=== PATIENT | male | born 1930 | race Caucasian/White ===

== ENCOUNTER 2016-09-03 23:34 | Emergency (ER) | payer OTHER ==
[~2016-09-03] VITALS: Ht 167.6 cm; Wt 107.0 kg
[~2016-09-03 23:34] MED LIST: ALL100 PO; ASPEC81 PO; CALC0.2510 PO; CEPH500C2 PO; CMD4 PO; FLM4 PO; FRS/40 PO; FURO-85 PO; LEVAAER2; LISI-729 PO; POTA-327 PO; SIMV40TA2 PO
[2016-09-03 23:40] VITALS: TEMP 36.6; Ht 167.6 cm; Wt 107.0 kg
--- NOTE | 2016-09-03 23:58 | EMERGENCY ROOM VISIT NOTE ---
History Report prepared by Noemi: Aman Pantoja Under the Supervision of: Dr. Kaylene Parr M.D. First contact with patient: 23:45 Chief Complaint: HEMATURIA Stated Complaint: Hematuria Nursing Triage Summary: Pt presents als for evaluation of hematuria x 1 day. C/o pain with urination. Hx of afib on coumadin. History of Present Illness The patient is an 86 year old male who presents to the Emergency Room with complaints of persistent hematuria since yesterday. The patient has been urinating bright-red blood. The patient also complains of pain with urination. He has experienced hematuria in the past but never to this degree. He has followed up with Urology before. He is on Coumadin for a history of atrial fibrillation. Source of History: patient Onset: yesterday Position: other (urinary system) Quality: other (hematuria) Timing: other (persistent) Associated Symptoms: + urinary symptoms (Dysuria) Review of Systems See HPI for pertinent positives & negatives. A total of 10 systems reviewed and were otherwise negative. Past Medical & Surgical Medical Problems: (1) Arthritis of ankle, right (2) Atrial fibrillation Family History Noncontributory due to advanced age Social History Smoking Status: Never Smoker Alcohol Use: none Marital Status: Housing Status: lives with significant other Occupation Status: retired Current/Historical Medications Scheduled Allopurinol (Zyloprim *), 100 MG PO DAILY Aspirin Enteric Coated (Ecotrin Or Generic *), 81 MG PO DAILY Calcitriol (Rocaltrol Cap), 0.25 MCG PO DAILY Cephalexin Monohydrate (Keflex), 500 MG PO QID Cephalexin Monohydrate (Keflex), 500 MG PO QID Furosemide (Lasix), 80 MG PO DAILY Furosemide (Lasix), 20 MG PO Q2D Latanoprost (Xalatan 0.005% Oph [place]), 1 DROP OPL DAILY Levalbuterol (Xopenex Hfa), 1 PUFF Q4 Lisinopril (Prinivil), 5 MG PO DAILY Potassium Ext Rel (Klor-Con), 10 MEQ PO DAILY Simvastatin (Zocor), 40 MG PO QPM Tamsulosin Hcl (Flomax *), 0.4 MG PO QAM Warfarin Sod (Coumadin *), 4 MG PO DAILY Allergies Coded Allergies: No Known Allergies (Verified , 12/27/11) Physical Exam Vital Signs Date Time Temp Pulse Resp B/P Pulse Ox O2 Delivery O2 Flow Rate FiO2 09/03/16 23:40 36.6 80 18 183/100 99 Room Air Physical Exam CONSTITUTIONAL: No distress. HEENT: No icterus, moist mucous membranes NECK: No meningismus, trachea is midline. CARDIOVASCULAR: Regular rate, normal perfusion RESPIRATORY: Unlabored breathing. Clear to auscultation. GASTROINTESTINAL: Non-tender GENITOURINARY: No flank tenderness. No suprapubic tenderness. Gross hematuria. MUSCULOSKELETAL: Full range of motion NEUROLOGIC: No acute gross focal deficits. PSYCHIATRIC: Normal affect SKIN: Normal for ethnicity. Medical Decision & Procedures Laboratory Results 09/03/16 23:17 Red Blood Count 4.01, Mean Corpuscular Volume 93.3, Mean Corpuscular Hemoglobin 32.2, Mean Corpuscular Hemoglobin Concent 34.5, Mean Platelet Volume 10.7, Neutrophils (%) (Auto) 52.1, Lymphocytes (%) (Auto) 32.1, Monocytes (%) (Auto) 12.8, Eosinophils (%) (Auto) 2.5, Basophils (%) (Auto) 0.2, Neutrophils # (Auto ) 5.41, Lymphocytes # (Auto) 3.33, Monocytes # (Auto) 1.33, Eosinophils # (Auto ) 0.26, Basophils # (Auto) 0.02 09/03/16 23:17 Test 09/03/16 23:17 09/03/16 23:58 09/04/16 00:05 White Blood Count 10.38 K/uL (4.8-10.8) Red Blood Count 4.01 M/uL (4.7-6.1) Hemoglobin 12.9 g/dL (14.0-18.0) Hematocrit 37.4 % (42-52) Mean Corpuscular Volume 93.3 fL (80-100) Mean Corpuscular Hemoglobin 32.2 pg (25-34) Mean Corpuscular Hemoglobin Concent 34.5 g/dl (32-36) Platelet Count 283 K/uL (130-400) Mean Platelet Volume 10.7 fL (7.4-10.4) Neutrophils (%) (Auto) 52.1 % Lymphocytes (%) (Auto) 32.1 % Monocytes (%) (Auto) 12.8 % Eosinophils (%) (Auto) 2.5 % Basophils (%) (Auto) 0.2 % Neutrophils # (Auto) 5.41 K/uL (1.4-6.5) Lymphocytes # (Auto) 3.33 K/uL (1.2-3.4) Monocytes # (Auto) 1.33 K/uL (0.11-0.59) Eosinophils # (Auto) 0.26 K/uL (0-0.5) Basophils # (Auto) 0.02 K/uL (0-0.2) RDW Standard Deviation 51.1 fL (36.4-46.3) RDW Coefficient of Variation 15.2 % (11.5-14.5) Immature Granulocyte % (Auto) 0.3 % Immature Granulocyte # (Auto) 0.03 K/uL (0.00-0.02) Anion Gap 10.0 mmol/L (3-11) Est Creatinine Clear Calc Drug Dose 34.4 ml/min Estimated GFR () 38.9 Estimated GFR (Non- 33.6 BUN/Creatinine Ratio 22.0 (10-20) Calcium Level 8.5 mg/dl (8.5-10.1) Bedside Prothrombin Time INR 2.5 (0.9-1.1) Labs reviewed by ED physician. ED Course 2350: Past medical records reviewed. The patient was evaluated in room B9. A complete history and physical examination was performed. 0000: Keflex 500 mg PO home pack. 0025: Reevaluated the patient. Explained everything to him. He verbalized understanding of the treatment plan. The patient is ready for discharge. Medical Decision Differential diagnosis: UTI, kidney stone, bladder tumor. 86-year-old history of hematuria on Coumadin presents to the emergency room with family for evaluation of gross hematuria tonight with running flank pain nor abdominal pain. Full he was placed by RN without complication and irrigation was performed. Patient started on Keflex and family at bedside confirms they consist with follow-up with urology. INR 2.5 platelets normal. Impression Primary Impression: Hematuria Scribe Attestation The scribe's documentation has been prepared under my direction and personally reviewed by me in its entirety. I confirm that the note above accurately reflects all work, treatment, procedures, and medical decision making performed by me. Departure Information Dispostion Home / Self-Care Prescriptions Cephalexin Monohydrate (Keflex) 500 Mg Cap 500 MG PO QID, #20 CAP Prov: Kaylene Parr MD 09/04/16 Referrals Carlin Dempsey D.O. Pulmonary (PCP) Forms HOME CARE DOCUMENTATION FORM, IMPORTANT VISIT INFORMATION, WORK / SCHOOL INSTRUCTIONS Patient Instructions A Signature Page, ED Hematuria, My [facility]
[2016-09-04] MEDS ORDERED: CEPHALEXIN 500MG HOME PACK 1 EA BTL PO ONE
[2016-09-04 00:04] LABS: BASO % 0.2 %; BASO ABS # 0.02 K/uL (0-0.2); COMPLETE YES; EOS % 2.5 %; HEMATOCRIT 37.4 % (42-52); IG% 0.3 %; LYMPH % 32.1 %; LYMPH ABS # 3.33 K/uL (1.2-3.4); MEAN CELL VOLUME 93.3 fL (80-100); MEAN CORPUSCULAR HEMOGLOBIN 32.2 pg (25-34); MEAN CORPUSCULAR HGB CONC 34.5 g/dl (32-36); MEAN PLATELET VOLUME 10.7 fL (7.4-10.4); MONO % 12.8 %; NEUT % 52.1 %; PLATELET COUNT 283 K/uL (130-400); RED BLOOD COUNT 4.01 M/uL (4.7-6.1); WHITE BLOOD COUNT 10.38 K/uL (4.8-10.8)
[2016-09-04] MEDS ORDERED: CEPH500C PO (00:24)
[2016-09-04 00:27] LABS: BLOOD UREA NITROGEN 40 mg/dl (7-18); CALCIUM 8.5 mg/dl (8.5-10.1); CARBON DIOXIDE 26 mmol/L (21-32); CHLORIDE 109 mmol/L (98-107); GLUCOSE 111 mg/dl (70-99); SODIUM 145 mmol/L (136-145)
[2016-09-04 00:29] LABS: MANUAL MICROSCOPIC REQUIRED? YES; URINE APPEARANCE CLOUDY (CLEAR); URINE BILIRUBIN NEG (NEG); URINE COLOR RED; URINE NITRITE NEG (NEG); UROBILINOGEN NEG (NEG)
[2016-09-04 00:31] LABS: REVIEW REQ? NO
[2016-09-04 00:36] LABS: URINE RBC >30 /hpf (0-4)
[2016-09-04 00:39] LABS: URINE BACTERIA NEG (NEG)
[2016-09-04 00:41] LABS: ZZUR CULT IF INDIC CLEAN CATCH NO
[2016-09-04 01:53] VITALS: BP 156/87; PULSE 71; O2SAT 98
[2016-09-04] MEDS ORDERED: LATA0.009 OPL (11:44)
[2016-09-04] MEDS ORDERED: LSN5 PO (16:53)
[2016-09-04] MEDS ORDERED: POTA10TA30 PO (16:53)
[2016-09-04] MEDS ORDERED: ALL100 PO (16:53)
[2016-09-04] MEDS ORDERED: CMD/3 PO (16:53)
[2016-09-04] MEDS ORDERED: VTMD PO (16:53)
[2016-09-04] MEDS ORDERED: ZCR40 PO (16:53)
[2016-09-04] MEDS ORDERED: FLM4 PO (16:53)
[2016-09-04] MEDS ORDERED: ASPI81TA28 PO (16:53)
[2016-09-04] MEDS ORDERED: LSX80 PO (16:53)
[2016-09-20] MEDS ORDERED: DXM4 PO (16:48)
== END 2016-09-04 01:54 | disposition home or self-care (01) ==
LOC: EDBD 23:34 → C.EDB 23:37
DX: R31.9 Hematuria, unspecified (principal); I48.91 Unspecified atrial fibrillation; Z79.01 Long term (current) use of anticoagulants; Z79.82 Long term (current) use of aspirin; Z79.899 Other long term (current) drug therapy

== ENCOUNTER 2016-09-04 14:11 | Emergency (ER) | payer OTHER ==
[~2016-09-04] VITALS: Ht 167.6 cm; Wt 105.0 kg
[~2016-09-04 14:11] MED LIST changes: +CEPH500C PO; +LATA0.009 OPL
[2016-09-04 14:13] VITALS: TEMP 37; Ht 167.6 cm; Wt 105.0 kg
--- NOTE | 2016-09-04 16:25 | EMERGENCY ROOM VISIT NOTE ---
History Report prepared by Noemi: Keily Castaneda Under the Supervision of: Dr. Ankita Reyes M.D. First contact with patient: 16:08 Chief Complaint: URINARY SYMPTOMS Stated Complaint: BLOOD IN URINE Nursing Triage Summary: pt c/o blood in urine started last night was seen here and discharged blood coming out around catheter History of Present Illness The patient is a 86 year old male who presents to the Emergency Room with complaints of constant urinary symptoms beginning last night. The patient states that he was seen here in the ED last night for blood in urine. He notes that he was put on Keflex and had a catheter placed. Today he reports that he is feeling pressure. The patient notes associated blood coming out around the catheter and blood clots coming out. Source of History: patient Onset: last night Position: other (urinary) Quality: pressure Timing: constant Note: The patient notes associated blood coming out around the catheter and blood clots coming out. Review of Systems See HPI for pertinent positives & negatives. A total of 10 systems reviewed and were otherwise negative. Past Medical & Surgical Medical Problems: (1) Arthritis of ankle, right (2) Atrial fibrillation Family History Noncontributory due to advanced age Social History Smoking Status: Never Smoker Alcohol Use: none Marital Status: Housing Status: lives with significant other Occupation Status: retired Current/Historical Medications Scheduled Allopurinol (Allopurinol), 100 MG PO DAILY Aspirin (Aspirin Ec), 81 MG PO DAILY Ergocalciferol (Vitamin D), 1 PO MONTHLY Furosemide (Furosemide), 80 MG PO DAILY Latanoprost (Xalatan 0.005% Oph [place]), 1 DROP OPL DAILY Lisinopril (Lisinopril), 5 MG PO DAILY Potassium Chloride (Potassium Chloride Cr), 10 MEQ PO DAILY Simvastatin (Simvastatin), 40 MG PO QPM Tamsulosin HCl (Tamsulosin HCl), 0.4 MG PO DAILY Warfarin Sod (Warfarin Sodium), 3 MG PO UD Allergies Coded Allergies: No Known Allergies (Verified , 12/27/11) Physical Exam Vital Signs Date Time Temp Pulse Resp B/P Pulse Ox O2 Delivery O2 Flow Rate FiO2 09/04/16 19:15 84 18 139/74 96 Room Air 09/04/16 18:32 69 09/04/16 16:49 78 18 149/75 98 Room Air 09/04/16 14:13 37.0 91 18 120/74 96 Room Air Physical Exam Vital signs reviewed. General: Well-appearing elderly male, in no significant distress. HEENT: No scleral icterus, PERRLA, neck supple. Atraumatic. Cardiovascular: Regular rate and rhythm, no extra sounds. Pulmonary: Clear to auscultation bilaterally, normal work of breathing. Abdomen: Obese, soft, nondistended, positive bowel sounds, some discomfort with palpation suprapubic. Musculoskeletal: Atraumatic, no peripheral edema. Neurologic: Patient awake alert and oriented x 3 Skin: Warm, dry, no rash : Circumcised, male genitals with catheter in place, small amount of grossly bloody urine with small clots in the bag, not actively draining. Medical Decision & Procedures ER Provider Diagnostic Interpretation: US results as stated below per my review and radiologist interpretation: RENAL ULTRASOUND FINDINGS: Right kidney: Maximum dimension 9.7 cm. No evidence for hydronephrosis Normal corticomedullary differentiation and cortical thickness. Left kidney: Maximum dimension 10.7 cm. No evidence for hydronephrosis. Small lower pole cyst Normal corticomedullary differentiation and cortical thickness. Bladder: No bladder wall thickening. The bilateral ureteral jets were identified. IMPRESSION: Small lower pole left renal cyst. Otherwise negative study. No evidence for hydronephrosis. Electronically signed by: Vinay Hung M.D. 09/04/2016 5:53 PM Laboratory Results 09/04/16 16:44 Red Blood Count 3.94, Mean Corpuscular Volume 91.9, Mean Corpuscular Hemoglobin 31.7, Mean Corpuscular Hemoglobin Concent 34.5, Mean Platelet Volume 10.4, Neutrophils (%) (Auto) 66.3, Lymphocytes (%) (Auto) 23.1, Monocytes (%) (Auto) 9.0, Eosinophils (%) (Auto) 1.1, Basophils (%) (Auto) 0.1, Neutrophils # (Auto) 8.03, Lymphocytes # (Auto) 2.80, Monocytes # (Auto) 1.09, Eosinophils # (Auto) 0.13, Basophils # (Auto) 0.01 09/04/16 16:44 Test 09/04/16 16:44 09/04/16 18:08 White Blood Count 12.11 K/uL (4.8-10.8) Red Blood Count 3.94 M/uL (4.7-6.1) Hemoglobin 12.5 g/dL (14.0-18.0) Hematocrit 36.2 % (42-52) Mean Corpuscular Volume 91.9 fL (80-100) Mean Corpuscular Hemoglobin 31.7 pg (25-34) Mean Corpuscular Hemoglobin Concent 34.5 g/dl (32-36) Platelet Count 278 K/uL (130-400) Mean Platelet Volume 10.4 fL (7.4-10.4) Neutrophils (%) (Auto) 66.3 % Lymphocytes (%) (Auto) 23.1 % Monocytes (%) (Auto) 9.0 % Eosinophils (%) (Auto) 1.1 % Basophils (%) (Auto) 0.1 % Neutrophils # (Auto) 8.03 K/uL (1.4-6.5) Lymphocytes # (Auto) 2.80 K/uL (1.2-3.4) Monocytes # (Auto) 1.09 K/uL (0.11-0.59) Eosinophils # (Auto) 0.13 K/uL (0-0.5) Basophils # (Auto) 0.01 K/uL (0-0.2) RDW Standard Deviation 51.4 fL (36.4-46.3) RDW Coefficient of Variation 15.2 % (11.5-14.5) Immature Granulocyte % (Auto) 0.4 % Immature Granulocyte # (Auto) 0.05 K/uL (0.00-0.02) Anion Gap 10.0 mmol/L (3-11) Est Creatinine Clear Calc Drug Dose 38.3 ml/min Estimated GFR () 44.9 Estimated GFR (Non- 38.7 BUN/Creatinine Ratio 21.9 (10-20) Calcium Level 8.9 mg/dl (8.5-10.1) Total Bilirubin 0.5 mg/dl (0.2-1) Direct Bilirubin mg/dl (0-0.2) Aspartate Amino Transf (AST/SGOT) 18 U/L (15-37) Alanine Aminotransferase (ALT/SGPT) 17 U/L (12-78) Alkaline Phosphatase 77 U/L (45-117) Total Protein 7.2 gm/dl (6.4-8.2) Albumin 3.4 gm/dl (3.4-5.0) Chemistry Specimen Hemolysis Prothrombin Time 21.5 SECONDS (9.0-12.0) Prothromb Time International Ratio 2.0 (0.9-1.1) Activated Partial Thromboplast Time 39.7 SECONDS (21.0-31.0) Partial Thromboplastin Ratio 1.5 Laboratory results per my review. ED Course 1608: Past medical records reviewed. The patient was evaluated in room A11A. A complete history and physical examination was performed. 183: I reevaluated the patient. 1903: Upon reevaluation, the patient appeared to have improvement of his symptoms. I discussed findings with the patient. He verbalized agreement of the treatment plan. The patient was discharged home. Medical Decision Differential diagnoses include bladder mass, supratherapeutic INR, UTI, prostate hemorrhage, kidney mass, kidney stone. This patient was evaluated and appeared to be in no significant distress. His examination is consistent with a catheter with minimal grossly bloody drainage. Patient has suprapubic fullness with exam. The catheter was irrigated to clear without difficulty. Ultrasound was performed and is read as above. Patient was asked to stop his Coumadin for the next several days, he is taking this medication for atrial fibrillation. He is advised to follow-up with urology this week which will be arranged through case management. He will continue his Keflex as prescribed yesterday. He will return to the ER for worsening of symptoms or any medical concerns. Impression Primary Impression: Hematuria Additional Impression: Complication of Thibodeaux catheter Scribe Attestation The scribe's documentation has been prepared under my direction and personally reviewed by me in its entirety. I confirm that the note above accurately reflects all work, treatment, procedures, and medical decision making performed by me. Departure Information Dispostion Home / Self-Care Referrals Carlin Dempsey D.O. Pulmonary (PCP) Forms HOME CARE DOCUMENTATION FORM, IMPORTANT VISIT INFORMATION Patient Instructions A Signature Page, My [facility] [place] [employer] Additional Instructions Diagnosis: Hematuria, Thibodeaux catheter complication Drink plenty of clear fluids. Case management will contact you tomorrow regarding an appointment with urology this week. Continue Keflex as prescribed. Discontinue your Coumadin for the next several days until you're seen by urology. Follow-up with your primary care physician this week. Return to the emergency department for worsening of symptoms or any medical concerns.
[2016-09-04] MEDS ORDERED: VTMD PO (16:53)
[2016-09-04] MEDS ORDERED: LSX80 PO (16:53)
[2016-09-04] MEDS ORDERED: ZCR40 PO (16:53)
[2016-09-04] MEDS ORDERED: POTA10TA30 PO (16:53)
[2016-09-04] MEDS ORDERED: FLM4 PO (16:53)
[2016-09-04] MEDS ORDERED: ALL100 PO (16:53)
[2016-09-04] MEDS ORDERED: LSN5 PO (16:53)
[2016-09-04] MEDS ORDERED: CMD/3 PO (16:53)
[2016-09-04] MEDS ORDERED: ASPI81TA28 PO (16:53)
[2016-09-04 16:58] LABS: BASO % 0.1 %; BASO ABS # 0.01 K/uL (0-0.2); COMPLETE YES; EOS % 1.1 %; HEMATOCRIT 36.2 % (42-52); IG% 0.4 %; LYMPH % 23.1 %; MEAN CELL VOLUME 91.9 fL (80-100); MEAN CORPUSCULAR HEMOGLOBIN 31.7 pg (25-34); MEAN CORPUSCULAR HGB CONC 34.5 g/dl (32-36); MEAN PLATELET VOLUME 10.4 fL (7.4-10.4); NEUT % 66.3 %; PLATELET COUNT 278 K/uL (130-400); RED BLOOD COUNT 3.94 M/uL (4.7-6.1); WHITE BLOOD COUNT 12.11 K/uL (4.8-10.8)
[2016-09-04 17:22] LABS: ALKALINE PHOSPHATASE 77 U/L (45-117); ALT/SGPT 17 U/L (12-78); AST/SGOT 18 U/L (15-37); BLOOD UREA NITROGEN 35 mg/dl (7-18); BUN/CREATININE RATIO 21.9 (10-20); CALCIUM 8.9 mg/dl (8.5-10.1); CARBON DIOXIDE 25 mmol/L (21-32); CHLORIDE 108 mmol/L (98-107); GLUCOSE 94 mg/dl (70-99); POTASSIUM 4.1 mmol/L (3.5-5.1); SODIUM 143 mmol/L (136-145)
--- NOTE | 2016-09-04 17:55 | DIAGNOSTIC IMAGING REPORT ---
RENAL ULTRASOUND HISTORY: Hematuria hematuria COMPARISON: None. FINDINGS: Right kidney: Maximum dimension 9.7 cm. No evidence for hydronephrosis Normal corticomedullary differentiation and cortical thickness. Left kidney: Maximum dimension 10.7 cm. No evidence for hydronephrosis. Small lower pole cyst Normal corticomedullary differentiation and cortical thickness. Bladder: No bladder wall thickening. The bilateral ureteral jets were identified. IMPRESSION: Small lower pole left renal cyst. Otherwise negative study. No evidence for hydronephrosis. Electronically signed by: Vinay Hung M.D. 09/04/2016 5:53 PM
[2016-09-04 18:25] LABS: PARTIAL THROMBOPLASTIN RATIO 1.5; PROTHROMBIN TIME (PATIENT) 21.5 SECONDS (9.0-12.0)
[2016-09-04 19:15] VITALS: BP 139/74; PULSE 84; O2SAT 96
[2016-09-20] MEDS ORDERED: DXM4 PO (16:48)
== END 2016-09-04 19:39 | disposition home or self-care (01) ==
LOC: C.EDB 14:12 → C.EDA 19:39
DX: T83.83XA Hemorrhage due to genitourinary prosthetic devices, implants and grafts, initial encounter (principal); R31.9 Hematuria, unspecified; I48.91 Unspecified atrial fibrillation; Z79.01 Long term (current) use of anticoagulants; Z79.82 Long term (current) use of aspirin; Z79.899 Other long term (current) drug therapy; Y83.1 Surgical operation with implant of artificial internal device as the cause of abnormal reaction of the patient, or of later complication, without mention of misadventure at the time of the procedure

== ENCOUNTER → 2016-09-06 | Outpatient (CLI) | payer OTHER ==
[~2016-09-06] MED LIST changes: -ASPEC81 PO; +ASPI81TA28 PO; -CALC0.2510 PO; -CEPH500C PO; -CEPH500C2 PO; +CMD/3 PO; -CMD4 PO; +CYAN10005 PO; +DXM4 PO; -FRS/40 PO; -FURO-85 PO; +KFL/250 PO; +LATA0.5S OPL; -LEVAAER2; -LISI-729 PO; +LSN5 PO; +LSX80 PO; -POTA-327 PO; +POTA10TA30 PO; +PRS5 PO; -SIMV40TA2 PO; +VTMD PO; +WARF2TAB PO; +ZCR40 PO
== END | disposition home or self-care (01) ==
LOC: C.LABSPEC 17:04 → C.PATHSPEC 17:15
PROVIDERS: ATTEND Nurse Practitioner Adult Health
DX: R31.0 Gross hematuria (principal)

== ENCOUNTER 2016-09-11 11:18 | Inpatient (IN) | payer OTHER ==
[~2016-09-11] VITALS: Ht 167.6 cm; Wt 105.9 kg
[~2016-09-11 11:18] MED LIST changes: -CYAN10005 PO; -DXM4 PO; -KFL/250 PO; -LATA0.5S OPL; -PRS5 PO; -WARF2TAB PO
--- NOTE | 2016-09-11 11:31 | EMERGENCY ROOM VISIT NOTE ---
History Report prepared by Noemi: Adwoa Joseph Under the Supervision of: Dr. Pipe Saunders M.D. First contact with patient: 11:20 Chief Complaint: WEAKNESS Stated Complaint: WEAKNESS/ UNABLE TO AMBULATE History of Present Illness The patient is an 86 year old male who presents to the Emergency Room with complaints of persistent generalized weakness that began prior to arrival. The patient states that he was recently in the emergency department for hematuria. He states that he was able to go home. The patient states that he lives at home. He states that today he experienced generalized weakness, noting difficulty ambulating. The patient denies any shortness of breath. He states that he was supposed to have a CT scan today. The patient states that he was previously on blood thinners, but states that he was taken off when he presented with hematuria. He states that he recently has been developing a cold , noting a cough and runny nose. Source of History: patient Onset: prior to arrival Position: other (global) Quality: other (generalized weakness) Timing: other (persistent) Associated Symptoms: + cough, + urinary symptoms (hematuria) Note: Associated Symptoms: difficulty ambulating, runny nose Review of Systems See HPI for pertinent positives & negatives. A total of 10 systems reviewed and were otherwise negative. Past Medical & Surgical Medical Problems: (1) Arthritis of ankle, right (2) Atrial fibrillation Family History Noncontributory due to advanced age Social History Smoking Status: Never Smoker Alcohol Use: none Marital Status: Housing Status: lives with significant other Occupation Status: retired Current/Historical Medications Scheduled Allopurinol (Allopurinol), 100 MG PO DAILY Ergocalciferol (Vitamin D), 1 PO MONTHLY Furosemide (Furosemide), 80 MG PO DAILY Latanoprost (Xalatan 0.005% Oph Katy), 1 DROP OPL DAILY Lisinopril (Lisinopril), 5 MG PO DAILY Potassium Chloride (Potassium Chloride Cr), 10 MEQ PO DAILY Simvastatin (Simvastatin), 40 MG PO QPM Tamsulosin HCl (Tamsulosin HCl), 0.4 MG PO DAILY Allergies Coded Allergies: No Known Allergies (Verified , 09/11/16) Physical Exam Vital Signs Date Time Temp Pulse Resp B/P Pulse Ox O2 Delivery O2 Flow Rate FiO2 09/11/16 14:22 78 18 129/63 97 Room Air 09/11/16 13:00 72 121/71 68 131/70 09/11/16 12:27 72 09/11/16 11:44 95 Room Air 09/11/16 11:44 95 Room Air 09/11/16 11:25 88 09/11/16 11:23 85 20 147/83 95 Room Air Physical Exam GENERAL: Patient is a healthy-appearing well-nourished HEAD: Normocephalic atraumatic EYES: Ocular movements intact pupils equal and react to light OROPHARYNX mucous membranes are moist no exudates present no erythema or edema present NECK: Supple no nuchal rigidity CHEST: Good equal expansion LUNGS: Clear and equal to auscultation CARDIAC: Normal S1 and S2 ABDOMEN: Soft nontender no guarding BACK: No CVA tenderness EXTREMITIES: No pain upon palpation normal muscle strength in all groups no clubbing cyanosis or edema NEURO: Patient is following commands is answering questions appropriately. Alert and oriented x3 Cranial Nerves 2-12 grossly intact Medical Decision & Procedures ER Provider Diagnostic Interpretation: X-ray results as stated below per my interpretation and radiologist interpretation. Other radiology results as stated below per my review and radiologist interpretation: CT OF THE HEAD WITHOUT CONTRAST CLINICAL HISTORY: Altered mental status. COMPARISON STUDY: Head CT May 10, 2012. CT DOSE: 614.27 mGy.cm TECHNIQUE: Helical axial images of the head were obtained without IV contrast. Automated exposure control was utilized for the study. FINDINGS: No acute intracranial hemorrhage, midline shift or mass effect is present. Ventricular system is stable. The basilar cisterns are patent. There are no extra-axial collections. White matter hypodensity suggests small vessel disease. There are no findings to suggest acute dural sinus thrombosis or acute territorial infarct. Postsurgical findings within the left mastoid air cells are noted. No suspicious calvarial lesions are identified. The left mastoid air cells are partially opacified. This is similar to prior exam. There is no calvarial fracture. IMPRESSION: No acute intracranial findings. Electronically signed by: Adrian Cruz M.D. 09/11/2016 12:24 PM Dictated Date/Time: 09/11/2016 12:13 PM CHEST ONE VIEW PORTABLE CLINICAL HISTORY: Weakness. COMPARISON STUDY: Chest radiograph April 09, 2015. FINDINGS: There are median sternotomy wires and clips from bypass grafting. No pneumothorax is present. No pleural effusion is identified. Interstitial thickening and bilateral perihilar opacities are present. Left hemithorax volume loss with post surgical findings within the left lung are again noted. Obscuration of left heart border is unchanged. IMPRESSION: 1. Interstitial thickening with perihilar opacities. The findings could reflect pulmonary edema or an infectious process although are exaggerated on this hypoventilatory study. Radiographic follow up is recommended. 2. Postsurgical findings with the left hemithorax, as described above. Electronically signed by: Adrian Cruz M.D. 09/11/2016 11:49 AM Dictated Date/Time: 09/11/2016 11:[address] ABD/PELVIS IV CONTRAST ONLY CLINICAL HISTORY: Hematuria COMPARISON STUDY: 08/14/2011 TECHNIQUE: Following the IV administration of 119 mL of Optiray-320, CT scan of the abdomen and pelvis was performed from the lung bases to the proximal femurs. Images are reviewed in the axial, sagittal, and coronal planes. IV contrast was administered without complication. CT DOSE: 1533.74 mGy.cm FINDINGS: Lower chest: The heart is enlarged. There are coronary artery calcifications present. Liver: The contrast-enhanced liver is normal in size, contour, and attenuation. There is no intrahepatic biliary ductal dilatation. The hepatic veins and portal veins are patent. Gallbladder: The gallbladder is mildly distended. There are dependent soft tissue opacities likely representing noncalcified gallstones. Spleen: Normal in size and attenuation. Pancreas: Unremarkable. Adrenal glands: Unremarkable. Kidneys: There is a 14 mm left renal cyst. There is an 8 mm lower pole left renal cyst. There is no hydronephrosis. Bowel: There are no transition zones indicate bowel obstruction. By history the appendix is absent. There is no acute diverticulitis. Peritoneum: There is no free air. There is no ascites. There is a tiny fat-containing umbilical hernia. There are bilateral fat-containing inguinal hernias versus lipomatous inguinal canals Vasculature: The abdominal aorta is normal in course and caliber. Adenopathy: None. Pelvic viscera: There is an indwelling Thibodeaux catheter. The prostate is enlarged measuring 6.5 cm transversely. Skeletal structures: No destructive osseous lesions are seen. IMPRESSION: 1. Cholelithiasis and mild gallbladder distention 2. Left renal cysts. No solid renal masses identified 3. Prostatic enlargement Electronically signed by: Siddharth Pabon M.D. 09/11/2016 12:18 PM Dictated Date/Time: 09/11/2016 12:13 PM Laboratory Results 09/11/16 11:40 Red Blood Count 3.69, Mean Corpuscular Volume 93.8, Mean Corpuscular Hemoglobin 32.0, Mean Corpuscular Hemoglobin Concent 34.1, Mean Platelet Volume 10.5, Neutrophils (%) (Auto) 73.6, Lymphocytes (%) (Auto) 10.5, Monocytes (%) (Auto) 15.2, Eosinophils (%) (Auto) 0.2, Basophils (%) (Auto) 0.1, Neutrophils # (Auto ) 10.06, Lymphocytes # (Auto) 1.43, Monocytes # (Auto) 2.08, Eosinophils # (Auto ) 0.03, Basophils # (Auto) 0.02 09/11/16 11:40 Test 09/11/16 11:40 09/11/16 11:42 09/11/16 11:50 09/11/16 11:53 White Blood Count 13.68 K/uL (4.8-10.8) Red Blood Count 3.69 M/uL (4.7-6.1) Hemoglobin 11.8 g/dL (14.0-18.0) Hematocrit 34.6 % (42-52) Mean Corpuscular Volume 93.8 fL (80-100) Mean Corpuscular Hemoglobin 32.0 pg (25-34) Mean Corpuscular Hemoglobin Concent 34.1 g/dl (32-36) Platelet Count 295 K/uL (130-400) Mean Platelet Volume 10.5 fL (7.4-10.4) Neutrophils (%) (Auto) 73.6 % Lymphocytes (%) (Auto) 10.5 % Monocytes (%) (Auto) 15.2 % Eosinophils (%) (Auto) 0.2 % Basophils (%) (Auto) 0.1 % Neutrophils # (Auto) 10.06 K/uL (1.4-6.5) Lymphocytes # (Auto) 1.43 K/uL (1.2-3.4) Monocytes # (Auto) 2.08 K/uL (0.11-0.59) Eosinophils # (Auto) 0.03 K/uL (0-0.5) Basophils # (Auto) 0.02 K/uL (0-0.2) RDW Standard Deviation 51.8 fL (36.4-46.3) RDW Coefficient of Variation 15.3 % (11.5-14.5) Immature Granulocyte % (Auto) 0.4 % Immature Granulocyte # (Auto) 0.06 K/uL (0.00-0.02) Est Creatinine Clear Calc Drug Dose 1.4 ml/min Estimated GFR () 38.9 Estimated GFR (Non- 33.6 BUN/Creatinine Ratio 20.7 (10-20) Calcium Level 9.0 mg/dl (8.5-10.1) Total Bilirubin 0.8 mg/dl (0.2-1) Direct Bilirubin 0.2 mg/dl (0-0.2) Aspartate Amino Transf (AST/SGOT) 14 U/L (15-37) Alanine Aminotransferase (ALT/SGPT) 16 U/L (12-78) Alkaline Phosphatase 68 U/L (45-117) Total Creatine Kinase 27 U/L (39-308) Creatine Kinase MB < 0.5 ng/ml (0.5-3.6) Creatine Kinase MB Ratio (0-3.0) Troponin I < 0.015 ng/ml (0-0.045) Pro-B-Type Natriuretic Peptide 2706 pg/ml (0-1800) Total Protein 7.2 gm/dl (6.4-8.2) Albumin 3.2 gm/dl (3.4-5.0) Thyroid Stimulating Hormone (TSH) 1.510 uIu/ml (0.300-4.500) Bedside Hemoglobin 12.2 g/dl (14.0-18.0) Bedside Hematocrit 36 % (42-52) Bedside Sodium 143 mEq/L (135-144) Bedside Potassium 3.7 mEq/L (3.3-5.0) Bedside Chloride 100 mEq/L (101-112) Bedside Total CO2 23 mEq/l (24-31) Anion Gap 24.0 mmol/L (16-25) Bedside Blood Urea Nitrogen 35 mg/dl (7-18) Bedside Creatinine 1.6 mg/dl (0.6-1.3) Bedside Glucose (other) 144 mg/dl (70-99) Bedside Ionized Calcium (Kalani) 1.17 mmol/l (1.12-1.32) Bedside Glucose 148 mg/dl (70-99) Test 09/11/16 12:29 Urine Color YELLOW Urine Appearance CLEAR (CLEAR) Urine pH 5.5 (4.5-7.5) Urine Specific Jackson 1.013 (1.000-1.030) Urine Protein NEG (NEG) Urine Glucose (UA) NEG (NEG) Urine Ketones NEG (NEG) Urine Occult Blood 1+ (NEG) Urine Nitrite NEG (NEG) Urine Bilirubin NEG (NEG) Urine Urobilinogen NEG (NEG) Urine Leukocyte Esterase NEG (NEG) Urine WBC (Auto) 0 /hpf (0-5) Urine RBC (Auto) 0-4 /hpf (0-4) Urine Hyaline Casts (Auto) 0 /lpf (0-5) Urine Epithelial Cells (Auto) 0-5 /lpf (0-5) Urine Bacteria (Auto) NEG (NEG) Labs reviewed by ED physician. Medications Administered Medications (Trade) Dose Ordered Sig/Aaron Route Start Time Stop Time Status Last Admin Dose Admin Piperacillin Sod/ Tazobactam Sod 4.5 gm 4.5 gm NOW STAT IV 09/11/16 12:32 09/11/16 12:35 DC 09/11/16 14:20 4.5 GM Sodium Chloride (Nss 500ml) 500 ml @ 999 mls/hr Q31M STAT IV 09/11/16 12:32 09/11/16 13:02 DC 09/11/16 14:20 999 MLS/HR ECG Indication: weakness Rate (beats per minute): 68 Rhythm: atrial fibrillation Findings: no acute ischemic change, other (old possible inferior and anterior infarcts.) ED Course 1121: Past medical records reviewed. The patient was evaluated in room C9. A complete history and physical examination was performed. 1232: Ordered Sodium Chloride 500 ml @ 999 mls/hr IV, Vancomycin HCl 1 gm IV, Zosyn IV 4.5 gm IV. 1245: Ordered Levofloxacin 500 mg IV. 1247: I discussed the patients case with Dr. Monique [facility] [place]. He is going to evaluate the patient for further treatment. 1250: I reevaluated the patient and he is resting comfortably. I discussed the exam findings with him and I discussed the treatment plan. He verbalized complete understanding and agreement. He is going to be evaluated for further treatment. Medical Decision Differential diagnosis: Etiologies such as metabolic, infection, hypo/hyperglycemia, electrolyte abnormalities, cardiac sources, intracerebral event, toxicologic, neurologic, as well as others were entertained. This is an 86-year-old male who presents emergency department complaining of generalized weakness. The patient has been having respiratory issues for the past several days. He does appear to have pneumonia on his chest x-ray does have an elevation in his white blood count. I believe based on these findings at the patient can be admitted. I did discuss the case with the hospitalist service who agreed to admit the patient. Patient was in agreement with the treatment plan. Consults Time Called: 1242 Consulting Physician: HÉCTOR Meyers Returned Call: [phone] I discussed the patients case with HÉCTOR Meyers. He is going to evaluate the patient for further treatment. Impression Primary Impression: Weakness Additional Impression: Pneumonia Scribe Attestation The scribe's documentation has been prepared under my direction and personally reviewed by me in its entirety. I confirm that the note above accurately reflects all work, treatment, procedures, and medical decision making performed by me. Departure Information Dispostion Being Evaluated By Hospitalist Referrals Carlin Dempsey D.O. Pulmonary (PCP)
[2016-09-11] MEDS ORDERED: OPTIRAY 320 IV PRN (11:45)
--- NOTE | 2016-09-11 11:51 | DIAGNOSTIC IMAGING REPORT ---
CHEST ONE VIEW PORTABLE CLINICAL HISTORY: Weakness. COMPARISON STUDY: Chest radiograph April 09, 2015. FINDINGS: There are median sternotomy wires and clips from bypass grafting. No pneumothorax is present. No pleural effusion is identified. Interstitial thickening and bilateral perihilar opacities are present. Left hemithorax volume loss with post surgical findings within the left lung are again noted. Obscuration of left heart border is unchanged. IMPRESSION: 1. Interstitial thickening with perihilar opacities. The findings could reflect pulmonary edema or an infectious process although are exaggerated on this hypoventilatory study. Radiographic follow up is recommended. 2. Postsurgical findings with the left hemithorax, as described above. Electronically signed by: Adrian Cruz M.D. 09/11/2016 11:49 AM Dictated Date/Time: 09/11/2016 11:47 AM
[2016-09-11 11:54] LABS: ISTAT CREATININE 1.6 mg/dl (0.6-1.3); ISTAT HEMOGLOBIN 12.2 g/dl (14.0-18.0); ISTAT IONIZED CALCIUM 1.17 mmol/l (1.12-1.32)
[2016-09-11 12:08] LABS: BASO % 0.1 %; BASO ABS # 0.02 K/uL (0-0.2); COMPLETE YES; EOS % 0.2 %; HEMATOCRIT 34.6 % (42-52); IG% 0.4 %; LYMPH % 10.5 %; LYMPH ABS # 1.43 K/uL (1.2-3.4); MEAN CELL VOLUME 93.8 fL (80-100); MEAN CORPUSCULAR HGB CONC 34.1 g/dl (32-36); MEAN PLATELET VOLUME 10.5 fL (7.4-10.4); MONO % 15.2 %; NEUT % 73.6 %; PLATELET COUNT 295 K/uL (130-400); RED BLOOD COUNT 3.69 M/uL (4.7-6.1); WHITE BLOOD COUNT 13.68 K/uL (4.8-10.8)
--- NOTE | 2016-09-11 12:21 | DIAGNOSTIC IMAGING REPORT ---
CT ABD/PELVIS IV CONTRAST ONLY CLINICAL HISTORY: Hematuria COMPARISON STUDY: 08/14/2011 TECHNIQUE: Following the IV administration of 119 mL of Optiray-320, CT scan of the abdomen and pelvis was performed from the lung bases to the proximal femurs. Images are reviewed in the axial, sagittal, and coronal planes. IV contrast was administered without complication. CT DOSE: 1533.74 mGy.cm FINDINGS: Lower chest: The heart is enlarged. There are coronary artery calcifications present. Liver: The contrast-enhanced liver is normal in size, contour, and attenuation. There is no intrahepatic biliary ductal dilatation. The hepatic veins and portal veins are patent. Gallbladder: The gallbladder is mildly distended. There are dependent soft tissue opacities likely representing noncalcified gallstones. Spleen: Normal in size and attenuation. Pancreas: Unremarkable. Adrenal glands: Unremarkable. Kidneys: There is a 14 mm left renal cyst. There is an 8 mm lower pole left renal cyst. There is no hydronephrosis. Bowel: There are no transition zones indicate bowel obstruction. By history the appendix is absent. There is no acute diverticulitis. Peritoneum: There is no free air. There is no ascites. There is a tiny fat-containing umbilical hernia. There are bilateral fat-containing inguinal hernias versus lipomatous inguinal canals Vasculature: The abdominal aorta is normal in course and caliber. Adenopathy: None. Pelvic viscera: There is an indwelling Thibodeaux catheter. The prostate is enlarged measuring 6.5 cm transversely. Skeletal structures: No destructive osseous lesions are seen. IMPRESSION: 1. Cholelithiasis and mild gallbladder distention 2. Left renal cysts. No solid renal masses identified 3. Prostatic enlargement Electronically signed by: Siddharth Pabon M.D. 09/11/2016 12:18 PM Dictated Date/Time: 09/11/2016 12:13 PM
--- NOTE | 2016-09-11 12:26 | DIAGNOSTIC IMAGING REPORT ---
CT OF THE HEAD WITHOUT CONTRAST CLINICAL HISTORY: Altered mental status. COMPARISON STUDY: Head CT May 10, 2012. CT DOSE: 614.27 mGy.cm TECHNIQUE: Helical axial images of the head were obtained without IV contrast. Automated exposure control was utilized for the study. FINDINGS: No acute intracranial hemorrhage, midline shift or mass effect is present. Ventricular system is stable. The basilar cisterns are patent. There are no extra-axial collections. White matter hypodensity suggests small vessel disease. There are no findings to suggest acute dural sinus thrombosis or acute territorial infarct. Postsurgical findings within the left mastoid air cells are noted. No suspicious calvarial lesions are identified. The left mastoid air cells are partially opacified. This is similar to prior exam. There is no calvarial fracture. IMPRESSION: No acute intracranial findings. Electronically signed by: Adrian Cruz M.D. 09/11/2016 12:24 PM Dictated Date/Time: 09/11/2016 12:13 PM
[2016-09-11 12:28] LABS: ALT/SGPT 16 U/L (12-78); BLOOD UREA NITROGEN 37 mg/dl (7-18); BUN/CREATININE RATIO 20.7 (10-20); CARBON DIOXIDE 26 mmol/L (21-32); CHLORIDE 105 mmol/L (98-107); GLUCOSE 136 mg/dl (70-99); POTASSIUM 3.7 mmol/L (3.5-5.1); SODIUM 142 mmol/L (136-145)
[2016-09-11] MEDS ORDERED: VANCOMYCIN 1GM/270ML NSS IV STA (12:32)
[2016-09-11] MEDS ORDERED: SODIUM CHLORIDE 0.9% 500ML 500 ML IV STA (12:32)
[2016-09-11] MEDS ORDERED: PIPERACILLIN/TAZOBACTAM 4.5 GM/100ML D5W IV STA (12:32)
[2016-09-11 12:38] LABS: ALKALINE PHOSPHATASE 68 U/L (45-117); AST/SGOT 14 U/L (15-37)
[2016-09-11] MEDS ORDERED: LEVAQUIN 500MG / 100ML D5W IV ONE (12:45)
[2016-09-11 13:23] LABS: URINE APPEARANCE CLEAR (CLEAR); URINE BILIRUBIN NEG (NEG); URINE COLOR YELLOW; URINE EPITHELIAL CELL AUTO 0-5 /lpf (0-5); URINE NITRITE NEG (NEG); URINE PH 5.5 (4.5-7.5); URINE SPECIFIC GRAVITY 1.013 (1.000-1.030); UROBILINOGEN NEG (NEG)
[2016-09-11 13:27] LABS: MANUAL MICROSCOPIC REQUIRED? NO; REVIEW REQ? NO
[2016-09-11] MEDS ORDERED: LEVOFLOXACIN / D5W 750 MG in PREMIXED IN D5W 150 ML IV STA (14:21)
[2016-09-11] MEDS ORDERED: SODIUM CHLORIDE 0.9% 1000ML 1,000 ML IV SCH (14:30)
[2016-09-11] MEDS ORDERED: MAGNESIUM HYDROXIDE SUSP 30 ML UDC PO PRN (14:30)
[2016-09-11] MEDS ORDERED: LEVOFLOXACIN / D5W 750 MG in PREMIXED IN D5W 150 ML IV SCH (14:30)
[2016-09-11] MEDS ORDERED: ONDANSETRON INJ 2 MG/ML 2 ML VIAL IV PRN (14:30)
[2016-09-11] MEDS ORDERED: ALUMINUM/MAGNESIUM/SIMETH (MAALOX MAX) 30 ML UDC PO PRN (14:30)
[2016-09-11] MEDS ORDERED: POLYETHYLENE (MIRALAX) 17 GM PACK PO PRN (14:30)
[2016-09-11] MEDS ORDERED: HydrALAZINE HCL 20 MG/ML VIAL IV. PRN (14:45)
[2016-09-11 14:47] LABS: INFLUENZA A PCR Neg for Influ A (NEG); INFLUENZA B PCR Neg for Influ B (NEG)
[2016-09-11] MEDS ORDERED: LEVOFLOXACIN CONSULT ACTIVE PRN (15:00)
[2016-09-11] MEDS ORDERED: ALBUT/IPRATROP 3MG/0.5MG NEB 3 ML VIAL INH PRN (15:15)
--- NOTE | 2016-09-11 15:16 | History and Physical ---
History & Physical Date & Time of Service: Sep 11, 2016 at 14:35 Chief Complaint: Weakness/ Unable To Ambulate Primary Care Physician: Carlin Dempsey D.O. Pulmonary History of Present Illness Source: patient, clinic records, hospital records Mr. Bennett is an 86 y/o male with PMHx of Persistent A Fib, CAD S/P CABG x 3, Diastolic CHF, LLL Pneumonectomy 2/2 Lung CA, HTN, and CKD Stage III who presents to the ED for weakness and inability to ambulate starting last night 09/10/16. States that the weakness is limited to his lower extremities bilaterally. He reports that last night he noticed some bilateral hip pain that caused shooting pain that travels down the leg into the toes. He is unable to confirm the direction of travel of this pain. He does state that this is a chronic occurrence but has not been associated with difficulty ambulating, loss bowel/ bladder, or saddle paresthesias. He does report chronic numbness/tingling/ burning of lower extremities that has not worsened. Last night he was ambulatory and went to bed. He took one Tylenol last night that help with the back and leg discomfort and went to sleep. He then woke up due to sweating and took one more Tylenol. He was able to get up this morning to use the restroom without noted difficulty but then went back to bed and was unable to get up this morning. He states that he had not energy to move. Family was unable to assist him and an ambulance was called. He also complains of a cough and nasal congestion that he reports has been improving. He denies CP, SOB, abdominal pain , N/V, constipation/diarrhea. Of note, patient was seen in ED on 09/04/16 for hematuria. He was had intermittent hematuria in the past without significant findings. Is currently followed outpatient by urology and was scheduled for CT today. He feels that the hematuria is improving but has had a Thibodeaux catheter placed since 09/04/16 that has been flushed. Hematuria has been painless. He was recently stopped on his Coumadin and ASA due to bleeding. In the ED, Head CT negative for acute intracranial process. CXR with perihilar opacity and evidence of LLL surgical changes. BNP 2706. WBC of 13.69 and H&H 11.8/34.6. EKG with A Fib. He will be admitted to Med/Surg for further evaluation and care. Past Medical/Surgical History Medical Problems: (1) Arthritis of ankle, right Status: Chronic (2) Atrial fibrillation Status: Chronic Family History Noncontributory due to advanced age Social History Smoking Status: Never Smoker Smokeless Tobacco Use: No Alcohol Use: none Drug Use: none Marital Status: Housing status: lives with family Occupational Status: retired Immunizations History of Influenza Vaccine: Yes Influenza Vaccine Date: Feb 18, 2010 History of Tetanus Vaccine?: Unknown History of Pneumococcal: Yes Pneumococcal Date: Feb 18, 2010 History of Hepatitis B Vaccine: Unknown Multi-Drug Resistant Organisms History of MDRO: No Allergies Coded Allergies: No Known Allergies (Verified , 09/11/16) Home Medications Scheduled Allopurinol (Allopurinol), 100 MG PO DAILY Ergocalciferol (Vitamin D), 1 PO MONTHLY Furosemide (Furosemide), 80 MG PO DAILY Latanoprost (Xalatan 0.005% Oph [place]), 1 DROP OPL DAILY Lisinopril (Lisinopril), 5 MG PO DAILY Potassium Chloride (Potassium Chloride Cr), 10 MEQ PO DAILY Simvastatin (Simvastatin), 40 MG PO QPM Tamsulosin HCl (Tamsulosin HCl), 0.4 MG PO DAILY Review of Systems Constitutional: + chills, + fever Eyes: No worsening of vision ENT: + nasal symptoms, No sore throat Respiratory: + cough, No dyspnea at rest, No shortness of breath Cardiovascular: No chest pain Abdomen: No constipation, No diarrhea, No nausea, No pain, No vomiting Musculoskeletal: + swelling (bilateral lower extremities ) Genitourinary - Male: + hematuria, No dysuria Neurologic: + numbness/tingling, + weakness (bilateral lower extremities) Endocrine: No fatigue Integumentary: No rash Physical Exam Vital Signs Date Time Temp Pulse Resp B/P Pulse Ox O2 Delivery O2 Flow Rate FiO2 09/11/16 14:22 78 18 129/63 97 Room Air 09/11/16 13:00 72 121/71 68 131/70 09/11/16 12:27 72 09/11/16 11:44 95 Room Air 09/11/16 11:44 95 Room Air 09/11/16 11:25 88 09/11/16 11:23 85 20 147/83 95 Room Air General Appearance: WD/WN, no apparent distress Head: normocephalic, atraumatic Eyes: PERRL, EOMI, sclerae normal ENT: hearing grossly normal Neck: supple, no JVD, trachea midline Respiratory/Chest: no respiratory distress, no accessory muscle use, + decreased breath sounds (L base > R base), + pertinent finding (unable to appreciate adventitious breath sounds) Cardiovascular: no gallop, no murmur, + irregularly irregular Abdomen/GI: normal bowel sounds, non tender, soft Back: normal inspection, no CVA tenderness Extremities/Musculoskelatal: no calf tenderness, + pedal edema (bilat), + pertinent finding (pedal pulses 2+ bilat; lower extremities warm with immediate cap refill) Neurologic/Psych: alert, oriented x 3 Skin: normal color, warm/dry Diagnostics Laboratory Results Results Past 24 Hours Test 09/11/16 11:40 09/11/16 11:42 09/11/16 11:50 09/11/16 11:53 Range/Units White Blood Count 13.68 4.8-10.8 K/uL Red Blood Count 3.69 4.7-6.1 M/uL Hemoglobin 11.8 14.0-18.0 g/dL Hematocrit 34.6 42-52 % Mean Corpuscular Volume 93.8 80-100 fL Mean Corpuscular Hemoglobin 32.0 25-34 pg Mean Corpuscular Hemoglobin Concent 34.1 32-36 g/dl Platelet Count 295 130-400 K/uL Mean Platelet Volume 10.5 7.4-10.4 fL Neutrophils (%) (Auto) 73.6 % Lymphocytes (%) (Auto) 10.5 % Monocytes (%) (Auto) 15.2 % Eosinophils (%) (Auto) 0.2 % Basophils (%) (Auto) 0.1 % Neutrophils # (Auto) 10.06 1.4-6.5 K/uL Lymphocytes # (Auto) 1.43 1.2-3.4 K/uL Monocytes # (Auto) 2.08 0.11-0.59 K/uL Eosinophils # (Auto) 0.03 0-0.5 K/uL Basophils # (Auto) 0.02 0-0.2 K/uL RDW Standard Deviation 51.8 36.4-46.3 fL RDW Coefficient of Variation 15.3 11.5-14.5 % Immature Granulocyte % (Auto) 0.4 % Immature Granulocyte # (Auto) 0.06 0.00-0.02 K/uL Sodium Level 142 136-145 mmol/L Potassium Level 3.7 3.5-5.1 mmol/L Chloride Level 105 98-107 mmol/L Carbon Dioxide Level 26 21-32 mmol/L Anion Gap 11.0 24.0 16-25 mmol/L Blood Urea Nitrogen 37 7-18 mg/dl Creatinine 1.80 0.60-1.40 mg/dl Est Creatinine Clear Calc Drug Dose 1.4 ml/min Estimated GFR () 38.9 Estimated GFR (Non- 33.6 BUN/Creatinine Ratio 20.7 10-20 Random Glucose 136 70-99 mg/dl Calcium Level 9.0 8.5-10.1 mg/dl Total Bilirubin 0.8 0.2-1 mg/dl Direct Bilirubin 0.2 0-0.2 mg/dl Aspartate Amino Transf (AST/SGOT) 14 15-37 U/L Alanine Aminotransferase (ALT/SGPT) 16 12-78 U/L Alkaline Phosphatase 68 45-117 U/L Total Creatine Kinase 27 39-308 U/L Creatine Kinase MB < 0.5 0.5-3.6 ng/ml Creatine Kinase MB Ratio 0-3.0 Troponin I < 0.015 0-0.045 ng/ml Pro-B-Type Natriuretic Peptide 2706 0-1800 pg/ml Total Protein 7.2 6.4-8.2 gm/dl Albumin 3.2 3.4-5.0 gm/dl Thyroid Stimulating Hormone (TSH) 1.510 0.300-4.500 uIu/ml Bedside Hemoglobin 12.2 14.0-18.0 g/dl Bedside Hematocrit 36 42-52 % Bedside Sodium 143 135-144 mEq/L Bedside Potassium 3.7 3.3-5.0 mEq/L Bedside Chloride 100 101-112 mEq/L Bedside Total CO2 23 24-31 mEq/l Bedside Blood Urea Nitrogen 35 7-18 mg/dl Bedside Creatinine 1.6 0.6-1.3 mg/dl Bedside Glucose (other) 144 70-99 mg/dl Bedside Ionized Calcium (Kalani) 1.17 1.12-1.32 mmol/l Bedside Glucose 148 70-99 mg/dl Test 09/11/16 12:29 Range/Units Urine Color YELLOW Urine Appearance CLEAR CLEAR Urine pH 5.5 4.5-7.5 Urine Specific [place] 1.013 1.000-1.030 Urine Protein NEG NEG Urine Glucose (UA) NEG NEG Urine Ketones NEG NEG Urine Occult Blood 1+ NEG Urine Nitrite NEG NEG Urine Bilirubin NEG NEG Urine Urobilinogen NEG NEG Urine Leukocyte Esterase NEG NEG Urine WBC (Auto) 0 0-5 /hpf Urine RBC (Auto) 0-4 0-4 /hpf Urine Hyaline Casts (Auto) 0 0-5 /lpf Urine Epithelial Cells (Auto) 0-5 0-5 /lpf Urine Bacteria (Auto) NEG NEG Diagnostic Radiology CHEST ONE VIEW PORTABLE CLINICAL HISTORY: Weakness. COMPARISON STUDY: Chest radiograph April 09, 2015. FINDINGS: There are median sternotomy wires and clips from bypass grafting. No pneumothorax is present. No pleural effusion is identified. Interstitial thickening and bilateral perihilar opacities are present. Left hemithorax volume loss with post surgical findings within the left lung are again noted. Obscuration of left heart border is unchanged. IMPRESSION: 1. Interstitial thickening with perihilar opacities. The findings could reflect pulmonary edema or an infectious process although are exaggerated on this hypoventilatory study. Radiographic follow up is recommended. 2. Postsurgical findings with the left hemithorax, as described above. EKG Atrial fibrillation Possible Inferior infarct , age undetermined Possible Anterior infarct , age undetermined Abnormal ECG When compared with ECG of 22-JUN-2010 06:37, Atrial fibrillation has replaced Sinus rhythm Impression Assessment and Plan Mr. Bennett is an 86 y/o male with PMHx of Persistent A Fib, CAD S/P CABG x 3, Diastolic CHF, LLL Pneumonectomy 2/2 Lung CA, HTN, and CKD Stage III who presents to the ED for weakness and inability to ambulate starting last night 09/10/16. In the ED, Head CT negative for acute intracranial process. CXR with perihilar opacity and evidence of LLL surgical changes. BNP 2706. WBC of 13.69 and H&H 11.8/34.6. EKG with A Fib. He will be admitted to Med/Surg for further evaluation and care. Community Acquired Pneumonia: - Imaging and Studies -- CXR - image and report reviewed - perihilar opacities; pulmonary edema vs infectious - CT Chest without contrast for further analysis - Levaquin 750 mg IV with renal dosing per pharmacy - Duonebs PRN Generalized Weakness: Infectious vs Musculoskeletal - Assessment - will observe for improvement with Abx therapy - consideration for spinal imaging if no improvement noted - Lyme titer - PT/OT Diastolic CHF: - Per [employer] - Echo (Sep 2015) - EF 60% without mention of diastolic dysfunction - Obtain Echo HTN: - Held Lisinopril in setting of Cr 1.8 will monitor Cr in AM before reinstitution - Hydralazine 10 mg PRN Chronic Kidney Disease Stage III: - Cr 1.8 and appears largely at baseline Persistent A Fib with CAD S/P CABG x 3: - Coumadin D/C'd in setting of hematuria DVT Prophylaxis: - LESLY/SCDs Code Status: - FULL RESUSCITATION PA Physician Supervision Note: I interviewed and examined the patient. Discussed with Lola Barker PAC and agree with findings and plan as documented in the note. Any exceptions or clarifications are listed here: None Pt is with productive cough, cXR changes but history of lung cancer and left partial pneumonectomy, did have gross hematuria and urinary retention and recently has an indwelling urinary cath. Presents with profound le weakness that is likely from infection of lung or urine or both vitals noted car is regular right lung base rhonchi will treat with levaquin to cover both sources, culture and CT chest to further eval for recurrent malignancy Documented By: Kayden Smith Level of Care Med/Surg Resuscitation Status FULL RESUSCITATION VTE Prophylaxis VTE Risk Assessment Done? Y/N: Yes Risk Level: Moderate Given or contraindicated: T.E.D. Stockings, SCD's
[2016-09-11 16:00] LABS: LYME DISEASE AB IGG NEG (NEG); LYME DISEASE AB IGM NEG (NEG)
[2016-09-11 18:12] VITALS: BP 157/71; PULSE 83; TEMP 37; Ht 167.6 cm; Wt 105.9 kg
[2016-09-11 18:22] VITALS: O2SAT 97
[2016-09-11] MEDS: ACETAMINOPHEN 325 MG TAB PO PRN (19:05)
--- NOTE | 2016-09-11 19:58 | DIAGNOSTIC IMAGING REPORT ---
CHEST CT WITHOUT CONTRAST CT DOSE: 433.91 mGy.cm HISTORY: Lung cancer. Pneumonia. Weakness. TECHNIQUE: Multiaxial CT images of the chest were performed without contrast. COMPARISON: Chest CT 06/22/2014. Abdomen and pelvis CT 09/11/2016. FINDINGS: There are poststernotomy changes. Left posterior rib deformities are again noted are consistent with prior thoracotomy. No suspicious lytic or blastic osseous lesions. No pneumothorax. No pleural effusions. The central airways are patent. Prior left upper lobectomy is again noted. Small linear scarlike density at the left lung base remains unchanged. Mild respiratory motion artifact. No new focal lung consolidations to suggest pneumonia. Stable small focal density within the medial aspect of the right middle lobe. This also likely represents scarring. Calcified right hilar lymph nodes. No mediastinal or hilar lymphadenopathy. The heart remains mildly enlarged. Normal caliber thoracic aorta. Cholelithiasis. Calcified granulomas within the spleen. No hepatic masses. IMPRESSION: 1. No significant change compared to prior study. No evidence for recurrent or metastatic disease. 2. Prior left upper lobectomy. 3. Evidence for prior granulomatous disease. 4. Cholelithiasis. 5. Mild cardiomegaly. Electronically signed by: Bk Crowe M.D. 09/11/2016 7:56 PM Dictated Date/Time: 09/11/2016 7:49 PM
[2016-09-11] MEDS: SIMVASTATIN 40 MG TAB PO SCH (20:36)
[2016-09-11] MEDS: POTASSIUM CHLORIDE 10 MEQ TABCR PO SCH (20:37)
[2016-09-11 23:04] VITALS: BP 120/69; PULSE 75; TEMP 37.3; O2SAT 97
[2016-09-12] MEDS: ACETAMINOPHEN 325 MG TAB PO PRN ×2 (01:24→15:49)
[2016-09-12 06:45] LABS: BASO % 0.1 %; BASO ABS # 0.01 K/uL (0-0.2); COMPLETE YES; EOS % 0.3 %; HEMATOCRIT 32.5 % (42-52); IG% 0.4 %; LYMPH % 11.4 %; LYMPH ABS # 1.62 K/uL (1.2-3.4); MEAN CELL VOLUME 93.9 fL (80-100); MEAN CORPUSCULAR HEMOGLOBIN 31.8 pg (25-34); MEAN CORPUSCULAR HGB CONC 33.8 g/dl (32-36); MEAN PLATELET VOLUME 10.1 fL (7.4-10.4); MONO % 18.8 %; PLATELET COUNT 256 K/uL (130-400); RED BLOOD COUNT 3.46 M/uL (4.7-6.1); WHITE BLOOD COUNT 14.21 K/uL (4.8-10.8)
[2016-09-12 07:08] LABS: BUN/CREATININE RATIO 17.4 (10-20); CALCIUM 8.9 mg/dl (8.5-10.1); MAGNESIUM 2.2 mg/dl (1.8-2.4); POTASSIUM 3.8 mmol/L (3.5-5.1)
[2016-09-12 07:28] VITALS: BP 128/75; PULSE 52; TEMP 37.2; O2SAT 96
[2016-09-12] MEDS: LATANOPROST 0.005% OP SOLN 2.5 ML BTL OPL SCH (08:47)
[2016-09-12] MEDS: ALLOPURINOL 100 MG TAB PO SCH (08:48)
[2016-09-12] MEDS: TAMSULOSIN HCL 0.4 MG CAP PO SCH (08:48)
[2016-09-12] MEDS: POTASSIUM CHLORIDE 10 MEQ TABCR PO SCH ×2 (08:48→20:43)
[2016-09-12] MEDS ORDERED: LISINOPRIL 5 MG TAB PO SCH (09:00)
[2016-09-12] MEDS ORDERED: FUROSEMIDE 80 MG TAB PO SCH (09:00)
[2016-09-12] MEDS ORDERED: LEVOFLOXACIN 250MG / D5W IV SCH (11:00)
--- NOTE | 2016-09-12 11:35 | Progress Note ---
Subjective Date of Service: Sep 12, 2016. (Sheri Barker PA-C) Subjective Pt evaluation today including: conversation w/ patient, conversation w/ family (Daughter Leticia on phone), physical exam, chart review, lab review, review of studies, review of inpatient medication list Patient seen and evaluated. Patient able to ambulate when transferred to floor yesterday. Notes bilateral hip pain last night that was relieved by Tylenol however states he awoke around 0300 and was diaphoretic. Reports similar occurrence prior to admission. States that he has had other episodes similar to this. Reports possible weight loss of 15 lbs in approx 1-2 weeks in setting of hematuria Voices no other complaints at this time but reports feeling slightly improved. (Sheri Barker PA-C) Problem List Medical Problems: (1) Pneumonia Status: Acute (2) Weakness Status: Acute (Sheri Barker PA-C) Review of Systems Constitutional: + sweats, No chills, No fever ENT: No nasal symptoms, No sore throat Respiratory: + cough, No dyspnea at rest, No shortness of breath, No wheezing Cardiac: No chest pain Abdomen: No constipation, No diarrhea, No nausea, No pain, No vomiting Musculoskeletal: + swelling (bilateral lower extremity edema) Male : + hematuria (improving) Neurologic: + numbness/tingling (chronic), + weakness Endo: No fatigue Skin: No rash (Sheri Barker PA-C) Medications Current Inpatient Medications Medications (Trade) Dose Ordered Sig/Aaron Route Start Time Stop Time Status Last Admin Dose Admin Ioversol (Optiray 320) 125 ml UD PRN IV 09/11/16 11:45 09/15/16 11:44 Acetaminophen (Tylenol Tab) 650 mg Q4H PRN PO 09/11/16 14:30 10/11/16 14:29 09/12/16 01:24 650 MG Al Hydrox/Mg Hydrox/Simethicone (Maalox Max Susp) 15 ml Q4H PRN PO 09/11/16 14:30 10/11/16 14:29 Magnesium Hydroxide (Milk Of Magnesia Susp) 30 ml Q6H PRN PO 09/11/16 14:30 10/11/16 14:29 Polyethylene (Miralax Powder Packet) 17 gm DAILY PRN PO 09/11/16 14:30 10/11/16 14:29 Ondansetron HCl (Zofran Inj) 4 mg Q6H PRN IV 09/11/16 14:30 10/11/16 14:29 Allopurinol (Zyloprim Tab) 100 mg DAILY PO 09/12/16 09:00 10/12/16 08:59 09/12/16 08:48 100 MG Latanoprost (Xalatan Oph Soln) 1 drops DAILY OPL 09/12/16 09:00 10/12/16 08:59 09/12/16 08:47 1 DROPS Simvastatin (Zocor Tab) 40 mg QPM PO 09/11/16 21:00 10/11/16 20:59 09/11/16 20:36 40 MG Tamsulosin HCl (Flomax Cap) 0.4 mg DAILY PO 09/12/16 09:00 10/12/16 08:59 09/12/16 08:48 0.4 MG Potassium Chloride (Klor-Con M10) 10 meq BID PO 09/11/16 21:00 10/11/16 20:59 09/12/16 08:48 10 MEQ Hydralazine HCl (HydrALAZINE INJ) 10 mg Q6 PRN IV. 09/11/16 14:45 10/11/16 14:44 Furosemide (Lasix tab) 80 mg DAILY PO 09/12/16 09:00 10/12/16 08:59 09/12/16 08:48 80 MG Levofloxacin (Consult) 1 ea UD PRN N/A 09/11/16 15:00 10/11/16 14:59 Albuterol/ Ipratropium 3 ml 3 ml Q2H PRN INH 09/11/16 15:15 10/11/16 15:14 Levofloxacin/Prmx (Levaquin / D5W/ Premixed D5W) 50 ml @ 50 mls/hr DAILY@1100 IV 09/12/16 11:00 09/19/16 10:59 (Sheri Barker, RUKHSANA) Objective Vital Signs Date Time Temp Pulse Resp B/P Pulse Ox O2 Delivery O2 Flow Rate FiO2 09/12/16 00:00 Room Air 09/11/16 23:04 37.3 75 18 120/69 97 Room Air 09/11/16 18:22 97 Room Air 09/11/16 18:12 37.0 83 20 157/71 09/11/16 16:40 62 18 121/68 97 Room Air 09/11/16 14:22 78 18 129/63 97 Room Air 09/11/16 13:00 72 121/71 68 131/70 09/11/16 12:27 72 09/11/16 11:44 95 Room Air 09/11/16 11:44 95 Room Air 09/11/16 11:25 88 09/11/16 11:23 36.7 85 20 147/83 95 Room Air (Sheri Barker, PA-C) Physical Exam General Appearance: WD/WN, no apparent distress, + obese Eyes: sclerae normal ENT: hearing grossly normal Neck: supple, no adenopathy, no JVD, trachea midline Respiratory/Chest: lungs clear, no respiratory distress, no accessory muscle use, + decreased breath sounds Cardiovascular: no edema, no murmur, + irregularly irregular Abdomen: normal bowel sounds, non tender, soft Extremities: + pedal edema, + swelling (bilateral lower extremity edema trace to 1+ pitting edema) Neurologic/Psychiatric: alert, oriented x 3 Skin: normal color, warm/dry (Sheri Barker, PA-C) Laboratory Results Last 24 Hours Test 09/11/16 11:40 09/11/16 11:42 09/11/16 11:50 09/11/16 11:53 White Blood Count 13.68 K/uL Red Blood Count 3.69 M/uL Hemoglobin 11.8 g/dL Hematocrit 34.6 % Mean Corpuscular Volume 93.8 fL Mean Corpuscular Hemoglobin 32.0 pg Mean Corpuscular Hemoglobin Concent 34.1 g/dl Platelet Count 295 K/uL Mean Platelet Volume 10.5 fL Neutrophils (%) (Auto) 73.6 % Lymphocytes (%) (Auto) 10.5 % Monocytes (%) (Auto) 15.2 % Eosinophils (%) (Auto) 0.2 % Basophils (%) (Auto) 0.1 % Neutrophils # (Auto) 10.06 K/uL Lymphocytes # (Auto) 1.43 K/uL Monocytes # (Auto) 2.08 K/uL Eosinophils # (Auto) 0.03 K/uL Basophils # (Auto) 0.02 K/uL RDW Standard Deviation 51.8 fL RDW Coefficient of Variation 15.3 % Immature Granulocyte % (Auto) 0.4 % Immature Granulocyte # (Auto) 0.06 K/uL Sodium Level 142 mmol/L Potassium Level 3.7 mmol/L Chloride Level 105 mmol/L Carbon Dioxide Level 26 mmol/L Anion Gap 11.0 mmol/L 24.0 mmol/L Blood Urea Nitrogen 37 mg/dl Creatinine 1.80 mg/dl Est Creatinine Clear Calc Drug Dose 1.4 ml/min Estimated GFR () 38.9 Estimated GFR (Non- 33.6 BUN/Creatinine Ratio 20.7 Random Glucose 136 mg/dl Calcium Level 9.0 mg/dl Total Bilirubin 0.8 mg/dl Direct Bilirubin 0.2 mg/dl Aspartate Amino Transf (AST/SGOT) 14 U/L Alanine Aminotransferase (ALT/SGPT) 16 U/L Alkaline Phosphatase 68 U/L Total Creatine Kinase 27 U/L Creatine Kinase MB < 0.5 ng/ml Creatine Kinase MB Ratio Troponin I < 0.015 ng/ml Pro-B-Type Natriuretic Peptide 2706 pg/ml Total Protein 7.2 gm/dl Albumin 3.2 gm/dl Thyroid Stimulating Hormone (TSH) 1.510 uIu/ml Bedside Hemoglobin 12.2 g/dl Bedside Hematocrit 36 % Bedside Sodium 143 mEq/L Bedside Potassium 3.7 mEq/L Bedside Chloride 100 mEq/L Bedside Total CO2 23 mEq/l Bedside Blood Urea Nitrogen 35 mg/dl Bedside Creatinine 1.6 mg/dl Bedside Glucose (other) 144 mg/dl Bedside Ionized Calcium (Kalani) 1.17 mmol/l Influenza Type A (RT-PCR) Neg for Influ A Influenza Type B (RT-PCR) Neg for Influ B Bedside Glucose 148 mg/dl Test 09/11/16 12:29 09/11/16 14:45 09/12/16 06:31 Urine Color YELLOW Urine Appearance CLEAR Urine pH 5.5 Urine Specific [place] 1.013 Urine Protein NEG Urine Glucose (UA) NEG Urine Ketones NEG Urine Occult Blood 1+ Urine Nitrite NEG Urine Bilirubin NEG Urine Urobilinogen NEG Urine Leukocyte Esterase NEG Urine WBC (Auto) 0 /hpf Urine RBC (Auto) 0-4 /hpf Urine Hyaline Casts (Auto) 0 /lpf Urine Epithelial Cells (Auto) 0-5 /lpf Urine Bacteria (Auto) NEG Lyme Disease IgG Antibody NEG Lyme Disease IgM Antibody NEG White Blood Count 14.21 K/uL Red Blood Count 3.46 M/uL Hemoglobin 11.0 g/dL Hematocrit 32.5 % Mean Corpuscular Volume 93.9 fL Mean Corpuscular Hemoglobin 31.8 pg Mean Corpuscular Hemoglobin Concent 33.8 g/dl Platelet Count 256 K/uL Mean Platelet Volume 10.1 fL Neutrophils (%) (Auto) 69.0 % Lymphocytes (%) (Auto) 11.4 % Monocytes (%) (Auto) 18.8 % Eosinophils (%) (Auto) 0.3 % Basophils (%) (Auto) 0.1 % Neutrophils # (Auto) 9.82 K/uL Lymphocytes # (Auto) 1.62 K/uL Monocytes # (Auto) 2.67 K/uL Eosinophils # (Auto) 0.04 K/uL Basophils # (Auto) 0.01 K/uL RDW Standard Deviation 52.5 fL RDW Coefficient of Variation 15.5 % Immature Granulocyte % (Auto) 0.4 % Immature Granulocyte # (Auto) 0.05 K/uL Sodium Level 141 mmol/L Potassium Level 3.8 mmol/L Chloride Level 105 mmol/L Carbon Dioxide Level 25 mmol/L Anion Gap 11.0 mmol/L Blood Urea Nitrogen 35 mg/dl Creatinine 2.00 mg/dl Est Creatinine Clear Calc Drug Dose 30.8 ml/min Estimated GFR () 34.3 Estimated GFR (Non- 29.6 BUN/Creatinine Ratio 17.4 Random Glucose 108 mg/dl Calcium Level 8.9 mg/dl Magnesium Level 2.2 mg/dl (Sheri Barker, PA-C) Assessment and Plan Mr. Bennett is an 86 y/o male with PMHx of Persistent A Fib, CAD S/P CABG x 3, Diastolic CHF, LLL Pneumonectomy 2/2 Lung CA, HTN, and CKD Stage III who presents to the ED for weakness and inability to ambulate starting last night 09/10/16. In the ED, Head CT negative for acute intracranial process. CXR with perihilar opacity and evidence of LLL surgical changes. BNP 2706. WBC of 13.69 and H&H 11.8/34.6. EKG with A Fib. He will be admitted to Med/Surg for further evaluation and care. Community Acquired Pneumonia vs Urinary Tract Infection?: - Assessment - patient seen on 09/03/16 for hematuria and started on Keflex and has had Thibodeaux placed at that time; mild increase in leukocytosis; afebrile -- Will await UA Cx - consideration for other source of infection - Imaging and Studies -- CXR - perihilar opacities; pulmonary edema vs infectious -- Chest CT - image and report reviewed - no suspicious lesions or pleural effusions; no focal lung consolidations; calcified R hilar lymph nodes -- Abd/Pelvis CT - image and report reviewed - no hydronephrosis; no renal calculi; enlarged prostate - Urine Cx - pending - Levaquin 250 mg IV daily with renal dosing per pharmacy - Duonebs PRN Generalized Weakness: Infectious vs Musculoskeletal - Assessment - will observe for improvement with Abx therapy - consideration for spinal imaging if no improvement noted - Lyme titer - negative - PT/OT Diastolic CHF: - Per [employer] - Echo (Sep 2015) - EF 60% without mention of diastolic dysfunction - Obtain Echo HTN: - Held Lisinopril in setting of Cr 1.8 with Cr increasing to 2.00 will monitor Cr - Hydralazine 10 mg PRN Chronic Kidney Disease Stage III: - Cr 1.8 and appears largely at baseline - increased to 2.00 Persistent A Fib with CAD S/P CABG x 3: - Coumadin D/C'd in setting of hematuria DVT Prophylaxis: - LESLY/SCDs Code Status: - FULL RESUSCITATION (Sheri Barker, PAAllyssaC) PA Physician Supervision Note: I interviewed and examined the patient. Discussed with Sheri Barker PAC and agree with findings and plan as documented in the note. Any exceptions or clarifications are listed here: None pt feels better, unfortunately urine culture is negative, ct chest did not show pneumonia, will check GB as has some stones, hida is pending vitals stable, wbc still elevated car is regular lungs decreased at bases abdomen is not with focal ruq pain asses, still considering metabolic encephalopathy poa, will rule out occult cholecystitis, if this is negative will consider spine as possibility with presenting symptoms of lower leg weakness but did not have focal spinal pain Documented By: Kayden Smith (Kayden Smith M.D.)
[2016-09-12] MEDS ORDERED: PERFLUTREN LIPID MICROSPHERE (DEFINITY) IV ONE (11:50)
--- NOTE | 2016-09-12 12:44 | ECHOCARDIOGRAM REPORT ---
*NOTICE TO RECEIVING [employer] This information is strictly Confidential and protected under [place] law. [place] law prohibits you from making any further disclosure of this information unless further disclosure is expressly permitted by the written consent of the person to whom it pertains or is authorized by law. A general authorization for the release of medical or other information is not sufficient for this purpose. Hospital accepts no responsibility if the information is made available to any other person, INCLUDING THE PATIENT. Interpretation Summary * Name: DAPHNIE LOYOLA Study Date: 09/12/2016 12:03 PM BP: 128/75 mmHg * Patient Location: .MS2W\S\W253\S\2 HR: 52 * : 1930 (M/d/yyyy) Gender: Male * Age: 86 yrs Ethnicity: CA Weight: 233 lb * Ordering Physician: Sheri Barker * Referring Physician: Self, Referred * Performed By: Adwoa Chase RDCS * * Reason For Study: CHF * History: CHF * -- Conclusions -- * The left ventricle is hyperdynamic. * No regional wall motion abnormalities noted. * Ejection Fraction = >70 %. * There is mild concentric left ventricular hypertrophy. * There is mild tricuspid regurgitation. Procedure Details * A contrast injection of Definity was performed to improve assessment of LV function. * Contrast was injected into an intravenous site in the right arm. * One vial of Definity ultrasound contrast was diluted in normal saline to a total volume of 10 ml. A total of '1' ml of solution was administered during imaging. * Lot # [id number] of Definity utilized for procedure. * Expiration date FEB 17. * The attending nurse who injected the contrast agent was DR ADWOA BERGERON, MARCOS. Left Ventricle * The left ventricle is normal in size. * There is mild concentric left ventricular hypertrophy. * Ejection Fraction = >70 %. * The left ventricle is hyperdynamic. * No regional wall motion abnormalities noted. Right Ventricle * The right ventricle is not well visualized. Atria * The left atrium is moderately dilated. * Right atrium not well visualized. * No ASD detected; PFO is not assessed. Mitral Valve * Mitral leaflet sclerosis without significant stenosis. * Significant mitral regurgitation is absent. Tricuspid Valve * The tricuspid valve is not well visualized. * There is mild tricuspid regurgitation. Aortic Valve * The aortic valve is not well visualized. * Aortic valve sclerosis bordering on mild stenosis. * There is no significant aortic regurgitation. Pulmonic Valve * The pulmonic valve is not well visualized. Great Vessels * The aortic root is normal size. * The pulmonary is not well visualized. Pericardium/Pleural * There is no pericardial effusion. Great Vessels * Normal inferior vena cava size and collapsability with sniff indicates a normal right atrial pressure of 3 mmHg MMode 2D Measurements and Calculations IVSd 1.2 cm IVSs 1.5 cm LVIDd 4.7 cm LVIDs 2.9 cm LVPWd 1.1 cm LVPWs 1.6 cm IVS/LVPW 1.1 FS 38.9 % EDV(Teich) 101.8 ml ESV(Teich) 31.3 ml EF(Teich) 69.2 % EDV(cubed) 103.1 ml ESV(cubed) 23.6 ml EF(cubed) 77.2 % % IVS thick 22.2 % % LVPW thick 46.6 % LV mass(C)d 207.8 grams LV mass(C)s 164.3 grams SV(Teich) 70.5 ml SV(cubed) 79.6 ml Ao root diam 3.4 cm Ao root area 9.1 cm\S\2 Doppler Measurements and Calculations MV E max isac 126.5 cm/sec MV dec time 0.25 sec Ao V2 max 169.6 cm/sec Ao max PG 11.5 mmHg Ao max PG (full) 3.5 mmHg LV V1 max PG 8.0 mmHg LV V1 max 141.7 cm/sec TR max isac 275.3 cm/sec
[2016-09-12] MEDS ORDERED: PIPERACILL/TAZOBAC CONSULT ACTIVE PRN (14:15)
[2016-09-12] MEDS ORDERED: PIPERACILL/TAZOBAC IV 3.375 GM in DEXTROSE 5% 100ML 100 ML IV ONE (14:45)
[2016-09-12 15:34] VITALS: BP 124/75; PULSE 99; TEMP 37.7; O2SAT 97
[2016-09-12 15:45] VITALS: O2SAT 97
[2016-09-12] MEDS: PIPERACILL/TAZOBAC IV 3.375 GM in DEXTROSE 5% 100ML 100 ML IV SCH (20:42)
[2016-09-12] MEDS: SIMVASTATIN 40 MG TAB PO SCH (20:43)
[2016-09-12 22:56] VITALS: BP 131/71; PULSE 70; TEMP 36.7; O2SAT 97
[2016-09-13] MEDS: PIPERACILL/TAZOBAC IV 3.375 GM in DEXTROSE 5% 100ML 100 ML IV SCH ×3 (04:08→23:31)
[2016-09-13 05:48] LABS: BASO % 0.1 %; BASO ABS # 0.01 K/uL (0-0.2); COMPLETE YES; EOS % 0.9 %; HEMATOCRIT 29.6 % (42-52); IG% 0.4 %; LYMPH % 12.8 %; LYMPH ABS # 1.79 K/uL (1.2-3.4); MEAN CELL VOLUME 92.8 fL (80-100); MEAN CORPUSCULAR HEMOGLOBIN 32.3 pg (25-34); MEAN CORPUSCULAR HGB CONC 34.8 g/dl (32-36); MEAN PLATELET VOLUME 10.2 fL (7.4-10.4); MONO % 16.3 %; NEUT % 69.5 %; PLATELET COUNT 238 K/uL (130-400); RED BLOOD COUNT 3.19 M/uL (4.7-6.1); WHITE BLOOD COUNT 13.95 K/uL (4.8-10.8)
[2016-09-13 06:11] LABS: BUN/CREATININE RATIO 15.6 (10-20); CALCIUM 8.5 mg/dl (8.5-10.1); CREATININE 2.9 mg/dl (0.60-1.40); MAGNESIUM 2.2 mg/dl (1.8-2.4)
[2016-09-13 06:57] VITALS: BP 113/69; PULSE 67; TEMP 37; O2SAT 97
[2016-09-13] MEDS: TAMSULOSIN HCL 0.4 MG CAP PO SCH (07:16)
[2016-09-13] MEDS: POTASSIUM CHLORIDE 10 MEQ TABCR PO SCH ×2 (07:16→20:41)
[2016-09-13] MEDS: ALLOPURINOL 100 MG TAB PO SCH (07:17)
[2016-09-13] MEDS ORDERED: FUROSEMIDE 80 MG TAB PO SCH (09:00)
[2016-09-13] MEDS: LATANOPROST 0.005% OP SOLN 2.5 ML BTL OPL SCH (09:00)
[2016-09-13] MEDS: ACETAMINOPHEN 325 MG TAB PO PRN ×3 (13:36→23:33)
--- NOTE | 2016-09-13 13:42 | DIAGNOSTIC IMAGING REPORT ---
NUCLEAR HEPATOBILIARY SCAN CLINICAL HISTORY: Gallbladder distention. COMPARISON STUDY: Abdominal CT dated 09/11/2016. TECHNIQUE: Dynamic images of the liver and anterior abdomen were obtained every 5 minutes for a total of 30 minutes following the IV administration of 5.7mCi of technetium 99m Choletec. FINDINGS: The hepatobiliary scan shows prompt and homogeneous hepatic uptake. There is visualized activity within the intra and extrahepatic biliary tree at 5 minutes, and within the gallbladder at 15 minutes. There is normal biliary to bowel transit, with small bowel visualized by 10 minutes. IMPRESSION: Unremarkable nuclear hepatobiliary scan. There is no scintigraphic evidence of cholecystitis. Electronically signed by: Didier Henderson M.D. 09/13/2016 1:41 PM Dictated Date/Time: 09/13/2016 1:39 PM
--- NOTE | 2016-09-13 14:40 | Progress Note ---
Subjective Date of Service: Sep 13, 2016. (Sheri Barker PA-C) Subjective Pt evaluation today including: conversation w/ patient, physical exam, chart review, lab review, review of studies, review of inpatient medication list Voiding: salinas catheter in place Patient seen and evaluated. Continued to report R hip pain with radiation down leg. Pain normally resolves with Tylenol. PNA and Urine ruled out as source of infection. CT reveals mild GB distention. HIDA scan for today. States he does get burning sensation in the abdominal occasionally with excessive gas with eating. (Sheri Barker PA-C) Problem List Medical Problems: (1) Pneumonia Status: Acute (2) Weakness Status: Acute (Sheri Barker PA-C) Review of Systems Respiratory: + cough, No shortness of breath Cardiac: No chest pain Abdomen: No nausea, No pain, No vomiting Musculoskeletal: + joint pain (R hip) Male : + hematuria Neurologic: + weakness (bilat lower legs) Skin: No rash (Sheri Barker PA-C) Medications Current Inpatient Medications Medications (Trade) Dose Ordered Sig/Aaron Route Start Time Stop Time Status Last Admin Dose Admin Ioversol (Optiray 320) 125 ml UD PRN IV 09/11/16 11:45 09/15/16 11:44 Acetaminophen (Tylenol Tab) 650 mg Q4H PRN PO 09/11/16 14:30 10/11/16 14:29 09/13/16 13:36 650 MG Al Hydrox/Mg Hydrox/Simethicone (Maalox Max Susp) 15 ml Q4H PRN PO 09/11/16 14:30 10/11/16 14:29 09/12/16 15:49 15 ML Magnesium Hydroxide (Milk Of Magnesia Susp) 30 ml Q6H PRN PO 09/11/16 14:30 10/11/16 14:29 Polyethylene (Miralax Powder Packet) 17 gm DAILY PRN PO 09/11/16 14:30 10/11/16 14:29 Ondansetron HCl (Zofran Inj) 4 mg Q6H PRN IV 09/11/16 14:30 10/11/16 14:29 Allopurinol (Zyloprim Tab) 100 mg DAILY PO 09/12/16 09:00 10/12/16 08:59 09/13/16 07:17 100 MG Latanoprost (Xalatan Oph Soln) 1 drops DAILY OPL 09/12/16 09:00 10/12/16 08:59 09/13/16 09:00 1 DROPS Simvastatin (Zocor Tab) 40 mg QPM PO 09/11/16 21:00 10/11/16 20:59 09/12/16 20:43 40 MG Tamsulosin HCl (Flomax Cap) 0.4 mg DAILY PO 09/12/16 09:00 10/12/16 08:59 09/13/16 07:16 0.4 MG Potassium Chloride (Klor-Con M10) 10 meq BID PO 09/11/16 21:00 10/11/16 20:59 09/13/16 07:16 10 MEQ Hydralazine HCl (HydrALAZINE INJ) 10 mg Q6 PRN IV. 09/11/16 14:45 10/11/16 14:44 Albuterol/ Ipratropium (Duoneb) 3 ml Q2H PRN INH 09/11/16 15:15 10/11/16 15:14 Piperacillin Sod/ Tazobactam Sod (Consult) 1 ea UD PRN N/A 09/12/16 14:15 10/12/16 14:14 Furosemide 40 mg 40 mg DAILY PO 09/13/16 09:00 10/13/16 08:59 09/13/16 07:17 40 MG Piperacillin Sod/ Tazobactam Sod/ Dextrose (Zosyn Iv/D5 100ml) 115 ml @ 28.75 mls/ hr Q12H IV 09/14/16 00:00 09/20/16 23:59 (Sheri Barker, KATEC) Objective Vital Signs Date Time Temp Pulse Resp B/P Pulse Ox O2 Delivery O2 Flow Rate FiO2 09/13/16 06:57 37.0 67 18 113/69 97 Room Air 09/13/16 00:00 Room Air 09/12/16 22:56 36.7 70 18 131/71 97 Room Air 09/12/16 15:45 97 Room Air 09/12/16 15:34 37.7 99 16 124/75 97 Room Air (Sheri Barker PA-C) Physical Exam General Appearance: WD/WN, no apparent distress Eyes: sclerae normal ENT: hearing grossly normal Neck: supple, no JVD, trachea midline Respiratory/Chest: no respiratory distress, no accessory muscle use, + decreased breath sounds Cardiovascular: no gallop, no murmur, + irregularly irregular Abdomen: normal bowel sounds, non tender, soft Extremities: + pedal edema, + swelling Neurologic/Psychiatric: alert, oriented x 3 Skin: normal color, warm/dry (Sheri Barker PA-C) Laboratory Results Last 24 Hours Test 09/13/16 05:15 White Blood Count 13.95 K/uL Red Blood Count 3.19 M/uL Hemoglobin 10.3 g/dL Hematocrit 29.6 % Mean Corpuscular Volume 92.8 fL Mean Corpuscular Hemoglobin 32.3 pg Mean Corpuscular Hemoglobin Concent 34.8 g/dl Platelet Count 238 K/uL Mean Platelet Volume 10.2 fL Neutrophils (%) (Auto) 69.5 % Lymphocytes (%) (Auto) 12.8 % Monocytes (%) (Auto) 16.3 % Eosinophils (%) (Auto) 0.9 % Basophils (%) (Auto) 0.1 % Neutrophils # (Auto) 9.69 K/uL Lymphocytes # (Auto) 1.79 K/uL Monocytes # (Auto) 2.28 K/uL Eosinophils # (Auto) 0.12 K/uL Basophils # (Auto) 0.01 K/uL RDW Standard Deviation 52.1 fL RDW Coefficient of Variation 15.5 % Immature Granulocyte % (Auto) 0.4 % Immature Granulocyte # (Auto) 0.06 K/uL Sodium Level 138 mmol/L Potassium Level 4.0 mmol/L Chloride Level 101 mmol/L Carbon Dioxide Level 27 mmol/L Anion Gap 10.0 mmol/L Blood Urea Nitrogen 45 mg/dl Creatinine 2.90 mg/dl Est Creatinine Clear Calc Drug Dose 21.2 ml/min Estimated GFR () 21.9 Estimated GFR (Non- 18.9 BUN/Creatinine Ratio 15.6 Random Glucose 143 mg/dl Calcium Level 8.5 mg/dl Magnesium Level 2.2 mg/dl (Sheri Barker PA-C) Assessment and Plan Mr. Bennett is an 86 y/o male with PMHx of Persistent A Fib, CAD S/P CABG x 3, Diastolic CHF, LLL Pneumonectomy 2/2 Lung CA, HTN, and CKD Stage III who presents to the ED for weakness and inability to ambulate starting last night 09/10/16. In the ED, Head CT negative for acute intracranial process. CXR with perihilar opacity and evidence of LLL surgical changes. BNP 2706. WBC of 13.69 and H&H 11.8/34.6. EKG with A Fib. He will be admitted to Med/Surg for further evaluation and care. Community Acquired Pneumonia vs Urinary Tract Infection vs Other Source?: - Assessment - patient seen on 09/03/16 for hematuria and started on Keflex and has had Salinas placed at that time -- Will await UA Cx - without growth - Imaging and Studies -- CXR - perihilar opacities; pulmonary edema vs infectious -- Chest CT - no suspicious lesions or pleural effusions; no focal lung consolidations; calcified R hilar lymph nodes -- Abd/Pelvis CT - image and report reviewed - no hydronephrosis; no renal calculi; enlarged prostate - D/C'd Levaquin 250 mg IV daily - Zosyn 3.375 mg Q8H for GI coverage - HIDA Scan - unremarkable Generalized Weakness: Infectious vs Musculoskeletal - Assessment - will observe for improvement with Abx therapy - consideration for spinal imaging if no improvement noted - Lyme titer - negative - PT/OT Hematuria: - Small amounts of blood appears present in Salinas bag this AM - will continue to monitor Diastolic CHF: - Echo - EF > 70% HTN: - Held Lisinopril - BP is adequate - Hydralazine 10 mg PRN Chronic Kidney Disease Stage III: - Cr continues to climb Persistent A Fib with CAD S/P CABG x 3: - Coumadin D/C'd in setting of hematuria DVT Prophylaxis: - LESLY/SCDs Code Status: - FULL RESUSCITATION (Sheri Barker, PAAllyssaC) PA Physician Supervision Note: I interviewed and examined the patient. Discussed with Sheri Barker PAC and agree with findings and plan as documented in the note. Any exceptions or clarifications are listed here: None Pt continues with profound weakness, continues to have no clinical or objective source of infection for encephalopathy. Since he has originally complained of back pain and leg weakness( although not examined as reproducible back pain) will explore LS spine CT. If this and ESR are not suggesting of infection will stop antibiotics. If fever will have ID consult. No fever since 09/12/16 exam remains non focal, slight abdominal discomfort in B/L upper quadrants, but negative HIDA As above eval for spinal process to cause fever and leg weakness, avoid contrast with acute renal failure, will hydrate overnight and stop lasix. IF no defined source will stop antibiotics, continue PT/OT Documented By: Kyaden Smith (Kayden Smith M.D.)
[2016-09-13] MEDS ORDERED: NURSING VERBAL MED ORDER ONE (15:00)
[2016-09-13] MEDS ORDERED: DEXAMETHASONE CONC SOLN 3.75 MG, NYSTATIN SUSP 30 ML, DiphenhydrAMINE HCL SYRUP 300 MG,... PO PRN ×5 (15:00)
[2016-09-13 16:00] VITALS: O2SAT 94
[2016-09-13] MEDS: SODIUM CHLORIDE 0.9% 1000ML 1,000 ML IV SCH (16:01)
[2016-09-13 16:13] VITALS: BP 125/67; PULSE 92; TEMP 37.7; O2SAT 94
--- NOTE | 2016-09-13 17:03 | DIAGNOSTIC IMAGING REPORT ---
CT OF THE LUMBAR SPINE WITHOUT CONTRAST CT DOSE: 1467.50 mGy.cm CLINICAL HISTORY: Pneumonia. Evaluate for infectious process. TECHNIQUE: Axial images of lumbar spine were obtained without IV contrast. Sagittal and coronal reconstructions were viewed. COMPARISON STUDY: Lumbar spine MRI October 19, 2006 and lumbar spine radiographs January 21, 2016. FINDINGS: There is straightening of the normal lumbar lordosis. No acute fracture or suspicious lesion is identified by CT. The paravertebral soft tissues are unremarkable. The central canal and neural foramen are suboptimally assessed by CT. There is moderate to severe multilevel degenerative disc disease and facet arthrosis. The sensitivity for detection of epidural processes is diminished but no epidural fluid collection is identified by CT. IMPRESSION: 1. No acute lumbar spine fracture or subluxation. 2. 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 Suboptimal evaluation of the central canal and neural foramen due to CT technique. 3. No CT evidence for an infectious process within the lumbar spine although the sensitivity for detection of epidural processes is diminished utilizing this technique. Electronically signed by: Adrian Cruz M.D. 09/13/2016 5:01 PM Dictated Date/Time: 09/13/2016 4:53 PM
[2016-09-14] VITALS: BP 119/67; PULSE 79; TEMP 37.5; O2SAT 95
[2016-09-14 07:48] VITALS: BP 123/71; PULSE 74; TEMP 36.9; O2SAT 96
[2016-09-14 07:54] LABS: BASO % 0.1 %; BASO ABS # 0.02 K/uL (0-0.2); COMPLETE YES; EOS % 1.3 %; IG% 0.4 %; LYMPH % 11.6 %; LYMPH ABS # 1.59 K/uL (1.2-3.4); MEAN CELL VOLUME 92.9 fL (80-100); MEAN CORPUSCULAR HEMOGLOBIN 32.4 pg (25-34); MEAN CORPUSCULAR HGB CONC 34.8 g/dl (32-36); MEAN PLATELET VOLUME 10.7 fL (7.4-10.4); MONO % 12.3 %; NEUT % 74.3 %; PLATELET COUNT 271 K/uL (130-400); RED BLOOD COUNT 3.12 M/uL (4.7-6.1); WHITE BLOOD COUNT 13.75 K/uL (4.8-10.8)
[2016-09-14] MEDS: ALLOPURINOL 100 MG TAB PO SCH (07:58)
[2016-09-14] MEDS: LATANOPROST 0.005% OP SOLN 2.5 ML BTL OPL SCH (07:58)
[2016-09-14] MEDS: POTASSIUM CHLORIDE 10 MEQ TABCR PO SCH ×2 (07:58→21:08)
[2016-09-14] MEDS: TAMSULOSIN HCL 0.4 MG CAP PO SCH (07:58)
[2016-09-14] MEDS: SODIUM CHLORIDE 0.9% 1000ML 1,000 ML IV SCH ×3 (07:59→21:09)
[2016-09-14] MEDS: ACETAMINOPHEN 325 MG TAB PO PRN ×2 (07:59→16:47)
[2016-09-14 08:00] LABS: CALCIUM 8.8 mg/dl (8.5-10.1); CREATININE 2.8 mg/dl (0.60-1.40); POTASSIUM 3.8 mmol/L (3.5-5.1); URIC ACID 6.2 mg/dl (2.6-7.2)
--- NOTE | 2016-09-14 09:43 | Medical Consult ---
Consultation Date of Consultation: Sep 14, 2016. Attending Physician: Kayden Smith M.D. Reason for Consultation: Fever, leukocytosis, source unknown History of Present Illness 86-year-old male with history of lung cancer status post lobectomy, coronary artery disease status post CABG, chronic kidney disease, chronic heart failure, who was admitted to the hospital with 1 day history of progressively worsening hip and leg pain associated with weakness, low-grade fever and chills, mild cough and congestion, with some numbness and tingling of his feet. He had been seen in the emergency department approximately 1 week ago for hematuria, with Thibodeaux catheter being placed, and with plans for outpatient CT and follow up with Urology. Thus far, workup has been unrevealing with negative CT scans the lumbar spine abdomen, negative cultures, mild leukocytosis, and sed rate greater than 90. denies any other localizing signs or symptoms. No significant travel or exposure history Past Medical/Surgical History Medical Problems: (1) Pneumonia Status: Acute (2) Weakness Status: Acute Medical Problems: (1) Arthritis of ankle, right (2) Atrial fibrillation (3) CAD (4) CKD (5) lung cancer (6) s/p lobectomy (7) s/p CABG Family History Noncontributory due to advanced age Noncontributory Social History Smoking Status: Unknown if Ever Smoked Smokeless Tobacco Use: No Alcohol Use: none Drug Use: none Marital Status: Housing Status: lives with significant other Occupation Status: retired Allergies Coded Allergies: No Known Allergies (Verified , 09/11/16) Current Inpatient Medications Current Inpatient Medications Medications (Trade) Dose Ordered Sig/Aaron Route Start Time Stop Time Status Last Admin Dose Admin Ioversol (Optiray 320) 125 ml UD PRN IV 09/11/16 11:45 09/15/16 11:44 Acetaminophen (Tylenol Tab) 650 mg Q4H PRN PO 09/11/16 14:30 10/11/16 14:29 09/14/16 07:59 650 MG Al Hydrox/Mg Hydrox/Simethicone (Maalox Max Susp) 15 ml Q4H PRN PO 09/11/16 14:30 10/11/16 14:29 09/12/16 15:49 15 ML Magnesium Hydroxide (Milk Of Magnesia Susp) 30 ml Q6H PRN PO 09/11/16 14:30 10/11/16 14:29 Polyethylene (Miralax Powder Packet) 17 gm DAILY PRN PO 09/11/16 14:30 10/11/16 14:29 Ondansetron HCl (Zofran Inj) 4 mg Q6H PRN IV 09/11/16 14:30 10/11/16 14:29 Allopurinol (Zyloprim Tab) 100 mg DAILY PO 09/12/16 09:00 10/12/16 08:59 09/14/16 07:58 100 MG Latanoprost (Xalatan Oph Soln) 1 drops DAILY OPL 09/12/16 09:00 10/12/16 08:59 09/14/16 07:58 1 DROPS Simvastatin (Zocor Tab) 40 mg QPM PO 09/11/16 21:00 10/11/16 20:59 Future Hold 09/12/16 20:43 40 MG Tamsulosin HCl (Flomax Cap) 0.4 mg DAILY PO 09/12/16 09:00 10/12/16 08:59 09/14/16 07:58 0.4 MG Potassium Chloride (Klor-Con M10) 10 meq BID PO 09/11/16 21:00 10/11/16 20:59 09/14/16 07:58 10 MEQ Hydralazine HCl (HydrALAZINE INJ) 10 mg Q6 PRN IV. 09/11/16 14:45 10/11/16 14:44 Albuterol/ Ipratropium (Duoneb) 3 ml Q2H PRN INH 09/11/16 15:15 10/11/16 15:14 Piperacillin Sod/ Tazobactam Sod 1 ea 1 ea UD PRN N/A 09/12/16 14:15 10/12/16 14:14 Piperacillin Sod/ Tazobactam Sod 3.375 gm/Dextrose 115 ml @ 28.75 mls/ hr Q12H IV 09/14/16 00:00 09/20/16 23:59 09/13/16 23:31 28.75 MLS/HR Sodium Chloride (Nss 1000ml) 1,000 ml @ 100 mls/hr Q10H IV 09/13/16 15:15 10/13/16 15:14 09/14/16 07:59 100 MLS/HR Review of Systems Constitutional: + chills, + fatigue, + fever, + weakness Eyes: No problem reported ENT: + nasal symptoms Respiratory: + cough Cardiovascular: No problem reported Abdomen: No problem reported Musculoskeletal: + joint pain, + muscle pain, + swelling Genitourinary - Male: + hematuria Neurologic: + numbness/tingling Psychiatric: No problem reported Endocrine: + fatigue Hematologic / Lymphatic: No problem reported Integumentary: No problem reported Allergic / Immunologic: No problem reported Physical Exam Date Time Temp Pulse Resp B/P Pulse Ox O2 Delivery O2 Flow Rate FiO2 09/14/16 07:48 36.9 74 18 123/71 96 Room Air 09/14/16 00:00 37.5 79 16 119/67 95 Room Air 09/14/16 00:00 Room Air 09/13/16 16:13 37.7 92 18 125/67 94 Room Air 09/13/16 16:00 94 Room Air General Appearance: WD/WN, no apparent distress Head: normocephalic, atraumatic Eyes: normal inspection, EOMI, sclerae normal ENT: normal ENT inspection, pharynx normal Neck: supple, no adenopathy, thyroid normal, trachea midline Respiratory/Chest: chest non-tender, lungs clear, normal breath sounds, no respiratory distress Cardiovascular: no gallop, no murmur, + irregularly irregular Abdomen/GI: normal bowel sounds, non tender, soft, no organomegaly Back: normal inspection, no CVA tenderness Extremities/Musculoskelatal: no calf tenderness, + pedal edema, + swelling Neurologic/Psych: alert, oriented x 3 Skin: normal color, warm/dry, no rash Lymphatic: no adenopathy Laboratory Results Date/Time Source Procedure Growth Status 09/14/16 09:24 Blood Blood Culture Pending Marnie Batch 09/14/16 09:24 Blood Blood Culture Pending Marnie Batch Last 24 Hours Test 09/14/16 06:51 09/14/16 09:06 09/14/16 09:26 White Blood Count 13.75 K/uL Red Blood Count 3.12 M/uL Hemoglobin 10.1 g/dL Hematocrit 29.0 % Mean Corpuscular Volume 92.9 fL Mean Corpuscular Hemoglobin 32.4 pg Mean Corpuscular Hemoglobin Concent 34.8 g/dl Platelet Count 271 K/uL Mean Platelet Volume 10.7 fL Neutrophils (%) (Auto) 74.3 % Lymphocytes (%) (Auto) 11.6 % Monocytes (%) (Auto) 12.3 % Eosinophils (%) (Auto) 1.3 % Basophils (%) (Auto) 0.1 % Neutrophils # (Auto) 10.21 K/uL Lymphocytes # (Auto) 1.59 K/uL Monocytes # (Auto) 1.69 K/uL Eosinophils # (Auto) 0.18 K/uL Basophils # (Auto) 0.02 K/uL RDW Standard Deviation 52.6 fL RDW Coefficient of Variation 15.6 % Immature Granulocyte % (Auto) 0.4 % Immature Granulocyte # (Auto) 0.06 K/uL Erythrocyte Sedimentation Rate > 90 mm/hr Sodium Level 140 mmol/L Potassium Level 3.8 mmol/L Chloride Level 104 mmol/L Carbon Dioxide Level 24 mmol/L Anion Gap 12.0 mmol/L Blood Urea Nitrogen 48 mg/dl Creatinine 2.80 mg/dl Est Creatinine Clear Calc Drug Dose 22.0 ml/min Estimated GFR () 22.8 Estimated GFR (Non- 19.7 BUN/Creatinine Ratio 17.0 Random Glucose 120 mg/dl Uric Acid 6.2 mg/dl Calcium Level 8.8 mg/dl Patient Name: DAPHNIE LOYOLA Unit Number: [id number] Dictated: 09/13/161652 Transcribed: 09/13/161652 Printed Date/Time: [~ rep prt dt]/[~ rep prt tm] [~ rep ct labl] - [~ rep ct ivnm] [facility] Radiology Department [place], [place] [id number] Dictated: 09/13/161652 Transcribed: 09/13/161652 Printed Date/Time: [~ rep prt dt]/[~ rep prt tm] [~ rep ct labl] - [~ rep ct ivnm] CT OF THE LUMBAR SPINE WITHOUT CONTRAST CT DOSE: 1467.50 mGy.cm CLINICAL HISTORY: Pneumonia. Evaluate for infectious process. TECHNIQUE: Axial images of lumbar spine were obtained without IV contrast. Sagittal and coronal reconstructions were viewed. COMPARISON STUDY: Lumbar spine MRI October 19, 2006 and lumbar spine radiographs January 21, 2016. FINDINGS: There is straightening of the normal lumbar lordosis. No acute fracture or suspicious lesion is identified by CT. The paravertebral soft tissues are unremarkable. The central canal and neural foramen are suboptimally assessed by CT. There is moderate to severe multilevel degenerative disc disease and facet arthrosis. The sensitivity for detection of epidural processes is diminished but no epidural fluid collection is identified by CT. IMPRESSION: 1. No acute lumbar spine fracture or subluxation. 2. 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 Suboptimal evaluation of the central canal and neural foramen due to CT technique. 3. No CT evidence for an infectious process within the lumbar spine although the sensitivity for detection of epidural processes is diminished utilizing this technique. Electronically signed by: Adrian Cruz M.D. 09/13/2016 5:01 PM Dictated Date/Time: 09/13/2016 4:53 PM The status of this report is Signed. Draft = Not yet reviewed or approved by Radiologist. Signed = Reviewed and approved by Radiologist. <AttendingPhy>Kayden Smith M.D.</AttendingPhy> <FamilyPhy>Carlin Dempsey D.O. Pulmonary</FamilyPhy> <PrimaryPhy>Carlin Dempsey D.O. Pulmonary</ PrimaryPhy> <UnitNumber>[id number]</UnitNumber> <VisitNumber>[id number]</ VisitNumber> <PatientName>DAPHNIE LOYOLA</PatientName> <DateOfBirth>1930</ DateOfBirth> <Location>[facility]</Location> <ServiceDate>09/11/16</ServiceDate> < MNE>ESINDI</MNE> <OrderingPhy>Kayden Smith M.D.</OrderingPhy> < OrderingPhyMNE>f rep ord dr pope</OrderingPhyMNE> <DictatingPhyMNE>f rep dict dr pope</DictatingPhyMNE> <CCListMNE>f rep ct toshia</CCListMNE> <AdmittingPhyMNE>f pt admit dr pope</AdmittingPhyMNE> <AttendingPhyMNE>f pt attend dr pope</ AttendingPhyMNE> <ConsultingPhyMNE>f pt consult dr pope</ConsultingPhyMNE> <FamilyPhyMNE>f pt fam dr pope</FamilyPhyMNE> <OtherPhyMNE>f pt other dr pope</OtherPhyMNE> < PrimaryPhyMNE>f pt prim care dr pope</PrimaryPhyMNE> <ReferringPhyMNE>f pt referring dr pope</ReferringPhyMNE> Assessment & Plan 86 yo male with low grade fever, LE weakness with numbness, right hip pain with mild anemia, leukocytosis, and markedly elevated ESR. No obvious infectious process evident thus far on exam or other studies. Have ordered blood cultures and procalcitonin to further investigate possible bacterial process. However, am also very concerned about non-infectious inflammatory disorder such as giant cell arteritis. Have orsered further markers, and would consider rheumatology consult. Will continue Abx for now pending above W/U. Will follow.
--- NOTE | 2016-09-14 11:48 | Progress Note ---
Subjective Date of Service: Sep 14, 2016. (Sheri Barker, KATEC) Subjective Pt evaluation today including: conversation w/ patient, conversation w/ family (Leticia on phone), physical exam, chart review, lab review, review of studies, review of inpatient medication list Patient seen and evaluated. Noted mild fever overnight. Reports R hip has markedly improved in ability to move and pain is lessened. L hip pain more noticeable today with limited movement. Leukocytosis slowly improving. ESR markedly elevated at >90. Reports looser stools but without abdominal pain but noted increased gas. Extensive review of outpatient records shows chronic complaints of bilateral leg pain with extensive studies that are largely unremarkable. 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 Numerous rheumatological testing completed that negative. Has had numerous elevated ESR testing showing 83 ( December 2014), 73 (July 2015), and 35 (January 2016). Has followed with Neurology Dr. Romero for this neuropathy. Did leave a message with Dr. Yates for any further recommendations from a possible inflammatory/rheumatological standpoint. (Sheri Barker, RUDY-C) Problem List Medical Problems: (1) Pneumonia Status: Acute (2) Weakness Status: Acute (Sheri Barker, KATEC) Review of Systems Constitutional: + fever (intermittent), No chills Eyes: No diplopia, No eye pain, No worsening of vision ENT: No nasal symptoms, No unusual epistaxis Respiratory: No cough, No shortness of breath Cardiac: No chest pain Abdomen: + diarrhea, No constipation, No nausea, No pain, No vomiting Musculoskeletal: + joint pain (L > R Hip pain), + swelling, No calf pain Neurologic: + numbness/tingling (chronic - lower extremities bilat), + weakness (generalized; L > R but previous exams R < L) Endo: No fatigue Skin: No rash (Sheri Barker, KATEC) Medications Current Inpatient Medications Medications (Trade) Dose Ordered Sig/Aaron Route Start Time Stop Time Status Last Admin Dose Admin Ioversol (Optiray 320) 125 ml UD PRN IV 09/11/16 11:45 09/15/16 11:44 Acetaminophen (Tylenol Tab) 650 mg Q4H PRN PO 09/11/16 14:30 10/11/16 14:29 09/14/16 07:59 650 MG Al Hydrox/Mg Hydrox/Simethicone (Maalox Max Susp) 15 ml Q4H PRN PO 09/11/16 14:30 10/11/16 14:29 09/12/16 15:49 15 ML Magnesium Hydroxide (Milk Of Magnesia Susp) 30 ml Q6H PRN PO 09/11/16 14:30 10/11/16 14:29 Polyethylene (Miralax Powder Packet) 17 gm DAILY PRN PO 09/11/16 14:30 10/11/16 14:29 Ondansetron HCl (Zofran Inj) 4 mg Q6H PRN IV 09/11/16 14:30 10/11/16 14:29 Allopurinol (Zyloprim Tab) 100 mg DAILY PO 09/12/16 09:00 10/12/16 08:59 09/14/16 07:58 100 MG Latanoprost (Xalatan Oph Soln) 1 drops DAILY OPL 09/12/16 09:00 10/12/16 08:59 09/14/16 07:58 1 DROPS Simvastatin (Zocor Tab) 40 mg QPM PO 09/11/16 21:00 10/11/16 20:59 Future Hold 09/12/16 20:43 40 MG Tamsulosin HCl (Flomax Cap) 0.4 mg DAILY PO 09/12/16 09:00 10/12/16 08:59 09/14/16 07:58 0.4 MG Potassium Chloride (Klor-Con M10) 10 meq BID PO 09/11/16 21:00 10/11/16 20:59 09/14/16 07:58 10 MEQ Hydralazine HCl (HydrALAZINE INJ) 10 mg Q6 PRN IV. 09/11/16 14:45 10/11/16 14:44 Albuterol/ Ipratropium (Duoneb) 3 ml Q2H PRN INH 09/11/16 15:15 10/11/16 15:14 Piperacillin Sod/ Tazobactam Sod 1 ea 1 ea UD PRN N/A 09/12/16 14:15 10/12/16 14:14 Piperacillin Sod/ Tazobactam Sod 3.375 gm/Dextrose 115 ml @ 28.75 mls/ hr Q12H IV 09/14/16 00:00 09/20/16 23:59 09/14/16 12:16 28.75 MLS/HR Sodium Chloride (Nss 1000ml) 1,000 ml @ 100 mls/hr Q10H IV 09/13/16 15:15 10/13/16 15:14 09/14/16 07:59 100 MLS/HR (Sheri Barker PA-C) Objective Vital Signs Date Time Temp Pulse Resp B/P Pulse Ox O2 Delivery O2 Flow Rate FiO2 09/14/16 00:00 37.5 79 16 119/67 95 Room Air 09/14/16 00:00 Room Air 09/13/16 16:13 37.7 92 18 125/67 94 Room Air 09/13/16 16:00 94 Room Air 09/13/16 08:00 Room Air (Sheri Barekr PA-C) Physical Exam General Appearance: WD/WN, no apparent distress Eyes: sclerae normal ENT: hearing grossly normal Neck: supple, no JVD, trachea midline Respiratory/Chest: no respiratory distress, no accessory muscle use, + decreased breath sounds Cardiovascular: no gallop, no murmur, + irregularly irregular Abdomen: normal bowel sounds, non tender, soft Extremities: + pedal edema, + swelling Neurologic/Psychiatric: alert, oriented x 3, + motor weakness (L > R to leg lift, plantar flexion, and dorsiflexion), + pertinent finding (Achilles reflex tested but without response bilat) Skin: normal color, warm/dry (Sheri Barker, KATEC) Laboratory Results Last 24 Hours Test 09/14/16 04:44 09/14/16 07:05 (Sheri Barker PA-C) Assessment and Plan Mr. Bennett is an 86 y/o male with PMHx of Persistent A Fib, CAD S/P CABG x 3, Diastolic CHF, LLL Pneumonectomy 2/2 Lung CA, HTN, and CKD Stage III who presents to the ED for weakness and inability to ambulate starting last night 09/10/16. In the ED, Head CT negative for acute intracranial process. CXR with perihilar opacity and evidence of LLL surgical changes. BNP 2706. WBC of 13.69 and H&H 11.8/34.6. EKG with A Fib. He will be admitted to Med/Surg for further evaluation and care. Low-Grade Fever - Community Acquired Pneumonia vs Urinary Tract Infection vs Other Source?: Source unknown - Assessment - patient seen on 09/03/16 for hematuria and started on Keflex and has had Thibodeaux placed at that time -- Continues to have intermittent low grade fevers; lower extremity weakness mildly improving - Imaging and Studies -- CXR - perihilar opacities; pulmonary edema vs infectious -- Chest CT - no suspicious lesions or pleural effusions; no focal lung consolidations; calcified R hilar lymph nodes -- Abd/Pelvis CT - no hydronephrosis; no renal calculi; enlarged prostate -- UA and Cx - without growth -- Lyme - negative -- HIDA Scan - unremarkable -- Lumbar CT (09/13) - image and report reviewed - moderate to severe multilevel disc disease and facet arthrosis; no infectious findings (limited) -- ESR > 90 - Zosyn 3.375 mg Q8H - Consult Infectious Disease - appreciate recommendations -- Procalcitonin - 0.54 -- Immunology screening -- Rheumatology consult Generalized Weakness: Infectious vs Musculoskeletal - Inflammatory - Assessment - Patient reporting improvement in RLE movement and is not bothersome today; LLE with more pain and weakness -- Able to lift RLE off bed but minimal lifting of LLE; LLE with decreased strength to dorsiflexion and plantarflexion compared to right -- Attempted Achilles reflex which was absent but difficult to conduct -- Pain remains adequately controlled with Tylenol per patient - PT/OT Hematuria: - Assessment - largely seem improved will monitor - Will repeat U/A to observe for occult blood and casts Diastolic CHF: - Echo - EF > 70% HTN: - Held Lisinopril - BP is adequate - Hydralazine 10 mg PRN Chronic Kidney Disease Stage III: - Cr improving - continue to monitor Persistent A Fib with CAD S/P CABG x 3: - Coumadin D/C'd in setting of hematuria DVT Prophylaxis: - LESLY/SCDs Code Status: - FULL RESUSCITATION Disposition: - D/C uncertain at this time - Will need PT/OT evaluation when patient more tolerable to therapy - Updated daughter Leticia by phone (Sheri Barker, KATEC) PA Physician Supervision Note: I interviewed and examined the patient. Discussed with Sheri Barker PAC and agree with findings and plan as documented in the note. Any exceptions or clarifications are listed here: None Pt with persistent weakness requiring 2 person assist to transfer, has ESR markedly elevated, did involve ID and will discuss with rheum vitals show low grade temp PE no inflamed joints or muscle on exam, to religious tenderness car is regular lungs are clear given ESR will follow lead for ID, did have TTE and neg for veg, negative chest CT, HIDA, urine culture, and spine ct image, blood cultures drawn continue PT OT, consider emperic steroids, did see neurology as outpt Documented By: Kayden Smith (Kayden Smith M.D.)
[2016-09-14] MEDS: PIPERACILL/TAZOBAC IV 3.375 GM in DEXTROSE 5% 100ML 100 ML IV SCH ×2 (12:16→23:54)
[2016-09-14 14:10] LABS: URINE APPEARANCE CLOUDY (CLEAR); URINE BILIRUBIN NEG (NEG); URINE COLOR YELLOW; URINE EPITHELIAL CELL AUTO 20-30 /lpf (0-5); URINE NITRITE NEG (NEG); URINE SPECIFIC GRAVITY 1.014 (1.000-1.030); UROBILINOGEN NEG (NEG); ZZURINE CULT IF INDIC CATH YES
[2016-09-14 14:28] LABS: MANUAL MICROSCOPIC REQUIRED? NO; REVIEW REQ? YES
[2016-09-14 14:56] LABS: URINE MUCUS PRESENT (NONE PRSENT)
[2016-09-14 15:00] VITALS: BP 126/72; PULSE 75; TEMP 37.3; O2SAT 97
[2016-09-14] MEDS: OXYCODONE HCL IR 5 MG TAB (IMMEDIATE RELEASE) PO PRN (15:58)
[2016-09-14 16:10] LABS: INR 1.1 (0.9-1.1); PARTIAL THROMBOPLASTIN RATIO 1.4; PROTHROMBIN TIME (PATIENT) 11.4 SECONDS (9.0-12.0)
--- NOTE | 2016-09-14 19:38 | DIAGNOSTIC IMAGING REPORT ---
AP PELVIS AND BILATERAL HIPS 5 VIEWS CLINICAL HISTORY: Severe neck pain. Inability to stand. COMPARISON STUDY: No previous studies for comparison. FINDINGS: There are mild osteoarthritic changes present within each hip. No acute fractures are visualized. No destructive lesions are evident. There are degenerative changes present within the lumbar spine. IMPRESSION: Mild osteoarthritic changes. No acute fractures or dislocations identified Electronically signed by: Siddharth Pabon M.D. 09/14/2016 7:36 PM Dictated Date/Time: 09/14/2016 7:34 PM
[2016-09-14] MEDS: HEPARIN SOD 5000 UNIT/0.5 ML CARP SQ SCH (21:08)
--- NOTE | 2016-09-14 21:11 | DIAGNOSTIC IMAGING REPORT ---
MRI LUMBAR SPINE W/O CONTRAST CLINICAL HISTORY: Severe pain and inability to stand. TECHNIQUE: Sagittal and axial T1, T2 and STIR images were obtained. COMPARISON STUDY: CT scan dated 09/13/2016 OBSERVATIONS: The vertebral bodies and posterior elements appear intact. There is no abnormal bony signal present to suggest a marrow replacement process. L1-2: There is a mild circumferential disc bulge. There is minimal spinal canal narrowing. There is no significant foraminal stenosis L2-3: There is a mild circumferential disc bulge. There is no significant spinal or foraminal stenosis L3-4: There is a circumferential disc bulge present. There is mild facet joint hypertrophy. There is mild spinal stenosis. There is minor right-sided foraminal narrowing. L4-5: There is a circumferential disc bulge. There is facet joint arthropathy. There is moderate spinal stenosis. There is severe left-sided foraminal narrowing and mild right-sided foraminal narrowing L5-S1: No disc protrusions or extrusions. No evidence of spinal canal or neural foraminal compromise. The conus medullaris and cauda equina appear normal. IMPRESSION: Multilevel spondylitic changes. The study is most significant for moderate spinal stenosis at the L4-5 level with severe left-sided foraminal narrowing and mild right-sided foraminal narrowing at the L4-5 level. There is also mild spinal stenosis at the L3-4 and L1-2 levels. There is minor right-sided foraminal narrowing at the L3-4 level. Electronically signed by: Siddharth Pabon M.D. 09/14/2016 9:09 PM Dictated Date/Time: 09/14/2016 9:04 PM
[2016-09-14 22:56] VITALS: BP 128/79; PULSE 67; TEMP 37; O2SAT 97
[2016-09-15 05:51] LABS: BASO % 0.2 %; BASO ABS # 0.02 K/uL (0-0.2); COMPLETE YES; EOS % 2.8 %; HEMATOCRIT 27.3 % (42-52); IG% 0.6 %; LYMPH % 14.8 %; LYMPH ABS # 1.49 K/uL (1.2-3.4); MEAN CELL VOLUME 93.2 fL (80-100); MEAN CORPUSCULAR HEMOGLOBIN 32.1 pg (25-34); MEAN CORPUSCULAR HGB CONC 34.4 g/dl (32-36); MEAN PLATELET VOLUME 10.3 fL (7.4-10.4); MONO % 13.5 %; NEUT % 68.1 %; PLATELET COUNT 257 K/uL (130-400); RED BLOOD COUNT 2.93 M/uL (4.7-6.1); WHITE BLOOD COUNT 10.04 K/uL (4.8-10.8)
[2016-09-15 06:15] LABS: BUN/CREATININE RATIO 19.8 (10-20); CALCIUM 8.3 mg/dl (8.5-10.1); CREATININE 2.1 mg/dl (0.60-1.40); POTASSIUM 3.7 mmol/L (3.5-5.1)
[2016-09-15] MEDS: SODIUM CHLORIDE 0.9% 1000ML 1,000 ML IV SCH ×2 (06:45→16:53)
[2016-09-15 07:56] VITALS: BP_SYST 126; BP_SYST 134; BP_SYST 148; BP_DIAS 67; BP_DIAS 69; BP_DIAS 76; PULSE 73; PULSE 85; TEMP 37; O2SAT 96
[2016-09-15] MEDS: OXYCODONE HCL IR 5 MG TAB (IMMEDIATE RELEASE) PO PRN (09:07)
[2016-09-15] MEDS: LATANOPROST 0.005% OP SOLN 2.5 ML BTL OPL SCH (09:07)
[2016-09-15] MEDS: TAMSULOSIN HCL 0.4 MG CAP PO SCH (09:08)
[2016-09-15] MEDS: POTASSIUM CHLORIDE 10 MEQ TABCR PO SCH ×2 (09:08→21:30)
[2016-09-15] MEDS: ALLOPURINOL 100 MG TAB PO SCH (09:08)
[2016-09-15] MEDS: HEPARIN SOD 5000 UNIT/0.5 ML CARP SQ SCH ×2 (09:11→21:31)
--- NOTE | 2016-09-15 10:12 | Neurology Consultation ---
Neurology Consultation Date of Consultation: Sep 15, 2016. Attending Physician: Kayden Smith M.D. Primary Care Physician: Carlin Dempsey D.O. Pulmonary Reason for Consultation: Leg weakness History of Present Illness Source: patient Mr Bennett is an 86 year old male with history of idiopathic peripheral neuropathy , atrial fibrillation (previously on coumadin, stopped due to hematuria), coronary artery disease s/p CABG, and diastolic CHF who initially presented to the ED about a week ago with hematuria. He reports he was sent home, came back, and then was transferred to [facility] for evaluation but was also discharged from there. He reports at all events his hematuria was managed by "pumping" (?flushing) a urinary catheter. He reports the leg weakness has been a long standing issue, mainly since last year, but since Sunday night when watching the [email or web address] game he felt his legs get cold, and put a blanket on them , then realized they felt weak and numb. The family members he live with encouraged him to come to the ED. He was admitted on 09/11/16, and since then has had an extensive workup for infection of uncertain etiology (current differential community acquired pneumonia vs UTI vs alternative dx). He was also found to have an ESR of 90 and imaging revealed spinal stenosis. He reports otherwise he feels well, and denies any symptoms in his upper limbs. He reports the swelling of his legs is also a long standing issue. Past Medical/Surgical History Medical Problems: (1) Pneumonia Status: Acute (2) Weakness Status: Acute Family History No significant family hx Social History Smoking Status: Never smoker Smokeless Tobacco Use: No Alcohol Use: none Drug Use: none Marital Status: Housing Status: lives with significant other Occupation Status: retired Allergies Coded Allergies: No Known Allergies (Verified , 09/11/16) Current Inpatient Medications Current Inpatient Medications Medications (Trade) Dose Ordered Sig/Aaron Route Start Time Stop Time Status Last Admin Dose Admin Ioversol (Optiray 320) 125 ml UD PRN IV 09/11/16 11:45 09/15/16 11:44 Acetaminophen (Tylenol Tab) 650 mg Q4H PRN PO 09/11/16 14:30 10/11/16 14:29 09/14/16 16:47 650 MG Al Hydrox/Mg Hydrox/Simethicone (Maalox Max Susp) 15 ml Q4H PRN PO 09/11/16 14:30 10/11/16 14:29 09/12/16 15:49 15 ML Magnesium Hydroxide (Milk Of Magnesia Susp) 30 ml Q6H PRN PO 09/11/16 14:30 10/11/16 14:29 Polyethylene (Miralax Powder Packet) 17 gm DAILY PRN PO 09/11/16 14:30 10/11/16 14:29 Ondansetron HCl (Zofran Inj) 4 mg Q6H PRN IV 09/11/16 14:30 10/11/16 14:29 Allopurinol (Zyloprim Tab) 100 mg DAILY PO 09/12/16 09:00 10/12/16 08:59 09/15/16 09:08 100 MG Latanoprost (Xalatan Oph Soln) 1 drops DAILY OPL 09/12/16 09:00 10/12/16 08:59 09/15/16 09:07 1 DROPS Simvastatin (Zocor Tab) 40 mg QPM PO 09/11/16 21:00 10/11/16 20:59 Future Hold 09/12/16 20:43 40 MG Tamsulosin HCl (Flomax Cap) 0.4 mg DAILY PO 09/12/16 09:00 10/12/16 08:59 09/15/16 09:08 0.4 MG Potassium Chloride (Klor-Con M10) 10 meq BID PO 09/11/16 21:00 10/11/16 20:59 09/15/16 09:08 10 MEQ Hydralazine HCl (HydrALAZINE INJ) 10 mg Q6 PRN IV. 09/11/16 14:45 10/11/16 14:44 Albuterol/ Ipratropium (Duoneb) 3 ml Q2H PRN INH 09/11/16 15:15 10/11/16 15:14 Piperacillin Sod/ Tazobactam Sod 1 ea 1 ea UD PRN N/A 09/12/16 14:15 10/12/16 14:14 Piperacillin Sod/ Tazobactam Sod 3.375 gm/Dextrose 115 ml @ 28.75 mls/ hr Q12H IV 09/14/16 00:00 09/20/16 23:59 09/14/16 23:54 28.75 MLS/HR Sodium Chloride (Nss 1000ml) 1,000 ml @ 100 mls/hr Q10H IV 09/13/16 15:15 10/13/16 15:14 09/15/16 06:45 100 MLS/HR Oxycodone HCl (Roxicodone Immediate Rel Tab) 5 mg Q6H PRN PO 09/14/16 15:00 09/28/16 14:59 09/15/16 09:07 5 MG Heparin Sodium (Porcine) (Heparin Sq 5000 Unit/0.5ml) 5,000 unit Q12 SQ 09/14/16 21:00 10/14/16 20:59 09/15/16 09:11 5,000 UNIT Pantoprazole Sodium (Protonix Tab) 40 mg QAM PO 09/15/16 09:00 10/15/16 08:59 Review of Systems Constitutional: + fatigue, + fever (Low grade fever ), + weakness, No chills, No weight loss ENT: + hearing loss Respiratory: + dyspnea on exertion, No cough, No dyspnea at rest, No shortness of breath, No sputum, No wheezing Cardiovascular: No chest pain, No orthopnea Abdomen: No constipation, No diarrhea, No nausea, No pain, No vomiting Musculoskeletal: + swelling, No calf pain, No muscle pain Genitourinary - Male: + hematuria, + penile discharge, + urinary urgency, No dysuria, No urinary frequency, No urinary hesitancy Neurologic: + balance problems, + numbness/tingling, + weakness, No memory loss , No paralysis, No vertigo Psychiatric: No anhedonism, No anxiety, No depression symptoms, No insomnia Endocrine: No fatigue Integumentary: No itch, No rash Physical Exam Vital Signs (Past 24 Hrs): Date Time Temp Pulse Resp B/P Pulse Ox O2 Delivery O2 Flow Rate FiO2 09/15/16 07:56 37.0 73 18 148/76 96 Room Air 85 134/69 85 126/67 09/15/16 00:00 Room Air 09/14/16 22:56 37.0 67 18 128/79 97 Room Air 09/14/16 20:00 Room Air 09/14/16 15:50 Room Air 09/14/16 15:00 37.3 75 18 126/72 97 Room Air General: Awake, alert, obese male. HEENT: Pupils equal and reactive to light. Midrange in size. CVS: Irregularly irregular. No murmurs, rubs, gallops Chest: CTA bilaterally Abd: Distended, soft. Neuro: Upper extremities: Tone, power, coordination, reflexes all intact and normal. Lower extremities: Muscle strength 4+/5 in all modalities, harder to initiate movement on left side. Intact reflexes. Tone normal. Would not comply with coordination exam. Ext: Bilateral peripheral edema. Nontender. Laboratory Results Past 24 Hours: 09/15/16 05:11 Red Blood Count 2.93, Mean Corpuscular Volume 93.2, Mean Corpuscular Hemoglobin 32.1, Mean Corpuscular Hemoglobin Concent 34.4, Mean Platelet Volume 10.3, Neutrophils (%) (Auto) 68.1, Lymphocytes (%) (Auto) 14.8, Monocytes (%) (Auto) 13.5, Eosinophils (%) (Auto) 2.8, Basophils (%) (Auto) 0.2, Neutrophils # (Auto ) 6.83, Lymphocytes # (Auto) 1.49, Monocytes # (Auto) 1.36, Eosinophils # (Auto ) 0.28, Basophils # (Auto) 0.02 09/15/16 05:11 Test 09/14/16 13:15 09/14/16 15:25 09/14/16 16:45 09/15/16 05:11 Urine Color YELLOW Urine Appearance CLOUDY (CLEAR) Urine pH 5.0 (4.5-7.5) Urine Specific [place] 1.014 (1.000-1.030) Urine Protein 1+ (NEG) Urine Glucose (UA) NEG (NEG) Urine Ketones NEG (NEG) Urine Occult Blood 3+ (NEG) Urine Nitrite NEG (NEG) Urine Bilirubin NEG (NEG) Urine Urobilinogen NEG (NEG) Urine Leukocyte Esterase SMALL (NEG) Urine WBC (Auto) 5-10 /hpf (0-5) Urine RBC (Auto) >30 /hpf (0-4) Urine Hyaline Casts (Auto) 1-5 /lpf (0-5) Urine Epithelial Cells (Auto) 20-30 /lpf (0-5) Urine Bacteria (Auto) 1+ (NEG) Urine Pathogenic Casts /lpf (0) Urine Mucus PRESENT (NONE PRSENT) Urine Yeast (Auto) (NONE PRSENT) Prothrombin Time 11.4 SECONDS (9.0-12.0) Prothromb Time International Ratio 1.1 (0.9-1.1) Activated Partial Thromboplast Time 35.8 SECONDS (21.0-31.0) Partial Thromboplastin Ratio 1.4 Hepatitis B Surface Antigen NEG (NEG) Hepatitis C Antibody NEG (NEG) White Blood Count 10.04 K/uL (4.8-10.8) Red Blood Count 2.93 M/uL (4.7-6.1) Hemoglobin 9.4 g/dL (14.0-18.0) Hematocrit 27.3 % (42-52) Mean Corpuscular Volume 93.2 fL (80-100) Mean Corpuscular Hemoglobin 32.1 pg (25-34) Mean Corpuscular Hemoglobin Concent 34.4 g/dl (32-36) Platelet Count 257 K/uL (130-400) Mean Platelet Volume 10.3 fL (7.4-10.4) Neutrophils (%) (Auto) 68.1 % Lymphocytes (%) (Auto) 14.8 % Monocytes (%) (Auto) 13.5 % Eosinophils (%) (Auto) 2.8 % Basophils (%) (Auto) 0.2 % Neutrophils # (Auto) 6.83 K/uL (1.4-6.5) Lymphocytes # (Auto) 1.49 K/uL (1.2-3.4) Monocytes # (Auto) 1.36 K/uL (0.11-0.59) Eosinophils # (Auto) 0.28 K/uL (0-0.5) Basophils # (Auto) 0.02 K/uL (0-0.2) RDW Standard Deviation 52.6 fL (36.4-46.3) RDW Coefficient of Variation 15.4 % (11.5-14.5) Immature Granulocyte % (Auto) 0.6 % Immature Granulocyte # (Auto) 0.06 K/uL (0.00-0.02) Absolute Reticulocyte Count 0.03 10^6/uL (0.02-0.10) Percent Reticulocyte Count 1.1 % (0.5-2.0) Anion Gap 11.0 mmol/L (3-11) Est Creatinine Clear Calc Drug Dose 29.3 ml/min Estimated GFR () 32.3 Estimated GFR (Non- 27.9 BUN/Creatinine Ratio 19.8 (10-20) Calcium Level 8.3 mg/dl (8.5-10.1) Imaging MRI LUMBAR SPINE: IMPRESSION: Multilevel spondylitic changes. The study is most significant for moderate spinal stenosis at the L4-5 level with severe left-sided foraminal narrowing and mild right-sided foraminal narrowing at the L4-5 level. There is also mild spinal stenosis at the L3-4 and L1-2 levels. There is minor right-sided foraminal narrowing at the L3-4 level. LUMBAR XRAY: IMPRESSION: Mild osteoarthritic changes. No acute fractures or dislocations identified LUMBAR CT: IMPRESSION: 1. No acute lumbar spine fracture or subluxation. 2. 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 Suboptimal evaluation of the central canal and neural foramen due to CT technique. 3. No CT evidence for an infectious process within the lumbar spine although the sensitivity for detection of epidural processes is diminished utilizing this technique. Impression 86 yo M with chronic peripheral neuropathy, though has intact muscle strength, contributing to weakness as well as other factors such as spinal stenosis, obesity, etc. 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 Plan - Fever evaluation per primary team - HbA1c, strict glucose control, as elevated glucose could contribute - Agree with MENDEZ and immunological workup, though this was negative as an outpatient last year - Will check for Vitamin B12, B6, E deficiencies with tomorrow's labs. - PT/OT Neurology attending addendum: Patient was seen and evaluated with resident. Pertinent aspects of history and physical were reviewed and verified. Assessment and plan was discussed with the resident and I agree. 86-year-old male with significant history of A. fib currently off Coumadin due to hematuria, CAD status post CABG, diastolic CHF, lung cancer status post pneumonectomy, hypertension, and chronic kidney disease. No significant tobacco or alcohol use. Per the patient's he's had slowly progressive weakness and ambulatory dysfunction over the last year. He does report significant joint pain including his hips, shoulders, knee, and back that tends to be worse with standing but does limit his ambulatory function. He reports numbness in bilateral legs. He reports that he has been using a cane since last summer. He denies any trouble with swallowing. Denies any specific muscle pain. Occasional orthostatic dizziness. No sudden strokelike symptoms. The patient has been having fevers at home at night for several nights. No reports of sometimes he' ll wake up drenched. He has been seen by Dr. Romero in neurology clinic in November and April. 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 Workup for secondary causes of peripheral neuropathy to was unrevealing. Patient was also evaluated by Dr. Romero for neck pain and bilateral upper extremity paresthesias again with the only diagnosis being peripheral neuropathy. He was recommended physical therapy at the time. Lab workup from 2016 was reviewed. UPEP with near fixation was unremarkable. B12 level was 554. Thiamine, RPR, Lyme, MENDEZ panel, vitamin D, TSH were all unremarkable. Creatinine noted to be between 1.9 and 2. More recently his labs during this admission have shown WBC elevation at 13-14, ESR above 90 (has had mild to moderate elevation of ESR is in the past), TSH was unremarkable, Lyme was negative. MENDEZ, ANCA, B12, and anticardiolipin antibodies are pending. CK was unremarkable. CT of the L-spine showed moderate to severe degenerative disc and degenerative joint disease MRI of L-spine report and images reviewed by myself. The patient has multilevel degenerative disease. There is moderate to severe stenosis at certain levels with left foraminal narrowing. Exam Gen.: Patient is alert and oriented in no acute distress. Sitting in chair. Heart: Regular rate and rhythm Extremities: No gross deformities or rashes noted Neurological examination: Mental status: Patient is alert and oriented to person and place. Attention and concentration normal for the situation. Speech is fluent with no aphasia or dysarthria noted. Cranial nerves: Funduscopic examination was difficult to visualize. Pupils equally round and reactive to light. Extraocular muscles intact without nystagmus. No facial asymmetry noted. Facial sensation intact. Tongue midline. Good palatal elevation. Good shoulder shrug bilaterally. Hearing grossly intact voice. Strength: 5/5 both proximal and distal bilateral upper extremities. Strength was 4+/5-5/5 approximately distally in bilateral lower extremities. Patient did have significant edema in his bilateral lower extremities. Sensation: Decreased sensation to light touch in bilateral lower extremities to the level above the knees. Deep tendon reflexes: Trace reflexes in bilateral biceps and patellar. Coordination: Patient has good finger to nose without dysmetria. Patient does have a mild to moderate action tremor. Station within the chair was normal. Patient needed a 2 assist plus a walker to transfer to the chair from the bed. Assessment and plan: This is a 86-year-old male with slowly progressive ambulatory dysfunction that is likely multifactorial including severe peripheral neuropathy, spinal stenosis, and likely deconditioning. It's unclear to me the etiology of his recent fevers and how this could be contributing to his overall decline. While an inflammatory myositis could be considered in the differential, my suspicion for this is low. In addition I see no evidence of GBS or Guillain-Willis syndrome causing weakness. Agree with checking hemoglobin A1c, vitamin E, B12, B1, vitamin D, and vitamin B6 Recommend a PT/OT evaluation and treatment Follow-up ID and rheumatology evaluations In terms of his history of A. fib, would recommend resuming anticoagulation when medically able to do so (i.e. when there is no active bleeding). The patient is at high risk for stroke in the setting of A. fib off of anticoagulation. Patient can follow up as an outpatient with Dr. Romero in neurology clinic if needed. Thank you for allowing me to participate in this patient's care. If there is any questions or concerns, feel free to call/patient may Resident Tracking Resident Involvement: Resident Care Provided Care Provided: Adult Hospital Medicine (Neurology)
[2016-09-15 10:13] LABS: ESTIMATED AVERAGE GLUCOSE 117 mg/dl; HA1C FLAG Normal (Normal)
[2016-09-15] MEDS: PANTOprazole SOD 40 MG TAB PO SCH (10:21)
[2016-09-15] MEDS: PIPERACILL/TAZOBAC IV 3.375 GM in DEXTROSE 5% 100ML 100 ML IV SCH (12:21)
--- NOTE | 2016-09-15 13:50 | Progress Note ---
Subjective Date of Service: Sep 15, 2016. (Sheri Barker PA-C) Subjective Pt evaluation today including: conversation w/ patient, physical exam, chart review, lab review, review of studies, review of inpatient medication list Patient seen and evaluated. No acute events overnight. Reports hip discomfort improved but L still bothersome. Reviewed PT note that states patient had BM but patient unsure if he lost control vs urgency 2/2 increased gas. Discussed case with Dr. Yates who suggested further lab studies from a rheumatology stand point. Will consult responder rheumatology to see patient to see if there is any further interventions. Patient verbalizes no further complaints at this time. (Sheri Barker PA-C) Problem List Medical Problems: (1) Pneumonia Status: Acute (2) Weakness Status: Acute (Sheri Barker PA-C) Review of Systems Constitutional: No chills, No fever Respiratory: No cough, No shortness of breath Cardiac: No chest pain Abdomen: No constipation, No diarrhea, No nausea, No pain, No vomiting Musculoskeletal: + swelling (bilateral lower extremities) Neurologic: + balance problems, + numbness/tingling (chronic lower extremities) Skin: No rash (Sheri Barker PA-C) Medications Current Inpatient Medications Medications (Trade) Dose Ordered Sig/Aaron Route Start Time Stop Time Status Last Admin Dose Admin Acetaminophen (Tylenol Tab) 650 mg Q4H PRN PO 09/11/16 14:30 10/11/16 14:29 09/14/16 16:47 650 MG Al Hydrox/Mg Hydrox/Simethicone (Maalox Max Susp) 15 ml Q4H PRN PO 09/11/16 14:30 10/11/16 14:29 09/12/16 15:49 15 ML Magnesium Hydroxide (Milk Of Magnesia Susp) 30 ml Q6H PRN PO 09/11/16 14:30 10/11/16 14:29 Polyethylene (Miralax Powder Packet) 17 gm DAILY PRN PO 09/11/16 14:30 10/11/16 14:29 Ondansetron HCl (Zofran Inj) 4 mg Q6H PRN IV 09/11/16 14:30 10/11/16 14:29 Allopurinol (Zyloprim Tab) 100 mg DAILY PO 09/12/16 09:00 10/12/16 08:59 09/15/16 09:08 100 MG Latanoprost (Xalatan Oph Soln) 1 drops DAILY OPL 09/12/16 09:00 10/12/16 08:59 09/15/16 09:07 1 DROPS Simvastatin (Zocor Tab) 40 mg QPM PO 09/11/16 21:00 10/11/16 20:59 Future Hold 09/12/16 20:43 40 MG Tamsulosin HCl (Flomax Cap) 0.4 mg DAILY PO 09/12/16 09:00 10/12/16 08:59 09/15/16 09:08 0.4 MG Potassium Chloride (Klor-Con M10) 10 meq BID PO 09/11/16 21:00 10/11/16 20:59 09/15/16 09:08 10 MEQ Hydralazine HCl (HydrALAZINE INJ) 10 mg Q6 PRN IV. 09/11/16 14:45 10/11/16 14:44 Albuterol/ Ipratropium (Duoneb) 3 ml Q2H PRN INH 09/11/16 15:15 10/11/16 15:14 Piperacillin Sod/ Tazobactam Sod 1 ea 1 ea UD PRN N/A 09/12/16 14:15 10/12/16 14:14 Piperacillin Sod/ Tazobactam Sod 3.375 gm/Dextrose 115 ml @ 28.75 mls/ hr Q12H IV 09/14/16 00:00 09/20/16 23:59 09/15/16 12:21 28.75 MLS/HR Sodium Chloride (Nss 1000ml) 1,000 ml @ 100 mls/hr Q10H IV 09/13/16 15:15 10/13/16 15:14 09/15/16 06:45 100 MLS/HR Oxycodone HCl (Roxicodone Immediate Rel Tab) 5 mg Q6H PRN PO 09/14/16 15:00 09/28/16 14:59 09/15/16 09:07 5 MG Heparin Sodium (Porcine) (Heparin Sq 5000 Unit/0.5ml) 5,000 unit Q12 SQ 09/14/16 21:00 10/14/16 20:59 09/15/16 09:11 5,000 UNIT Pantoprazole Sodium 40 mg 40 mg QAM PO 09/15/16 09:00 10/15/16 08:59 09/15/16 10:21 40 MG Dexamethasone Sodium Phosphate/ Syringe (Decadron Inj/ Syringe) 1 ml @ 1 mls/min Q8 IV 09/15/16 14:00 10/15/16 13:59 UNV (Sheri Barker PA-C) Objective Vital Signs Date Time Temp Pulse Resp B/P Pulse Ox O2 Delivery O2 Flow Rate FiO2 09/15/16 07:56 37.0 73 18 148/76 96 Room Air 85 134/69 85 126/67 09/15/16 00:00 Room Air 09/14/16 22:56 37.0 67 18 128/79 97 Room Air 09/14/16 20:00 Room Air 09/14/16 15:50 Room Air 09/14/16 15:00 37.3 75 18 126/72 97 Room Air (Sheri Barker PA-C) Physical Exam General Appearance: WD/WN, no apparent distress Eyes: sclerae normal ENT: hearing grossly normal Neck: supple, no JVD, trachea midline Respiratory/Chest: normal breath sounds, no respiratory distress, no accessory muscle use, + decreased breath sounds Cardiovascular: no gallop, no murmur, + irregularly irregular Abdomen: normal bowel sounds, non tender, soft Extremities: + pedal edema, + swelling Neurologic/Psychiatric: alert, oriented x 3 Skin: normal color, warm/dry (Sheri Barker PA-C) Laboratory Results Last 24 Hours Test 09/14/16 15:25 09/14/16 16:45 09/15/16 05:11 Prothrombin Time 11.4 SECONDS Prothromb Time International Ratio 1.1 Activated Partial Thromboplast Time 35.8 SECONDS Partial Thromboplastin Ratio 1.4 Hepatitis B Surface Antigen NEG Hepatitis C Antibody NEG White Blood Count 10.04 K/uL Red Blood Count 2.93 M/uL Hemoglobin 9.4 g/dL Hematocrit 27.3 % Mean Corpuscular Volume 93.2 fL Mean Corpuscular Hemoglobin 32.1 pg Mean Corpuscular Hemoglobin Concent 34.4 g/dl Platelet Count 257 K/uL Mean Platelet Volume 10.3 fL Neutrophils (%) (Auto) 68.1 % Lymphocytes (%) (Auto) 14.8 % Monocytes (%) (Auto) 13.5 % Eosinophils (%) (Auto) 2.8 % Basophils (%) (Auto) 0.2 % Neutrophils # (Auto) 6.83 K/uL Lymphocytes # (Auto) 1.49 K/uL Monocytes # (Auto) 1.36 K/uL Eosinophils # (Auto) 0.28 K/uL Basophils # (Auto) 0.02 K/uL RDW Standard Deviation 52.6 fL RDW Coefficient of Variation 15.4 % Immature Granulocyte % (Auto) 0.6 % Immature Granulocyte # (Auto) 0.06 K/uL Absolute Reticulocyte Count 0.03 10^6/uL Percent Reticulocyte Count 1.1 % Sodium Level 141 mmol/L Potassium Level 3.7 mmol/L Chloride Level 107 mmol/L Carbon Dioxide Level 23 mmol/L Anion Gap 11.0 mmol/L Blood Urea Nitrogen 42 mg/dl Creatinine 2.10 mg/dl Est Creatinine Clear Calc Drug Dose 29.3 ml/min Estimated GFR () 32.3 Estimated GFR (Non- 27.9 BUN/Creatinine Ratio 19.8 Random Glucose 114 mg/dl Estimated Average Glucose 117 mg/dl Hemoglobin A1c 5.7 % Calcium Level 8.3 mg/dl (Sheri Barker, PAAllyssaC) Assessment and Plan Mr. Bennett is an 86 y/o male with PMHx of Persistent A Fib, CAD S/P CABG x 3, Diastolic CHF, LLL Pneumonectomy 2/2 Lung CA, HTN, and CKD Stage III who presents to the ED for weakness and inability to ambulate starting last night 09/10/16. In the ED, Head CT negative for acute intracranial process. CXR with perihilar opacity and evidence of LLL surgical changes. BNP 2706. WBC of 13.69 and H&H 11.8/34.6. EKG with A Fib. He will be admitted to Med/Surg for further evaluation and care. Low-Grade Fever - Community Acquired Pneumonia vs Urinary Tract Infection vs Other Source?: Source unknown - Assessment - has been afebrile almost 24 hours and leukocytosis resolved - Imaging and Studies -- CXR - perihilar opacities; pulmonary edema vs infectious -- Chest CT - no suspicious lesions or pleural effusions; no focal lung consolidations; calcified R hilar lymph nodes -- Abd/Pelvis CT - no hydronephrosis; no renal calculi; enlarged prostate -- UA and Cx - without growth -- Lyme - negative -- HIDA Scan - unremarkable -- Lumbar CT (09/13) - moderate to severe multilevel disc disease and facet arthrosis; no infectious findings (limited) -- MRI Lumbar (09/14) - image and report reviewed - moderate to severe stenosis at multiple levels with L findings more significant than R -- ESR > 90 - Zosyn 3.375 mg Q8H - will await repeat UA cx and will D/C abx at that time - Consult Infectious Disease - appreciate recommendations -- Procalcitonin - 0.54 -- Immunology screening -- Rheumatology consult Generalized Weakness: Infectious vs Musculoskeletal - Inflammatory - Assessment - pain better controlled but L with some pain - Tylenol and Oxycodone 5 mg PRN pain - Dexamethasone 4 mg Q8H - PT/OT Hematuria: - Assessment - largely seems improved will monitor - Repeat UA with 1+ bacteria and 3+ blood- cx pending Diastolic CHF: - Echo - EF > 70% HTN: - Held Lisinopril - BP is adequate - Hydralazine 10 mg PRN Chronic Kidney Disease Stage III: - Cr improving - continue to monitor Persistent A Fib with CAD S/P CABG x 3: - Coumadin D/C'd in setting of hematuria DVT Prophylaxis: - LESLY/SCDs - Heparin 5000 units SC Q12H Code Status: - FULL RESUSCITATION Disposition: - PT recommending acute rehab (Sheri Barker, PAAllyssaC) PA Physician Supervision Note: I interviewed and examined the patient. Discussed with Sheri Barker PAC and agree with findings and plan as documented in the note. Any exceptions or clarifications are listed here: None Pt still with now left leg weakness, MRI does suggest some mechanical spine disease, but still no explanation for elevated ESR VSS car is irregular lungs are clear legs with sensation intact, left leg 3/5 right 4/5, no hyperreflexia confusing case of now maybe mechanical back impingement, but possible inflammatory issue as fevers etc, Rheumatology eval, continue abtx, consider steroids to help with possible back spinal impingement, if not help will have surgical evaluation acute on chronic renal failure is improving gross hematuria resolved with stopping coumadin, now microscopic but has [place] cath, may consider removal will send urine pathology afib will hold coumadin rate control with atenolol Documented By: Kayden Smith (Kayden Smith M.D.)
[2016-09-15] MEDS ORDERED: DEXAMETHASONE INJ 4 MG in SYRINGE 0 ML IV SCH (14:00)
[2016-09-15 14:48] VITALS: BP 124/66; PULSE 83; TEMP 36.5; O2SAT 98
[2016-09-15 15:45] VITALS: O2SAT 98
--- NOTE | 2016-09-15 19:51 | Infectious Disease Progress Nt ---
Progress Note Date of Service Sep 15, 2016. Subjective Pt evaluation today including: conversation w/ patient, physical exam, chart review, lab review, review of studies, conversation w/ [employer] sales consultant, review of inpatient medication list The patient notes slightly better hip pain, still uncomfortable difficult to walk. Rheumatology workup in progress. Remains afebrile. All Other Systems: Reviewed and Negative Medications Current Inpatient Medications Medications (Trade) Dose Ordered Sig/Aaron Route Start Time Stop Time Status Last Admin Dose Admin Acetaminophen (Tylenol Tab) 650 mg Q4H PRN PO 09/11/16 14:30 10/11/16 14:29 09/14/16 16:47 650 MG Al Hydrox/Mg Hydrox/Simethicone (Maalox Max Susp) 15 ml Q4H PRN PO 09/11/16 14:30 10/11/16 14:29 09/12/16 15:49 15 ML Magnesium Hydroxide (Milk Of Magnesia Susp) 30 ml Q6H PRN PO 09/11/16 14:30 10/11/16 14:29 Polyethylene (Miralax Powder Packet) 17 gm DAILY PRN PO 09/11/16 14:30 10/11/16 14:29 Ondansetron HCl (Zofran Inj) 4 mg Q6H PRN IV 09/11/16 14:30 10/11/16 14:29 Allopurinol (Zyloprim Tab) 100 mg DAILY PO 09/12/16 09:00 10/12/16 08:59 09/15/16 09:08 100 MG Latanoprost (Xalatan Oph Soln) 1 drops DAILY OPL 09/12/16 09:00 10/12/16 08:59 09/15/16 09:07 1 DROPS Simvastatin (Zocor Tab) 40 mg QPM PO 09/11/16 21:00 10/11/16 20:59 Future Hold 09/12/16 20:43 40 MG Tamsulosin HCl (Flomax Cap) 0.4 mg DAILY PO 09/12/16 09:00 10/12/16 08:59 09/15/16 09:08 0.4 MG Potassium Chloride (Klor-Con M10) 10 meq BID PO 09/11/16 21:00 10/11/16 20:59 09/15/16 09:08 10 MEQ Hydralazine HCl (HydrALAZINE INJ) 10 mg Q6 PRN IV. 09/11/16 14:45 10/11/16 14:44 Albuterol/ Ipratropium 3 ml 3 ml Q2H PRN INH 09/11/16 15:15 10/11/16 15:14 Sodium Chloride (Nss 1000ml) 1,000 ml @ 100 mls/hr Q10H IV 09/13/16 15:15 10/13/16 15:14 09/15/16 16:53 100 MLS/HR Oxycodone HCl (Roxicodone Immediate Rel Tab) 5 mg Q6H PRN PO 09/14/16 15:00 09/28/16 14:59 09/15/16 09:07 5 MG Heparin Sodium (Porcine) (Heparin Sq 5000 Unit/0.5ml) 5,000 unit Q12 SQ 09/14/16 21:00 10/14/16 20:59 09/15/16 09:11 5,000 UNIT Pantoprazole Sodium (Protonix Tab) 40 mg QAM PO 09/15/16 09:00 10/15/16 08:59 09/15/16 10:21 40 MG Objective Vital Signs Date Time Temp Pulse Resp B/P Pulse Ox O2 Delivery O2 Flow Rate FiO2 09/15/16 15:45 98 Room Air 09/15/16 14:48 36.5 83 16 124/66 98 Room Air 09/15/16 08:00 Room Air 09/15/16 07:56 37.0 73 18 148/76 96 Room Air 85 134/69 85 126/67 09/15/16 00:00 Room Air 09/14/16 22:56 37.0 67 18 128/79 97 Room Air 09/14/16 20:00 Room Air Physical Exam General Appearance: WD/WN, no apparent distress Eyes: normal inspection, EOMI, sclerae normal ENT: normal ENT inspection, pharynx normal Neck: supple, no adenopathy, thyroid normal, trachea midline Respiratory/Chest: chest non-tender, lungs clear, normal breath sounds, no respiratory distress Cardiovascular: regular rate, rhythm, no gallop, no murmur Abdomen: normal bowel sounds, non tender, soft, no organomegaly Extremities: non-tender, no calf tenderness Neurologic/Psychiatric: alert, oriented x 3, + pertinent finding (Both legs weak) Skin: normal color, warm/dry, no rash Laboratory Results Last 24 Hours Test 09/15/16 05:11 White Blood Count 10.04 K/uL Red Blood Count 2.93 M/uL Hemoglobin 9.4 g/dL Hematocrit 27.3 % Mean Corpuscular Volume 93.2 fL Mean Corpuscular Hemoglobin 32.1 pg Mean Corpuscular Hemoglobin Concent 34.4 g/dl Platelet Count 257 K/uL Mean Platelet Volume 10.3 fL Neutrophils (%) (Auto) 68.1 % Lymphocytes (%) (Auto) 14.8 % Monocytes (%) (Auto) 13.5 % Eosinophils (%) (Auto) 2.8 % Basophils (%) (Auto) 0.2 % Neutrophils # (Auto) 6.83 K/uL Lymphocytes # (Auto) 1.49 K/uL Monocytes # (Auto) 1.36 K/uL Eosinophils # (Auto) 0.28 K/uL Basophils # (Auto) 0.02 K/uL RDW Standard Deviation 52.6 fL RDW Coefficient of Variation 15.4 % Immature Granulocyte % (Auto) 0.6 % Immature Granulocyte # (Auto) 0.06 K/uL Absolute Reticulocyte Count 0.03 10^6/uL Percent Reticulocyte Count 1.1 % Sodium Level 141 mmol/L Potassium Level 3.7 mmol/L Chloride Level 107 mmol/L Carbon Dioxide Level 23 mmol/L Anion Gap 11.0 mmol/L Blood Urea Nitrogen 42 mg/dl Creatinine 2.10 mg/dl Est Creatinine Clear Calc Drug Dose 29.3 ml/min Estimated GFR () 32.3 Estimated GFR (Non- 27.9 BUN/Creatinine Ratio 19.8 Random Glucose 114 mg/dl Estimated Average Glucose 117 mg/dl Hemoglobin A1c 5.7 % Calcium Level 8.3 mg/dl Assessment and Plan 86 yo male with low grade fever, LE weakness with numbness, right hip pain with mild anemia, leukocytosis, and markedly elevated ESR. No obvious infectious process evident thus far on exam or other studies. Have ordered blood cultures and procalcitonin to further investigate possible bacterial process. However, am also very concerned about non-infectious inflammatory disorder such as giant cell arteritis. Have ordered further markers, await rheumatology consult. Will continue Abx for now pending above W/U. Will follow.
[2016-09-15] MEDS ORDERED: PIPERACILL/TAZOBAC IV 3.375 GM in DEXTROSE 5% 100ML 100 ML IV SCH (20:00)
[2016-09-16] VITALS (7 sets, daily range): BP systolic 110–132; BP diastolic 64–90; PULSE 63–87; TEMP 36.2–36.7; O2SAT 97–100
[2016-09-16] MEDS: SODIUM CHLORIDE 0.9% 1000ML 1,000 ML IV SCH (03:23)
[2016-09-16] MEDS: POTASSIUM CHLORIDE 10 MEQ TABCR PO SCH ×2 (07:42→21:23)
[2016-09-16] MEDS: TAMSULOSIN HCL 0.4 MG CAP PO SCH (07:42)
[2016-09-16] MEDS: ALLOPURINOL 100 MG TAB PO SCH (07:42)
[2016-09-16] MEDS: LATANOPROST 0.005% OP SOLN 2.5 ML BTL OPL SCH (07:42)
[2016-09-16] MEDS: PANTOprazole SOD 40 MG TAB PO SCH (07:42)
[2016-09-16] MEDS: HEPARIN SOD 5000 UNIT/0.5 ML CARP SQ SCH ×2 (07:51→21:27)
[2016-09-16 08:13] LABS: CREATININE 1.8 mg/dl (0.60-1.40)
[2016-09-16] MEDS: DEXAMETHASONE 4 MG TAB PO SCH ×2 (10:21→21:23)
--- NOTE | 2016-09-16 12:21 | Progress Note ---
Subjective Date of Service: Sep 16, 2016. Subjective pt states he feels somewhat better, more leg strength. Problem List Medical Problems: (1) Pneumonia Status: Acute (2) Weakness Status: Acute Review of Systems Constitutional: No chills, No fever, No sweats Respiratory: No cough, No sputum, No wheezing Cardiac: No chest pain, No edema, No orthopnea Abdomen: No diarrhea, No nausea, No pain, No vomiting Neurologic: + balance problems, + memory loss, + vertigo, + weakness Psychiatric: No anhedonism, No depression symptoms Objective Vital Signs Date Time Temp Pulse Resp B/P Pulse Ox O2 Delivery O2 Flow Rate FiO2 09/16/16 08:00 98 Room Air 09/16/16 07:55 36.5 63 16 126/90 98 Room Air 09/16/16 01:00 Room Air 09/16/16 00:24 36.6 87 16 132/70 98 Room Air 09/15/16 15:45 98 Room Air 09/15/16 14:48 36.5 83 16 124/66 98 Room Air Physical Exam General Appearance: WD/WN, + mild distress Respiratory/Chest: chest non-tender, lungs clear, normal breath sounds Cardiovascular: regular rate, rhythm, + systolic murmur Abdomen: normal bowel sounds, non tender, soft Extremities: no pedal edema, no calf tenderness Neurologic/Psychiatric: alert, oriented x 3 Laboratory Results Last 24 Hours Test 09/16/16 07:15 Creatinine 1.80 mg/dl Est Creatinine Clear Calc Drug Dose 34.2 ml/min Estimated GFR () 38.9 Estimated GFR (Non- 33.6 Iron Level 36 mcg/dl Total Iron Binding Capacity 154 mcg/dl Ferritin 304.0 ng/ml Assessment and Plan Mr. Bennett is an 86 y/o male with PMHx of Persistent A Fib, CAD S/P CABG x 3, Diastolic CHF, LLL Pneumonectomy 2/2 Lung CA, HTN, and CKD Stage III who presents to the ED for weakness and inability to ambulate starting last night 09/10/16. In the ED, Head CT negative for acute intracranial process. CXR with perihilar opacity and evidence of LLL surgical changes. Initially extensive evaluation for metabolic encephalopathy from infectious source, -- Chest CT - no suspicious lesions or pleural effusions; no focal lung consolidations; calcified R hilar lymph nodes -- Abd/Pelvis CT - no hydronephrosis; no renal calculi; enlarged prostate -- UA and Cx - without growth -- Lyme - negative -- HIDA Scan - unremarkable -- Lumbar CT (09/13) - moderate to severe multilevel disc disease and facet arthrosis; no infectious findings (limited) -- MRI Lumbar (09/14) - image and report reviewed - moderate to severe stenosis at multiple levels with L findings more significant than R - Consult Infectious Disease - and no significant recommendations were had, temps are low grade and will stop antibiotics 09/16, cultures negative to date ESR > 90-- Rheumatology consult, did have extensive workup as out pt previously , no current concerns for clinical vasculitis Diastolic CHF: stable - Echo - EF > 70% Acute on Chronic Kidney Disease Stage III: improving did hold ksenia i - Cr improving - continue to monitor Persistent A Fib with CAD S/P CABG x 3: - Coumadin D/C'd in setting of hematuria DVT Prophylaxis: - LESLY/SCDs - Heparin 5000 units SC Q12H
[2016-09-16] MEDS: OXYCODONE HCL IR 5 MG TAB (IMMEDIATE RELEASE) PO PRN (12:37)
[2016-09-17 07:15] LABS: HEMATOCRIT 29.1 % (42-52); MEAN CORPUSCULAR HEMOGLOBIN 31.6 pg (25-34); MEAN PLATELET VOLUME 10.6 fL (7.4-10.4); PLATELET COUNT 323 K/uL (130-400); RED BLOOD COUNT 3.13 M/uL (4.7-6.1); WHITE BLOOD COUNT 10.64 K/uL (4.8-10.8)
[2016-09-17 07:48] LABS: CREATININE 1.5 mg/dl (0.60-1.40)
[2016-09-17] MEDS: DEXAMETHASONE 4 MG TAB PO SCH ×2 (07:49→20:36)
[2016-09-17] MEDS: LATANOPROST 0.005% OP SOLN 2.5 ML BTL OPL SCH (07:49)
[2016-09-17] MEDS: POTASSIUM CHLORIDE 10 MEQ TABCR PO SCH ×2 (07:49→20:37)
[2016-09-17] MEDS: TAMSULOSIN HCL 0.4 MG CAP PO SCH (07:49)
[2016-09-17] MEDS: PANTOprazole SOD 40 MG TAB PO SCH (07:50)
[2016-09-17] MEDS: ALLOPURINOL 100 MG TAB PO SCH (07:50)
[2016-09-17 07:58] VITALS: BP 167/85; PULSE 58; TEMP 36.9; O2SAT 98
[2016-09-17] MEDS ORDERED: SIMETHICONE 80 MG CHEW PO PRN (08:45)
[2016-09-17] MEDS: HEPARIN SOD 5000 UNIT/0.5 ML CARP SQ SCH ×2 (09:23→20:39)
--- NOTE | 2016-09-17 10:30 | Neurology Progress Notes ---
Neurology Progress Note Date of Service Sep 17, 2016. Subjective Patient reports that he feels stronger and more stable on his feet. Feels better with transferring and going to the bathroom. No other neurological symptoms. Still has more numbness in his left thigh compared to his right. Has decreased sensation in general in his bilateral lower extremities likely is secondary to severe neuropathy. Objective Date Time Temp Pulse Resp B/P Pulse Ox O2 Delivery O2 Flow Rate FiO2 09/17/16 07:58 36.9 58 18 167/85 98 Room Air 09/16/16 22:56 36.7 74 20 128/64 97 Room Air 09/16/16 19:35 Room Air 09/16/16 16:00 Room Air 09/16/16 15:29 36.5 66 15 110/70 98 Room Air 09/16/16 12:33 36.2 71 16 110/69 100 Room Air Last 24 Hours Test 09/17/16 06:28 White Blood Count 10.64 K/uL Red Blood Count 3.13 M/uL Hemoglobin 9.9 g/dL Hematocrit 29.1 % Mean Corpuscular Volume 93.0 fL Mean Corpuscular Hemoglobin 31.6 pg Mean Corpuscular Hemoglobin Concent 34.0 g/dl RDW Standard Deviation 51.5 fL RDW Coefficient of Variation 15.3 % Platelet Count 323 K/uL Mean Platelet Volume 10.6 fL Creatinine 1.50 mg/dl Est Creatinine Clear Calc Drug Dose 41.1 ml/min Estimated GFR () 48.5 Estimated GFR (Non- 41.9 Exam: Gen.: Patient is alert and oriented in no acute distress. Sitting in chair. Extremities: No gross deformities or rashes noted. Does have bilateral lower extremity edema Neurological examination: Mental status: Patient is alert and oriented to person and place. Attention and concentration normal for the situation. Speech is fluent with no aphasia or dysarthria noted. Cranial nerves: Extraocular muscles intact without nystagmus. No facial asymmetry noted. Facial sensation intact. Tongue midline. Good palatal elevation. Hearing grossly intact voice. Strength: 5/5 both proximal and distal bilateral upper extremities. Strength was 5/5 both proximally and distally in bilateral lower extremities. Mild to moderate asymmetric course action tremor right upper extremity greater than left. Sensation: Decreased sensation to light touch in bilateral lower extremities to the level above the knees. Station within the chair was normal. Current Inpatient Medications Medications (Trade) Dose Ordered Sig/Aaron Route Start Time Stop Time Status Last Admin Dose Admin Acetaminophen (Tylenol Tab) 650 mg Q4H PRN PO 09/11/16 14:30 10/11/16 14:29 09/14/16 16:47 650 MG Al Hydrox/Mg Hydrox/Simethicone (Maalox Max Susp) 15 ml Q4H PRN PO 09/11/16 14:30 10/11/16 14:29 09/12/16 15:49 15 ML Magnesium Hydroxide (Milk Of Magnesia Susp) 30 ml Q6H PRN PO 09/11/16 14:30 10/11/16 14:29 Polyethylene (Miralax Powder Packet) 17 gm DAILY PRN PO 09/11/16 14:30 10/11/16 14:29 Ondansetron HCl (Zofran Inj) 4 mg Q6H PRN IV 09/11/16 14:30 10/11/16 14:29 Allopurinol (Zyloprim Tab) 100 mg DAILY PO 09/12/16 09:00 10/12/16 08:59 09/17/16 07:50 100 MG Latanoprost (Xalatan Oph Soln) 1 drops DAILY OPL 09/12/16 09:00 10/12/16 08:59 09/17/16 07:49 1 DROPS Simvastatin (Zocor Tab) 40 mg QPM PO 09/11/16 21:00 10/11/16 20:59 Future Hold 09/12/16 20:43 40 MG Tamsulosin HCl (Flomax Cap) 0.4 mg DAILY PO 09/12/16 09:00 10/12/16 08:59 09/17/16 07:49 0.4 MG Potassium Chloride (Klor-Con M10) 10 meq BID PO 09/11/16 21:00 10/11/16 20:59 09/17/16 07:49 10 MEQ Hydralazine HCl (HydrALAZINE INJ) 10 mg Q6 PRN IV. 09/11/16 14:45 10/11/16 14:44 Albuterol/ Ipratropium (Duoneb) 3 ml Q2H PRN INH 09/11/16 15:15 10/11/16 15:14 Oxycodone HCl (Roxicodone Immediate Rel Tab) 5 mg Q6H PRN PO 09/14/16 15:00 09/28/16 14:59 09/16/16 12:37 5 MG Heparin Sodium (Porcine) (Heparin Sq 5000 Unit/0.5ml) 5,000 unit Q12 SQ 09/14/16 21:00 10/14/16 20:59 09/17/16 09:23 5,000 UNIT Pantoprazole Sodium (Protonix Tab) 40 mg QAM PO 09/15/16 09:00 10/15/16 08:59 09/17/16 07:50 40 MG Dexamethasone (Decadron Tab) 4 mg BID PO 09/16/16 09:00 10/16/16 08:59 09/17/16 07:49 4 MG Simethicone (Mylicon Chew Tab) 80 mg Q6H PRN PO 09/17/16 08:45 10/17/16 08:44 Impression This is a 86-year-old male with slowly progressive ambulatory dysfunction that is likely multifactorial including severe peripheral neuropathy, spinal stenosis , and likely deconditioning. Unclear etiology of his recent fevers and how this could be contributing to his overall decline. I do not think that he has a myositis, Guillain-Willis syndrome, or myasthenia gravis. Plan Fever evaluation per primary team B12 level is 366. Recommend oral B12 replacement of 1000mcg daily with a goal B12 level above 400 to ensure that there is no contributing factor to his neuropathy and gait dysfunction. MENDEZ, immunological workup, B6, vitamin E levels pending Follow-up PT/OT evaluation and treatment of her discharge planning In terms of his history of A. fib, would recommend resuming anticoagulation when medically able to do so (i.e. when there is no active bleeding). The patient is at high risk for stroke in the setting of A. fib off of anticoagulation. Patient can follow up as an outpatient with Dr. Romero in neurology clinic if needed. No additional neurological recommendations at this time. Thank you for allowing me to participate in this patient's care. If there is any questions or concerns , feel free to call/patient may
--- NOTE | 2016-09-17 10:47 | Progress Note ---
Subjective Date of Service: Sep 17, 2016. Subjective pt states his leg strength is improving and he was able to stand with assistance but pivot with walker Problem List Medical Problems: (1) Pneumonia Status: Acute (2) Weakness Status: Acute Review of Systems Constitutional: + fatigue, + weakness, No chills, No fever Respiratory: No cough, No shortness of breath Cardiac: No chest pain, No edema Abdomen: + problem reported (gas pain), No diarrhea, No nausea, No pain, No vomiting Male : No dysuria, No urinary frequency Objective Vital Signs Date Time Temp Pulse Resp B/P Pulse Ox O2 Delivery O2 Flow Rate FiO2 09/17/16 07:58 36.9 58 18 167/85 98 Room Air 09/16/16 22:56 36.7 74 20 128/64 97 Room Air 09/16/16 19:35 Room Air 09/16/16 16:00 Room Air 09/16/16 15:29 36.5 66 15 110/70 98 Room Air 09/16/16 12:33 36.2 71 16 110/69 100 Room Air Physical Exam General Appearance: WD/WN, + mild distress Neck: supple, no JVD Respiratory/Chest: chest non-tender, lungs clear, normal breath sounds Cardiovascular: regular rate, rhythm, + systolic murmur Abdomen: normal bowel sounds, non tender, soft Extremities: no pedal edema, no calf tenderness Neurologic/Psychiatric: alert, + motor weakness (4/5 = b/l lower extremities, no hyper acute reflexes le) Skin: normal color, warm/dry Laboratory Results Last 24 Hours Test 09/17/16 06:28 White Blood Count 10.64 K/uL Red Blood Count 3.13 M/uL Hemoglobin 9.9 g/dL Hematocrit 29.1 % Mean Corpuscular Volume 93.0 fL Mean Corpuscular Hemoglobin 31.6 pg Mean Corpuscular Hemoglobin Concent 34.0 g/dl RDW Standard Deviation 51.5 fL RDW Coefficient of Variation 15.3 % Platelet Count 323 K/uL Mean Platelet Volume 10.6 fL Creatinine 1.50 mg/dl Est Creatinine Clear Calc Drug Dose 41.1 ml/min Estimated GFR () 48.5 Estimated GFR (Non- 41.9 Assessment and Plan Mr. Bennett is an 86 y/o male with PMHx of Persistent A Fib, CAD S/P CABG x 3, Diastolic CHF, LLL Pneumonectomy 2/2 Lung CA, HTN, and CKD Stage III who presents to the ED for weakness and inability to ambulate starting last night 09/10/16. In the ED, Head CT negative for acute intracranial process. CXR with perihilar opacity and evidence of LLL surgical changes. Initially extensive evaluation for metabolic encephalopathy from infectious source, -- Chest CT - no suspicious lesions or pleural effusions; no focal lung consolidations; calcified R hilar lymph nodes -- Abd/Pelvis CT - no hydronephrosis; no renal calculi; enlarged prostate -- UA and Cx - without growth -- Lyme - negative -- HIDA Scan - unremarkable -- Lumbar CT (09/13) - moderate to severe multilevel disc disease and facet arthrosis; no infectious findings (limited) -- MRI Lumbar (09/14) - image and report reviewed - moderate to severe stenosis at multiple levels with L findings more significant than R, given his age and comorbidities, will pursue attempts of medical management of lumbar spine disease and has improved on decadron. Hopes to be if improves will taper off and use nsaids +/- pain management to control symptoms - Consult Infectious Disease - and no significant recommendations were had, temps are low grade and will stop antibiotics 09/16, cultures negative to date ESR > 90-- Rheumatology consult, did have extensive workup as out pt previously , no current concerns for clinical vasculitis Diastolic CHF: stable - Echo - EF > 70% Acute on Chronic Kidney Disease Stage III: improving did hold ksenia i - Cr improving - continue to monitor Persistent A Fib with CAD S/P CABG x 3: - Coumadin D/C'd in setting of hematuria DVT Prophylaxis: - LESLY/SCDs - Heparin 5000 units SC Q12H disposition to [facility] this week family updated by phone 09/16
[2016-09-17 15:30] VITALS: BP 155/81; PULSE 62; TEMP 36.3; O2SAT 97
[2016-09-17] MEDS: OXYCODONE HCL IR 5 MG TAB (IMMEDIATE RELEASE) PO PRN (20:43)
[2016-09-17 23:02] VITALS: BP 154/67; PULSE 73; TEMP 37; O2SAT 95
[2016-09-18 07:14] LABS: CREATININE 1.5 mg/dl (0.60-1.40)
[2016-09-18 07:45] VITALS: BP 161/78; PULSE 53; TEMP 36.5; O2SAT 97
[2016-09-18] MEDS: DEXAMETHASONE 4 MG TAB PO SCH ×2 (08:08→19:54)
[2016-09-18] MEDS: TAMSULOSIN HCL 0.4 MG CAP PO SCH (08:08)
[2016-09-18] MEDS: LATANOPROST 0.005% OP SOLN 2.5 ML BTL OPL SCH (08:08)
[2016-09-18] MEDS: PANTOprazole SOD 40 MG TAB PO SCH (08:09)
[2016-09-18] MEDS: ALLOPURINOL 100 MG TAB PO SCH (08:09)
[2016-09-18] MEDS: POTASSIUM CHLORIDE 10 MEQ TABCR PO SCH ×2 (08:09→19:53)
[2016-09-18] MEDS: OXYCODONE HCL IR 5 MG TAB (IMMEDIATE RELEASE) PO PRN (08:09)
[2016-09-18] MEDS: HEPARIN SOD 5000 UNIT/0.5 ML CARP SQ SCH ×2 (08:54→20:00)
[2016-09-18 10:32] VITALS: BP 179/79
[2016-09-18 11:18] VITALS: BP 140/73
[2016-09-18] MEDS ORDERED: FUROSEMIDE 80 MG TAB PO ONE (13:00)
--- NOTE | 2016-09-18 15:03 | DIAGNOSTIC IMAGING REPORT ---
BILATERAL LOWER EXTREMITY VENOUS DOPPLER CLINICAL HISTORY: Lower extremity edema. COMPARISON STUDY: Bilateral lower extremity venous Doppler June 16, 2010 and right lower extremity venous Doppler December 25 2014 TECHNIQUE: Sonography of the deep venous system of the bilateral lower extremities was performed. Compression and augmentation were evaluated. FINDINGS: This exam was compromised by suboptimal penetration. The bilateral common femoral, superficial femoral and popliteal veins were compressible. Augmentation was normal. Flow was shown within the deep calf vessels. There is a suspected small right popliteal cyst. IMPRESSION: No evidence of deep venous thrombus within the bilateral lower extremities. Electronically signed by: Adrian Cruz M.D. 09/18/2016 3:01 PM Dictated Date/Time: 09/18/2016 3:00 PM
[2016-09-18 15:38] VITALS: BP 137/69; PULSE 68; TEMP 36.7; O2SAT 98
[2016-09-18 16:20] VITALS: O2SAT 98
--- NOTE | 2016-09-18 16:47 | Progress Note ---
Subjective Date of Service: Sep 18, 2016. (Sheri Barker PA-C) Subjective Pt evaluation today including: conversation w/ patient, conversation w/ family (Leticia on phone), physical exam, chart review, lab review, review of inpatient medication list Patient seen and evaluated. No acute events overnight. Patient reporting improvement in L hip pain and increased ability to move lower extremities. PT note reviewed and patient was ambulating with assist x 1. Verbalizes no further complaints. (Sheri Barker PA-C) Problem List Medical Problems: (1) Pneumonia Status: Acute (2) Weakness Status: Acute (Sheri Barker PA-C) Review of Systems Constitutional: No chills, No fever Respiratory: No cough, No shortness of breath Cardiac: No chest pain Abdomen: No nausea, No pain, No vomiting Musculoskeletal: + joint pain (L hip), + swelling (bilateral lower extremity edema) Male : No dysuria Neurologic: + numbness/tingling (chronic of lower extremities bilat) Heme: No abnormal bleeding/bruising Skin: No rash (Sheri Barker PA-C) Medications Current Inpatient Medications Medications (Trade) Dose Ordered Sig/Aaron Route Start Time Stop Time Status Last Admin Dose Admin Acetaminophen (Tylenol Tab) 650 mg Q4H PRN PO 09/11/16 14:30 10/11/16 14:29 09/14/16 16:47 650 MG Al Hydrox/Mg Hydrox/Simethicone (Maalox Max Susp) 15 ml Q4H PRN PO 09/11/16 14:30 10/11/16 14:29 09/12/16 15:49 15 ML Magnesium Hydroxide (Milk Of Magnesia Susp) 30 ml Q6H PRN PO 09/11/16 14:30 10/11/16 14:29 Polyethylene (Miralax Powder Packet) 17 gm DAILY PRN PO 09/11/16 14:30 10/11/16 14:29 Ondansetron HCl (Zofran Inj) 4 mg Q6H PRN IV 09/11/16 14:30 10/11/16 14:29 Allopurinol (Zyloprim Tab) 100 mg DAILY PO 09/12/16 09:00 10/12/16 08:59 09/18/16 08:09 100 MG Latanoprost (Xalatan Oph Soln) 1 drops DAILY OPL 09/12/16 09:00 10/12/16 08:59 09/18/16 08:08 1 DROPS Simvastatin (Zocor Tab) 40 mg QPM PO 09/11/16 21:00 10/11/16 20:59 Future Hold 09/12/16 20:43 40 MG Tamsulosin HCl (Flomax Cap) 0.4 mg DAILY PO 09/12/16 09:00 10/12/16 08:59 09/18/16 08:08 0.4 MG Potassium Chloride (Klor-Con M10) 10 meq BID PO 09/11/16 21:00 10/11/16 20:59 09/18/16 08:09 10 MEQ Hydralazine HCl (HydrALAZINE INJ) 10 mg Q6 PRN IV. 09/11/16 14:45 10/11/16 14:44 09/18/16 10:40 10 MG Albuterol/ Ipratropium (Duoneb) 3 ml Q2H PRN INH 09/11/16 15:15 10/11/16 15:14 Oxycodone HCl (Roxicodone Immediate Rel Tab) 5 mg Q6H PRN PO 09/14/16 15:00 09/28/16 14:59 09/18/16 08:09 5 MG Heparin Sodium (Porcine) (Heparin Sq 5000 Unit/0.5ml) 5,000 unit Q12 SQ 09/14/16 21:00 10/14/16 20:59 09/18/16 08:54 5,000 UNIT Pantoprazole Sodium (Protonix Tab) 40 mg QAM PO 09/15/16 09:00 10/15/16 08:59 09/18/16 08:09 40 MG Dexamethasone (Decadron Tab) 4 mg BID PO 09/16/16 09:00 10/16/16 08:59 09/18/16 08:08 4 MG Simethicone (Mylicon Chew Tab) 80 mg Q6H PRN PO 09/17/16 08:45 10/17/16 08:44 Furosemide (Lasix tab) 80 mg QAM PO 09/19/16 09:00 10/19/16 08:59 (Sheri Barker PA-C) Objective Vital Signs Date Time Temp Pulse Resp B/P Pulse Ox O2 Delivery O2 Flow Rate FiO2 09/18/16 15:38 36.7 68 16 137/69 98 Room Air 09/18/16 11:18 140/73 09/18/16 10:32 179/79 09/18/16 08:00 Room Air 09/18/16 07:45 36.5 53 18 161/78 97 Room Air 09/18/16 00:10 Room Air 09/17/16 23:02 37.0 73 21 154/67 95 Room Air 09/17/16 21:00 Room Air (Sheri Barker, PA-C) Physical Exam General Appearance: WD/WN, no apparent distress Eyes: sclerae normal ENT: hearing grossly normal Neck: supple, no JVD, trachea midline Respiratory/Chest: no respiratory distress, no accessory muscle use, + decreased breath sounds Cardiovascular: no gallop, no murmur, + irregularly irregular Abdomen: normal bowel sounds, non tender, soft Extremities: + pedal edema, + swelling Neurologic/Psychiatric: alert, oriented x 3 Skin: normal color, warm/dry (Sheri Barker, RUDY-C) Laboratory Results Last 24 Hours Test 09/18/16 06:20 Erythrocyte Sedimentation Rate 72 mm/hr Creatinine 1.50 mg/dl Est Creatinine Clear Calc Drug Dose 41.1 ml/min Estimated GFR () 48.5 Estimated GFR (Non- 41.9 C-Reactive Protein 5.27 mg/dl (Sheri Barker, PA-C) Assessment and Plan Mr. Bennett is an 86 y/o male with PMHx of Persistent A Fib, CAD S/P CABG x 3, Diastolic CHF, LLL Pneumonectomy 2/2 Lung CA, HTN, and CKD Stage III who presents to the ED for weakness and inability to ambulate starting last night 09/10/16. In the ED, Head CT negative for acute intracranial process. CXR with perihilar opacity and evidence of LLL surgical changes. BNP 2706. WBC of 13.69 and H&H 11.8/34.6. EKG with A Fib. He will be admitted to Med/Surg for further evaluation and care. Initially extensive evaluation for metabolic encephalopathy from infectious source: Generalized Lower Extremity Weakness and Ambulation Dysfunction - Chest CT - no suspicious lesions or pleural effusions; no focal lung consolidations; calcified R hilar lymph nodes - Abd/Pelvis CT - no hydronephrosis; no renal calculi; enlarged prostate - UA and Cx - without growth - Lyme - negative - HIDA Scan - unremarkable - Lumbar CT (09/13) - moderate to severe multilevel disc disease and facet arthrosis; no infectious findings (limited) - MRI Lumbar (09/14) - image and report reviewed - moderate to severe stenosis at multiple levels with L findings more significant than R, given his age and comorbidities, -- Medical management with Decadron 4 mg po BID will plan on taper - Consult Infectious Disease - and no significant recommendations were had, temps are low grade and stopped antibiotics 09/16, cultures negative to date - ESR > 90-- Rheumatology consult, did have extensive workup as out pt previously, no current concerns for clinical vasculitis -- Repeat ESR at 72 with CRP elevated Diastolic CHF: stable - Echo - EF > 70% - Lasix 80 mg daily Acute on Chronic Kidney Disease Stage III: Will hold ACEI at this time - Cr improving and appears better than baseline- continue to monitor Persistent A Fib with CAD S/P CABG x 3: - Coumadin D/C'd in setting of hematuria DVT Prophylaxis: - LESLY/SCDs - Heparin 5000 units SC Q12H Disposition: - [facility] - will need precert (Sheri Barker, PAAllyssaC) Attending Attestation: Pt seen/examined, chart reviewed, and care plan d/w RUDY Barker. I agree with the velazquez components of her documentation. Pt overall "feels better" with less leg weakness. He reports his leg edema is "worse" than typical for him. He mainly wanted to talk about his gross hematuria he had had a few weeks prior. None since then. VSS, afebrile gen - NAD, sitting in chair mouth - MMM heart - irregular, s1, s2 lungs - CTA b/l abd - soft ext - lymphedema b/l extending from the feet all the way to the hips; pulses 2+ b/l; no synovitis of any joint of hands, wrists, etc neuro - hips with intact proximal muscle strength; shoulder girdle with intact proximal muscle strength; distal strength 5/5 (ankle dorsiflexion/plantarflexion ) skin - plantar aspect left foot with erythematous appearance, almost vasculitic in appearance, but cap refill is normal head - no tenderness over either temporal artery labs - 09/18/16 06:20 Test 09/18/16 06:20 Erythrocyte Sedimentation Rate 72 mm/hr (0-14) Est Creatinine Clear Calc Drug Dose 41.1 ml/min Estimated GFR () 48.5 Estimated GFR (Non- 41.9 C-Reactive Protein 5.27 mg/dl (0-0.29) a/p: 1. recent LE weakness with ambulatory dysfunction - both improved. exact etiology uncertain - largest abnormality found was that of spinal stenosis of L-spine. this should not, however, cause elevated inflammatory markers. 2. elevated sed rate - argues for inflammatory condition. ECHO w/o endocarditis. PMR is possible as he described proximal muscle weakness of the thighs early on in his hospital stay and he has responded to steroids. repeat sed rate & crp still quite high but former improved. no signs of temporal arteritis. MENDEZ is pending. I don't see inflammatory arthropathy on exam today. vitamin E level pending. neurology consult ideas/recs reviewed. rheum consult pending. 3. acute kidney injury - resolved; repeat BMP am 4. low-nl b12 level - supplement 5. severe edema/lymphedema - check dopplers, exclude DVT, since he has been off his coumadin for some time. resume lasix. 6. a. fib - rates acceptable. Regina WAGNER MD (Trev Wagner MD)
[2016-09-18 23:15] VITALS: BP 120/53; PULSE 71; TEMP 36.6; O2SAT 99
[2016-09-18 23:25] LABS: MYELOPEROXIDASE AB <1.0 AI (<1.0)
[2016-09-19 06:31] LABS: BUN/CREATININE RATIO 29.6 (10-20); CALCIUM 8.8 mg/dl (8.5-10.1); CREATININE 1.6 mg/dl (0.60-1.40); MAGNESIUM 2.2 mg/dl (1.8-2.4); POTASSIUM 4.7 mmol/L (3.5-5.1)
[2016-09-19 06:46] VITALS: BP 130/72; PULSE 42; TEMP 36.4; O2SAT 98
[2016-09-19 07:57] VITALS: PULSE 73
[2016-09-19] MEDS: DEXAMETHASONE 4 MG TAB PO SCH ×2 (08:00→20:21)
[2016-09-19] MEDS: ALLOPURINOL 100 MG TAB PO SCH (08:00)
[2016-09-19] MEDS: CYANOCOBALAMIN 500 MCG TAB (VIT B-12) PO SCH (08:00)
[2016-09-19] MEDS: PANTOprazole SOD 40 MG TAB PO SCH (08:01)
[2016-09-19] MEDS: TAMSULOSIN HCL 0.4 MG CAP PO SCH (08:01)
[2016-09-19] MEDS: FUROSEMIDE 80 MG TAB PO SCH (08:01)
[2016-09-19] MEDS: POTASSIUM CHLORIDE 10 MEQ TABCR PO SCH ×2 (08:02→20:22)
[2016-09-19] MEDS: LATANOPROST 0.005% OP SOLN 2.5 ML BTL OPL SCH (08:02)
[2016-09-19] MEDS: HEPARIN SOD 5000 UNIT/0.5 ML CARP SQ SCH ×2 (08:15→20:52)
[2016-09-19 15:56] VITALS: BP 137/74; PULSE 66; TEMP 36.6; O2SAT 98
--- NOTE | 2016-09-19 16:04 | Progress Note ---
Subjective Date of Service: Sep 19, 2016. (Sheri Barker PA-C) Subjective Pt evaluation today including: conversation w/ patient, physical exam, chart review, lab review, review of inpatient medication list Patient seen and evaluated. Has been improving with steroid administration. Participating in PT and has shown improvement in ambulation. Leg pain remains but improved and tolerable per patient. Instructed patient to have family members bring in stockings as legs with lymphedema. Explained to patient that this inflammation is causing the symptoms but we do not have a specific diagnosis. Appreciate rheumatology recommendations as to possible cause. Verbalizes no further complaints at this time. (Sheri Barker PA-C) Problem List Medical Problems: (1) Pneumonia Status: Acute (2) Weakness Status: Acute (Sheri Barker PA-C) Review of Systems Constitutional: No chills, No fever Respiratory: + cough, No shortness of breath Cardiac: No chest pain Abdomen: No constipation, No diarrhea, No nausea, No pain, No vomiting Musculoskeletal: + joint pain (L hip), + swelling (chronic) Male : No dysuria Skin: No rash (Sheri Barker PA-C) Medications Current Inpatient Medications Medications (Trade) Dose Ordered Sig/Aaron Route Start Time Stop Time Status Last Admin Dose Admin Acetaminophen (Tylenol Tab) 650 mg Q4H PRN PO 09/11/16 14:30 10/11/16 14:29 09/14/16 16:47 650 MG Al Hydrox/Mg Hydrox/Simethicone (Maalox Max Susp) 15 ml Q4H PRN PO 09/11/16 14:30 10/11/16 14:29 09/12/16 15:49 15 ML Magnesium Hydroxide (Milk Of Magnesia Susp) 30 ml Q6H PRN PO 09/11/16 14:30 10/11/16 14:29 Polyethylene (Miralax Powder Packet) 17 gm DAILY PRN PO 09/11/16 14:30 10/11/16 14:29 Ondansetron HCl (Zofran Inj) 4 mg Q6H PRN IV 09/11/16 14:30 10/11/16 14:29 Allopurinol (Zyloprim Tab) 100 mg DAILY PO 09/12/16 09:00 10/12/16 08:59 09/19/16 08:00 100 MG Latanoprost (Xalatan Oph Soln) 1 drops DAILY OPL 09/12/16 09:00 10/12/16 08:59 09/19/16 08:02 1 DROPS Simvastatin (Zocor Tab) 40 mg QPM PO 09/11/16 21:00 10/11/16 20:59 Future Hold 09/12/16 20:43 40 MG Tamsulosin HCl (Flomax Cap) 0.4 mg DAILY PO 09/12/16 09:00 10/12/16 08:59 09/19/16 08:01 0.4 MG Potassium Chloride (Klor-Con M10) 10 meq BID PO 09/11/16 21:00 10/11/16 20:59 09/19/16 08:02 10 MEQ Hydralazine HCl (HydrALAZINE INJ) 10 mg Q6 PRN IV. 09/11/16 14:45 10/11/16 14:44 09/18/16 10:40 10 MG Albuterol/ Ipratropium (Duoneb) 3 ml Q2H PRN INH 09/11/16 15:15 10/11/16 15:14 Oxycodone HCl (Roxicodone Immediate Rel Tab) 5 mg Q6H PRN PO 09/14/16 15:00 09/28/16 14:59 09/18/16 08:09 5 MG Heparin Sodium (Porcine) (Heparin Sq 5000 Unit/0.5ml) 5,000 unit Q12 SQ 09/14/16 21:00 10/14/16 20:59 09/19/16 08:15 5,000 UNIT Pantoprazole Sodium (Protonix Tab) 40 mg QAM PO 09/15/16 09:00 10/15/16 08:59 09/19/16 08:01 40 MG Dexamethasone (Decadron Tab) 4 mg BID PO 09/16/16 09:00 10/16/16 08:59 09/19/16 08:00 4 MG Simethicone (Mylicon Chew Tab) 80 mg Q6H PRN PO 09/17/16 08:45 10/17/16 08:44 Furosemide (Lasix tab) 80 mg QAM PO 09/19/16 09:00 10/19/16 08:59 09/19/16 08:01 80 MG Cyanocobalamin (Vitamin B-12 Tab) 1,000 mcg QAM PO 09/19/16 09:00 10/19/16 08:59 09/19/16 08:00 1,000 MCG (Sheri Barker PA-C) Objective Vital Signs Date Time Temp Pulse Resp B/P Pulse Ox O2 Delivery O2 Flow Rate FiO2 09/19/16 15:56 36.6 66 18 137/74 98 Room Air 09/19/16 07:57 73 09/19/16 07:50 Room Air 09/19/16 06:46 36.4 42 18 130/72 98 Room Air 09/19/16 00:27 Room Air 09/18/16 23:15 36.6 71 18 120/53 99 Room Air 09/18/16 16:20 98 Room Air (Sheri Barker PA-C) Physical Exam General Appearance: WD/WN, no apparent distress, + obese Eyes: sclerae normal ENT: hearing grossly normal Neck: supple, no JVD, trachea midline Respiratory/Chest: no respiratory distress, no accessory muscle use, + decreased breath sounds Cardiovascular: no gallop, no murmur, + irregularly irregular Abdomen: normal bowel sounds, non tender, soft Extremities: no calf tenderness, + pedal edema, + swelling (1+ pitting edema; lymphedema) Neurologic/Psychiatric: alert Skin: normal color, warm/dry (Sheri Barker PA-C) Laboratory Results Last 24 Hours Test 09/19/16 05:01 Sodium Level 141 mmol/L Potassium Level 4.7 mmol/L Chloride Level 107 mmol/L Carbon Dioxide Level 26 mmol/L Anion Gap 8.0 mmol/L Blood Urea Nitrogen 47 mg/dl Creatinine 1.60 mg/dl Est Creatinine Clear Calc Drug Dose 38.5 ml/min Estimated GFR () 44.9 Estimated GFR (Non- 38.7 BUN/Creatinine Ratio 29.6 Random Glucose 128 mg/dl Calcium Level 8.8 mg/dl Magnesium Level 2.2 mg/dl (Sheri Barker PA-C) Assessment and Plan Mr. Bennett is an 86 y/o male with PMHx of Persistent A Fib, CAD S/P CABG x 3, Diastolic CHF, LLL Pneumonectomy 2/2 Lung CA, HTN, and CKD Stage III who presents to the ED for weakness and inability to ambulate starting last night 09/10/16. In the ED, Head CT negative for acute intracranial process. CXR with perihilar opacity and evidence of LLL surgical changes. BNP 2706. WBC of 13.69 and H&H 11.8/34.6. EKG with A Fib. He will be admitted to Med/Surg for further evaluation and care. Initially extensive evaluation for metabolic encephalopathy from infectious source: Generalized Lower Extremity Weakness and Ambulation Dysfunction - Studies -- Chest CT - no suspicious lesions or pleural effusions; no focal lung consolidations; calcified R hilar lymph nodes -- Abd/Pelvis CT - no hydronephrosis; no renal calculi; enlarged prostate -- UA and Cx - without growth -- Lyme - negative -- HIDA Scan - unremarkable -- Lumbar CT (09/13) - moderate to severe multilevel disc disease and facet arthrosis; no infectious findings (limited) -- MRI Lumbar (09/14) - image and report reviewed - moderate to severe stenosis at multiple levels with L findings more significant than R, given his age and comorbidities, - Medical management with Decadron 4 mg po BID will plan on taper - would appreciate Rheum recommendations for ongoing therapy - Consult Infectious Disease - and no significant recommendations were had, temps are low grade and stopped antibiotics 09/16, cultures negative to date - Consult Neurology - considered recommendations - ESR > 90-- Rheumatology consult, did have extensive workup as out pt previously, no current concerns for clinical vasculitis -- Repeat ESR at 72 with CRP elevated -- Placed a new consult in for Rheumatology - will await any recommendations as patient with improvement of ambulation with steroid use however no direct explanation as imaging suggest spinal stenosis but inflammatory cause unknown -- Consideration for PMR as patient responded quickly with steroids and exam without evidence of finger deviations or PIP/DIP abnormalities -- Joints are not erythematous or edematous suggesting gout vs pseudogout Diastolic CHF: stable - Echo - EF > 70% - Lasix 80 mg daily Acute on Chronic Kidney Disease Stage III: Will hold ACEI at this time - Cr improving and appears better than baseline- continue to monitor Persistent A Fib with CAD S/P CABG x 3: - Coumadin D/C'd in setting of hematuria - may need instituted after cystoscopy by urology as outpatient - Urine pathology negative for malignant cells DVT Prophylaxis: - LESLY/SCDs - Heparin 5000 units SC Q12H Disposition: - [facility] - hopefully for D/C after final suggestions from Rheumatology (Sheri Barker, RUKHSANA) Attending Attestation: Pt seen/examined, chart reviewed, and care plan d/w RUDY Barker. I agree with the velazquez components of her documentation. Pt feels good today with good appetite, walking better, no pain in legs. Reports he uses compression stockings - prescription grade - for chronic LE edema. VSS, afebrile gen - NAD, sitting in chair mouth - MMM heart - irregular, s1, s2 lungs - CTA b/l abd - soft ext - lymphedema b/l extending from the feet all the way to the hips; pulses 2+ b/l; again no synovitis of any joint of hands, wrists, etc neuro - again no proximal muscle weakness of shoulder or hips A/P: 1. recent LE weakness with ambulatory dysfunction - both improved. exact etiology uncertain - largest imaging abnormality found was that of spinal stenosis of L-spine. this should not, however, cause elevated inflammatory markers. his ESR has come down with steroids. cont to taper steroids. await rheum consultation 2. elevated sed rate - argues for inflammatory condition. ECHO w/o endocarditis. PMR is possible as he described proximal muscle weakness of the thighs early on in his hospital stay and he has responded to steroids but he never had shoulder girdle symptoms. repeat sed rate & crp still quite high but former improved. no signs of temporal arteritis. MENDEZ is negative. vitamin E level pending. neurology consult ideas/recs reviewed. rheum consult pending. 3. acute kidney injury - resolved; repeat BMP today stable. 4. low-nl b12 level - supplement 5. severe edema/lymphedema - dopplers negative for DVT. resumed lasix. needs compression stockings. 6. a. fib - rates acceptable. hold coumadin due to intermittent hematuria. 7. hematuria - urine cytology 3 weeks ago and this admission negative. none the less needs cystoscopy. await rheum consult hopefully d/c tomorrow PT, ANTHONY WAGNER MD (Trev Wagner MD)
[2016-09-19 18:22] LABS: B2 GLYCOPROTEIN IGA <9 SAU (<=20); B2 GLYCOPROTEIN IGG <9 SGU (<=20); B2 GLYCOPROTEIN IGM <9 SMU (<=20); LUPUS ANTICOAGULANT** TC36573X Positive (Negative); MYELOPEROXIDASE AB <1.0 AI (<1.0)
[2016-09-20 00:08] VITALS: BP 132/62; PULSE 65; TEMP 36.9; O2SAT 97
[2016-09-20 07:36] LABS: HEMATOCRIT 31.3 % (42-52); MEAN CORPUSCULAR HEMOGLOBIN 31.4 pg (25-34); MEAN CORPUSCULAR HGB CONC 34.5 g/dl (32-36); MEAN PLATELET VOLUME 9.5 fL (7.4-10.4); PLATELET COUNT 409 K/uL (130-400); RED BLOOD COUNT 3.44 M/uL (4.7-6.1); WHITE BLOOD COUNT 16.54 K/uL (4.8-10.8)
[2016-09-20 08:03] VITALS: BP 128/74; PULSE 62; TEMP 36.5; O2SAT 96
[2016-09-20] MEDS: ALLOPURINOL 100 MG TAB PO SCH (08:46)
[2016-09-20] MEDS: LATANOPROST 0.005% OP SOLN 2.5 ML BTL OPL SCH (08:46)
[2016-09-20] MEDS: PANTOprazole SOD 40 MG TAB PO SCH (08:46)
[2016-09-20] MEDS: POTASSIUM CHLORIDE 10 MEQ TABCR PO SCH (08:46)
[2016-09-20] MEDS: FUROSEMIDE 80 MG TAB PO SCH (08:46)
[2016-09-20] MEDS: DEXAMETHASONE 4 MG TAB PO SCH (08:46)
[2016-09-20] MEDS: TAMSULOSIN HCL 0.4 MG CAP PO SCH (08:46)
[2016-09-20] MEDS: CYANOCOBALAMIN 500 MCG TAB (VIT B-12) PO SCH (08:46)
[2016-09-20] MEDS: HEPARIN SOD 5000 UNIT/0.5 ML CARP SQ SCH (08:47)
--- NOTE | 2016-09-20 09:57 | Rheumatology Consultation ---
Rheumatology Consultation Date of Consultation: Sep 20, 2016. Reason for Consultation: Patient with leg weakness and elevated sedimentation rate of 90 History of Present Illness Patient is an 86-year-old male who had slowly progressive ambulatory dysfunction fevers and elevated sedimentation rate of 90 and hematuria. He carries a diagnosis of idiopathic peripheral neuropathy, AFib CHF hematuria. He was recently discharged from [facility].. Patient noted that he had increasing hematuria and came to the ED and was admitted. The Coumadin was held and workup for the hematuria was initiated. Due to the fevers and elevated sedimentation rate infectious Disease was consulted and did blood in urine cultures that were negative. Neurology was consulted for evaluation of the leg weakness. They felt that the leg weakness of was secondary to his peripheral neuropathy, spinal stenosis and deconditioning. I also agree with neurology that it is not a polymyositis picture. On their examination is motor strength is 5/5 throughout and he had decreased sensation below the knee and he had is peripheral edema. Which is not new. This is not consistent with polymyalgia rheumatica. Polymyalgia rheumatica or PMR , there is an elevated sedimentation rate usually in the 40s and 50s And there is shoulder and arm pain and hip girdle pain but there is no weakness As is seen in this patient. The patient noted that he did not have any arm pain or hip girdle pain. He had no visual changes headaches scalp tenderness jaw claudication as would be seen with temporal arteritis. the An elevated sedimentation rate of this level would be either due to cancer, infection or autoimmune disease/vasculitis. The autoimmune workup has been initiated he has a negative MENDEZ. The vasculitic workup has been initiated as well. 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 He has no symptoms that would go along with polyangiitis or Liss's granulomatosis. These are the ANCA positive vasculitic syndromes. There are other vasculitic syndromes that are considered ANCA negative such as polyarteritis nodosa that can present with hematuria, fevers, high sed rate ,malaise , mononeuritis multiplex. This is still a possibility in this particular patient. The treatment PLASCENCIA involves Cytoxan and prednisone. Therefore it is important to confirm a diagnosis prior to treatment. Certainly the hematuria that has not cleared with the discontinuation of the Coumadin would be a good source to pursue . Past Medical/Surgical History Medical History: atrial fibrillation, other (Peripheral neuropathy, spinal stenosis ,CHF, hematuria ,atrial fibrillation.) Surgical History: other (Lobectomy for lung cancer .) Social History Smoking Status: Unknown if Ever Smoked History of Alcohol Use: No Drug Use: none Marital Status: Housing Status: lives with family Occupation Status: retired Review of Systems Constitutional: + weakness, No chills, No fatigue, No fever, No problem reported, No see HPI, No sweats, No weight loss Eyes: No diplopia, No discharge, No eye pain, No problem reported, No redness, No see HPI, No worsening of vision ENT: No dental problems, No hearing loss, No nasal symptoms, No problem reported, No see HPI, No sore throat, No tinnitus, No trouble swallowing, No unusual epistaxis Respiratory: No cough, No dyspnea at rest, No dyspnea on exertion, No hemoptysis, No problem reported, No see HPI, No shortness of breath, No sputum, No wheezing Cardiac: + edema, No PND, No chest pain, No claudication, No orthopnea, No palpitations, No problem reported, No see HPI Abdomen: No GI bleeding, No constipation, No diarrhea, No nausea, No pain, No problem reported, No see HPI, No vomiting Male : + dysuria, + hematuria Neurologic: + numbness/tingling, + weakness Psychiatric: No anhedonism, No anxiety, No depression symptoms, No insomnia, No problem reported, No see HPI, No substance abuse Heme: No abnormal bleeding/bruising, No clotting problems, No night sweats, No problem reported, No see HPI, No swollen lymph nodes Allergies Coded Allergies: No Known Allergies (Verified , 09/11/16) Medications Current Inpatient Medications Medications (Trade) Dose Ordered Sig/Aaron Route Start Time Stop Time Status Last Admin Dose Admin Acetaminophen (Tylenol Tab) 650 mg Q4H PRN PO 09/11/16 14:30 10/11/16 14:29 09/14/16 16:47 650 MG Al Hydrox/Mg Hydrox/Simethicone (Maalox Max Susp) 15 ml Q4H PRN PO 09/11/16 14:30 10/11/16 14:29 09/12/16 15:49 15 ML Magnesium Hydroxide (Milk Of Magnesia Susp) 30 ml Q6H PRN PO 09/11/16 14:30 10/11/16 14:29 Polyethylene (Miralax Powder Packet) 17 gm DAILY PRN PO 09/11/16 14:30 10/11/16 14:29 Ondansetron HCl (Zofran Inj) 4 mg Q6H PRN IV 09/11/16 14:30 10/11/16 14:29 Allopurinol (Zyloprim Tab) 100 mg DAILY PO 09/12/16 09:00 10/12/16 08:59 09/20/16 08:46 100 MG Latanoprost (Xalatan Oph Soln) 1 drops DAILY OPL 09/12/16 09:00 10/12/16 08:59 09/20/16 08:46 1 DROPS Simvastatin (Zocor Tab) 40 mg QPM PO 09/11/16 21:00 10/11/16 20:59 Future Hold 09/12/16 20:43 40 MG Tamsulosin HCl (Flomax Cap) 0.4 mg DAILY PO 09/12/16 09:00 10/12/16 08:59 09/20/16 08:46 0.4 MG Potassium Chloride (Klor-Con M10) 10 meq BID PO 09/11/16 21:00 10/11/16 20:59 09/20/16 08:46 10 MEQ Hydralazine HCl (HydrALAZINE INJ) 10 mg Q6 PRN IV. 09/11/16 14:45 10/11/16 14:44 09/18/16 10:40 10 MG Albuterol/ Ipratropium (Duoneb) 3 ml Q2H PRN INH 09/11/16 15:15 10/11/16 15:14 Oxycodone HCl (Roxicodone Immediate Rel Tab) 5 mg Q6H PRN PO 09/14/16 15:00 09/28/16 14:59 09/18/16 08:09 5 MG Heparin Sodium (Porcine) (Heparin Sq 5000 Unit/0.5ml) 5,000 unit Q12 SQ 09/14/16 21:00 10/14/16 20:59 09/20/16 08:47 5,000 UNIT Pantoprazole Sodium (Protonix Tab) 40 mg QAM PO 09/15/16 09:00 10/15/16 08:59 09/20/16 08:46 40 MG Dexamethasone (Decadron Tab) 4 mg BID PO 09/16/16 09:00 2/13/17 08:59 09/20/16 08:46 4 MG Simethicone (Mylicon Chew Tab) 80 mg Q6H PRN PO 09/17/16 08:45 10/17/16 08:44 Furosemide (Lasix tab) 80 mg QAM PO 09/19/16 09:00 10/19/16 08:59 09/20/16 08:46 80 MG Cyanocobalamin (Vitamin B-12 Tab) 1,000 mcg QAM PO 09/19/16 09:00 10/19/16 08:59 09/20/16 08:46 1,000 MCG Physical Exam Date Time Temp Pulse Resp B/P Pulse Ox O2 Delivery O2 Flow Rate FiO2 09/20/16 08:03 36.5 62 20 128/74 96 Room Air 09/20/16 01:07 Room Air 09/20/16 00:08 36.9 65 20 132/62 97 Room Air 09/19/16 19:34 Room Air 09/19/16 16:06 Room Air 09/19/16 15:56 36.6 66 18 137/74 98 Room Air Eyes: bilateral eyes normal inspection ENT: normal ENT inspection Neck: supple Respiratory: chest non-tender, lungs clear, normal breath sounds, no respiratory distress, no accessory muscle use Cardiovascular: regular rate, rhythm, no edema, no murmur Abdomen: normal bowel sounds, non tender, soft Musculoskeletal: Patient had decrease cervical flexion-extension without pain. He had full range of motion with joints without swelling tenderness and warmth. He had no burke synovitis no erythema. Skin: normal color Lymphatic: no adenopathy Laboratory Results Last 24 Hours Test 09/20/16 07:15 White Blood Count 16.54 K/uL Red Blood Count 3.44 M/uL Hemoglobin 10.8 g/dL Hematocrit 31.3 % Mean Corpuscular Volume 91.0 fL Mean Corpuscular Hemoglobin 31.4 pg Mean Corpuscular Hemoglobin Concent 34.5 g/dl RDW Standard Deviation 50.6 fL RDW Coefficient of Variation 15.3 % Platelet Count 409 K/uL Mean Platelet Volume 9.5 fL Nucleated RBC Absolute Count (auto) 0.15 K/uL Nucleated Red Blood Cells % 0.9 % Assessment & Plan Assessment & Plan: Patient presents with prior fever, elevated sedimentation rate of 90 peripheral neuropathy Consider underlying autoimmune disease, vasculitis either an ANCA positive were ANCA negative vasculitis. 1. To rule out the ANCA positive vasculitis he did not have any symptoms of Liss's granulomatosis and he had negativeCT scans. This rules this out as well as a negative ANCA. The other ANCA positive vasculitis is microscopic polyangiitis. This usually has a positive IA 3. The ANCA can be negative in this microscopic poly angiitis. So this is still a diagnostic possibility. One can see hematuria with this and would be helpful to have nephrology input. 2. There are the ANCA negative vasculitic syndromes which is polyarteritis nodosa (PLASCENCIA). One can see elevated sedimentation rate,fevers,mononeuritis multiplex, abdominal pain ,hematuria, casts, proteinuria. This is treated with Cytoxan and high-dose prednisone this requires a definitive diagnosis prior to treatment. Depending on what shows up with hematuria work up and a nephrology consult. when a specific location to biopsy cannot be identified, an MRA of the mesenteric and renal arteries is one diagnostic possibility and the other would is a blind testicular biopsy. The Decadron that was started will automatically reduce fevers automatically reduce the sedimentation rate, but we do not have a diagnosis. I know the MRA of the mesenteric and renal arteries with the contrast would be a challenge on his kidneys as was the CT scan , so depending on what nephrology recommends the best option may be a blind testicular biopsy especially since he is off the Coumadin at this point. 3. Temporal arteritis and the giant cell arteritis group is another diagnostic possibility although he has no headaches scalp tenderness jaw claudication or visual changes. The blood pressure in both arms is equal. There is no indication that he has temporal arteritis at this time. 4. The other diagnostic possibilities would be underlying autoimmune disease. His MENDEZ is negative ,I would recommend checking HLA B27 for completeness. He had no evidence of bridging osteophytes however on his x-rays thus far. It is important to make a diagnosis moving forward he has been in and out of the hospital several times. The elevated sedimentation rate can also be associated with various cancers. He is status post lung cancer greater than 14 years with a lobectomy. Urology ' s input for possible urologic cancer would be helpful. I would begin to taper the decadron.
[2016-09-20] MEDS ORDERED: SODIUM CHLORIDE 0.9% 1000ML 1,000 ML IV SCH (12:30)
[2016-09-20] MEDS ORDERED: ACETYLCYSTEINE 600 MG CAP PO SCH (12:30)
[2016-09-20 15:37] VITALS: BP 131/71; PULSE 62; TEMP 36.5; O2SAT 97
[2016-09-20] MEDS: OXYCODONE HCL IR 5 MG TAB (IMMEDIATE RELEASE) PO PRN (16:12)
[2016-09-20 16:40] LABS: VIT E ALPHA-TOCOPHEROL 6.8 mg/L (5.7-19.9); VIT E BETA&GAMMA-TOCOPHEROL 2.2 mg/L (<=4.3); VITAMIN B6** TC 926 2.4 ng/mL (2.1-21.7)
[2016-09-20] MEDS ORDERED: DXM4 PO (16:48)
--- NOTE | 2016-09-20 16:50 | Discharge Instructions ---
Discharge Instructions Admission Reason for Admission: Fever, lower extremity weakness, fatigue, difficulty walking Discharge Discharge Diagnosis / Problem: elevated sed rate, neuropathy, concern of vasculitis Discharge Goals Goal(s): Learn about illness, Diagnostic testing, Therapeutic intervention Activity Recommendations Activity Limitations: resume your previous activity . Current Hospital Diet Patient's current hospital diet: AHA Diet (Heart Healthy) Discharge Diet Recommended Diet: AHA Diet (Heart Healthy) Procedures Procedures Performed: CAT scan of your head, chest, abdomen and pelvis - no signs of any infection, stroke, or cancer. 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 Pending Studies Studies pending at discharge: no Laboratory Results Hemoglobin A1c Test 09/15/16 05:11 Range/Units Estimated Average Glucose 117 mg/dl Hemoglobin A1c 5.7 H 4.5-5.6 % Medical Emergencies . Who to Call and When: Medical Emergencies: If at any time you feel your situation is an emergency, please call 911 immediately. . Non-Emergent Contact Non-Emergency issues call your: Primary Care Provider Call Non-Emergent contact if: temperature is above 100.5, your pain is not controlled, your pain is worsening, your pain is unusual for you, your pain is concerning you, you have any medication questions . . "Provider Documentation" section prepared by Trev Wagner. VTE Core Measure Inpt VTE Proph given/why not?: Nelli Arango, SCD's
--- NOTE | 2016-09-20 17:07 | Discharge Summary ---
Discharge Summary Admission Date: Sep 11, 2016 at 14:25 Discharge Date: Sep 20, 2016 Discharge Disposition: Acute care facility ([facility]) Principal Diagnosis: concern of vasculitis Problems/Secondary Diagnoses: 1. acute kidney injury - resolved; discharge creatinine 1.6 2. atrial fibrillation previously on chronic coumadin; anticoagulation has been stopped due to #3 3. recurrent episodes of intermittent gross hematuria 4. CAD s/p 3-vessel CABG x 3 5. chronic diastolic CHF 6. HTN 7. CKD stage 3; baseline creatinine about 1.6-1.9 8. borderline low vitamin B6 level and low-normal vitamin B12 level 9. history of left-sided lung cancer s/p lobectomy 10. asymptomatic gallstones 11. lumbar spinal stenosis 12. previously diagnosed idiopathic polyneuropathy 13. 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 elevated sed rate concerning for vasculitis 15. BPH 16. hyperlipidemia Immunizations: Have You Had Influenza Vaccine: Yes Influenza Vaccine Date: Feb 18, 2010 History of Tetanus Vaccine?: Unknown History of Pneumococcal: Yes Pneumococcal Date: Feb 18, 2010 History of Hepatitis B Vaccine: Unknown Procedures: 1. echocardiogram: -- Conclusions -- The left ventricle is hyperdynamic. No regional wall motion abnormalities noted. Ejection Fraction = >70 %. There is mild concentric left ventricular hypertrophy. There is mild tricuspid regurgitation. 2. CT head - negative for stroke or ICH 3. CT abd/pelvis - IMPRESSION: 1. Cholelithiasis and mild gallbladder distention 2. Left renal cysts. No solid renal masses identified 3. Prostatic enlargement 4. CT chest - IMPRESSION: 1. No significant change compared to prior study. No evidence for recurrent or metastatic disease. 2. Prior left upper lobectomy. 3. Evidence for prior granulomatous disease. 4. Cholelithiasis. 5. Mild cardiomegaly. 5. HIDA scan negative for acute cholecystitis 6. MRI lumbar spine - IMPRESSION: Multilevel spondylitic changes. The study is most significant for moderate spinal stenosis at the L4-5 level with severe left-sided foraminal narrowing and mild right-sided foraminal narrowing at the L4-5 level. There is also mild spinal stenosis at the L3-4 and L1-2 levels. There is minor right-sided foraminal narrowing at the L3-4 level. 7. Bilateral lower extremity venous duplex studies NEGATIVE for DVT in either leg 8. hip and pelvic x-rays negative for fracture or dislocation Consultations: 1. infectious disease - Leroy Christina MD 2. rheumatology - Mihaela Yates MD 3. neurology - Kaley Brito DO 4. PT, OT Medication Reconciliation New Medications: Dexamethasone (Dexamethasone) 4 Mg Tab 4 MG PO DAILY, #14 TAB 0 Refills Continued Medications: Allopurinol (Allopurinol) 100 Mg Tab 100 MG PO DAILY, #90 Ergocalciferol (Vitamin D) 50,000 Interunit Cap 1 PO MONTHLY, #21 Furosemide (Furosemide) 80 Mg Tab 80 MG PO DAILY, #90 Latanoprost (Xalatan 0.005% Oph Katy) 0.005 % Katy 1 DROP OPL DAILY left eye Potassium Chloride (Potassium Chloride Cr) 10 Meq Tab 10 MEQ PO DAILY, #90 Tamsulosin HCl (Tamsulosin HCl) 0.4 Mg Cap 0.4 MG PO DAILY, #30 Discontinued Medications: Lisinopril (Lisinopril) 5 Mg Tab 5 MG PO DAILY, #90 Simvastatin (Simvastatin) 40 Mg Tab 40 MG PO QPM, #30 Discharge Exam Physical Exam: General Appearance: no apparent distress, + obese ENT: pharynx normal Neck: no JVD Respiratory/Chest: lungs clear, no respiratory distress, no accessory muscle use Cardiovascular: no gallop, no murmur, normal peripheral pulses, + irregularly irregular Abdomen / GI: normal bowel sounds, non tender, soft, no organomegaly Extremities: + pedal edema, + swelling (suspected lymphedema extending from the feet to the thighs), + pertinent finding (no joint synovitis of any small joint of the hands, wrists, elbows, knees) Neurologic/Psychiatric: alert, oriented x 3, + pertinent finding (no proximal muscle weakness of the hips or shoulders) Skin: + pertinent finding (slight erythema of the plantar aspect of the left foot, blanchable) Hospital Course HISTORY OF PRESENT ILLNESS: Mr. Bennett is an 86 y/o male with PMHx of Persistent A Fib, CAD S/P CABG x 3, Diastolic CHF, LLL Pneumonectomy 2/2 Lung CA, HTN, and CKD Stage III who presents to the ED for weakness and inability to ambulate starting last night 09/10/16. States that the weakness is limited to his lower extremities bilaterally. He reports that last night he noticed some bilateral hip pain that caused shooting pain that travels down the leg into the toes. He is unable to confirm the direction of travel of this pain. He does state that this is a chronic occurrence but has not been associated with difficulty ambulating, loss bowel/ bladder, or saddle paresthesias. He does report chronic numbness/tingling/ burning of lower extremities that has not worsened. Last night he was ambulatory and went to bed. He took one Tylenol last night that help with the back and leg discomfort and went to sleep. He then woke up due to sweating and took one more Tylenol. He was able to get up this morning to use the restroom without noted difficulty but then went back to bed and was unable to get up this morning. He states that he had not energy to move. Family was unable to assist him and an ambulance was called. He also complains of a cough and nasal congestion that he reports has been improving. He denies CP, SOB, abdominal pain , N/V, constipation/diarrhea. Of note, patient was seen in ED on 09/04/16 for hematuria. He was had intermittent hematuria in the past without significant findings. Is currently followed outpatient by urology and was scheduled for CT today. He feels that the hematuria is improving but has had a Thibodeaux catheter placed since 09/04/16 that has been flushed. Hematuria has been painless. He was recently stopped on his Coumadin and ASA due to bleeding. In the ED, Head CT negative for acute intracranial process. CXR with perihilar opacity and evidence of LLL surgical changes. BNP 2706. WBC of 13.69 and H&H 11.8/34.6. EKG with A Fib. HOSPITAL COURSE: Shortly after admission the patient underwent an extensive work-up for his low- grade fevers, markedly elevated sed rate of >90, and lower extremity weakness. Blood cultures, urine culture, CT chest/abd/pelvis, lyme's testing, c. diff toxin, viral hepatitis studies, echocardiogram, and flu testing were all normal and/or negative for infectious process. He was seen in consult by infectious disease who felt that his constellation of symptoms/signs was due to an underlying inflammatory condition. After ruling out infectious causes of his presenting symptoms we then investigated neurological causes of his lower extremity weakness. The patient has previously seen neurology as an outpatient in [place] and had been diagnosed with idiopathic peripheral neuropathy in the past. Outpatient records indicate he had undergone an extensive metabolic work-up (MENDEZ , TSH, etc) that was negative in its entirety. He was seen in consult by neurology who recommended MRI of the lumbar spine. 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 No epidural abscess or diskitis was seen on the MRI of the lumbar spine. Neurology recommended additional lab testing including vitamin B12, B6, and E levels. B12 level was low-normal, B6 level was low-normal, and vitamin E level was normal. Consideration for B12 and B6 replacement should be given after discharge. The patient was empirically begun on steroids and within a few days of such his lower extremity weakness was improved, sed rate decreased (from >90 to 72), low- grade fevers resolved, and he overall felt much improved. He was seen in consult by rheumatology. Multiple labs were sent including TSH, MENDEZ, ANCA, HLA-B27, etc. TSH was normal. MENDEZ was negative. ANCA was negative. HLA-B27 is pending. 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 His neuropathy, hematuria, fevers, elevated sed rate, etc could be explained by PLASCENCIA. After reviewing his case with the care team a kidney biopsy for definitive diagnosis was recommended. CTA or MRA of the mesenteric and renal arteries was also suggested. Due to lack of ability to perform a kidney biopsy at [facility] the hospitalist team at [facility] was contacted and they have graciously accepted Mr. Bennett for ongoing care. I would particularly like to thank Dr. Carlin Luciano for accepting Mr. Bennett in transfer and for coordinating his care. Other problems addressed while here included: 1. acute kidney injury - peak creatinine was 2.9, improving to 1.6 at discharge. CLEMENTINA was felt to be due to prerenal state from poor oral intake in the setting of chronic lasix use. 2. atrial fibrillation - rates remained controlled, and he received no anticoagulation due to recent history of gross hematuria. 3. gross hematuria - urine cytology showed NO atypical cells. He also had a second negative urine cytology earlier in September. Cystoscopy is recommended. 4. apparent lymphedema - the patient wears compression stockings at home on a regular basis and these were reapplied after lower extremity venous duplex study showed the absence of DVT. Test 08/25/16 13:56 09/03/16 23:58 09/04/16 00:05 09/04/16 16:44 Urine Random Creatinine 41.0 Urine Random Total Protein 12.0 H Urine Protein/Creatinine Ratio 0.3 H 25-Hydroxy Vitamin D Total 45.6 Thyroid Stimulating Hormone (TSH) 2.440 POC Prothrombin Time INR 2.5 H Urine Color RED Urine Appearance CLOUDY Urine pH 7.0 Urine Specific [place] 1.020 Urine Protein 3+ H Urine Glucose (UA) NEG Urine Ketones NEG Urine Occult Blood 3+ H Urine Nitrite NEG Urine Bilirubin NEG Urine Urobilinogen NEG Urine Leukocyte Esterase NEG Urine RBC >30 H Urine WBC 5-10 H Urine Epithelial Cells 5-10 H Urine Bacteria NEG Total Bilirubin 0.5 Direct Bilirubin Aspartate Amino Transferase (AST) 18 Alanine Aminotransferase (ALT) 17 Alkaline Phosphatase 77 Total Protein 7.2 Albumin 3.4 Chemistry Specimen Hemolysis Test 09/04/16 18:08 09/11/16 11:40 09/11/16 11:42 09/11/16 11:50 Prothrombin Time 21.5 H Prothrombin Time INR 2.0 H PTT 39.7 H Partial Thromboplastin Ratio 1.5 Total Bilirubin 0.8 Direct Bilirubin 0.2 Aspartate Amino Transferase (AST) 14 L Alanine Aminotransferase (ALT) 16 Alkaline Phosphatase 68 Total Creatine Kinase 27 L Creatine Kinase MB < 0.5 L Creatine Kinase MB Ratio Troponin I < 0.015 Pro-B-Type Natriuretic Peptide 2706 H Total Protein 7.2 Albumin 3.2 L Thyroid Stimulating Hormone (TSH) 1.510 POC Hemoglobin 12.2 L POC Hematocrit 36 L POC Sodium 143 POC Potassium 3.7 POC Chloride 100 L POC Total CO2 23 L POC Blood Urea Nitrogen 35 H POC Creatinine 1.6 H POC Glucose 144 H POC Ionized Calcium (Kalani) 1.17 Influenza Type A (RT-PCR) Neg for Influ A Influenza Type B (RT-PCR) Neg for Influ B Test 09/11/16 11:53 09/11/16 12:29 09/11/16 14:45 09/12/16 06:31 POC Glucose 148 H Urine Color YELLOW Urine Appearance CLEAR Urine pH 5.5 Urine Specific [place] 1.013 Urine Protein NEG Urine Glucose (UA) NEG Urine Ketones NEG Urine Occult Blood 1+ H Urine Nitrite NEG Urine Bilirubin NEG Urine Urobilinogen NEG Urine Leukocyte Esterase NEG Urine WBC (Auto) 0 Urine RBC (Auto) 0-4 Urine Hyaline Casts (Auto) 0 Urine Epithelial Cells (Auto) 0-5 Urine Bacteria (Auto) NEG Lyme Disease IgG Antibody NEG Lyme Disease IgM Antibody NEG Magnesium Level 2.2 Test 09/13/16 05:15 09/14/16 06:51 09/14/16 10:00 09/14/16 13:15 Immature Granulocyte % (Auto) 0.4 0.4 White Blood Count 13.95 H 13.75 H Red Blood Count 3.19 L 3.12 L Hemoglobin 10.3 L 10.1 L Hematocrit 29.6 L 29.0 L Mean Corpuscular Volume 92.8 92.9 Mean Corpuscular Hemoglobin 32.3 32.4 Mean Corpuscular Hemoglobin Concent 34.8 34.8 Platelet Count 238 271 Mean Platelet Volume 10.2 10.7 H Neutrophils (%) (Auto) 69.5 74.3 Lymphocytes (%) (Auto) 12.8 11.6 Monocytes (%) (Auto) 16.3 12.3 Eosinophils (%) (Auto) 0.9 1.3 Basophils (%) (Auto) 0.1 0.1 Neutrophils # (Auto) 9.69 H 10.21 H Lymphocytes # (Auto) 1.79 1.59 Monocytes # (Auto) 2.28 H 1.69 H Eosinophils # (Auto) 0.12 0.18 Basophils # (Auto) 0.01 0.02 Immature Granulocyte # (Auto) 0.06 H 0.06 H Magnesium Level 2.2 Erythrocyte Sedimentation Rate > 90 H Sodium Level 140 Potassium Level 3.8 Chloride Level 104 Carbon Dioxide Level 24 Anion Gap 12.0 H Blood Urea Nitrogen 48 H BUN/Creatinine Ratio 17.0 Random Glucose 120 H Uric Acid 6.2 Calcium Level 8.8 Procalcitonin 0.54 H Anti-Nuclear Antibody Screen NEGATIVE Anti-Nuclear Antibody Comment Anti-Proteinase 3 (c-ANCA) <1.0 Anti-Myeloperoxidase Ab (p-ANCA) <1.0 Anti-Neutrophil Cytoplasmic Ab Negative Urine Color YELLOW Urine Appearance CLOUDY Urine pH 5.0 Urine Specific [place] 1.014 Urine Protein 1+ Urine Glucose (UA) NEG Urine Ketones NEG Urine Occult Blood 3+ H Urine Nitrite NEG Urine Bilirubin NEG Urine Urobilinogen NEG Urine Leukocyte Esterase SMALL H Urine WBC (Auto) 5-10 H Urine RBC (Auto) >30 H Urine Hyaline Casts (Auto) 1-5 Urine Epithelial Cells (Auto) 20-30 H Urine Bacteria (Auto) 1+ H Urine Pathogenic Casts Urine Mucus PRESENT H Urine Yeast (Auto) Test 09/14/16 15:25 09/14/16 16:45 09/15/16 05:11 09/16/16 07:15 Prothrombin Time 11.4 Prothrombin Time INR 1.1 PTT 35.8 H Partial Thromboplastin Ratio 1.4 Hexagonal Phase Confirmation Positive A Anti-Nuclear Antibody Comment Anti-Proteinase 3 (c-ANCA) <1.0 Anti-Myeloperoxidase Ab (p-ANCA) <1.0 Anti-Neutrophil Cytoplasmic Ab Negative [id number]-[id number]-Glycoprotein I IgG Ab <9 Qclx-adup-4-Glycoprotein I IgA Ab <9 Acgr-[id number]-9-Glycoprotein I IgM Ab <9 Anti-Cardiolipin IgG Antibody <14 Anti-Cardiolipin IgA Antibody <11 Anti-Cardiolipin IgM Antibody <12 Hepatitis A IgM Antibody NON-REACTIVE Hepatitis B Surface Antigen NEG Hepatitis B Core IgM Antibody NON-REACTIVE Hepatitis C Antibody NEG White Blood Count 10.04 Red Blood Count 2.93 L Hemoglobin 9.4 L Hematocrit 27.3 L Mean Corpuscular Volume 93.2 Mean Corpuscular Hemoglobin 32.1 Mean Corpuscular Hemoglobin Concent 34.4 Platelet Count 257 Mean Platelet Volume 10.3 Neutrophils (%) (Auto) 68.1 Lymphocytes (%) (Auto) 14.8 Monocytes (%) (Auto) 13.5 Eosinophils (%) (Auto) 2.8 Basophils (%) (Auto) 0.2 Neutrophils # (Auto) 6.83 H Lymphocytes # (Auto) 1.49 Monocytes # (Auto) 1.36 H Eosinophils # (Auto) 0.28 Basophils # (Auto) 0.02 RDW Standard Deviation 52.6 H RDW Coefficient of Variation 15.4 H Immature Granulocyte % (Auto) 0.6 Immature Granulocyte # (Auto) 0.06 H Absolute Reticulocyte Count 0.03 Percent Reticulocyte Count 1.1 Sodium Level 141 Potassium Level 3.7 Chloride Level 107 Carbon Dioxide Level 23 Anion Gap 11.0 Blood Urea Nitrogen 42 H BUN/Creatinine Ratio 19.8 Random Glucose 114 H Estimated Average Glucose 117 Hemoglobin A1c 5.7 H Calcium Level 8.3 L Iron Level 36 Total Iron Binding Capacity 154 L Ferritin 304.0 Vitamin B6 Level 2.4 Vitamin B12 Level 366 25-Hydroxy Vitamin D Total 34.1 Alpha-Tocopherol Level 6.8 Beta and Gamma Tocopherol 2.2 Folate 10.12 Test 09/17/16 06:28 09/18/16 06:20 09/19/16 05:01 09/20/16 07:15 White Blood Count 10.64 16.54 H Red Blood Count 3.13 L 3.44 L Hemoglobin 9.9 L 10.8 L Hematocrit 29.1 L 31.3 L Mean Corpuscular Volume 93.0 91.0 Mean Corpuscular Hemoglobin 31.6 31.4 Mean Corpuscular Hemoglobin Concent 34.0 34.5 RDW Standard Deviation 51.5 H 50.6 H RDW Coefficient of Variation 15.3 H 15.3 H Platelet Count 323 409 H Mean Platelet Volume 10.6 H 9.5 Creatinine 1.50 H 1.50 H 1.60 H Est Creatinine Clear Calc Drug Dose 41.1 41.1 38.5 Estimated GFR () 48.5 48.5 44.9 Estimated GFR (Non- 41.9 41.9 38.7 Erythrocyte Sedimentation Rate 72 H C-Reactive Protein 5.27 H Sodium Level 141 Potassium Level 4.7 Chloride Level 107 Carbon Dioxide Level 26 Anion Gap 8.0 Blood Urea Nitrogen 47 H BUN/Creatinine Ratio 29.6 H Random Glucose 128 H Calcium Level 8.8 Magnesium Level 2.2 Nucleated RBC Absolute Count (auto) 0.15 H Nucleated Red Blood Cells % 0.9 Test 09/20/16 10:45 HLA-B27 Pending Date/Time Source Procedure Growth Status 09/14/16 10:10 Blood Blood Culture - Final NO GROWTH Complete 09/16/16 18:49 Stool C.difficile Toxin B Gene (PCR) - Final No C. difficile toxin B gene detected Complete 09/14/16 13:15 Urine,Catheterized Urine Culture - Final NO GROWTH - LESS THAN 1,000 COLONIES/ML Complete Total Time Spent: Greater than 30 minutes This includes examination of the patient, discharge planning, medication reconciliation, and communication with other providers. Discharge Instructions Please refer to the electronic Patient Visit Report (Discharge Instructions) for additional information. Follow-Up to be determined following his stay at [facility] Additional Copies To Carlin Dempsey D.O. Pulmonary; Deni Romero M.D.; Mihaela Yates MD
[2016-09-20 17:30] VITALS: BP 131/71; PULSE 62; TEMP 36.5; O2SAT 97
[2016-09-21] MEDS ORDERED: DEXAMETHASONE 4 MG TAB PO SCH (09:00)
== END 2016-09-20 18:39 | disposition short-term general hospital (02) | DRG 545 ==
LOC: ENRESERVTM → ENRESERVDT → EDBD 11:18 → C.EDC 11:19 → C.MS2W 14:25
PROVIDERS: ADMIT Internal Medicine; ATTEND Internal Medicine
DX: I77.6 Arteritis, unspecified (principal); I48.1 Persistent atrial fibrillation; G93.41 Metabolic encephalopathy; I50.32 Chronic diastolic (congestive) heart failure; N17.9 Acute kidney failure, unspecified; M30.0 Polyarteritis nodosa; R26.2 Difficulty in walking, not elsewhere classified; I48.2 Chronic atrial fibrillation; I25.10 Atherosclerotic heart disease of native coronary artery without angina pectoris; Z85.118 Personal history of other malignant neoplasm of bronchus and lung; N18.3 Chronic kidney disease, stage 3 (moderate); I12.9 Hypertensive chronic kidney disease with stage 1 through stage 4 chronic kidney disease, or unspecified chronic kidney disease; M19.071 Primary osteoarthritis, right ankle and foot; Z95.1 Presence of aortocoronary bypass graft; K80.20 Calculus of gallbladder without cholecystitis without obstruction; G60.9 Hereditary and idiopathic neuropathy, unspecified; M48.06 Spinal stenosis, lumbar region; I89.0 Lymphedema, not elsewhere classified; N40.0 Benign prostatic hyperplasia without lower urinary tract symptoms; E78.5 Hyperlipidemia, unspecified; M25.551 Pain in right hip; D64.9 Anemia, unspecified; R31.0 Gross hematuria; Z90.2 Acquired absence of lung [part of]

== ENCOUNTER → 2016-09-25 | Outpatient (CLI) | payer OTHER ==
[~2016-09-25] MED LIST changes: -ASPI81TA28 PO; -CMD/3 PO; +DXM4 PO; -LSN5 PO; -ZCR40 PO
[2016-09-25 10:51] LABS: ALT/SGPT 39 U/L (12-78); BLOOD UREA NITROGEN 41 mg/dl (7-18); BUN/CREATININE RATIO 29.5 (10-20); CALCIUM 8.7 mg/dl (8.5-10.1); CARBON DIOXIDE 26 mmol/L (21-32); CHLORIDE 103 mmol/L (98-107); GLUCOSE 136 mg/dl (70-99); POTASSIUM 3.4 mmol/L (3.5-5.1); SODIUM 143 mmol/L (136-145)
[2016-09-25 10:54] LABS: ALB/GLOB RATIO 0.9 (0.9-2); ALKALINE PHOSPHATASE 62 U/L (45-117); AST/SGOT 16 U/L (15-37)
== END | disposition home or self-care (01) ==
LOC: C.LAB1850 09:17
PROVIDERS: ATTEND Internal Medicine
DX: I48.91 Unspecified atrial fibrillation (principal); N18.3 Chronic kidney disease, stage 3 (moderate)

== ENCOUNTER → 2016-09-29 | Outpatient (CLI) | payer OTHER ==
[2016-09-29 15:05] LABS: BLOOD UREA NITROGEN 29 mg/dl (7-18); BUN/CREATININE RATIO 16.9 (10-20); CALCIUM 8.6 mg/dl (8.5-10.1); CARBON DIOXIDE 32 mmol/L (21-32); CHLORIDE 102 mmol/L (98-107); GLUCOSE 62 mg/dl (70-99); POTASSIUM 3.8 mmol/L (3.5-5.1); SODIUM 144 mmol/L (136-145)
[2016-09-29 15:06] LABS: PHOSPHORUS 2.7 mg/dl (2.5-4.9)
== END | disposition home or self-care (01) ==
LOC: C.LAB1850 13:45
PROVIDERS: ATTEND Internal Medicine Nephrology
DX: I10 Essential (primary) hypertension (principal); N18.3 Chronic kidney disease, stage 3 (moderate); N25.81 Secondary hyperparathyroidism of renal origin; R31.9 Hematuria, unspecified; R60.9 Edema, unspecified

== ENCOUNTER → 2016-10-10 | Outpatient (CLI) | payer OTHER ==
[2016-10-10 10:21] LABS: HEMATOCRIT 39.7 % (42-52); MEAN CELL VOLUME 96.8 fL (80-100); MEAN CORPUSCULAR HEMOGLOBIN 32.4 pg (25-34); MEAN CORPUSCULAR HGB CONC 33.5 g/dl (32-36); PLATELET COUNT 192 K/uL (130-400); WHITE BLOOD COUNT 9.14 K/uL (4.8-10.8)
[2016-10-10 10:23] LABS: URINE APPEARANCE CLEAR (CLEAR); URINE BILIRUBIN NEG (NEG); URINE COLOR YELLOW; URINE NITRITE NEG (NEG); URINE SPECIFIC GRAVITY 1.014 (1.000-1.030); UROBILINOGEN NEG (NEG)
[2016-10-10 10:32] LABS: MANUAL MICROSCOPIC REQUIRED? NO; REVIEW REQ? NO
[2016-10-10 10:47] LABS: ALT/SGPT 39 U/L (12-78); BLOOD UREA NITROGEN 35 mg/dl (7-18); BUN/CREATININE RATIO 21.9 (10-20); C-REACTIVE PROTEIN < 0.29 mg/dl (0-0.29); CALCIUM 8.9 mg/dl (8.5-10.1); CARBON DIOXIDE 33 mmol/L (21-32); CHLORIDE 102 mmol/L (98-107); GLUCOSE 123 mg/dl (70-99); POTASSIUM 3.2 mmol/L (3.5-5.1); SODIUM 143 mmol/L (136-145); URINE PROTIEN/CREAT RATIO 0.4 (0-0.2); URINE TOTAL PROTEIN 45.5 mg/dl (0-11.9)
[2016-10-10 10:51] LABS: ALB/GLOB RATIO 1.1 (0.9-2); ALKALINE PHOSPHATASE 65 U/L (45-117); AST/SGOT 9 U/L (15-37)
[2016-10-11 16:48] LABS: ALBUMIN 3.8 G/DL (3.8-4.8); GAMMA GLOBULIN 0.8 G/DL (0.8-1.7); TOTAL PROTEIN 6.1 G/DL (6.2-8.3)
== END | disposition home or self-care (01) ==
LOC: C.LAB1850 09:10
PROVIDERS: ATTEND Internal Medicine Nephrology
DX: I12.9 Hypertensive chronic kidney disease with stage 1 through stage 4 chronic kidney disease, or unspecified chronic kidney disease (principal); N18.3 Chronic kidney disease, stage 3 (moderate); N25.81 Secondary hyperparathyroidism of renal origin; R31.9 Hematuria, unspecified; R60.9 Edema, unspecified; I50.32 Chronic diastolic (congestive) heart failure; G62.9 Polyneuropathy, unspecified; N20.0 Calculus of kidney; R70.0 Elevated erythrocyte sedimentation rate

== ENCOUNTER → 2016-12-20 | Outpatient (CLI) | payer OTHER | END | disposition home or self-care (01) | LOC: C.LAB1850 15:09 | PROVIDERS: ATTEND Internal Medicine Rheumatology | DX: N18.3 Chronic kidney disease, stage 3 (moderate) (principal); G62.9 Polyneuropathy, unspecified; R70.0 Elevated erythrocyte sedimentation rate ==

== ENCOUNTER → 2017-02-09 | Outpatient (CLI) | payer OTHER ==
[~2017-02-09] MED LIST changes: +ASPI81TA28 PO; +CMD/3 PO; +CYAN10005 PO; +KFL/250 PO; +LATA0.5S OPL; +PRS5 PO; +WARF2TAB PO; +ZCR40 PO
[2017-02-09 16:06] LABS: HEMATOCRIT 38.7 % (42-52); MEAN CELL VOLUME 94.4 fL (80-100); MEAN CORPUSCULAR HEMOGLOBIN 31.2 pg (25-34); MEAN CORPUSCULAR HGB CONC 33.1 g/dl (32-36); MEAN PLATELET VOLUME 10.6 fL (7.4-10.4); PLATELET COUNT 297 K/uL (130-400); WHITE BLOOD COUNT 11.62 K/uL (4.8-10.8)
[2017-02-09 17:17] LABS: CALCIUM 8.6 mg/dl (8.5-10.1)
[2017-02-09 17:25] LABS: ALT/SGPT 20 U/L (12-78); AST/SGOT 16 U/L (15-37); BLOOD UREA NITROGEN 27 mg/dl (7-18); BUN/CREATININE RATIO 15.9 (10-20); CARBON DIOXIDE 30 mmol/L (21-32); CHLORIDE 106 mmol/L (98-107); GLUCOSE 90 mg/dl (70-99); POTASSIUM 3.7 mmol/L (3.5-5.1); SODIUM 143 mmol/L (136-145)
[2017-02-09 17:28] LABS: ALB/GLOB RATIO 0.9 (0.9-2); ALKALINE PHOSPHATASE 66 U/L (45-117)
[2017-02-09 17:40] LABS: MANUAL MICROSCOPIC REQUIRED? NO; REVIEW REQ? NO; URINE APPEARANCE CLEAR (CLEAR); URINE BILIRUBIN NEG (NEG); URINE COLOR YELLOW; URINE NITRITE NEG (NEG); URINE SPECIFIC GRAVITY 1.016 (1.000-1.030); UROBILINOGEN NEG (NEG); ZZUR CULT IF INDIC CLEAN CATCH NO
== END | disposition home or self-care (01) ==
LOC: C.LAB1850 14:20
PROVIDERS: ATTEND Internal Medicine Nephrology
DX: I12.9 Hypertensive chronic kidney disease with stage 1 through stage 4 chronic kidney disease, or unspecified chronic kidney disease (principal); N18.3 Chronic kidney disease, stage 3 (moderate); N25.81 Secondary hyperparathyroidism of renal origin; R60.9 Edema, unspecified; N20.0 Calculus of kidney

== ENCOUNTER → 2017-03-12 | Outpatient (CLI) | payer OTHER ==
[~2017-03-12] MED LIST changes: -ASPI81TA28 PO; -CMD/3 PO; -CYAN10005 PO; -KFL/250 PO; -LATA0.5S OPL; -PRS5 PO; -WARF2TAB PO; -ZCR40 PO
[2017-03-12 15:22] LABS: BLOOD UREA NITROGEN 27 mg/dl (7-18); BUN/CREATININE RATIO 18.1 (10-20); CALCIUM 8.7 mg/dl (8.5-10.1); CARBON DIOXIDE 31 mmol/L (21-32); CHLORIDE 104 mmol/L (98-107); GLUCOSE 107 mg/dl (70-99); POTASSIUM 3.9 mmol/L (3.5-5.1); SODIUM 142 mmol/L (136-145)
[2017-03-12 15:23] LABS: PHOSPHORUS 2.8 mg/dl (2.5-4.9)
== END | disposition home or self-care (01) ==
LOC: C.LAB1850 13:46
PROVIDERS: ATTEND Internal Medicine Nephrology
DX: I11.0 Hypertensive heart disease with heart failure (principal); I50.32 Chronic diastolic (congestive) heart failure; R31.9 Hematuria, unspecified; R60.9 Edema, unspecified

== ENCOUNTER → 2017-04-19 | Outpatient (CLI) | payer OTHER ==
[2017-04-19 15:52] LABS: HEMATOCRIT 37.7 % (42-52); MEAN CELL VOLUME 93.1 fL (80-100); MEAN CORPUSCULAR HEMOGLOBIN 32.1 pg (25-34); MEAN CORPUSCULAR HGB CONC 34.5 g/dl (32-36); MEAN PLATELET VOLUME 10.8 fL (7.4-10.4); PLATELET COUNT 228 K/uL (130-400); RED BLOOD COUNT 4.05 M/uL (4.7-6.1); WHITE BLOOD COUNT 8.82 K/uL (4.8-10.8)
[2017-04-19 16:26] LABS: BLOOD UREA NITROGEN 25 mg/dl (7-18); BUN/CREATININE RATIO 16.9 (10-20); CALCIUM 8.9 mg/dl (8.5-10.1); CARBON DIOXIDE 30 mmol/L (21-32); CHLORIDE 108 mmol/L (98-107); GLUCOSE 100 mg/dl (70-99); PHOSPHORUS 2.3 mg/dl (2.5-4.9); POTASSIUM 3.8 mmol/L (3.5-5.1); SODIUM 142 mmol/L (136-145)
== END | disposition home or self-care (01) ==
LOC: C.LAB1850 14:49
PROVIDERS: ATTEND Internal Medicine Nephrology
DX: I12.9 Hypertensive chronic kidney disease with stage 1 through stage 4 chronic kidney disease, or unspecified chronic kidney disease (principal); N18.3 Chronic kidney disease, stage 3 (moderate); N25.81 Secondary hyperparathyroidism of renal origin; R60.9 Edema, unspecified

== ENCOUNTER → 2017-05-14 | Outpatient (CLI) | payer OTHER ==
[2017-05-14 15:11] LABS: BLOOD UREA NITROGEN 29 mg/dl (7-18); BUN/CREATININE RATIO 19.5 (10-20); CARBON DIOXIDE 31 mmol/L (21-32); CHLORIDE 105 mmol/L (98-107); GLUCOSE 105 mg/dl (70-99); POTASSIUM 3.8 mmol/L (3.5-5.1); SODIUM 142 mmol/L (136-145)
[2017-05-14 15:12] LABS: PHOSPHORUS 2.6 mg/dl (2.5-4.9)
== END | disposition home or self-care (01) ==
LOC: C.LAB1850 13:54
PROVIDERS: ATTEND Internal Medicine Nephrology
DX: I50.32 Chronic diastolic (congestive) heart failure (principal); N25.81 Secondary hyperparathyroidism of renal origin; R31.9 Hematuria, unspecified; R60.9 Edema, unspecified

== ENCOUNTER 2017-08-10 10:22 | Inpatient (IN) | payer OTHER ==
[~2017-08-10] VITALS: Ht 167.6 cm; Wt 103.1 kg
[2017-08-10] MEDS ORDERED: CMD/3 PO (11:28)
[2017-08-10] MEDS ORDERED: ZCR40 PO (11:28)
[2017-08-10] MEDS ORDERED: CYAN10005 PO (11:28)
[2017-08-10] MEDS ORDERED: ASPI81TA28 PO (11:28)
[2017-08-10] MEDS ORDERED: PRS5 PO (11:28)
[2017-08-10] MEDS ORDERED: WARF2TAB PO (11:28)
[2017-08-10] MEDS ORDERED: LATA0.5S OPL (11:29)
[2017-08-10 11:52] LABS: BASO % 0.2 %; BASO ABS # 0.02 K/uL (0-0.2); COMPLETE YES; EOS % 1.9 %; HEMATOCRIT 38.7 % (42-52); IG% 0.4 %; LYMPH % 21.3 %; LYMPH ABS # 1.81 K/uL (1.2-3.4); MEAN CELL VOLUME 96.8 fL (80-100); MEAN CORPUSCULAR HEMOGLOBIN 32.8 pg (25-34); MEAN CORPUSCULAR HGB CONC 33.9 g/dl (32-36); MEAN PLATELET VOLUME 10.2 fL (7.4-10.4); MONO % 13.5 %; NEUT % 62.7 %; PLATELET COUNT 243 K/uL (130-400); WHITE BLOOD COUNT 8.51 K/uL (4.8-10.8)
[2017-08-10 12:01] LABS: INR 2.5 (0.9-1.1); PARTIAL THROMBOPLASTIN RATIO 1.7; PROTHROMBIN TIME (PATIENT) 26.1 SECONDS (9.0-12.0)
[2017-08-10] MEDS ORDERED: OXYMETAZOLINE HCL 0.05% NA SPR 15 ML BTL ONE (12:01)
[2017-08-10 12:12] LABS: MANUAL MICROSCOPIC REQUIRED? NO; REVIEW REQ? NO; URINE APPEARANCE CLEAR (CLEAR); URINE BILIRUBIN NEG (NEG); URINE COLOR YELLOW; URINE EPITHELIAL CELL AUTO 0-5 /lpf (0-5); URINE NITRITE NEG (NEG); URINE SPECIFIC GRAVITY 1.015 (1.000-1.030); UROBILINOGEN NEG (NEG); ZZUR CULT IF INDIC CLEAN CATCH NO
[2017-08-10 12:14] LABS: ALT/SGPT 23 U/L (12-78); BLOOD UREA NITROGEN 18 mg/dl (7-18); CALCIUM 8.5 mg/dl (8.5-10.1); CARBON DIOXIDE 31 mmol/L (21-32); CHLORIDE 106 mmol/L (98-107); CREATININE 1.47 mg/dl (0.60-1.40); GLUCOSE 84 mg/dl (70-99); MAGNESIUM 2.2 mg/dl (1.8-2.4); POTASSIUM 4.1 mmol/L (3.5-5.1); SODIUM 140 mmol/L (136-145)
[2017-08-10 12:19] LABS: ALB/GLOB RATIO 0.7 (0.9-2); ALKALINE PHOSPHATASE 75 U/L (45-117); AST/SGOT 21 U/L (15-37)
--- NOTE | 2017-08-10 12:29 | DIAGNOSTIC IMAGING REPORT ---
CHEST 2 VIEWS ROUTINE CLINICAL HISTORY: cough dyspnea COMPARISON STUDY: 09/11/2016 FINDINGS: Moderate stable cardiomegaly. Prominent pulmonary vasculature. Stable postoperative changes to the left central hemithorax and cardiac silhouette. Diaphragms smooth. Calcifications are sharp. IMPRESSION: Moderate stable cardiomegaly. Pulmonary vascular congestion. The above report was generated using voice recognition software. It may contain grammatical, syntax or spelling errors. Electronically signed by: Vinay Hung M.D. 08/10/2017 12:28 PM Dictated Date/Time: 08/10/2017 12:27 PM
--- NOTE | 2017-08-10 13:52 | EMERGENCY ROOM VISIT NOTE ---
ED Visit Note First contact with patient: 11:31 I did evaluate and examine this patient myself. I did guide management for the patient. I agree with the APC's assessment as discussed. Please see the APC's dictation for further details. I did independently review the x-rays and blood work. He is on Coumadin with a therapeutic INR. His nosebleed is under control with direct pressure. The patient developed bradycardia and desaturation while he was here. He has been complaining of some congestion and shortness of breath. He will be hospitalized for further evaluation.
[2017-08-10] MEDS ORDERED: HydrALAZINE HCL 20 MG/ML VIAL IV. PRN (14:30)
[2017-08-10] MEDS ORDERED: ONDANSETRON INJ 2 MG/ML 2 ML VIAL IV PRN (14:30)
[2017-08-10] MEDS ORDERED: ACETAMINOPHEN 325 MG TAB PO PRN (14:30)
[2017-08-10] MEDS ORDERED: MAGNESIUM HYDROXIDE SUSP 30 ML UDC PO PRN (14:30)
[2017-08-10] MEDS ORDERED: ZOLPIDEM TARTRATE 5 MG TAB PO PRN (14:30)
[2017-08-10] MEDS ORDERED: ALUMINUM/MAGNESIUM/SIMETH (MAALOX MAX) 30 ML UDC PO PRN (14:30)
[2017-08-10] MEDS ORDERED: POLYETHYLENE (MIRALAX) 17 GM PACK PO PRN (14:30)
[2017-08-10] MEDS ORDERED: PANTOprazole SOD 40 MG TAB PO STA (14:41)
--- NOTE | 2017-08-10 14:51 | History and Physical ---
History & Physical Date of Service Aug 10, 2017. History & Physical possible sick sinus syndrome hypoxic, and epistaxis, [id number]
[2017-08-10] MEDS ORDERED: LISINOPRIL 5 MG TAB PO STA (15:05)
--- NOTE | 2017-08-10 15:59 | HISTORY & PHYSICAL EXAMINATION ---
DATE OF ADMISSION: 08/10/2017 CHIEF COMPLAINT: Nose bleeding and possible bradycardia and pulse in the heart beating. HISTORY OF PRESENT ILLNESS: The patient is an 87-year-old white male with a significant past medical history of atrial fibrillation on Coumadin, history of recurrent hematuria, CAD, CABG x3, chronic diastolic CHF, hypertension, CKD stage III, left side lung cancer, S/P lumpectomy, lumbar spine stenosis, idiopathic polyneuropathy, chronic lymphedema in bilateral lower legs, BPH, dyslipidemia, coming into the hospital Emergency Department because of the above chief complaint. The patient has nose bleedings visit the ER. He was initially treated by given ephedrine and was able to hold without bleeding about 30 minutes, no recurrent bleeding, ED physician was planning to discharge him home. During the reevaluation, the patient was found to have possible pauses in the monitor, EKG was done. There was bradycardia with atrial fibrillation., associated with hypoxia osat 85% in RA. I was asked to keep patient possible observation and then will go from there. When I interviewed with the patient, he obviously has anterior nose fresh bleeding and posterior pharyngeal area fresh blood. Therefore, he has active nose bleeding. ED physician is doing the packing now. I am continuing evaluation for the admission. The patient denied chest pain, palpitation, or lower extremity swelling. Denied dizziness, cough or sputum. Denied fever or chills. Denied nausea, vomiting, abdominal pain, diarrhea, or constipation. Denied dysuria, urgency and frequencies. Denies skin rashes. However, there was obvious bilateral lower extremity swelling which is not new, possible ongoing lymphedema. ALLERGIES: No known drug allergies. PAST MEDICAL HISTORY: Like I mentioned in the above which include Afib, CABG, CAD, diastolic CHF, pneumonectomy secondary to lung cancer, hypertension, chronic kidney disease stage III. PAST SURGICAL HISTORY: CABG. FAMILY HISTORY: Noncontributory. SOCIAL HISTORY: Never smoked. Denied tobacco abuse disorder, denied alcohol abuse disorder, denied illicit drug abuse. MEDICATIONS: Taking at home include allopurinol 100 mg p.o. daily, vitamin B12 1000 mcg p.o. daily, finasteride 5 mg p.o. daily, Lasix 40 mg p.o. t.i.d., Xalatan 0.005% 1 drop at bedtime, simvastatin 40 mg p.o. at bedtime, tamsulosin 0.4 mg p.o. daily, aspirin 81 mg p.o. daily, Coumadin 3 mg scheduled and 2 mg scheduled alternatingly 2 mg Sunday, Sunday, Sunday and Sunday and 3 mg is Sunday, and Sunday. REVIEW OF SYSTEMS: Please see HPI, otherwise 14 points organ system review were negative. PHYSICAL EXAMINATION: VITAL SIGNS: Temperature is 36.9, pulse was trending low at 45 beats per minutes, currently is 66 beats per minutes, respiratory rate 18, blood pressure 199/77, pulse ox was 96% in room air. GENERAL: The patient is a white male, pleasant, however clip is applied to anterior nose that was oozing anterior nose area. I checked in the pharyngeal areas. There was obvious fresh blood is oozing. MOUTH: Dry mucous membranes. NECK: Supple. HEART: Irregular, irregular. S1, S2, has no murmur, no gallop, no rub. LUNGS: Bilateral lungs decreased breathing sounds. There was no wheezing, rhonchi or crackles. ABDOMEN: Soft, nontender. Bowel sound was positive. GENITOURINARY AND RECTAL: Deferred. Bilateral CVA was nontender. BILATERAL LOWER EXTREMITIES: 2+ lymphedema which is not new. Calf was nontender. There was no clubbing, no cyanosis. NEUROLOGICAL EVALUATION: Cranial nerve II-XII was intact. There was no local deficits. SKIN: Has no rashes. LABORATORY STUDIES: WBC 8.5, hemoglobin 13, platelet 243. PT/INR was 26/2.5. Sodium 140, potassium 4.1, BUN 18, creatinine 1.47. Troponin less than 0.015. Urine was not remarkable. IMAGING STUDIES: X-ray studies shows moderate stable cardiomegaly, pulmonary vascular congestion. EKGs like I mentioned in the above which shows Afib with irregular heart beating. The monitor, has Afib with flutter and there was 1 captured monitor shows 2 time pulse in the monitor strip. ASSESSMENT AND PLAN: An 87-year-old white male with the conditions seen below. 1. Nose bleeding is packed. 2. Possible sick sinus syndrome with Afib and bradycardia and sinus pause. 3. Accelerated hypertension. 4. Atrial fibrillation on Coumadin which is therapeutic. 5. Chronic kidney disease stage III, stable. 6. Congestive heart failure, no obvious decompensation, but ED physician did report has hypoxic, pulse of 85% which was resolved. 7. History of gout, vitamin B12 deficiency, BPH, dyslipidemia. PLAN: 1. ED physician is going to pack the nose and I will have better blood pressure control, we will give oral antibiotic for better healing and faster healing of nose mucous membranes, and also will have possible target INR level in the lower level such as closer to 2 2. I will hold Coumadin for now because nose bleeding. 2. For the possible sick sinus syndrome. The patient currently is not on any calcium channel linnette or beta blockers. I will use LU inhibitor for blood pressure control. Keep patient in the monitor, check cardiac enzyme troponin x1 set more. Continue cardiac monitoring and have the patient's cardiology to see. 3. History of atrial fibrillation, on Coumadin, hold Coumadin for now. 4. History of CAD, CABG. I have to hold aspirin for now because of nose bleeding. 5. Dyslipidemia. Continue simvastatin. 6. Benign prostatic hypertrophy. Continue finasteride and tamsulosin. 7. History of gout, continue allopurinol. 8. CHF with possible hypoxic and increased lung congestions. I am checking BNP, patient currently is on Lasix 40 mg p.o. t.i.d. We will continue this dose. Will use IV Lasix if needed if BNP significant high. 9. We will provide oxygen support and DuoNeb treatment. GI prophylaxis is covered. DVT prophylaxis will be SCD for now and no heparin product and currently is therapeutic by Coumadin. THE PATIENT IS FULL CODE. Discussed with patient and family about a care plan. I answered all their questions. CHRISTINE
[2017-08-10 19:33] VITALS: BP 124/62; PULSE 70; TEMP 36.5; O2SAT 99
[2017-08-10 19:37] VITALS: BP 187/83; PULSE 76; TEMP 36.8; O2SAT 95; Ht 167.6 cm; Wt 103.1 kg
[2017-08-10] MEDS: CEPHALEXIN MONOHYDRATE 500 MG CAP PO SCH ×2 (19:38→22:41)
[2017-08-10] MEDS: ALBUT/IPRATROP 3MG/0.5MG NEB 3 ML VIAL INH SCH ×3 (19:50→23:22)
--- NOTE | 2017-08-10 20:27 | Progress Note ---
Progress Note Date of Service Aug 10, 2017. Progress Note Paged about patient having continued epistaxis Patient on Coumadin for Afib with therapeutic INR of 2.5 Was given afrin and packed in the ER, subsequently admitted for possible sick sinus syndrome I evaluated the patient and he was attempting to control bleeding with pressure but had several bloody tissues and the nasal packing had fallen out as well. Case discussed with Dr. Pace. Patient was ordered Vitamin K and 2 units of FFP. ENT was consulted. I spoke to Dr. Marie over the phone who agreed to come evaluate the patient. ENT arrived shortly after and attempted left and right nasal packing. Eventually placed a Thibodeaux with posterior packing. Recommended transfer to [place] for embolization Transfer arrangements were [place] with [facility] [place]. Accepting Physician at [facility] [place] Avery; recommended trying kcentra instead of FFP. Case was discussed with Dr. Ash who did not feel that kcentra was necessary at this time given therapeutic INR. Also agreed that the FFP would be okay to continue infusing.
[2017-08-10] MEDS ORDERED: NURSING VERBAL MED ORDER ONE ×2 (20:45→21:30)
[2017-08-10] MEDS ORDERED: PHYTONADIONE INJ 10 MG in SODIUM CHLORIDE 0.9% 50ML 50 ML IV ONE (21:00)
[2017-08-10] MEDS ORDERED: SIMVASTATIN 40 MG TAB PO SCH (21:00)
[2017-08-10] MEDS ORDERED: LATANOPROST 0.005% OP SOLN 2.5 ML BTL OPL SCH (21:00)
[2017-08-10] MEDS ORDERED: FUROSEMIDE 40 MG TAB PO SCH (21:00)
[2017-08-10 21:05] LABS: HEMATOCRIT 39.5 % (42-52)
[2017-08-10] MEDS ORDERED: OXYMETAZOLINE HCL 0.05% NA SPR 15 ML BTL NAE PRN (21:15)
[2017-08-10] MEDS ORDERED: MoRPHine SULFATE 2 MG/ML CARP ONE (21:18)
--- NOTE | 2017-08-10 21:27 | EMERGENCY ROOM VISIT NOTE ---
History First contact with patient: 11:31 Chief Complaint: NOSE BLEED (MINOR) Stated Complaint: POSSIBLE SICK SINUS SYNDROME HYPOXIC, EPISTAXIS History of Present Illness The patient is a 87 year old male who presents to the Emergency Room via private vehicle accompanied by male and female with complaints of "nosebleed". The patient states that he is on Coumadin, and states that he has been ill since Sunday. He has a cough. He feels chills. He states that he began with a nosebleed today that will not stop. It is from both nostrils. His last INR was 2.7 last . There is also shortness of breath of which she has had for over a year now. He has a history of A. fib. Review of Systems A complete 10-point Review of Systems was discussed with the patient, with pertinent positives and negatives listed in the History of Present Illness. All remaining Review of Systems questions can be considered negative unless otherwise specified. Past Medical/Surgical History Medical Problems: (1) Arthritis of ankle, right (2) Atrial fibrillation (3) possible sick sinus syndrome hypoxic, and epistaxis (4) possible sick sinus syndrome hypoxic, and epistaxis Family History Noncontributory due to advanced age Social History Smoking Status: Never Smoker Alcohol Use: none Drug Use: none Marital Status: Housing Status: lives with significant other Occupation Status: retired Current/Historical Medications Scheduled Allopurinol (Allopurinol), 100 MG PO DAILY Aspirin (Aspirin Ec), 81 MG PO DAILY Cyanocobalamin (Vitamin B-12), 1,000 MCG PO DAILY Finasteride (Finasteride), 1 TAB PO DAILY Furosemide (Furosemide), 40 MG PO TID Latanoprost (Xalatan 0.005% Oph [place]), 1 DROPS OPL HS Simvastatin (Simvastatin), 1 TAB PO QPM Tamsulosin HCl (Tamsulosin HCl), 0.4 MG PO DAILY Warfarin Sod (Warfarin Sodium), 3 MG PO ,,SUN Warfarin Sodium (Coumadin), 2 MG PO MWF,SAT Physical Exam Vital Signs Date Time Temp Pulse Resp B/P (MAP) Pulse Ox O2 Delivery O2 Flow Rate FiO2 08/10/17 13:37 66 18 199/77 96 Room Air 08/10/17 13:33 45 08/10/17 12:06 67 08/10/17 12:03 63 20 198/93 98 Room Air 08/10/17 11:54 96 Room Air 08/10/17 10:30 36.9 94 20 161/83 97 Room Air Physical Exam VITAL SIGNS - Vital signs and nursing notes were reviewed. GENERAL - []-year-old [] appearing [] stated age who is in no acute distress. Communicates well with provider and answers questions appropriately. SKIN - Without rashes. HEAD - NC/AT. EYES - PERRL with EOMI bilaterally. Sclera anicteric. Palpebral conjunctiva pink and moist with no injection noted. EARS - No deformities of external structures noted on gross examination bilaterally. No pain elicited with palpation of the tragus bilaterally. External auditory canals without discharge or otorrhea. Tympanic membranes pearly quezada without retraction or bulging. No fluid or purulent material visualized behind the TM. Handle of malleus, umbo, cone of light, pars tensa/ flaccid all easily visualized. NOSE - Midline and without cyanosis. Bilateral minimal epistaxis, Dried blood noted. No trauma noted. Septum midline without deviation or septal hematoma noted. MOUTH/OROPHARYNX - Without perioral cyanosis. Buccal mucosa pink and moist and without leukoplakia. Tongue midline with equal elevation of palate bilaterally. No tonsillar hypertrophy, erythema, or exudates noted. Fair dentition noted. LUNGS - Chest wall symmetric without accessory muscle use, intercostals retractions, or central cyanosis. Normal vesicular breath sounds CTA B/L. No wheezes, rales, or rhonchi appreciated. CARDIAC - RRR with S1/S2. No murmur, rubs, or gallops appreciated. EXTREMITIES - No clubbing or peripheral cyanosis. No pretibial edema present. + 5/5 strength noted in UE/LE bilaterally. NEUROLOGIC - Cranial nerves II through XII grossly intact. Sensory intact to light touch throughout. PSYCH - A&O, and cooperates fully with examiner. Pt is very pleasant and interacts well with examiner. Medical Decision & Procedures ER Provider Diagnostic Interpretation: [~ rep ct add3]] CHEST 2 VIEWS ROUTINE CLINICAL HISTORY: cough dyspnea COMPARISON STUDY: 09/11/2016 FINDINGS: Moderate stable cardiomegaly. Prominent pulmonary vasculature. Stable postoperative changes to the left central hemithorax and cardiac silhouette. Diaphragms smooth. Calcifications are sharp. IMPRESSION: Moderate stable cardiomegaly. Pulmonary vascular congestion. The above report was generated using voice recognition software. It may contain grammatical, syntax or spelling errors. Electronically signed by: Vinay Hung M.D. 08/10/2017 12:28 PM Dictated Date/Time: 08/10/2017 12:27 PM Laboratory Results 08/10/17 11:35 Red Blood Count 4.00, Mean Corpuscular Volume 96.8, Mean Corpuscular Hemoglobin 32.8, Mean Corpuscular Hemoglobin Concent 33.9, Mean Platelet Volume 10.2, Neutrophils (%) (Auto) 62.7, Lymphocytes (%) (Auto) 21.3, Monocytes (%) (Auto) 13.5, Eosinophils (%) (Auto) 1.9, Basophils (%) (Auto) 0.2, Neutrophils # (Auto ) 5.34, Lymphocytes # (Auto) 1.81, Monocytes # (Auto) 1.15, Eosinophils # (Auto ) 0.16, Basophils # (Auto) 0.02 08/10/17 11:35 Test 08/10/17 11:35 08/10/17 11:50 White Blood Count 8.51 K/uL (4.8-10.8) Red Blood Count 4.00 M/uL (4.7-6.1) Hemoglobin 13.1 g/dL (14.0-18.0) Hematocrit 38.7 % (42-52) Mean Corpuscular Volume 96.8 fL (80-100) Mean Corpuscular Hemoglobin 32.8 pg (25-34) Mean Corpuscular Hemoglobin Concent 33.9 g/dl (32-36) Platelet Count 243 K/uL (130-400) Mean Platelet Volume 10.2 fL (7.4-10.4) Neutrophils (%) (Auto) 62.7 % Lymphocytes (%) (Auto) 21.3 % Monocytes (%) (Auto) 13.5 % Eosinophils (%) (Auto) 1.9 % Basophils (%) (Auto) 0.2 % Neutrophils # (Auto) 5.34 K/uL (1.4-6.5) Lymphocytes # (Auto) 1.81 K/uL (1.2-3.4) Monocytes # (Auto) 1.15 K/uL (0.11-0.59) Eosinophils # (Auto) 0.16 K/uL (0-0.5) Basophils # (Auto) 0.02 K/uL (0-0.2) RDW Standard Deviation 54.3 fL (36.4-46.3) RDW Coefficient of Variation 15.6 % (11.5-14.5) Immature Granulocyte % (Auto) 0.4 % Immature Granulocyte # (Auto) 0.03 K/uL (0.00-0.02) Prothrombin Time 26.1 SECONDS (9.0-12.0) Prothromb Time International Ratio 2.5 (0.9-1.1) Activated Partial Thromboplast Time 43.9 SECONDS (21.0-31.0) Partial Thromboplastin Ratio 1.7 Anion Gap 3.0 mmol/L (3-11) Estimated GFR () 49.4 Estimated GFR (Non- 42.6 BUN/Creatinine Ratio 12.0 (10-20) Calcium Level 8.5 mg/dl (8.5-10.1) Magnesium Level 2.2 mg/dl (1.8-2.4) Total Bilirubin 0.3 mg/dl (0.2-1) Aspartate Amino Transf (AST/SGOT) 21 U/L (15-37) Alanine Aminotransferase (ALT/SGPT) 23 U/L (12-78) Alkaline Phosphatase 75 U/L (45-117) Pro-B-Type Natriuretic Peptide 1194 pg/ml (0-1800) Total Protein 7.0 gm/dl (6.4-8.2) Albumin 3.0 gm/dl (3.4-5.0) Globulin 4.0 gm/dl (2.5-4.0) Albumin/Globulin Ratio 0.7 (0.9-2) Urine Color YELLOW Urine Appearance CLEAR (CLEAR) Urine pH 5.0 (4.5-7.5) Urine Specific [place] 1.015 (1.000-1.030) Urine Protein 2+ (NEG) Urine Glucose (UA) NEG (NEG) Urine Ketones NEG (NEG) Urine Occult Blood TRACE (NEG) Urine Nitrite NEG (NEG) Urine Bilirubin NEG (NEG) Urine Urobilinogen NEG (NEG) Urine Leukocyte Esterase NEG (NEG) Urine WBC (Auto) 1-5 /hpf (0-5) Urine RBC (Auto) 0-4 /hpf (0-4) Urine Hyaline Casts (Auto) 1-5 /lpf (0-5) Urine Epithelial Cells (Auto) 0-5 /lpf (0-5) Urine Bacteria (Auto) NEG (NEG) Medications Administered Medications (Trade) Dose Ordered Sig/Aaron Route Start Time Stop Time Status Last Admin Dose Admin Oxymetazoline HCl (Afrin 0.05% Nasal Aldrich) 75 sprays STK-MED ONCE .ROUTE 08/10/17 12:01 08/10/17 12:02 DC 08/10/17 12:01 75 SPRAYS Medical Decision Patient was seen and evaluated as above. He presents to us today with a nosebleed. He is also had chest congestion. X-ray was obtained with results as above. No pneumonia noted. IV access was initiated, and a workup was performed. Afrin trial was had. Patient's CBC reveals no leukocytosis however there is anemia with hemoglobin of 13.1. INR 2.5. Metabolic panel reveals creatinine 1.47. Troponin negative. Urine reveals trace occult blood. The patient was offered a rapid Rhino packing but declined and was to be discharged home with Afrin and a nasal clamp as he was doing well. Unfortunately as I was preparing to discharge the patient at bedside and noted that the monitor alarm was going off and looked over and the patient's heart rate was 33. His O2 sat was also near 80 around the same time. Patient was not symptomatic. I am concerned that given this finding the patient may be experiencing more emergent pathology in comparison to the bloody nose. I then discussed the case with the attending physician who also evaluated the patient is absolutely Dr. Crouch, [facility] hospitalist. The patient then began with more of a bloody nose and decision was made to place a rapid Rhino. A 4.5c m rapid Rhino was placed in sterile water and allowed to sit for 30 seconds. I then tested the balloon. Zacarias was then deflated, and this was placed in the right naris without difficulty. Patient tolerated this well. This was inflated with 2 mL and subsequently then 3 mL of air. A total of 5 mL's of air was instilled. This was because the patient did have bleeding from the nostril. I believe that further evaluation and management for the patient's cardiac cause as well as hypoxia is warranted. Please refer to further documentation regarding his stay. In evaluation treatment this patient following differential diagnoses were retained. Epistaxis, sick sinus syndrome, AV block, among others. Impression Primary Impression: possible sick sinus syndrome hypoxic, and epistaxis Departure Information Dispostion Admitted as an inpatient Condition FAIR Referrals Michelle Mcdonough M.D. (PCP) Forms WORK / SCHOOL INSTRUCTIONS, HOME CARE DOCUMENTATION FORM, IMPORTANT VISIT INFORMATION Patient Instructions [facility]
--- NOTE | 2017-08-10 21:27 | Medical Consult ---
Consultation Date of Consultation: Aug 10, 2017. Attending Physician: Roscoe Crouch MD, PhD Reason for Consultation: Epistaxis History of Present Illness 87 yo male with extensive cardiac history, on coumadin for afib presented to the ED today with right sided epistaxis. It started last night and bleed intermittently. When it did bleed it was profuse in nature. He states he was seen in the ED earlier today and a 4.5 balloon pack was placed. This reportedly stopped the bleeding. He then was admitted because of bradycardia and hypoxia noted in the ED. Upon arrival to the floor his packing "fell out." The right side of the nose started bleeding fairly profusely. I was contacted by the instructor extension work medical technicians. Patient denies recurrent epistaxis in the past. He does have HTN, CAD. For a complete list of his extensive medical history please refer to the H&P. No alleviating or exacerbating factors. No other signs or symptoms. His INR is 2.5. Past Medical/Surgical History Medical Problems: (1) Pneumonia Status: Acute (2) Weakness Status: Acute Family History Noncontributory due to advanced age Social History Smoking Status: Never Smoker Drug Use: none Marital Status: Housing Status: lives with significant other Occupation Status: retired Allergies Coded Allergies: No Known Allergies (Verified , 08/10/17) Current Inpatient Medications Current Inpatient Medications Medications (Trade) Dose Ordered Sig/Aaron Route Start Time Stop Time Status Last Admin Dose Admin Acetaminophen (Tylenol Tab) 650 mg Q4H PRN PO 08/10/17 14:30 09/09/17 14:29 Al Hydrox/Mg Hydrox/Simethicone (Maalox Max Susp) 15 ml Q4H PRN PO 08/10/17 14:30 09/09/17 14:29 Magnesium Hydroxide (Milk Of Magnesia Susp) 30 ml Q12H PRN PO 08/10/17 14:30 09/09/17 14:29 Zolpidem Tartrate (Ambien Tab) 5 mg HSZ PRN PO 08/10/17 14:30 09/09/17 14:29 Ondansetron HCl (Zofran Inj) 4 mg Q6H PRN IV 08/10/17 14:30 09/09/17 14:29 Polyethylene (Miralax Powder Packet) 17 gm DAILY PRN PO 08/10/17 14:30 09/09/17 14:29 Allopurinol (Zyloprim Tab) 100 mg DAILY PO 08/11/17 09:00 09/10/17 08:59 Cyanocobalamin (Vitamin B-12 Tab) 1,000 mcg DAILY PO 08/11/17 09:00 09/10/17 08:59 Finasteride (Proscar Tab) 5 mg DAILY PO 08/11/17 09:00 09/10/17 08:59 Furosemide (Lasix Tab) 40 mg TID PO 08/10/17 21:00 09/09/17 20:59 Latanoprost (Xalatan Oph [place]) 1 drops HS OPL 08/10/17 21:00 09/09/17 20:59 Simvastatin (Zocor Tab) 40 mg QPM PO 08/10/17 21:00 09/09/17 20:59 Tamsulosin HCl (Flomax Cap) 0.4 mg DAILY PO 08/11/17 09:00 09/10/17 08:59 Albuterol/ Ipratropium (Duoneb) 3 ml QIDR INH 08/10/17 16:00 09/09/17 15:59 Cephalexin Monohydrate (Keflex Cap) 500 mg QID PO 08/10/17 19:00 08/20/17 18:59 08/10/17 19:38 500 MG Hydralazine HCl (HydrALAZINE INJ) 20 mg Q6 PRN IV. 08/10/17 14:30 09/09/17 14:29 Lisinopril (Zestril Tab) 5 mg QAM PO 08/11/17 09:00 09/10/17 08:59 Pantoprazole Sodium (Protonix Tab) 40 mg QAM PO 08/11/17 09:00 09/10/17 08:59 Phytonadione 10 mg/Sodium Chloride 51 ml @ 102 mls/hr 2100 ONCE IV 08/10/17 21:00 08/10/17 21:29 Oxymetazoline HCl (Afrin 0.05% Nasal [place]) 2 sprays ONE PRN KOURTNEY 08/10/17 21:15 Review of Systems Constitutional: No fever, No chills, No sweats, No weight loss, No weakness, No fatigue, No problem reported Eyes: No worsening of vision, No eye pain, No redness, No discharge, No diplopia, No problem reported ENT: + unusual epistaxis Respiratory: No cough, No sputum, No wheezing, No shortness of breath, No dyspnea on exertion, No dyspnea at rest, No hemoptysis, No problem reported Cardiovascular: No chest pain, No orthopnea, No PND, No edema, No claudication , No palpitations, No problem reported Neurologic: No memory loss, No paralysis, No weakness, No numbness/tingling, No vertigo, No balance problems, No problem reported Physical Exam Date Time Temp Pulse Resp B/P (MAP) Pulse Ox O2 Delivery O2 Flow Rate FiO2 08/10/17 20:24 Room Air 08/10/17 19:37 36.8 76 20 187/83 95 Room Air 08/10/17 19:33 36.5 70 20 124/62 (82) 99 08/10/17 17:34 62 20 161/83 97 Room Air 08/10/17 16:10 63 20 152/77 95 Room Air 08/10/17 14:51 75 16 195/88 97 Room Air 08/10/17 13:37 66 18 199/77 96 Room Air 08/10/17 13:33 45 08/10/17 12:06 67 08/10/17 12:03 63 20 198/93 98 Room Air 08/10/17 11:54 96 Room Air 08/10/17 10:30 36.9 94 20 161/83 97 Room Air PROCEDURE Attention directed to the nose where a large clot was noted in the right nare. This was removed with suction. After removal, brisk bleeding was noted anteriorly and on the posterior pharyngeal wall. A 7.5 balloon pack was placed on the right side. It was inflated liberally. This did not stop the bleeding on the posteriorly. Thus, a 7.5 balloon was placed on the left hand side as well and inflated liberally for counter pressure. This also did not stop the bleeding posteriorly. Decision was made to place a formal right sided posterior pack. The right sided 7.5 balloon was removed. A 16 [place] was used and blow up in the nasopharynx to occlude the right [place]. At this point 6-7 feet of vaseline gauze was used to pack the nose anteriorly. This did stop the bleeding anteriorly and posteriorly. Patient tolerated moderately. General Appearance: WD/WN, + mild distress Head: normocephalic, atraumatic Eyes: PERRL, EOMI ENT: + pertinent finding (blood from the right nare as well as on the posterior pharyngeal wall. ) Neck: supple, no adenopathy Respiratory/Chest: no respiratory distress, no accessory muscle use Cardiovascular: no edema, no JVD Laboratory Results Last 24 Hours Test 08/10/17 11:35 08/10/17 11:50 08/10/17 18:00 08/10/17 18:10 White Blood Count 8.51 K/uL Red Blood Count 4.00 M/uL Hemoglobin 13.1 g/dL Hematocrit 38.7 % Mean Corpuscular Volume 96.8 fL Mean Corpuscular Hemoglobin 32.8 pg Mean Corpuscular Hemoglobin Concent 33.9 g/dl Platelet Count 243 K/uL Mean Platelet Volume 10.2 fL Neutrophils (%) (Auto) 62.7 % Lymphocytes (%) (Auto) 21.3 % Monocytes (%) (Auto) 13.5 % Eosinophils (%) (Auto) 1.9 % Basophils (%) (Auto) 0.2 % Neutrophils # (Auto) 5.34 K/uL Lymphocytes # (Auto) 1.81 K/uL Monocytes # (Auto) 1.15 K/uL Eosinophils # (Auto) 0.16 K/uL Basophils # (Auto) 0.02 K/uL RDW Standard Deviation 54.3 fL RDW Coefficient of Variation 15.6 % Immature Granulocyte % (Auto) 0.4 % Immature Granulocyte # (Auto) 0.03 K/uL Prothrombin Time 26.1 SECONDS Prothromb Time International Ratio 2.5 Activated Partial Thromboplast Time 43.9 SECONDS Partial Thromboplastin Ratio 1.7 Sodium Level 140 mmol/L Potassium Level 4.1 mmol/L Chloride Level 106 mmol/L Carbon Dioxide Level 31 mmol/L Anion Gap 3.0 mmol/L Blood Urea Nitrogen 18 mg/dl Creatinine 1.47 mg/dl Estimated GFR () 49.4 Estimated GFR (Non- 42.6 BUN/Creatinine Ratio 12.0 Random Glucose 84 mg/dl Calcium Level 8.5 mg/dl Magnesium Level 2.2 mg/dl Total Bilirubin 0.3 mg/dl Aspartate Amino Transf (AST/SGOT) 21 U/L Alanine Aminotransferase (ALT/SGPT) 23 U/L Alkaline Phosphatase 75 U/L Troponin I < 0.015 ng/ml 0.019 ng/ml Pro-B-Type Natriuretic Peptide 1194 pg/ml Total Protein 7.0 gm/dl Albumin 3.0 gm/dl Globulin 4.0 gm/dl Albumin/Globulin Ratio 0.7 Urine Color YELLOW Urine Appearance CLEAR Urine pH 5.0 Urine Specific [place] 1.015 Urine Protein 2+ Urine Glucose (UA) NEG Urine Ketones NEG Urine Occult Blood TRACE Urine Nitrite NEG Urine Bilirubin NEG Urine Urobilinogen NEG Urine Leukocyte Esterase NEG Urine WBC (Auto) 1-5 /hpf Urine RBC (Auto) 0-4 /hpf Urine Hyaline Casts (Auto) 1-5 /lpf Urine Epithelial Cells (Auto) 0-5 /lpf Urine Bacteria (Auto) NEG Creatine Kinase MB Ratio Creatine Kinase MB 1.1 ng/ml Test 08/10/17 20:57 Hemoglobin 13.3 g/dL Hematocrit 39.5 % Assessment & Plan 87 yo male with enumerable medical comorbidities who had a right sided posterior epistaxis - epistaxis controlled with formal posterior pack as above - recommend transfer to tertiary care center for embolization of the offending vessel, 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 - control of HTN per primary service.
[2017-08-10 22:38] VITALS: BP 218/81
[2017-08-10 23:23] VITALS: PULSE 74; O2SAT 96
[2017-08-10 23:31] VITALS: BP 149/78; PULSE 81; TEMP 37.1; O2SAT 95
[2017-08-10] MEDS ORDERED: KFL/250 PO (23:38)
[2017-08-10 23:59] VITALS: BP 157/67; PULSE 90; TEMP 36.6; O2SAT 97
[2017-08-11] VITALS (9 sets, daily range): BP systolic 149–176; BP diastolic 65–87; PULSE 91–97; TEMP 36.7–37.2; O2SAT 96–97
--- NOTE | 2017-08-11 00:51 | Discharge Instructions ---
Discharge Instructions Date of Service Aug 11, 2017. Admission Reason for Admission: Possible Sick Sinus Syndrome Hypoxic, Epistaxis Discharge Discharge Diagnosis / Problem: posterior epistaxis, bradycardia, ?sick sinus? Discharge Goals Goal(s): Decrease discomfort, Diagnostic testing, Therapeutic intervention Activity Recommendations Activity Limitations: as noted below Lifting Limitations: gradually increase as tolerated Exercise/Sports Limitations: gradually increase as tolerated May Resume Sexual Activity: when tolerated . Instructions / Follow-Up Instructions / Follow-Up This is an 87 y/o M with pmh of atrial fibrillation on Coumadin, history of recurrent hematuria, CAD, CABG x3, chronic diastolic CHF, hypertension, CKD stage III, left side lung cancer, S/P lumpectomy, lumbar spine stenosis, idiopathic polyneuropathy, chronic lymphedema in bilateral lower legs, BPH, dyslipidemia, coming into the hospital Emergency Department because of persistent epistaxis. In the ER, He was given afrin and had nasal packing. He was about to be discharged but the ER physician noted him to be bradycardic and hypoxic. There was concern for Sick SInus syndrome and he was admitted to telemetry. Shortly after arrival to the floor, the patient started having epistaxis again. His packing also fell out. He was evaluated and ENT was consulted. They arrived at bedside and attempted to control the bleeding with left and right anterior packing. However, this was not successful at controlling the bleeding. ENT did formal packing for posterior epistaxis and recommended transfer to [place] for Embolization. The patient's INR was therapeutic at 2.5. The patient received IV Vitamin K and 2 units of FFP. Hgb on presentation was 13.1. Repeat hgb was 13.3. [place] [facility] [place] kcentra instead of FFP. This was discussed with Dr. Ash (of the coagulation clinic) who did not feel kcentra was necessary at this time given therapeutic INR. Patient was not bradycardic on the floor and remained on room air. Current Hospital Diet Patient's current hospital diet: AHA Diet (Heart Healthy) Discharge Diet Recommended Diet: Regular Diet Pending Studies Studies pending at discharge: no Medical Emergencies . Who to Call and When: Medical Emergencies: If at any time you feel your situation is an emergency, please call 911 immediately. . Non-Emergent Contact Non-Emergency issues call your: Primary Care Provider Call Non-Emergent contact if: you have a fever . . "Provider Documentation" section prepared by Simona Loo. . VTE Core Measure Inpt VTE Proph given/why not?: Contraindicated
[2017-08-11 02:58] LABS: HEMATOCRIT 38.6 % (42-52)
[2017-08-11] MEDS ORDERED: LISINOPRIL 5 MG TAB PO SCH (09:00)
[2017-08-11] MEDS ORDERED: ALLOPURINOL 100 MG TAB PO SCH (09:00)
[2017-08-11] MEDS ORDERED: CYANOCOBALAMIN 500 MCG TAB (VIT B-12) PO SCH (09:00)
[2017-08-11] MEDS ORDERED: TAMSULOSIN HCL 0.4 MG CAP PO SCH (09:00)
[2017-08-11] MEDS ORDERED: PANTOprazole SOD 40 MG TAB PO SCH (09:00)
[2017-08-11] MEDS ORDERED: FINASTERIDE 5 MG TAB PO SCH (09:00)
--- NOTE | 2017-08-11 20:09 | Discharge Summary ---
Discharge Summary Date of Service Aug 11, 2017. Discharge Summary Admission Date: Aug 10, 2017 at 14:34 Discharge Date: Aug 10, 2017 Discharge Disposition: Acute care facility Principal Diagnosis: Epistaxis Problems/Secondary Diagnoses: Atrial fibrillation on Coumadin History of recurrent hematuria CAD, CABG x3, chronic diastolic CHF hypertension, CKD stage III Left side lung cancer S/P lumpectomy Immunizations: Have You Had Influenza Vaccine: Yes Influenza Vaccine Date: Feb 18, 2010 History of Tetanus Vaccine?: Unknown History of Pneumococcal: Yes Pneumococcal Date: Feb 18, 2010 History of Hepatitis B Vaccine: Unknown Procedures: Nasal packing x 2 Consultations: ENT Medication Reconciliation New Medications: Cephalexin Monohydrate (Keflex) 250 Mg Cap 250 MG PO QID for 10 Days, #40 CAP Continued Medications: Allopurinol (Allopurinol) 100 Mg Tab 100 MG PO DAILY Cyanocobalamin (Vitamin B-12) 1,000 Mcg Tab 1000 MCG PO DAILY, TAB Finasteride (Finasteride) 5 Mg Tab 1 TAB PO DAILY Furosemide (Furosemide) 80 Mg Tab 40 MG PO TID Latanoprost (Xalatan 0.005% Oph [place]) 0.005 % [place] 1 DROPS OPL HS, ML Simvastatin (Simvastatin) 40 Mg Tab 1 TAB PO QPM Tamsulosin HCl (Tamsulosin HCl) 0.4 Mg Cap 0.4 MG PO DAILY Discontinued Medications: Aspirin (Aspirin Ec) 81 Mg Tab 81 MG PO DAILY Warfarin Sod (Warfarin Sodium) 3 Mg Tab 3 MG PO TUES,THURS,SUN Warfarin Sodium (Coumadin) 2 Mg Tab 2 MG PO MWF,SAT, TAB Discharge Exam Review of Systems: Constitutional: No fever, No chills ENT: + unusual epistaxis Respiratory: No shortness of breath, No dyspnea on exertion Cardiovascular: No chest pain Abdomen: No pain, No nausea, No vomiting Physical Exam: General Appearance: + mild distress ENT: + pertinent finding (bleeding from right nasal passage, posterior oropharynx with active bleeding) Extremities: + pedal edema Hospital Course The patient is an 87-year-old white male with a PMH of atrial fibrillation on Coumadin, history of recurrent hematuria, CAD, CABG x3, chronic diastolic CHF, hypertension, CKD stage III, left side lung cancer, S/P lumpectomy, lumbar spine stenosis, idiopathic polyneuropathy, chronic lymphedema in bilateral lower legs, BPH, dyslipidemia presented with right sided epistaxis. In the ER, he was given Afrin and the bleeding was controlled with nasal packing. He is on Coumadin but with a therapeutic INR. The patient was about to be discharged when he was noted to be bradycardic and hypoxic. He was admitted for questionable sick sinus syndrome. Shortly after arrival to the floor, the patient complained of bleeding and that the packing had fallen out. He was re-evaluated and found to have recurrent epistaxis. 10 mg of vitamin K and 2 units of ffp were given. ENT was consulted and they attempted bilateral anterior packing and eventually placed a right posterior packing. He was recommended transfer to tertiary care for embolization. He was transferred to to [facility] [place] in [place]. H/H remained stable. Patient was not bradycardic or hypoxic while on the floor. Total Time Spent: Greater than 30 minutes This includes examination of the patient, discharge planning, medication reconciliation, and communication with other providers. Discharge Instructions Please refer to the electronic Patient Visit Report (Discharge Instructions) for additional information. Additional Copies To Michelle Mcdonough M.D.
== END 2017-08-11 06:43 | disposition short-term general hospital (02) | DRG 151 ==
LOC: C.EDB 10:23 → C.2T 14:34 → ENRESERV 17:26
PROVIDERS: ADMIT Hospitalist; ATTEND Hospitalist
DX: R04.0 Epistaxis (principal); I13.0 Hypertensive heart and chronic kidney disease with heart failure and stage 1 through stage 4 chronic kidney disease, or unspecified chronic kidney disease; I50.32 Chronic diastolic (congestive) heart failure; I49.5 Sick sinus syndrome; R09.02 Hypoxemia; I48.91 Unspecified atrial fibrillation; N18.3 Chronic kidney disease, stage 3 (moderate); M10.9 Gout, unspecified; E53.8 Deficiency of other specified B group vitamins; N40.0 Benign prostatic hyperplasia without lower urinary tract symptoms; E78.5 Hyperlipidemia, unspecified; I89.0 Lymphedema, not elsewhere classified; I25.10 Atherosclerotic heart disease of native coronary artery without angina pectoris; G60.9 Hereditary and idiopathic neuropathy, unspecified; M48.061 Spinal stenosis, lumbar region without neurogenic claudication; Z95.1 Presence of aortocoronary bypass graft; Z85.118 Personal history of other malignant neoplasm of bronchus and lung; Z87.448 Personal history of other diseases of urinary system; Z79.01 Long term (current) use of anticoagulants; Z79.82 Long term (current) use of aspirin; Z79.899 Other long term (current) drug therapy

== ENCOUNTER → 2017-09-06 | Outpatient (CLI) | payer OTHER ==
[~2017-09-06] MED LIST changes: +ACET-1047 PO; +ASPI81TA28 PO; +CALC0.2510 PO; +CMD/3 PO; +CYAN10005 PO; -DXM4 PO; +IPRA-64 INH; -LATA0.009 OPL; +LATA0.5S OPL; -POTA10TA30 PO; +PRS5 PO; -VTMD PO; +WARF2TAB PO; +ZCR40 PO; +ZSYI45 IV
[2017-09-06 14:11] LABS: HEMATOCRIT 35.8 % (42-52); HEMOGLOBIN 11.9 g/dL (14.0-18.0); MEAN CELL VOLUME 96.2 fL (80-100); MEAN CORPUSCULAR HGB CONC 33.2 g/dl (32-36); MEAN PLATELET VOLUME 10.3 fL (7.4-10.4); PLATELET COUNT 272 K/uL (130-400); RED CELL DISTRIBUTION WIDTH CV 15.8 % (11.5-14.5); WHITE BLOOD COUNT 9.25 K/uL (4.8-10.8)
[2017-09-06 16:27] LABS: ALBUMIN 2.8 gm/dl (3.4-5.0); ALT/SGPT 28 U/L (12-78); AST/SGOT 19 U/L (15-37); BLOOD UREA NITROGEN 32 mg/dl (7-18); CALCIUM 8.8 mg/dl (8.5-10.1); CARBON DIOXIDE 28 mmol/L (21-32); CREATININE 1.68 mg/dl (0.60-1.40); GLUCOSE 87 mg/dl (70-99); POTASSIUM 4.4 mmol/L (3.5-5.1); SODIUM 139 mmol/L (136-145)
[2017-09-06 16:28] LABS: ALKALINE PHOSPHATASE 77 U/L (45-117); TOTAL PROTEIN 7.4 gm/dl (6.4-8.2)
== END | disposition home or self-care (01) ==
LOC: C.LAB1850 12:40
PROVIDERS: ATTEND Internal Medicine
DX: Z00.00 Encounter for general adult medical examination without abnormal findings (principal); I50.32 Chronic diastolic (congestive) heart failure; I12.9 Hypertensive chronic kidney disease with stage 1 through stage 4 chronic kidney disease, or unspecified chronic kidney disease; N18.3 Chronic kidney disease, stage 3 (moderate); N25.81 Secondary hyperparathyroidism of renal origin; R60.9 Edema, unspecified

== ENCOUNTER → 2017-10-25 | Outpatient (CLI) | payer OTHER ==
[~2017-10-25] MED LIST changes: -ACET-1047 PO; -CALC0.2510 PO; -IPRA-64 INH; -ZSYI45 IV
[2017-10-25 14:52] LABS: INR 2.1 (0.9-1.1)
[2017-10-25 15:08] LABS: ALBUMIN 3.5 gm/dl (3.4-5.0); ALT/SGPT 25 U/L (12-78); BLOOD UREA NITROGEN 34 mg/dl (7-18); CALCIUM 9.2 mg/dl (8.5-10.1); CARBON DIOXIDE 29 mmol/L (21-32); CREATININE 1.62 mg/dl (0.60-1.40); GLUCOSE 87 mg/dl (70-99); POTASSIUM 3.2 mmol/L (3.5-5.1); SODIUM 140 mmol/L (136-145)
[2017-10-25 15:13] LABS: ALKALINE PHOSPHATASE 68 U/L (45-117); AST/SGOT 21 U/L (15-37); TOTAL PROTEIN 7.7 gm/dl (6.4-8.2)
--- NOTE | 2017-11-05 06:54 | CODING QUERY MEDICAL NECESSITY ---
SUPPORTING DIAGNOSIS NEEDED Dr. Jasmine, A supporting diagnosis is required for the test/procedure performed on this patient in order for us to be reimbursed by the patient's insurance. Please provide a supporting diagnosis for the following test/procedure listed below next to the test name along with your signature. *If there is no additional diagnosis for this patient that would support the following test/procedure please document that below next to the test/procedure. Test(s)/Procedure(s) that require a supporting diagnosis: * [id number] PSA DIAGNOSIS: DATE OF SERVICE: 10/25/17 Provider Signature: Date: Thank you Star Byers [facility] Information Management Once completed, please kindly fax back to [phone] For questions please call [phone]
== END | disposition home or self-care (01) ==
LOC: C.LAB1850 13:30
PROVIDERS: ATTEND Internal Medicine Cardiovascular Disease
DX: I50.32 Chronic diastolic (congestive) heart failure (principal); I13.0 Hypertensive heart and chronic kidney disease with heart failure and stage 1 through stage 4 chronic kidney disease, or unspecified chronic kidney disease; N18.3 Chronic kidney disease, stage 3 (moderate); N25.81 Secondary hyperparathyroidism of renal origin; R60.9 Edema, unspecified; N20.0 Calculus of kidney; I48.91 Unspecified atrial fibrillation; N40.0 Benign prostatic hyperplasia without lower urinary tract symptoms

== ENCOUNTER → 2017-11-01 | Outpatient (CLI) | payer OTHER | END | disposition home or self-care (01) | LOC: C.LAB1850 13:37 | PROVIDERS: ATTEND Internal Medicine Cardiovascular Disease | DX: I48.91 Unspecified atrial fibrillation (principal) ==

== ENCOUNTER → 2017-12-31 | Outpatient (CLI) | payer OTHER ==
[2017-12-31 15:03] LABS: HEMATOCRIT 39.4 % (42-52); HEMOGLOBIN 13.8 g/dL (14.0-18.0); MEAN CELL VOLUME 93.6 fL (80-100); MEAN CORPUSCULAR HEMOGLOBIN 32.8 pg (25-34); MEAN PLATELET VOLUME 10.7 fL (7.4-10.4); PLATELET COUNT 259 K/uL (130-400); RED CELL DISTRIBUTION WIDTH CV 15.4 % (11.5-14.5); RED CELL DISTRIBUTION WIDTH SD 52.6 fL (36.4-46.3); WHITE BLOOD COUNT 10.19 K/uL (4.8-10.8)
[2017-12-31 15:53] LABS: ALBUMIN 3.4 gm/dl (3.4-5.0); BLOOD UREA NITROGEN 38 mg/dl (7-18); CARBON DIOXIDE 29 mmol/L (21-32); CREATININE 1.84 mg/dl (0.60-1.40); GLUCOSE 93 mg/dl (70-99); POTASSIUM 3.6 mmol/L (3.5-5.1); SODIUM 138 mmol/L (136-145)
[2017-12-31 15:54] LABS: PHOSPHORUS 3.2 mg/dl (2.5-4.9)
== END | disposition home or self-care (01) ==
LOC: C.LAB1850 13:49
PROVIDERS: ATTEND Internal Medicine Nephrology
DX: I10 Essential (primary) hypertension (principal); N25.81 Secondary hyperparathyroidism of renal origin; R60.9 Edema, unspecified

== ENCOUNTER → 2018-03-26 | Outpatient (CLI) | payer OTHER ==
[~2018-03-26] MED LIST changes: +ACET-1047 PO; -ASPI81TA28 PO; +CALC0.2510 PO; -CMD/3 PO; +IPRA-64 INH; -LSX80 PO; -WARF2TAB PO; +ZSYI45 IV
[2018-03-26 09:52] LABS: INR 2.4 (0.9-1.1)
== END ==
LOC: C.LABUPNIT 09:14
PROVIDERS: ATTEND Nurse Practitioner Family
DX: I48.2 Chronic atrial fibrillation (principal)

== ENCOUNTER → 2018-03-27 | Outpatient (CLI) | payer OTHER ==
[2018-03-27 08:28] LABS: BASO % 0.6 %; BASO ABS # 0.06 K/uL (0-0.2); EOS % 4.1 %; HEMATOCRIT 33.6 % (42-52); HEMOGLOBIN 11.2 g/dL (14.0-18.0); IG# 0.12 K/uL (0.00-0.02); LYMPH ABS # 3.22 K/uL (1.2-3.4); MEAN CELL VOLUME 96.8 fL (80-100); MEAN CORPUSCULAR HEMOGLOBIN 32.3 pg (25-34); MEAN CORPUSCULAR HGB CONC 33.3 g/dl (32-36); MEAN PLATELET VOLUME 10.5 fL (7.4-10.4); MONO % 15.1 %; MONO ABS # 1.48 K/uL (0.11-0.59); NEUT ABS # 4.49 K/uL (1.4-6.5); PLATELET COUNT 409 K/uL (130-400); RED CELL DISTRIBUTION WIDTH CV 16.5 % (11.5-14.5); WHITE BLOOD COUNT 9.77 K/uL (4.8-10.8)
[2018-03-27 08:46] LABS: ALBUMIN 2.2 gm/dl (3.4-5.0); ALKALINE PHOSPHATASE 101 U/L (45-117); ALT/SGPT 44 U/L (12-78); AST/SGOT 31 U/L (15-37); BLOOD UREA NITROGEN 27 mg/dl (7-18); CALCIUM 8.6 mg/dl (8.5-10.1); CARBON DIOXIDE 27 mmol/L (21-32); CHOLESTEROL 121 mg/dl (0-200); CREATININE 1.51 mg/dl (0.60-1.40); GLUCOSE 84 mg/dl (70-99); LDL CHOLESTEROL CALCULATED 68 mg/dl; POTASSIUM 3.9 mmol/L (3.5-5.1); SODIUM 142 mmol/L (136-145); TOTAL PROTEIN 6.7 gm/dl (6.4-8.2); URIC ACID 7.6 mg/dl (2.6-7.2)
== END ==
LOC: C.LABUPNIT 07:59
PROVIDERS: ATTEND Family Medicine
DX: I10 Essential (primary) hypertension (principal); K81.9 Cholecystitis, unspecified; I48.2 Chronic atrial fibrillation; I25.10 Atherosclerotic heart disease of native coronary artery without angina pectoris; M1A.9XX0 Chronic gout, unspecified, without tophus (tophi)

== ENCOUNTER → 2018-03-29 | Outpatient (CLI) | payer OTHER ==
[2018-03-29 09:06] LABS: INR 3.3 (0.9-1.1)
== END ==
LOC: C.LABUPNIT 08:15
PROVIDERS: ATTEND Nurse Practitioner Family
DX: I48.2 Chronic atrial fibrillation (principal)

== ENCOUNTER → 2018-04-01 | Outpatient (CLI) | payer OTHER ==
[2018-04-01 10:08] LABS: INR 3.1 (0.9-1.1)
== END ==
LOC: C.LABUPNIT 07:54
PROVIDERS: ATTEND Nurse Practitioner Family
DX: I48.2 Chronic atrial fibrillation (principal)

== ENCOUNTER → 2018-04-04 | Outpatient (CLI) | payer OTHER ==
[2018-04-04 08:58] LABS: INR 2.2 (0.9-1.1)
== END ==
LOC: C.LABUPNIT 08:29
PROVIDERS: ATTEND Nurse Practitioner Family
DX: I48.2 Chronic atrial fibrillation (principal)

== ENCOUNTER → 2018-04-08 | Outpatient (CLI) | payer OTHER ==
[2018-04-08 10:18] LABS: INR 2.1 (0.9-1.1)
== END | disposition home or self-care (01) ==
LOC: C.LABUPNIT 09:32
PROVIDERS: ATTEND Nurse Practitioner Family
DX: I48.2 Chronic atrial fibrillation (principal)

== ENCOUNTER → 2018-04-09 | Outpatient (CLI) | payer OTHER ==
[2018-04-09 10:42] LABS: HEMATOCRIT 29.2 % (42-52); HEMOGLOBIN 9.4 g/dL (14.0-18.0); MEAN CORPUSCULAR HEMOGLOBIN 31.2 pg (25-34); MEAN CORPUSCULAR HGB CONC 32.2 g/dl (32-36); MEAN PLATELET VOLUME 10.1 fL (7.4-10.4); PLATELET COUNT 313 K/uL (130-400); RED CELL DISTRIBUTION WIDTH CV 16.2 % (11.5-14.5); RED CELL DISTRIBUTION WIDTH SD 56.6 fL (36.4-46.3); WHITE BLOOD COUNT 8.48 K/uL (4.8-10.8)
== END | disposition home or self-care (01) ==
LOC: C.LABUPNIT 07:49
PROVIDERS: ATTEND Nurse Practitioner Family
DX: R19.5 Other fecal abnormalities (principal)

== ENCOUNTER → 2018-04-11 | Outpatient (CLI) | payer OTHER ==
[2018-04-11 08:15] LABS: HEMATOCRIT 29.2 % (42-52); HEMOGLOBIN 9.8 g/dL (14.0-18.0); MEAN CELL VOLUME 96.4 fL (80-100); MEAN CORPUSCULAR HEMOGLOBIN 32.3 pg (25-34); MEAN CORPUSCULAR HGB CONC 33.6 g/dl (32-36); NUCLEATED RED BLOOD CELL ABS 0.02 K/uL (0-0); PLATELET COUNT 358 K/uL (130-400); RED CELL DISTRIBUTION WIDTH CV 16.3 % (11.5-14.5); RED CELL DISTRIBUTION WIDTH SD 56.8 fL (36.4-46.3); WHITE BLOOD COUNT 9.76 K/uL (4.8-10.8)
== END ==
LOC: C.LABUPNIT 07:45
PROVIDERS: ATTEND Nurse Practitioner Family
DX: R68.89 Other general symptoms and signs (principal)

== ENCOUNTER → 2018-04-12 | Outpatient (CLI) | payer OTHER ==
[2018-04-12 08:58] LABS: INR 1.9 (0.9-1.1)
[2018-04-12 09:04] LABS: HEMATOCRIT 29.3 % (42-52); HEMOGLOBIN 9.6 g/dL (14.0-18.0)
== END ==
LOC: C.LABUPNIT 08:30
PROVIDERS: ATTEND Nurse Practitioner Family
DX: N17.9 Acute kidney failure, unspecified (principal); I48.2 Chronic atrial fibrillation

== ENCOUNTER 2020-02-18 11:54 | Inpatient (IN) ==
--- NOTE | 2020-02-18 12:06 | Emergency Department Note ---
Impression & Plan Bradycardia, CHF (congestive heart failure), SOB (shortness of breath) ED Provider Note NAME: DAPHNIE LOYOLA AGE: 89 SEX: M : 1930 ARRIVES VIA: Walk-In INFORMANT: Patient, ED PROVIDER(S): Chirag Bass MD Chief Complaint: Shortness of breath HPI: Patient is present with concern for shortness of breath. Patient states he noticed it yesterday. The patient does complain of some mild orthopnea and dyspnea on exertion. The patient is a prior history of CABG and CHF. The patient is noticed he decreased heart rate. The patient also notes 5 pound weight gain and increased lower extremity swelling. Patient denies any cough or fever chills or concerns for coronavirus contacts. Patient does state rest improves symptoms. The patient was seen by the home health nurse today and referred here for further evaluation. ROS: See HPI for pertinent positives and negatives. A total of 10 systems were revie wed and otherwise negative. Past medical history: See below Surgical history: See below Social history: See below Physical Exam: GENERAL: Well appearing, well nourished, NAD, non-toxic. Wearing glasses and mask. EYE EXAM: Normal conjunctiva. PERRL, no anisocoria and EOM's grossly intact w/o pain. NECK: Supple, no nuchal rigidity, no adenopathy, non-tender. No signs of meningismus. LUNGS: Shallow breaths, bibasilar crackles noted. HEART: NSR, no MRG. ABDOMEN: Abdomen soft, non-tender, normo-active bowel sounds, no masses, no rebound or guarding. BACK: No CVA TTP. SKIN: No rashes and no bruising. UPPER EXTREMITIES: Upper extremities are grossly normal. LOWER EXTREMITIES: Grossly normal, 1-2+ bilateral lower extremity edema. NEURO EXAM: A&O x3, cranial nerves II-XII grossly intact, normal speech, moves all 4 extremities on command w/o issue. Differential diagnoses: Reactive airway disease, pneumonia, pneumothorax, COPD, CHF, infections, cardiac ischemia, pulmonary embolism, musculoskeletal, gastrointestinal, as well as other pathologies. Course: Patient was seen and evaluated the bedside. Full history physical exam was performed. EKG: Location: Shortness of breath A. fib, ventricular rate of 55, normal QRS, normal axis, comparison EKG March 08, 2018 with a decreased ventricular rate. No obvious ST changes. A. fib is unchanged from prior EKG. Imaging Studies: Radiology results as stated below per my review in the radiologist's interpretation: XR chest 1V portable CLINICAL HISTORY: Dyspnea. History of lung cancer. COMPARISON STUDY: Chest CT September 11, 2016. Chest radiograph March 08, 2018. FINDINGS: Median sternotomy wires and mediastinal surgical clips are noted. Hazy left lung opacity is noted. This is unchanged and probably chronic. No pneumothorax or pleural effusion is noted. There is no evidence for overt pulmonary edema. Prominence of the pulmonary vasculature is unchanged. IMPRESSION: No acute findings. No change in appearance of the chest. ACT 112: Negative or not required by law. Electronically signed by: Adrian Cruz M.D. 02/18/2020 12:41 PM Dictated: 02/18/20 1239 Transcribed: 02/18/20 1239 Cardiac monitoring: An order was placed for continuous cardiac monitoring. The monitor shows a rate of 63 with sinus rhythm. MDM: Patient does present with concern for shortness of breath. Patient did a bladder completed along with an EKG, troponin, chest x-ray. Patient's blood work shows slight anemia with a normal white count. Patient's CKD is essentially baseline stage III. Phosphorus slightly low and ordered for replacement. Troponin is detectable but not elevated. BNP is elevated without a prior for comparison. The patient was ordered IV Lasix 80. EKG does show a slower rate but A. fib is unchanged. The patient has had some pauses and given this concern as the patient has been bradycardic pads were placed I did speak the on-call hospitalist as there may need to be discussion about the possibility of risk benefits of pacemaker placement. Patient denies any recent tick bites. Patient was ordered slight replacement of his phosphorus. I did speak with Dr. Bernard [facility]. Patient was admitted to the medicine service. Past Med/Surg History Medical History Acute cholecystitis Complication of Thibodeaux catheter (Inactive) Hematuria (Inactive) Vitamin deficiency (Chronic) Surgical History H/O heart bypass surgery S/P cholecystectomy Status post lung surgery Family History Father Myocardial infarction Mother Stroke Uncle Cancer Denies family history of Ovarian cancer Prostate cancer Breast cancer Lung cancer Colorectal cancer Social History Preferred Language: Ecuadorean Visual Impairment: Limited Hearing Ability: Use of Hearing Aid marital status: Current Living Situation: Spouse Feels Safe at Home: Yes Smoking Status: Never smoker Second Hand Exposure: No ; Hx Alcohol Use: No Hx Substance Use: No Childhood Exposure to Second-Hand Smoke: Yes (father) Allergies Allergies Allergy/AdvReac Type Severity Reaction Status Date / Time No Known Allergies Allergy Verified 02/06/20 11:36 Home Meds Home Medications Medication Instructions Recorded Confirmed cyanocobalamin (vitamin B-12) 1,000 mcg PO DAILY tab 04/08/19 02/18/20 1,000 mcg tablet finasteride 5 mg tablet 5 mg PO DAILY #90 tab 04/08/19 02/18/20 latanoprost 0.005 % eye drops 1 drops OP HS ml 04/08/19 02/18/20 tamsulosin 0.4 mg capsule 0.4 mg PO HS #90 cap 04/08/19 02/18/20 aspirin 81 mg PO DAILY 02/18/20 02/18/20 Previous Rx's Medication Instructions Recorded simvastatin 40 mg tablet 40 mg PO QPM #90 tab 02/24/19 furosemide 80 mg tablet 80 mg PO DAILY #90 tab 12/10/19 apixaban 2.5 mg tablet 2.5 mg PO BID #180 tab 12/16/19 allopurinol 100 mg tablet 100 mg PO DAILY #90 tab 12/24/19 Results & Data (ED) Vital Signs Vital Signs - 24 hr 02/18/20 11:58 02/18/20 12:15 02/18/20 12:27 Temperature 36.9 C Temperature Source Oral Pulse Rate 63 57 L Pulse Rhythm Regular Pulse Strength Normal Respiratory Rate 20 16 Respiratory Effort / Characteristics Non-Labored Spontaneous Respiratory Depth Normal Respiratory Pattern Regular Blood Pressure 205/114 H Blood Pressure Mean 144 Blood Pressure Position Sitting Pulse Oximetry 97 Oxygen Delivery Method Room Air Room Air Sepsis Recent Fever Within 48 Hours No Sepsis Action Taken by Nursing No Action Required 02/18/20 12:30 02/18/20 13:00 02/18/20 13:07 Temperature Temperature Source Pulse Rate 53 L 45 L 54 L Pulse Rhythm Pulse Strength Respiratory Rate 16 16 16 Respiratory Effort / Characteristics Respiratory Depth Respiratory Pattern Blood Pressure 191/96 H Blood Pressure Mean 151 Blood Pressure Position Pulse Oximetry Oxygen Delivery Method Sepsis Recent Fever Within 48 Hours Sepsis Action Taken by Nursing 02/18/20 13:30 02/18/20 13:49 02/18/20 14:00 Temperature Temperature Source Pulse Rate 44 L 42 L 49 L Pulse Rhythm Pulse Strength Respiratory Rate 18 18 17 Respiratory Effort / Characteristics Respiratory Depth Respiratory Pattern Blood Pressure 187/86 H Blood Pressure Mean 101 Blood Pressure Position Pulse Oximetry Oxygen Delivery Method Sepsis Recent Fever Within 48 Hours Sepsis Action Taken by Nursing 02/18/20 14:30 Temperature Temperature Source Pulse Rate 46 L Pulse Rhythm Pulse Strength Respiratory Rate 18 Respiratory Effort / Characteristics Respiratory Depth Respiratory Pattern Blood Pressure Blood Pressure Mean Blood Pressure Position Pulse Oximetry Oxygen Delivery Method Sepsis Recent Fever Within 48 Hours Sepsis Action Taken by [facility]pc Medications Current Medication List: was personally reviewed by me Laboratory Data Attestation: I reviewed the patient's lab results. Result diagrams: 02/18/20 12:25 02/18/20 12:25 Lab Results 02/18/20 02/18/20 02/18/20 Range/Units 12:25 12:25 12:25 WBC 9.27 (4.8-10.8) K/uL RBC 3.77 L (4.7-6.1) M/uL Hgb 12.8 L (14.0-18.0) g/dL Hct 37.2 L (42-52) % MCV 98.7 (80-100) fL MCH 34.0 (25-34) pg MCHC 34.4 (32-36) g/dL RDW Std Deviation 57.3 H (36.4-46.3) fL RDW Coeff of Arvin 15.9 H (11.5-14.5) % Plt Count 208 (130-400) K/uL MPV 10.9 H (7.4-10.4) fL Immature Gran % (Auto) 0.3 % Neut % (Auto) 57.9 % Lymph % (Auto) 28.0 % [place] % (Auto) 11.1 % Eos % (Auto) 2.5 % Baso % (Auto) 0.2 % Immature Gran # (Auto) 0.03 H (0.00-0.02) K/uL Neut # (Auto) 5.36 (1.4-6.5) K/uL Lymph # (Auto) 2.60 (1.2-3.4) K/uL [place] # (Auto) 1.03 H (0.11-0.59) K/uL Eos # (Auto) 0.23 (0-0.5) K/uL Baso # (Auto) 0.02 (0-0.2) K/uL PT 10.7 (9.0-12.0) Seconds INR 1.0 (0.9-1.1) APTT 29.3 (21.0-31.0) Seconds PTT Ratio 1.1 Sodium 142 (136-145) mmol/L Potassium 4.1 (3.5-5.1) mmol/L Chloride 110 H (98-107) mmol/L Carbon Dioxide 27 (21-32) mmol/L Anion Gap 5.0 (3-11) BUN 24 H (7-18) mg/dl Creatinine 1.65 H (0.6-1.4) mg/dl Est Cr Clr Drug Dosing Not Reportable Est GFR ( Amer) 42.3 Est GFR (Non-Af Amer) 36.5 BUN/Creatinine Ratio 14.7 (10-20) Glucose 81 (70-99) mg/dl Calcium 8.7 (8.5-10.1) mg/dl Phosphorus 2.4 L (2.5-4.9) mg/dl Magnesium 2.3 (1.8-2.4) mg/dl Total Bilirubin 0.5 (0.2-1) mg/dl AST 16 (15-37) U/L ALT 28 (12-78) U/L Alkaline Phosphatase 56 (45-117) U/L Troponin I 0.017 (0-0.045) ng/ml NT-Pro-B Natriuret Pep 1917 H (0-1800) pg/ml Total Protein 7.0 (6.4-8.2) gm/dl Albumin 3.3 L (3.4-5.0) gm/dl Globulin 3.7 (2.5-4.0) gm/dl Albumin/Globulin Ratio 0.9 (0.9-2) Discharge Plan Visit Data Chief Complaint: Cardiac Assessment Stated Complaint: SOB,HEART PROBLEMS ED Provider: Chirag Bass Discharge Problem: Bradycardia, CHF (congestive heart failure), SOB (shortness of breath) Forms Stand Alone Forms: My [facility] [email or web address] Prescriptions Prescriptions: No Action simvastatin 40 mg tablet 40 mg PO QPM Qty: 90 RF: 3 furosemide 80 mg tablet 80 mg PO DAILY Qty: 90 RF: 3 allopurinol 100 mg tablet 100 mg PO DAILY Qty: 90 RF: 1 Eliquis 2.5 mg tablet 2.5 mg PO BID Qty: 180 RF: 3 latanoprost 0.005 % drops 1 drops OP HS RF: 0 finasteride 5 mg tablet 5 mg PO DAILY Qty: 90 RF: 0 tamsulosin 0.4 mg capsule 0.4 mg PO HS Qty: 90 RF: 0 cyanocobalamin (vitamin B-12) 1,000 mcg tablet 1,000 mcg PO DAILY RF: 0 aspirin 81 mg Tablet,Delayed Release (Dr/Ec) 81 mg PO DAILY RF: 0 Discharge Problem: CHF (congestive heart failure) Qualifiers: Heart failure type: systolic Heart failure chronicity: acute Qualified Code(s): I50.21 - Acute systolic (congestive) heart failure
--- NOTE | 2020-02-18 12:42 | XRay Report ---
XR chest 1V portable CLINICAL HISTORY: Dyspnea. History of lung cancer. COMPARISON STUDY: Chest CT September 11, 2016. Chest radiograph March 08, 2018. FINDINGS: Median sternotomy wires and mediastinal surgical clips are noted. Hazy left lung opacity is noted. This is unchanged and probably chronic. No pneumothorax or pleural effusion is noted. There i s no evidence for overt pulmonary edema. Prominence of the pulmonary vasculature is unchanged. IMPRESSION: No acute findings. No change in appearance of the chest. ACT 112: Negative or not required by law. Electronically signed by: Adrian Cruz M.D. 02/18/2020 12:41 PM
[2020-02-18 12:48] LABS: Partial Thromboplastin Ratio 1.1; Partial Thromboplastin Time 29.3 Seconds (21.0-31.0); Prothrombin Time 10.7 Seconds (9.0-12.0)
[2020-02-18 12:54] LABS: Basophils # (auto) 0.02 K/uL (0-0.2); Basophils % (auto) 0.2 %; Eosinophils # (auto) 0.23 K/uL (0-0.5); Eosinophils % (auto) 2.5 %; Hematocrit (blood only) 37.2 % (42-52); Hemoglobin 12.8 g/dL (14.0-18.0); Immature Granulocytes # (auto) 0.03 K/uL (0.00-0.02); Immature Granulocytes % (auto) 0.3 %; Mean Corpuscular Hgb Conc 34.4 g/dL (32-36); Mean Corpuscular Volume 98.7 fL (80-100); Mean Platelet Volume 10.9 fL (7.4-10.4); Monocytes # (auto) 1.03 K/uL (0.11-0.59); Monocytes % (auto) 11.1 %; Neutrophils # (auto) 5.36 K/uL (1.4-6.5); Neutrophils % (auto) 57.9 %; Platelet Count 208 K/uL (130-400); RDW Coefficient of Variation 15.9 % (11.5-14.5); RDW Standard Deviation 57.3 fL (36.4-46.3); Red Blood Count 3.77 M/uL (4.7-6.1); White Blood Count 9.27 K/uL (4.8-10.8)
[2020-02-18 13:02] LABS: Alanine Aminotransferase 28 U/L (12-78); Albumin Level 3.3 gm/dl (3.4-5.0); Aspartate Aminotransferase 16 U/L (15-37); BUN Creatinine Ratio 14.7 (10-20); Blood Urea Nitrogen 24 mg/dl (7-18); Calcium 8.7 mg/dl (8.5-10.1); Carbon Dioxide 27 mmol/L (21-32); Chloride 110 mmol/L (98-107); Est GFR (African American) 42.3; Est GFR (Non-African American) 36.5; Glucose 81 mg/dl (70-99); Magnesium 2.3 mg/dl (1.8-2.4); Potassium 4.1 mmol/L (3.5-5.1); Sodium 142 mmol/L (136-145)
[2020-02-18 13:07] LABS: Albumin Globulin Ratio 0.9 (0.9-2); Alkaline Phosphatase 56 U/L (45-117); Bilirubin,Total 0.5 mg/dl (0.2-1); Globulin 3.7 gm/dl (2.5-4.0); NT Pro B Type Natriuretic Pept 1917 pg/ml (0-1800); Phosphorus 2.4 mg/dl (2.5-4.9); Troponin I 0.017 ng/ml (0-0.045)
[2020-02-18] MEDS ORDERED: POT PHOSPHATE MONOBASIC W/ SOD TAB PO STA (13:10)
[2020-02-18] MEDS ORDERED: FUROSEMIDE 40 MG/4 ML VIAL IV STA (13:10)
--- NOTE | 2020-02-18 15:33 | Electrocardiogram Report ---
Test Reason : Blood Pressure : / mmHG Vent. Rate : 055 BPM Atrial Rate : 312 BPM P-R Int : 000 ms QRS Dur : 096 ms QT Int : 410 ms P-R-T Axes : 000 006 028 degrees QTc Int : 392 ms Atrial fibrillation with slow ventricular response Abnormal ECG When compared with ECG of 08-MAR-2018 15:06, Vent. rate has decreased BY 31 BPM Confirmed by Sarmad Cook ([id number]) on 02/18/2020 3:33:20 PM Referred By: Confirmed By:Paco Cook
--- NOTE | 2020-02-18 15:37 | History & Physical Report ---
Date of Service February 18, 2020 Assessment & Plan (1) Bradycardia: * Symptomatic afib with slowed ventricular response. Not on any AV nora blocking agents outpatient. No hx tick exposure. * Admit PCU * Trop x 3 sets, first 0.017 * EKG in AM * ECHO * Cardiology consult -- patient likely will need pacemaker * Daily weights * I&O * AHA diet * NPO after midnight * TSH pending (2) SOB (shortness of breath): * Probable component of #1 as well as alternative etiologies * CXR without evidence of overt pulm edema. 97% on RA. BNP elevated at 1917 (in setting of afib/age/CKD), but did still receive 80mg IV lasix x 1 (will continue with usual outpatient regimen) and stated improvement in breathing after diuretic * Supplemental O2 as needed * Continue to monitor (3) Atrial fibrillation: * See #1. Eliquis on hold for pacemaker in AM (4) CHF (congestive heart failure): * Hx diastolic HF ECHO March 2018 with LV EF 65-70%. Not on any AV nora blocking agent or LU/ARB * Repeat ECHO pending * Continue with patient's home lasix 80mg PO daily * See above (5) Hyperlipidemia: * Chronic. * Continue home simvastatin 40mg qhs (6) Hypertension: * Chronically elevated * BP currently 195/91 * Per cardiology, talks of initiating amlodipine --> ordered 5mg PO daily * Continue to monitor (7) BPH (benign prostatic hyperplasia): * Continue home finasteride, flomax (8) Chronic kidney disease (CKD), stage III (moderate): * Stable. Baseline Cr 1.6-1.9, currently 1.65 * BMP in AM (9) Anemia: * Chronic. H/h stable at 12.8/37.2 * CBC in AM (10) Hypophosphatemia: * Phos 2.4 on admit -- given oral replacement * Repeat phos in AM (11) DVT prophylaxis: * SCDs * Eliquis on hold for pacer tomorrow as above History of Present Illness Chief Complaint: Shortness of Breath Primary Care Provider: GREGG Louis 89 year old male with PMHx significant for ASCVD (s/p CABG x 3), afib (on Eliquis), diastolic CHF, HTN, HLD, CKD, lumbar stenosis, chronic lymphedema presented to the emergency room for shortness of breath with associated slow heart rate. He states he started to notice he wasn't feeling well on Sunday but then yesterday he had two episodes that he states are hard to describe, but states he had a feeling like he was going to pass out. These episodes lasted a couple seconds but denies LOC or falling. Shortness of breath worse with exertion. He states he has intermittent episodes of dizziness as well. He states that yesterday his family was very busy with appointments and he didn't want to bother anyone, which is why he waited until today to come in. He states the ceiling fans were running but he was still short of breath and had to turn on the air conditioner, which did not improve his symptoms. He typically takes lasix 80mg PO daily but did not take any of his medications today. He states he has noticed increased LE swelling, but he does have chronic lymphedema and wears compression stockings. Has not eaten since breakfast. He follows with Dr. Mi as an outpatient for cardiology and Dr. Robles from nephrology for his CKD/glomerulosclerosis. ER Course: EKG with afib with slowed ventricular response, 55bpm. Lasix 80mg PO x 1. K phos x 1. CXR negative for overt pulmonary edema. BNP 1917. Trop 0.017. CBC with WBC 9.2k, h/h 12.8/37.2, Plt 208. INR 1.0. Chemistries with Na 142, K 4.1, BUN 24, Cr 1.65. Allergies Allergy/AdvReac Type Severity Reaction Status Date / Time No Known Allergies Allergy Verified 02/06/20 11:36 Home Medications Home Medications Medication Instructions Recorded Confirmed Type simvastatin 40 mg tablet 40 mg PO QPM #90 tab 02/24/19 02/18/20 Rx cyanocobalamin (vitamin B-12) 1,000 mcg PO DAILY tab 04/08/19 02/18/20 History 1,000 mcg tablet finasteride 5 mg tablet 5 mg PO DAILY #90 tab 04/08/19 02/18/20 History latanoprost 0.005 % eye drops 1 drops OP HS ml 04/08/19 02/18/20 History tamsulosin 0.4 mg capsule 0.4 mg PO HS #90 cap 04/08/19 02/18/20 History furosemide 80 mg tablet 80 mg PO DAILY #90 tab 12/10/19 02/18/20 Rx apixaban 2.5 mg tablet 2.5 mg PO BID #180 tab 12/16/19 02/18/20 Rx allopurinol 100 mg tablet 100 mg PO DAILY #90 tab 12/24/19 02/18/20 Rx aspirin 81 mg PO DAILY 02/18/20 02/18/20 History Past Med/Surg History Medical History Acute cholecystitis Acute on chronic diastolic (congestive) heart failure (Chronic) Arthritis (Chronic) Atrial fibrillation (Chronic) CHF (congestive heart failure) (Acute) Chronic kidney disease (CKD), stage III (moderate) (Chronic) Complication of Thibodeaux catheter (Inactive) Enlarged prostate without lower urinary tract symptoms (luts) (Chronic) Hematuria (Inactive) Hyperlipidemia (Chronic) Hypertension (Chronic) Secondary hyperparathyroidism (Chronic) Vitamin deficiency (Chronic) Surgical History H/O heart bypass surgery S/P cholecystectomy Status post lung surgery S/P KATEY lobectomy Family History Father Myocardial infarction Mother Stroke Uncle Cancer Denies family history of Ovarian cancer Prostate cancer Breast cancer Lung cancer Colorectal cancer Social History Preferred Language: Italian Communication Ability: Effective Visual Impairment: Limited Hearing Ability: Use of Hearing Aid Beliefs That Will Affect Care: None marital status: Current Living Situation: Spouse Other Information That Helps Us Care for You: No Feels Safe at Home: Yes Smoking Status: Never smoker Second Hand Exposure: No ; Hx Alcohol Use: No Hx Substance Use: No Childhood Exposure to Second-Hand Smoke: Yes (father) Review of Systems Review of Systems: All systems reviewed & are unremarkable except as noted in HPI & below Constitutional: + fatigue; no fever and no chills Eyes: no diplopia and no problem reported Ear, Nose, Mouth, Throat: no sore throat and no dysphagia Respiratory: + dyspnea and + dyspnea on exertion Cardiovascular: + lightheadedness and + edema (chronic); no chest pain, no palpitations and no calf pain Gastrointestinal: no abdominal pain, no nausea and no vomiting Genitourinary: no dysuria and no hematuria Musculoskeletal: no muscle weakness and no problem reported Integumentary: no rash and no lesions Neurologic: no numbness and no paresthesia pre-syncope Psychiatric: no depression and no anxiety Endocrine: no cold intolerance and no heat intolerance Allergy / Immunological: + dyspnea; no rash Physical Exam Constitutional: WD/WN, vitals as above + obese; no acute distress Eyes: PERRL, conjunctivae normal, anicteric sclerae ENMT: Ears: + hearing impairment Neck: trachea midline, no thyromegaly Respiratory: normal respiratory effort; no respiratory distress, no labored breathing and does not use accessory muscles Auscultation: + diminished lung sounds and + crackles (bibasilar crackles); no wheezes Cardiovascular: Rate/Rhythm: + irregularly irregular Heart Sounds: + murmur (systolic ejection murmur) Extremities: + edema (lymphedema) Gastrointestinal (Abdomen): normal bowel sounds, soft, nontender, no hepatosplenomegaly Musculoskeletal: no cyanosis or clubbing, extremities motor strength 5/5 Skin: no rashes, warm and dry Neurologic: patellar DTR's 2+ bilat, sensation intact Psychiatric: A+Ox3, euthymic affect Lymphatic: no cervical or axillary lymphadenopathy Results & Data Results & Data ([facility]) Vital Signs (Past 12 Hours) Vital Signs Temp Pulse Resp BP Pulse Ox 02/18/20 14:30 46 L 18 02/18/20 14:00 49 L 17 02/18/20 13:49 42 L 18 187/86 H 02/18/20 13:30 44 L 18 02/18/20 13:07 54 L 16 191/96 H 02/18/20 13:00 45 L 16 02/18/20 12:30 53 L 16 02/18/20 12:27 57 L 16 02/18/20 11:58 36.9 C 63 20 205/114 H 97 Laboratory Results 02/18/20 02/18/20 02/18/20 Range/Units 12:25 12:25 12:25 WBC 9.27 (4.8-10.8) K/uL RBC 3.77 L (4.7-6.1) M/uL Hgb 12.8 L (14.0-18.0) g/dL Hct 37.2 L (42-52) % MCV 98.7 (80-100) fL MCH 34.0 (25-34) pg MCHC 34.4 (32-36) g/dL RDW Std Deviation 57.3 H (36.4-46.3) fL RDW Coeff of Arvin 15.9 H (11.5-14.5) % Plt Count 208 (130-400) K/uL MPV 10.9 H (7.4-10.4) fL Immature Gran % (Auto) 0.3 % Neut % (Auto) 57.9 % Lymph % (Auto) 28.0 % [place] % (Auto) 11.1 % Eos % (Auto) 2.5 % Baso % (Auto) 0.2 % Immature Gran # (Auto) 0.03 H (0.00-0.02) K/uL Neut # (Auto) 5.36 (1.4-6.5) K/uL Lymph # (Auto) 2.60 (1.2-3.4) K/uL [place] # (Auto) 1.03 H (0.11-0.59) K/uL Eos # (Auto) 0.23 (0-0.5) K/uL Baso # (Auto) 0.02 (0-0.2) K/uL PT 10.7 (9.0-12.0) Seconds INR 1.0 (0.9-1.1) APTT 29.3 (21.0-31.0) Seconds PTT Ratio 1.1 Sodium 142 (136-145) mmol/L Potassium 4.1 (3.5-5.1) mmol/L Chloride 110 H (98-107) mmol/L Carbon Dioxide 27 (21-32) mmol/L Anion Gap 5.0 (3-11) BUN 24 H (7-18) mg/dl Creatinine 1.65 H (0.6-1.4) mg/dl Est Cr Clr Drug Dosing Not Reportable Est GFR ( Amer) 42.3 Est GFR (Non-Af Amer) 36.5 BUN/Creatinine Ratio 14.7 (10-20) Glucose 81 (70-99) mg/dl Calcium 8.7 (8.5-10.1) mg/dl Phosphorus 2.4 L (2.5-4.9) mg/dl Magnesium 2.3 (1.8-2.4) mg/dl Total Bilirubin 0.5 (0.2-1) mg/dl AST 16 (15-37) U/L ALT 28 (12-78) U/L Alkaline Phosphatase 56 (45-117) U/L Troponin I 0.017 (0-0.045) ng/ml NT-Pro-B Natriuret Pep 1917 H (0-1800) pg/ml Total Protein 7.0 (6.4-8.2) gm/dl Albumin 3.3 L (3.4-5.0) gm/dl Globulin 3.7 (2.5-4.0) gm/dl Albumin/Globulin Ratio 0.9 (0.9-2) Diagnostic Findings CXR IMPRESSION: No acute findings. No change in appearance of the chest. ECG Indication: bradycardia Rate (beats per minute): 55 Rhythm: atrial fibrillation (with slow ventricular response) Supervising Physician Co-Signing Physician Notes Attending Attestation and Admission Note: Pt seen/examined, chart reviewed, admit care plan d/w RUDY Browne. I agree w/ the velazquez components of her documentation. 89yo male with h/o CABG, lymphedema, a.fib on eliquis, BPH - presents with several episodes of near-syncope. Also with mild DINH. Upon ER presentation today found to have a.fib with very slow ventricular response (HR 30s). NOT on AV nora agents at home. During his ER course had multiple pauses - some up to [address] Cook in ER - to have permanent pacemaker placement tomorrow. Given IV lasix in ER for decompensated CHF. PMH, PSH, allergies, meds, sochx, famhx - reviewed VSS - stable but HRs 30s/40s exam - gen - NAD neck - no obvious JVD heart - irregular, yadira, s1 s2, 1-2/6 YAZ LSB lungs - slightly decreased BS bases, no rales or wheeze abd - soft nT EXT - 1-2+ edema b/l Cr 1.6 cxr - no overt pulmonary edema A/P: 1. near syncope 2. a.fib with slow ventricular response - NOT on AV nora agents - could be contributing to #1 above 3. pauses - could be contributing to #1 4. CKD stage 3-4 - Cr stable today 5. murmur permanent pacemaker tomorrow for #2, #[address] Cook #1 - possibly 2nd to #2, #3 - hopefully it will resolve with pacer placement obtain echo repeat labs am likely to need PT/OT Trev Wagner MD PG Care Time/CCT Total # of Minutes Spent Total Time Spent with Patient: Total time spent is greater than 50% in coordination of care (as documented) at patient's floor/unit and/or counseling patient: Coding Level of Care Code 82548 Initial Inpt Care Lvl 3 Diagnoses Bradycardia R00.1 SOB (shortness of breath) R06.02 Atrial fibrillation I48.91 CHF (congestive heart failure) I50.21 Heart failure chronicity: acute Heart failure type: systolic Hyperlipidemia E78.5 Hypertension I10 BPH (benign prostatic hyperplasia) N40.0 Chronic kidney disease (CKD), stage III (moderate) N18.3 Anemia D64.9 Hypophosphatemia E83.39 DVT prophylaxis Z29.9 (1) CHF (congestive heart failure) Heart failure chronicity: acute Heart failure type: systolic Qualified Code(s): I50.21 - Acute systolic (congestive) heart failure
[2020-02-18] MEDS ORDERED: AMLODIPINE BESYLATE 5 MG TAB PO ONE (16:45)
--- NOTE | 2020-02-18 16:47 | Cardiology Consultation ---
Date of Consultation February 18, 2020 Assessment & Plan (1) Bradycardia: He appears to have an element of symptomatic bradycardia. He has been evaluated for bradycardia previously during a hospitalization at [facility] in 2018. At that time he was noted to have ventricular rates in the 20s at times. He has up to 5 second periods of ventricular asystole on telemetry monitoring in the emergency room. He did have an episode today presyncope. I think this suggests an element of symptomatic bradycardia and he would benefit from a permanent pacemaker. He will require single-chamber device. I discussed with him the options for pacemaker implantation or simple observation. He feels comfortable proceeding with implantation which can be performed tomorrow morning. He will need to hold his apixaban for the procedure. (2) Atrial fibrillation: Permanent atrial fibrillation. On appropriate anticoagulation dosed according to his age and renal function. I would like this to be held prior to his device implantation. (3) SOB (shortness of breath): It is unclear whether all of his dyspnea can be attributed to bradycardia. I think this is unlikely. I would expect and have more exertional symptoms and not significant symptoms at rest like he describes. Additionally, he did not appear to be in florid pulmonary edema either on examination or by x-ray. N terminal proBNP is mildly elevated, but in the setting of permanent atrial fibrillation, advanced age and compromised renal function this is likely close to normal. He does seem to feel better with diuresis. I think he could resume his usual diuretic regimen. We will need to maintain a high level of suspicion for alternate etiologies of dyspnea. (4) Hypertension: His blood pressure is consistently elevated. There has been talk in the past that initiating amlodipine. I think this would be reasonable to start here in the hospital. (5) Coronary disease: No current symptoms suggestive of coronary insufficiency or angina. He has been maintained on a daily aspirin, apixaban and simvastatin. (6) Murmur, cardiac: This has been documented previously. On his last echocardiogram did have aortic sclerosis without evidence of stenosis. I ordered repeat echocardiogram both for evaluation of a murmur, to exclude aortic stenosis and to evaluate his LV function prior to implantation of a pacemaker. History of Present Illness Reason for Consultation: Dyspnea, bradycardia Requesting Physician: Hollie Attending Physician: Bernard History of Present Illness The patient is an 81-year-old gentleman with a history of coronary disease having previously undergone surgical revascularization. He is also known to have permanent atrial fibrillation. He lives independently and is able perform some mild activities around the house. This generally involves using his weed whacking her and getting the mail. He will have some dyspnea on occasion but this has become more noticeable over the past 2 days. Patient awoke yesterday and felt like there was bad air in the house. He felt somewhat better sitting outside but his symptoms persisted once he returned inside. He also noticed some increased edema and weight gain over a couple of days. He weighs himself daily and recently gained 5 pounds. He did not report overt orthopnea. He called a visiting nurse this morning and based on his symptoms was advised to go to the emergency room. Additionally, the patient did notice an episode of presyncope. He describes this as a heat sensation across the forehead. The symptoms lasted a few seconds and he felt that if it lasted longer he would black out of he has had similar symptoms in the past. He has never lost consciousness. He has not had any symptoms of chest discomfort recently. He has not been aware of any palpitations. The lower extremity edema waxes and wanes in severity knee felt that this was somewhat improved this morning. He feels better now that he has gone to the emergency room. He was administered Lasix and did urinate a significant amount. Allergies Allergy/AdvReac Type Severity Reaction Status Date / Time No Known Allergies Allergy Verified 02/06/20 11:36 Home Medications Home Medications Medication Instructions Recorded Confirmed Type simvastatin 40 mg tablet 40 mg PO QPM #90 tab 02/24/19 02/18/20 Rx cyanocobalamin (vitamin B-12) 1,000 mcg PO DAILY tab 04/08/19 02/18/20 History 1,000 mcg tablet finasteride 5 mg tablet 5 mg PO DAILY #90 tab 04/08/19 02/18/20 History latanoprost 0.005 % eye drops 1 drops OP HS ml 04/08/19 02/18/20 History tamsulosin 0.4 mg capsule 0.4 mg PO HS #90 cap 04/08/19 02/18/20 History furosemide 80 mg tablet 80 mg PO DAILY #90 tab 12/10/19 02/18/20 Rx apixaban 2.5 mg tablet 2.5 mg PO BID #180 tab 12/16/19 02/18/20 Rx allopurinol 100 mg tablet 100 mg PO DAILY #90 tab 12/24/19 02/18/20 Rx aspirin 81 mg PO DAILY 02/18/20 02/18/20 History Patient History Medical History Acute cholecystitis Acute on chronic diastolic (congestive) heart failure (Chronic) Arthritis (Chronic) Atrial fibrillation (Chronic) CHF (congestive heart failure) (Acute) Chronic kidney disease (CKD), stage III (moderate) (Chronic) Complication of Thibodeaux catheter (Inactive) Enlarged prostate without lower urinary tract symptoms (luts) (Chronic) Hematuria (Inactive) Hyperlipidemia (Chronic) Hypertension (Chronic) Secondary hyperparathyroidism (Chronic) Vitamin deficiency (Chronic) Surgical History H/O heart bypass surgery S/P cholecystectomy Status post lung surgery S/P KATEY lobectomy Family History Father Myocardial infarction Mother Stroke Uncle Cancer Denies family history of Ovarian cancer Prostate cancer Breast cancer Lung cancer Colorectal cancer Social History Preferred Language: Icelandic Communication Ability: Effective Visual Impairment: Limited Hearing Ability: Use of Hearing Aid Beliefs That Will Affect Care: None marital status: Current Living Situation: Spouse Other Information That Helps Us Care for You: No Feels Safe at Home: Yes Smoking Status: Never smoker Second Hand Exposure: No ; Hx Alcohol Use: No Hx Substance Use: No Childhood Exposure to Second-Hand Smoke: Yes (father) Review of Systems Review of Systems: All systems reviewed & are unremarkable except as noted in HPI & below No recent constitutional symptoms such as fevers or chills. No coughing. Physical Exam Physical Exam: The patient is alert and oriented. Mood and affect appeared normal. He answered all questions appropriately. Hard of hearing HEENT: Pupils are equal and reactive to light and accommodation. Extraocular movements are intact. The sclerae are anicteric. Neuro: Cranial nerves intact (incomplete disease wearing a mask) Neck: Patient's neck is supple. He has palpable carotid pulses bilaterally without bruits on auscultation. There is no evidence of jugular venous distention. The thyroid is not enlarged. Lungs: Apices are clear. No wheezing. Normal respiratory effort. Cardiac: Heart demonstrates an irregular rate and rhythm. Normal S1 and S2. Crescendo systolic murmur variable intensity.. Pulses: The patient has palpable radial pulses bilaterally that are equal in intensity Extremities: There was no evidence of hypoperfusion. There is no cyanosis or clubbing. Moderate lower extremity edema bilaterally Skin: I did not appreciate any rashes on examination today. Results & Data ([facility]) Vital Signs (Past 12 Hours) Vital Signs Temp Pulse Resp BP Pulse Ox 02/18/20 14:30 46 L 18 02/18/20 14:00 49 L 17 02/18/20 13:49 42 L 18 187/86 H 02/18/20 13:30 44 L 18 02/18/20 13:07 54 L 16 191/96 H 02/18/20 13:00 45 L 16 02/18/20 12:30 53 L 16 02/18/20 12:27 57 L 16 02/18/20 11:58 36.9 C 63 20 205/114 H 97 Laboratory Results Abnormal Lab Results 02/18/20 02/18/20 02/18/20 12:25 12:25 12:25 WBC 9.27 RBC 3.77 L Hgb 12.8 L Hct 37.2 L MCV 98.7 MCH 34.0 MCHC 34.4 RDW Std Deviation 57.3 H RDW Coeff of Arvin 15.9 H Plt Count 208 MPV 10.9 H Immature Gran % (Auto) 0.3 Neut % (Auto) 57.9 Lymph % (Auto) 28.0 Benzie % (Auto) 11.1 Eos % (Auto) 2.5 Baso % (Auto) 0.2 Immature Gran # (Auto) 0.03 H Neut # (Auto) 5.36 Lymph # (Auto) 2.60 Benzie # (Auto) 1.03 H Eos # (Auto) 0.23 Baso # (Auto) 0.02 PT 10.7 INR 1.0 APTT 29.3 PTT Ratio 1.1 Sodium 142 Potassium 4.1 Chloride 110 H Carbon Dioxide 27 Anion Gap 5.0 BUN 24 H Creatinine 1.65 H Est Cr Clr Drug Dosing Not Reportable Est GFR ( Amer) 42.3 Est GFR (Non-Af Amer) 36.5 BUN/Creatinine Ratio 14.7 Glucose 81 Calcium 8.7 Phosphorus 2.4 L Magnesium 2.3 Total Bilirubin 0.5 AST 16 ALT 28 Alkaline Phosphatase 56 Troponin I 0.017 NT-Pro-B Natriuret Pep 1917 H Total Protein 7.0 Albumin 3.3 L Globulin 3.7 Albumin/Globulin Ratio 0.9 Diagnostic Findings Echocardiogram performed in 2018 revealed preserved LV systolic function. Sigmo id symptom. Mild LVH. Severe left atrial dilation. Moderate aortic sclerosis Chest x-ray obtained today did not demonstrate acute pulmonary edema. Normal chest x-ray. ECG Additional Comments: Atrial fibrillation with slow ventricular response. PG Care Time/CCT Total # of Minutes Spent Total Time Spent with Patient: Total time spent is greater than 50% in coordination of care (as documented) at patient's floor/unit and/or counseling patient: Coding Level of Care Code 32251 Initial Inpt Care Lvl 3 Diagnoses Bradycardia R00.1 Atrial fibrillation I48.91 SOB (shortness of breath) R06.02 Hypertension I10 Coronary disease I25.10 Murmur, cardiac R01.1
[2020-02-18] MEDS ORDERED: ONDANSETRON INJ 2 MG/ML 2 ML VIAL IV PRN (17:03)
[2020-02-18] MEDS ORDERED: ALUMINUM/MAGNESIUM SUSP 30 ML UDC PO PRN (17:03)
[2020-02-18] MEDS ORDERED: POLYETHYLENE (MIRALAX) 17 GM PACK PO PRN (17:03)
[2020-02-18] MEDS ORDERED: ATROPINE SULFATE 0.1 MG/ML 10ML SYR IV ONE (17:28)
[2020-02-18] MEDS: FINASTERIDE 5 MG TAB PO SCH (18:29)
[2020-02-18] MEDS: LATANOPROST 0.005% OP SOLN 2.5 ML BTL OP SCH (21:11)
[2020-02-18] MEDS: TAMSULOSIN HCL 0.4 MG CAP PO SCH (21:11)
[2020-02-18] MEDS: SIMVASTATIN 40 MG TAB PO SCH (21:12)
[2020-02-19 06:37] LABS: Basophils # (auto) 0.02 K/uL (0-0.2); Basophils % (auto) 0.2 %; Eosinophils # (auto) 0.28 K/uL (0-0.5); Eosinophils % (auto) 3.2 %; Hematocrit (blood only) 36.1 % (42-52); Hemoglobin 12.6 g/dL (14.0-18.0); Immature Granulocytes # (auto) 0.02 K/uL (0.00-0.02); Immature Granulocytes % (auto) 0.2 %; Lymphocytes # (auto) 2.04 K/uL (1.2-3.4); Lymphocytes % (auto) 23.3 %; Mean Corpuscular Hemoglobin 34.4 pg (25-34); Mean Corpuscular Hgb Conc 34.9 g/dL (32-36); Mean Corpuscular Volume 98.6 fL (80-100); Mean Platelet Volume 10.6 fL (7.4-10.4); Monocytes # (auto) 1.28 K/uL (0.11-0.59); Monocytes % (auto) 14.6 %; Neutrophils # (auto) 5.12 K/uL (1.4-6.5); Neutrophils % (auto) 58.5 %; Platelet Count 194 K/uL (130-400); RDW Standard Deviation 56.6 fL (36.4-46.3); Red Blood Count 3.66 M/uL (4.7-6.1); White Blood Count 8.76 K/uL (4.8-10.8)
[2020-02-19 07:08] LABS: BUN Creatinine Ratio 15.6 (10-20); Blood Urea Nitrogen 25 mg/dl (7-18); Calcium 8.6 mg/dl (8.5-10.1); Carbon Dioxide 26 mmol/L (21-32); Chloride 110 mmol/L (98-107); Est GFR (African American) 44.3; Est GFR (Non-African American) 38.2; Glucose 84 mg/dl (70-99); Phosphorus 2.9 mg/dl (2.5-4.9); Potassium 3.7 mmol/L (3.5-5.1); Sodium 144 mmol/L (136-145)
[2020-02-19] MEDS: FINASTERIDE 5 MG TAB PO SCH (08:31)
[2020-02-19] MEDS: CYANOCOBALAMIN 500 MCG TABLET (VITAMIN B-12) PO SCH (08:31)
[2020-02-19] MEDS: allopurinoL 100 MG TAB PO SCH (08:31)
[2020-02-19] MEDS: FUROSEMIDE 80 MG TAB PO SCH (08:31)
[2020-02-19] MEDS ORDERED: LIDOCAINE HCL 1% 20 ML VIAL ONE (09:02)
[2020-02-19] MEDS ORDERED: BACITRACIN INJ 50,000 UNIT VIAL ONE (09:02)
[2020-02-19] MEDS ORDERED: BUPIVACAINE 0.25% 30 ML VIAL ONE (09:02)
[2020-02-19] MEDS ORDERED: CEFAZOLIN 250 MG/ML 1 GM VIAL ONE (09:04)
[2020-02-19] MEDS ORDERED: fentaNYL citrate 100 MCG/2 ML VIAL ONE (09:04)
[2020-02-19] MEDS ORDERED: MIDAZOLAM HCL 5 MG/ML 1 ML VIAL ONE (09:04)
--- NOTE | 2020-02-19 09:07 | Pre Anesthesia Assessment ---
Date of Service February 19, 2020 Pre Sedation Assessment Vital Signs Temp Pulse Pulse Resp BP BP Pulse Ox 02/19/20 07:05 36.8 C 54 L 20 173/58 H 96 02/19/20 04:04 36.5 C 48 L 16 125/77 97 02/18/20 23:00 36.7 C 51 L 16 159/84 H 95 02/18/20 19:43 36.6 C 40 L 23 151/59 H 95 02/18/20 16:55 36.7 C 48 L 16 173/86 H 95 02/18/20 16:30 72 16 02/18/20 16:00 56 L 17 02/18/20 15:30 47 L 17 02/18/20 15:00 56 L 18 02/18/20 14:59 51 L 22 195/91 H 02/18/20 14:55 42 L 16 200/96 H 02/18/20 14:30 46 L 18 02/18/20 14:00 49 L 17 02/18/20 13:49 42 L 18 187/86 H 02/18/20 13:30 44 L 18 02/18/20 13:07 54 L 16 191/96 H 02/18/20 13:00 45 L 16 02/18/20 12:30 53 L 16 02/18/20 12:27 57 L 16 02/18/20 11:58 36.9 C 63 20 205/114 H 97 Cardiovascular + irregularly irregular Respiratory + respiratory effort normal Pre-Sedation Airway Assessment Smoking Status: Never smoker Hx Sleep Apnea: No Hx Difficult Intubation: No Short, Thick Neck: No Thyromental Distance: > or= 3.5 Finger Breadths Mallampati Class: III ASA: ASA3 Procedure Planning Contraindications for Sedation: none Current Medications Reviewed: Yes Notes The planned sedation has been discussed with the patient. Informed Consent was obtained. I have identified the patient, determined the appropriateness of sedation and have assessed the patient immediately prior to the procedure. All medicine(s) and interventions are by my order.
--- NOTE | 2020-02-19 09:26 | XCELERA ---
[id number]
[2020-02-19] MEDS ORDERED: ACETAMINOPHEN 325 MG TAB PO PRN (10:35)
--- NOTE | 2020-02-19 10:35 | Electrophysiology Report ---
Date of Service February 19, 2020 Electrophysiology Procedure Electrophysiology Procedure Report Procedure performed: Implantation of single-chamber pacemaker Staff mechanical laboratory technician: Sarmad Cook MD Indication: The patient is an 89-year-old gentleman with a history of permanent atrial fibrillation who presented emergency room with symptoms of presyncope and bradycardia. This was associated with up to 5-second periods of ventricular asystole. Based on this presentation and symptoms he was felt to be a good candidate for a single-chamber permanent pacemaker Procedure in detail: The patient was informed of the risks benefits and alternatives to the intended procedure and she wished to proceed. He was taken to the electrophysiology suite in a fasting state. A preoperative antibiotic had been administered. The patient was monitored electrocardiographically throughout today's procedure and conscious sedation was administered per protocol. The left upper pectoral area is prepped and draped in usual sterile fashion. This area was anesthetized using subcutaneous administration of a xylocaine solution. An incision was made at this site and carried down to the prepectoralis fascia using sharp dissection. Electrocautery was also employed for dissection as well as for hemostasis. A device pocket was fashioned tissues above the pectoralis muscle. Subsequent to this maneuver the left axillary vein was accessed using modified Seldinger technique. A sheath was placed over guidewires at this site and used to facilitate passage of the pacing lead to the right ventricular apex under fluoroscopic guidance. It should be noted that the venous anatomy was extremely tortuous and a long sheath needed to be used. Manipulating the lead was still quite difficult. Adequate sensing and threshold parameters were obtained prior to Active fixation of the lead to the endocardial surface. The proximal portion of the lead was then sutured the prepectoral fascia using nonabsorbable suture. The device pocket was irrigated with antibiotic solution. The lead was then attached to the device. The device and lead were then placed in the pocket and pocket was closed in 3 layers of absorbable suture. Steri-Strips and sterile dressing were applied. The device was tested noninvasively prior to conclusion the procedure. The patient tolerated procedure well there no immediate complications. Equipment used: New pulse generator: Car Shifter [employer]. Model number: [id number] serial number [id number] Right ventricular lead: Car Shifter [employer]. Model number: [id number] serial number [id number] Measured data: Right ventricular lead: R waves measured 4.6 mV. Pacing threshold is 1 V at 0.4 ms with a paced impedance of 570 ohms Impression: Successful implantation of single-chamber pacemaker [facility] Electrophysiology codes Pacing Procedure 1: Pacin Insert/Replace Pacer V PG Moderate Sedation Codes Moderate Sedation Codes Procedure 1: Sedation/Anesthesia: 45712 Mod Sedation by the same physician;Init15 Min Child Age 5 & Up Procedure 2: Sedation/Anesthesia: 40904 Mod Sedation by the same physician; Ea [id number] Minutes
--- NOTE | 2020-02-19 10:52 | Post Anesthesia Assessment ---
Date of Service February 19, 2020 Post Sedation Assessment Vital Signs Temp Pulse Pulse Resp BP BP Pulse Ox 02/19/20 10:40 64 16 157/85 H 96 02/19/20 09:02 37.1 C 64 16 149/92 H 96 02/19/20 07:05 36.8 C 54 L 20 173/58 H 96 02/19/20 04:04 36.5 C 48 L 16 125/77 97 02/18/20 23:00 36.7 C 51 L 16 159/84 H 95 02/18/20 19:43 36.6 C 40 L 23 151/59 H 95 02/18/20 16:55 36.7 C 48 L 16 173/86 H 95 02/18/20 16:30 72 16 02/18/20 16:00 56 L 17 02/18/20 15:30 47 L 17 02/18/20 15:00 56 L 18 02/18/20 14:59 51 L 22 195/91 H 02/18/20 14:55 42 L 16 200/96 H 02/18/20 14:30 46 L 18 02/18/20 14:00 49 L 17 02/18/20 13:49 42 L 18 187/86 H 02/18/20 13:30 44 L 18 02/18/20 13:07 54 L 16 191/96 H 02/18/20 13:00 45 L 16 02/18/20 12:30 53 L 16 02/18/20 12:27 57 L 16 02/18/20 11:58 36.9 C 63 20 205/114 H 97 Recovery Score Activity: Moves 4 extremities Respiration: Deep Breath/Cough Circulation: +/-20% PreAnes Value Consciousness: Fully Awake Oxygen Saturation: > 92% On Room Air Post Anesthesia Score: 10 Discharge Sedation Level of Care: Fast Track Phase II Post Sedation Plan On clinical assessment, the patient appears to have tolerated the sedation without complications. Patient is recovering as anticipated. Patient will continue to be monitored by nursing and may be discharged when sedation discharge criteria are met per below protocol. Upon Completions of procedure up to 15 minutes continue every 5 minute vital signs and the P.A.R. score; then discharge to a Phase I or Fast Track to Phase II per the following guidelines: * Discharge Patient to appropriate Phase II area if PAR is 8 or greater or return to pre- procedure baseline. The post - procedure orders will be as directed. * If PAR score is less than 8 or not return to pre-procedure baseline then patient will follow Phase I monitoring till PAR is reached for Phase II. The Phase I may be done in procedure room or may call to secure a Phase I area. * If naloxone or flumazenil are used for reversal, hold in Phase I for co ntinued monitoring from when last reversal dose was given for a minimum of 60 minutes or longer pending the nurse and/or physician discretion of patient condition before discharge to Phase II. Please call the Sedation Physician to re-evaluate and complete post-note for discharge to Phase II area. Do NOT discharge from procedure sedation or Phase 1 until post- sedation evaluation note is complete by procedure /sedation MD Sedation Discharge Instructions to be given to the patient at discharge to home.
--- NOTE | 2020-02-19 10:55 | Hospitalist Progress Note ---
Date of Service February 19, 2020 Assessment & Plan (1) Atrial fibrillation with slow ventricular response: * Admitted for pre-syncope secondary to symptomatic slow afib. TSH wnl * Symptomatic afib with slowed ventricular response. Not on any AV nora blocking agents outpatient. No hx tick exposure. * Patient had several 4-5 second pauses in ER and additional 7 second pause around 23:10 on 02/17 * Trop initially 28767, trended up to 0.037 -- likely demand * Cardiology consulted POD #0 s/p single chamber pacemaker by Dr. Cook on 02/18 * Repeat ECHO with normal LV systolic function, although biatrial dilation and moderate MR with RV systolic pressure elevated at 50-60mmHg -- per discussion with cards, likely age related changes * CXR in AM for placement * CBC in AM (2) Pre-syncope: * Secondary to above (3) Bradycardia: * See above (4) SOB (shortness of breath): * Probable component of #1 as well as alternative etiologies, although patient states he is not having any shortness of breath currently, although he has not been up since coming back from procedure * CXR without evidence of overt pulm edema. 97% on RA. BNP elevated at 1917 (in setting of afib/age/CKD), but did still receive 80mg IV lasix x 1 (will continue with usual outpatient regimen) and stated improvement in breathing after diuretic * Supplemental O2 as needed -- currently 98% on RA * Continue to monitor (5) Atrial fibrillation: * See #1. Eliquis on hold for pacemaker in AM --> likely to be resumed Sunday after discussion with Dr. Cook (6) CHF (congestive heart failure): * Hx chronic diastolic HF ECHO March 2018 with LV EF 65-70%. * Repeat ECHO as above, age related changed per cardiology * Continue with patient's home lasix 80mg PO daily * See above (7) Hyperlipidemia: * Chronic. * Continue home simvastatin 40mg qhs (8) Hypertension: * Chronically elevated * BP currently 171/76 * Given 5mg Amlodipine yesterday x 1--> will order daily to see better if better BP over next 24 hours * Continue to monitor (9) BPH (benign prostatic hyperplasia): * Continue home finasteride, flomax (10) Chronic kidney disease (CKD), stage III (moderate): * Stable. Baseline Cr 1.6-1.9, currently 1.59 * BMP in AM (11) Anemia: * Chronic. 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 NOT on AV nora agents at home. Now s/p PPM today 1. near syncope 2. a.fib with slow ventricular response - NOT on AV nora agents - likely contributing to #1 above Follow now s/p pacer but likely dc to home tomorrow Subjective Patient evaluated this afternoon following pacemaker. Patient states he tolerated the procedure well. He states minimal discomfort at the site of the pacemaker, but is not requesting any medication at this time. Patient states he has not had any other episodes of pre-syncope since coming back from the procedure. Patient denies shortness of breath, chest pain (outside of incisional), headache, visual change, abdominal pain, n/v/d, dysuria at this time. Plans for repeat xray in the morning and possible therapy. Discussed that I will reach out to Dr. Cook to see about when we will resume his Eliquis. All questions/concerns addressed at this time. Review of Systems Review of Systems: All systems reviewed & are unremarkable except as noted in HPI & below Physical Exam Constitutional: WD/WN, vitals as above + obese; no acute distress Eyes: PERRL, conjunctivae normal, anicteric sclerae ENMT: Ears: + hearing impairment Neck: trachea midline, no thyromegaly Respiratory: normal respiratory effort; no respiratory distress, no labored breathing and does not use accessory muscles Auscultation: + diminished lung sounds and + crackles (bibasilar crackles); no wheezes Cardiovascular: Rate/Rhythm: + irregularly irregular Heart Sounds: + murmur (systolic ejection murmur) Extremities: + edema (lymphedema) Chest (Breasts): Additional Comments: pacemaker to left chest wall minimally tender to palpation around device dressing c/d/i Gastrointestinal (Abdomen): normal bowel sounds, soft, nontender, no hepatosplenomegaly Musculoskeletal: no cyanosis or clubbing, extremities motor strength 5/5 Skin: no rashes, warm and dry Neurologic: patellar DTR's 2+ bilat, sensation intact Psychiatric: A+Ox3, euthymic affect Lymphatic: no cervical or axillary lymphadenopathy Results & Data Results & Data ([facility]) Vital Signs (Past 12 Hours) Vital Signs Temp Pulse Resp BP Pulse Ox 02/19/20 10:40 64 16 157/85 H 96 02/19/20 09:02 37.1 C 64 16 149/92 H 96 02/19/20 07:05 36.8 C 54 L 20 173/58 H 96 02/19/20 04:04 36.5 C 48 L 16 125/77 97 02/18/20 23:00 36.7 C 51 L 16 159/84 H 95 Laboratory Results 02/19/20 02/19/20 02/19/20 Range/Units 06:16 06:16 00:32 WBC 8.76 (4.8-10.8) K/uL RBC 3.66 L (4.7-6.1) M/uL Hgb 12.6 L (14.0-18.0) g/dL Hct 36.1 L (42-52) % MCV 98.6 (80-100) fL MCH 34.4 H (25-34) pg MCHC 34.9 (32-36) g/dL RDW Std Deviation 56.6 H (36.4-46.3) fL RDW Coeff of Arvin 16.0 H (11.5-14.5) % Plt Count 194 (130-400) K/uL MPV 10.6 H (7.4-10.4) fL Immature Gran % (Auto) 0.2 % Neut % (Auto) 58.5 % Lymph % (Auto) 23.3 % Lanier % (Auto) 14.6 % Eos % (Auto) 3.2 % Baso % (Auto) 0.2 % Immature Gran # (Auto) 0.02 (0.00-0.02) K/uL Neut # (Auto) 5.12 (1.4-6.5) K/uL Lymph # (Auto) 2.04 (1.2-3.4) K/uL Lanier # (Auto) 1.28 H (0.11-0.59) K/uL Eos # (Auto) 0.28 (0-0.5) K/uL Baso # (Auto) 0.02 (0-0.2) K/uL Sodium 144 (136-145) mmol/L Potassium 3.7 (3.5-5.1) mmol/L Chloride 110 H (98-107) mmol/L Carbon Dioxide 26 (21-32) mmol/L Anion Gap 7.0 (3-11) BUN 25 H (7-18) mg/dl Creatinine 1.59 H (0.6-1.4) mg/dl Est Cr Clr Drug Dosing Not Reportable Est GFR ( Amer) 44.3 Est GFR (Non-Af Amer) 38.2 BUN/Creatinine Ratio 15.6 (10-20) Glucose 84 (70-99) mg/dl Calcium 8.6 (8.5-10.1) mg/dl Phosphorus 2.9 (2.5-4.9) mg/dl Troponin I 0.037 (0-0.045) ng/ml TSH (0.300-4.500) uIu/ml 02/18/20 02/18/20 Range/Units 18:09 12:25 WBC (4.8-10.8) K/uL RBC (4.7-6.1) M/uL Hgb (14.0-18.0) g/dL Hct (42-52) % MCV (80-100) fL MCH (25-34) pg MCHC (32-36) g/dL RDW Std Deviation (36.4-46.3) fL RDW Coeff of Arvin (11.5-14.5) % Plt Count (130-400) K/uL MPV (7.4-10.4) fL Immature Gran % (Auto) % Neut % (Auto) % Lymph % (Auto) % Lanier % (Auto) % Eos % (Auto) % Baso % (Auto) % Immature Gran # (Auto) (0.00-0.02) K/uL Neut # (Auto) (1.4-6.5) K/uL Lymph # (Auto) (1.2-3.4) K/uL Lanier # (Auto) (0.11-0.59) K/uL Eos # (Auto) (0-0.5) K/uL Baso # (Auto) (0-0.2) K/uL Sodium (136-145) mmol/L Potassium (3.5-5.1) mmol/L Chloride (98-107) mmol/L Carbon Dioxide (21-32) mmol/L Anion Gap (3-11) BUN (7-18) mg/dl Creatinine (0.6-1.4) mg/dl Est Cr Clr Drug Dosing Est GFR ( Amer) Est GFR (Non-Af Amer) BUN/Creatinine Ratio (10-20) Glucose (70-99) mg/dl Calcium (8.5-10.1) mg/dl Phosphorus (2.5-4.9) mg/dl Troponin I 0.026 (0-0.045) ng/ml TSH 3.390 (0.300-4.500) uIu/ml Diagnostic Findings ECHO There is moderate concentric left ventricular hypertrophy Left ventricular systolic function is normal The left atrium is severely dilated The right atrium is moderate to severely dilated Mild valvular aortic stenosis There is moderate mitral regurgitation Right ventricular systolic pressure is elevated at 50-60mmHg The inferior vena cava is mildly dilated Ejection Fraction 55-60% PG Care Time/CCT Total # of Minutes Spent Total Time Spent with Patient: Total time spent is greater than 50% in coordination of care (as documented) at patient's floor/unit and/or counseling patient: Coding Level of Care Code 70432 Subseq Hosp Care Lvl 2 Diagnoses Atrial fibrillation with slow ventricular response I48.91 Pre-syncope R55 Bradycardia R00.1 SOB (shortness of breath) R06.02 Atrial fibrillation I48.91 CHF (congestive heart failure) I50.21 Heart failure chronicity: acute Heart failure type: systolic Hyperlipidemia E78.5 Hypertension I10 BPH (benign prostatic hyperplasia) N40.0 Chronic kidney disease (CKD), stage III (moderate) N18.3 Anemia D64.9 Hypophosphatemia E83.39 DVT prophylaxis Z29.9 (1) CHF (congestive heart failure) Heart failure chronicity: acute Heart failure type: systolic Qualified Code(s): I50.21 - Acute systolic (congestive) heart failure
[2020-02-19] MEDS: ACETAMINOPHEN 325 MG TAB PO PRN (15:48)
[2020-02-19] MEDS: CEFAZOLIN 2000MG 2,000 MG/15 ML SYR IV SCH (16:48)
--- NOTE | 2020-02-19 17:07 | Electrocardiogram Report ---
Test Reason : Blood Pressure : / mmHG Vent. Rate : 057 BPM Atrial Rate : 000 BPM P-R Int : 000 ms QRS Dur : 082 ms QT Int : 418 ms P-R-T Axes : 000 003 024 degrees QTc Int : 406 ms Atrial fibrillation with slow ventricular response Abnormal ECG When compared with ECG of 18-FEB-2020 12:18, No significant change was found Confirmed by Sarmad Cook ([id number]) on 02/19/2020 5:07:13 PM Referred By: REFERRED SELF Confirmed By:Paco Cook
[2020-02-19] MEDS: TAMSULOSIN HCL 0.4 MG CAP PO SCH (20:32)
[2020-02-19] MEDS: SIMVASTATIN 40 MG TAB PO SCH (20:32)
[2020-02-19] MEDS: AMLODIPINE BESYLATE 5 MG TAB PO SCH (20:32)
[2020-02-19] MEDS: LATANOPROST 0.005% OP SOLN 2.5 ML BTL OP SCH (20:32)
[2020-02-19] MEDS: OXYCODONE HCL IR 5 MG TAB (IMMEDIATE RELEASE) PO PRN (23:56)
[2020-02-20] MEDS: CEFAZOLIN 2000MG 2,000 MG/15 ML SYR IV SCH ×2 (02:39→09:56)
[2020-02-20 06:20] LABS: Hematocrit (blood only) 35.9 % (42-52); Hemoglobin 12.5 g/dL (14.0-18.0); Mean Corpuscular Hemoglobin 34.2 pg (25-34); Mean Corpuscular Hgb Conc 34.8 g/dL (32-36); Mean Corpuscular Volume 98.1 fL (80-100); Platelet Count 195 K/uL (130-400); RDW Coefficient of Variation 15.9 % (11.5-14.5); RDW Standard Deviation 56.8 fL (36.4-46.3); Red Blood Count 3.66 M/uL (4.7-6.1); White Blood Count 11.57 K/uL (4.8-10.8)
[2020-02-20 06:57] LABS: BUN Creatinine Ratio 15.8 (10-20); Blood Urea Nitrogen 30 mg/dl (7-18); Calcium 8.2 mg/dl (8.5-10.1); Carbon Dioxide 27 mmol/L (21-32); Chloride 109 mmol/L (98-107); Est GFR (African American) 35.5; Est GFR (Non-African American) 30.6; Glucose 90 mg/dl (70-99); Sodium 142 mmol/L (136-145)
--- NOTE | 2020-02-20 07:16 | XRay Report ---
XR chest 2V PA/lateral HISTORY: 89 years-old Male EXACT TIME ORDERED Evaluate for pneumothorax and l status post placement of a left subclavian pacer. COMPARISON: Chest radiograph 02/18/2020 TECHNIQUE: AP and lateral views of the chest FINDINGS: Cardiac silhouette is enlarged, unchanged. Prior median sternotomy. Pulmonary vascular congestion wit h unchanged interstitial coarsening. Status post placement of a single lead left subclavian pacer. No postprocedural pneumothorax identified. Unchanged hazy opacities of the lung bases. Degenerative padmini nges of the shoulders and spine. Limited lateral view secondary to left upper extremity positioning. IMPRESSION: Status post placement of a left subclavian pacer. No postprocedural pneumothorax. ACT 112: Negative or not required by law. The above report was generated using voice recognition software. It may contain grammatical, syntax o r spelling errors. Electronically signed by: Singh Babcock M.D. 02/20/2020 7:15 AM
[2020-02-20] MEDS: FINASTERIDE 5 MG TAB PO SCH (08:15)
[2020-02-20] MEDS: FUROSEMIDE 80 MG TAB PO SCH (08:15)
[2020-02-20] MEDS: CYANOCOBALAMIN 500 MCG TABLET (VITAMIN B-12) PO SCH (08:15)
[2020-02-20] MEDS: AMLODIPINE BESYLATE 5 MG TAB PO SCH (08:15)
[2020-02-20] MEDS: allopurinoL 100 MG TAB PO SCH (08:15)
--- NOTE | 2020-02-20 10:27 | Cardiology Progress Note ---
Date of Service February 20, 2020 Assessment & Plan (1) Atrial fibrillation with slow ventricular response: Patient appears to have undergone an uncomplicated implant of single- chamber permanent pacemaker. Normal function. From our standpoint he would be safe for discharge today. He has not been very ambulatory. May require some additional physical therapy. He did appear to have an element of volume overload at the time of admission and chest x-ray today also suggest an element of pulmonary edema. He may benefit from another day of diuresis in the hospital prior to discharge. I think would be safe to resume his apixaban tomorrow He should refrain from lifting left arm above the shoulder behind the neck for 6 weeks. He should keep the wound dry and Steri-Strips intact until follow-up in our clinic next week. Subjective Morning patient claimed feeling well. He did have some discomfort at the implant site last evening but this appears resolved this morning. Breathing difficulty. No additional chest pains. Review of Systems Review of Systems: For HPI Physical Exam Physical Exam: Examination the device implant site reveals small amount of ecchymosis. No significant erythema. No hematoma. No drainage. Results & Data Vital Signs (Past 12 Hours) Vital Signs Temp Pulse Pulse Resp BP Pulse Ox 02/20/20 08:00 36.8 C 69 16 145/76 H 95 02/20/20 04:32 37.0 C 62 19 127/72 94 02/20/20 00:00 70 02/19/20 23:47 36.9 C 66 18 157/70 H 96 Laboratory Results Abnormal Lab Results 02/20/20 02/20/20 05:51 05:51 WBC 11.57 H RBC 3.66 L Hgb 12.5 L Hct 35.9 L MCV 98.1 MCH 34.2 H MCHC 34.8 RDW Std Deviation 56.8 H RDW Coeff of Arvin 15.9 H Plt Count 195 MPV 11.0 H Sodium 142 Potassium 4.0 Chloride 109 H Carbon Dioxide 27 Anion Gap 6.0 BUN 30 H Creatinine 1.91 H D Est Cr Clr Drug Dosing Not Reportable Est GFR ( Amer) 35.5 Est GFR (Non-Af Amer) 30.6 BUN/Creatinine Ratio 15.8 Glucose 90 Calcium 8.2 L Diagnostic Findings Chest x-ray obtained this morning revealed good lead placement without complication Device interrogation revealed good function of the ventricular lead
[2020-02-20] MEDS ORDERED: FUROSEMIDE 40 MG in SYRINGE 0 ML IV ONE (14:30)
--- NOTE | 2020-02-20 15:16 | Hospitalist Progress Note ---
Date of Service February 20, 2020 Assessment & Plan (1) Atrial fibrillation with slow ventricular response: * Admitted for pre-syncope secondary to symptomatic slow afib. TSH wnl * Symptomatic afib with slowed ventricular response. Not on any AV nora blocking agents outpatient. No hx tick exposure. * Patient had several 4-5 second pauses in ER and additional 7 second pause around 23:10 on 02/17 * Trop initially 35182, trended up to 0.037 -- likely demand * Cardiology consulted POD #1 s/p single chamber pacemaker by Dr. Cook on 02/18. Abx - ancef. * Repeat ECHO with normal LV systolic function, although biatrial dilation and moderate MR with RV systolic pressure elevated at 50-60mmHg -- per discussion with cards, likely age related changes * CXR in AM for placement * WBC elevated at 11.5k without evidence of infection --> likely secondary to acute stress. repeat CBC in AM (2) Pre-syncope: * Secondary to above (3) Bradycardia: * See above (4) Acute on chronic diastolic (congestive) heart failure: * On admission --> CXR without evidence of overt pulm edema. 97% on RA. BNP elevated at 1917 (in setting of afib/age/CKD), but did still receive 80mg IV lasix x 1 in ER * Supplemental O2 as needed -- currently 97% on RA * Continued on home lasix 80mg PO daily * Repeat CXR with some pulmonary congestion and patient reported shortness of breath to cardiology team --> given minimal edema and findings on CXR will give additional dose of lasix 40mg IV x 1. Possible slight exacerbation of acute on chronic diastolic heart failure with preserved EF * Continue to monitor (5) SOB (shortness of breath): * See above (6) Atrial fibrillation: * See #1. Eliquis on hold for pacemaker in AM --> likely to be resumed tomorrow (7) Hyperlipidemia: * Chronic. * Continue home simvastatin 40mg qhs (8) Hypertension: * Chronically elevated * BP currently 181/72 * Given 5mg Amlodipine yesterday x 1--> will order daily to see better if better BP over next 24 hours * Additional lasix 40mg IV x 1 as above * Continue to monitor (9) BPH (benign prostatic hyperplasia): * Continue home finasteride, flomax. UO acceptable (10) Chronic kidney disease (CKD), stage III (moderate): * Stable. Baseline Cr 1.6-1.9, currently 1.91 after procedure yesterday * Will give additional dose of lasix as above for pulm congestion * BMP in AM (11) Anemia: * Chronic. H/h stable at 12.5/35.9 * CBC in AM (12) Hypophosphatemia: * Phos 2.4 on admit -- given oral replacement * RESOLVED -- phos 2.9 (13) Diastolic heart failure: * Chronic. With preserved EF --> see above (14) DVT prophylaxis: * SCDs * Eliquis on hold secondary to procedure -- to be resumed possible tomorrow Dispo: PT/OT, Lasix as above with discharge planned for tomorrow Discussed with gilmer Kelly, who would like to be called with plan on time of discharge in the morning if possible. #[phone] Admission and Anticipated Discharge Date Admission Date: February 18, 2020 Supervising Physician Co-Signing Physician Notes PA Supervision Note: I did not personally see or examine the patient today, but I verified all velazquez points of RUDY Browne's assessment and plan with the following exceptions/additions: 89yo male with h/o CABG, lymphedema, a.fib on eliquis, BPH - presents with several episodes of near-syncope and with a.fib with very slow ventricular response (HR 30s). NOT on AV nora agents at home. Now s/p PPM Needs continued IV diuresis, PT eval but hopeful for discharge tomorrow Subjective Patient evaluated this morning. Doing well. No complaints of shortness of breath this morning although he has not been out of bed much per his report. Had been up to use restroom. Minimal pain at the site of the pacemaker but denies chest pain, shortness of breath, abdominal pain, fevers or chills at this time. Called gilmer Kelly to give update. Plans for PT/OT evaluations and to give patient an additional dose of diuretic today with hopes for discharge home tomorrow. Review of Systems Review of Systems: All systems reviewed & are unremarkable except as noted in HPI & below Physical Exam Constitutional: WD/WN, vitals as above + obese; no acute distress Eyes: PERRL, conjunctivae normal, anicteric sclerae ENMT: Ears: + hearing impairment Neck: trachea midline, no thyromegaly Respiratory: normal respiratory effort; no respiratory distress, no labored breathing and does not use accessory muscles Auscultation: + diminished lung sounds and + crackles (bibasilar crackles); no wheezes Cardiovascular: Rate/Rhythm: + irregularly irregular Heart Sounds: + murmur (systolic ejection murmur) Extremities: + edema (lymphedema) Chest (Breasts): Additional Comments: pacemaker L chest wall. Minimal ecchymosis. steri-strips in place No erythema, hematoma or evidence of drainage Gastrointestinal (Abdomen): normal bowel sounds, soft, nontender, no hepatosplenomegaly Musculoskeletal: no cyanosis or clubbing, extremities motor strength 5/5 Skin: no rashes, warm and dry Neurologic: patellar DTR's 2+ bilat, sensation intact Psychiatric: Orientation: alert, oriented to person and oriented to place; + not oriented to time Insight: + limited insight Lymphatic: no cervical or axillary lymphadenopathy Results & Data Results & Data ([facility]) Vital Signs (Past 12 Hours) Vital Signs Temp Pulse Resp BP Pulse Ox 02/20/20 15:01 36.9 C 81 19 181/72 H 97 02/20/20 12:00 36.7 C 85 18 147/84 H 95 02/20/20 08:00 36.8 C 69 16 145/76 H 95 02/20/20 04:32 37.0 C 62 19 127/72 94 Laboratory Results 02/20/20 02/20/20 Range/Units 05:51 05:51 WBC 11.57 H (4.8-10.8) K/uL RBC 3.66 L (4.7-6.1) M/uL Hgb 12.5 L (14.0-18.0) g/dL Hct 35.9 L (42-52) % MCV 98.1 (80-100) fL MCH 34.2 H (25-34) pg MCHC 34.8 (32-36) g/dL RDW Std Deviation 56.8 H (36.4-46.3) fL RDW Coeff of Arvin 15.9 H (11.5-14.5) % Plt Count 195 (130-400) K/uL MPV 11.0 H (7.4-10.4) fL Sodium 142 (136-145) mmol/L Potassium 4.0 (3.5-5.1) mmol/L Chloride 109 H (98-107) mmol/L Carbon Dioxide 27 (21-32) mmol/L Anion Gap 6.0 (3-11) BUN 30 H (7-18) mg/dl Creatinine 1.91 H D (0.6-1.4) mg/dl Est Cr Clr Drug Dosing Not Reportable Est GFR ( Amer) 35.5 Est GFR (Non-Af Amer) 30.6 BUN/Creatinine Ratio 15.8 (10-20) Glucose 90 (70-99) mg/dl Calcium 8.2 L (8.5-10.1) mg/dl PG Care Time/CCT Total # of Minutes Spent Total Time Spent with Patient: Total time spent is greater than 50% in coordination of care (as documented) at patient's floor/unit and/or counseling patient: Coding Level of Care Code 31962 Subseq Hosp Care Lvl 2 Diagnoses Atrial fibrillation with slow ventricular response I48.91 Pre-syncope R55 Bradycardia R00.1 Acute on chronic diastolic (congestive) heart failure I50.33 SOB (shortness of breath) R06.02 Atrial fibrillation I48.91 Hyperlipidemia E78.5 Hypertension I10 BPH (benign prostatic hyperplasia) N40.0 Chronic kidney disease (CKD), stage III (moderate) N18.3 Anemia D64.9 Hypophosphatemia E83.39 Diastolic heart failure I50.30 DVT prophylaxis Z29.9
[2020-02-20] MEDS: OXYCODONE HCL IR 5 MG TAB (IMMEDIATE RELEASE) PO PRN (15:48)
--- NOTE | 2020-02-20 19:18 | Electrocardiogram Report ---
Test Reason : Blood Pressure : / mmHG Vent. Rate : 061 BPM Atrial Rate : 000 BPM P-R Int : 000 ms QRS Dur : 088 ms QT Int : 376 ms P-R-T Axes : 000 018 -43 degrees QTc Int : 378 ms Atrial fibrillation with demand ventricular pacing Possible Anterior infarct , age undetermined Abnormal ECG Confirmed by Sarmad Cook ([id number]) on 02/20/2020 7:17:38 PM Referred By: REFERRED SELF Confirmed By:Paco Cook
[2020-02-20] MEDS: TAMSULOSIN HCL 0.4 MG CAP PO SCH (19:59)
[2020-02-20] MEDS: LATANOPROST 0.005% OP SOLN 2.5 ML BTL OP SCH (20:00)
[2020-02-20] MEDS: SIMVASTATIN 40 MG TAB PO SCH (20:00)
[2020-02-21] MEDS: OXYCODONE HCL IR 5 MG TAB (IMMEDIATE RELEASE) PO PRN (03:35)
[2020-02-21 06:12] LABS: Basophils # (auto) 0.02 K/uL (0-0.2); Basophils % (auto) 0.1 %; Eosinophils # (auto) 0.13 K/uL (0-0.5); Eosinophils % (auto) 0.8 %; Hematocrit (blood only) 38.3 % (42-52); Hemoglobin 13.1 g/dL (14.0-18.0); Immature Granulocytes # (auto) 0.06 K/uL (0.00-0.02); Immature Granulocytes % (auto) 0.4 %; Lymphocytes # (auto) 1.92 K/uL (1.2-3.4); Lymphocytes % (auto) 12.4 %; Mean Corpuscular Hemoglobin 33.7 pg (25-34); Mean Corpuscular Hgb Conc 34.2 g/dL (32-36); Mean Corpuscular Volume 98.5 fL (80-100); Mean Platelet Volume 10.9 fL (7.4-10.4); Monocytes # (auto) 2.96 K/uL (0.11-0.59); Neutrophils # (auto) 10.45 K/uL (1.4-6.5); Neutrophils % (auto) 67.3 %; Nucleated RBC # (auto) 0.02 K/uL (0-0); Nucleated RBC % (auto) 0.1 %; Platelet Count 194 K/uL (130-400); RDW Standard Deviation 57.1 fL (36.4-46.3); Red Blood Count 3.89 M/uL (4.7-6.1); White Blood Count 15.54 K/uL (4.8-10.8)
[2020-02-21 06:37] LABS: Blood Urea Nitrogen 29 mg/dl (7-18); Calcium 8.4 mg/dl (8.5-10.1); Carbon Dioxide 28 mmol/L (21-32); Chloride 102 mmol/L (98-107); Est GFR (African American) 34.4; Est GFR (Non-African American) 29.7; Glucose 95 mg/dl (70-99); Potassium 3.5 mmol/L (3.5-5.1); Sodium 137 mmol/L (136-145)
[2020-02-21] MEDS: ACETAMINOPHEN 325 MG TAB PO PRN (07:57)
[2020-02-21] MEDS: FUROSEMIDE 80 MG TAB PO SCH (07:58)
[2020-02-21] MEDS: CYANOCOBALAMIN 500 MCG TABLET (VITAMIN B-12) PO SCH (07:58)
[2020-02-21] MEDS: allopurinoL 100 MG TAB PO SCH (07:58)
[2020-02-21] MEDS: FINASTERIDE 5 MG TAB PO SCH (07:59)
[2020-02-21] MEDS: AMLODIPINE BESYLATE 5 MG TAB PO SCH (07:59)
[2020-02-21] MEDS ORDERED: METOPROLOL TARTRATE 25 MG TAB PO SCH (09:30)
--- NOTE | 2020-02-21 09:47 | XRay Report ---
XR chest 2V PA/lateral CLINICAL HISTORY: follow up dyspnea COMPARISON STUDY: 02/20/2020 FINDINGS: Moderate artery megaly. Right median sternotomy. Moderate prominence of pulmonary vasculatu re. Slight increase in density of the lower lung regions bilaterally considered unchanged. IMPRESSION: 1. No major change from the prior study. 2. Slight increase in density of the lower left to a lesser extent lower right lung regions considere d unchanged. ACT 112: Negative or not required by law. The above report was generated using voice recognition software. It may contain grammatical, syntax or spelling errors. Electronically signed by: Vinay Hung M.D. 02/21/2020 9:46 AM
--- NOTE | 2020-02-21 10:53 | Hospitalist Progress Note ---
Date of Service February 21, 2020 Assessment & Plan (1) Atrial fibrillation with slow ventricular response: * Admitted for pre-syncope secondary to symptomatic slow afib. TSH wnl. Not on any AV nora blocking agents [employer] or hx tick exposure. * Patient had several 4-5 second pauses in ER and additional 7 second pause around 23:10 on 02/17 * Trop initially 40039, trended up to 0.037 -- likely demand * Cardiology consulted * Repeat ECHO with normal LV systolic function, although biatrial dilation and moderate MR with RV systolic pressure elevated at 50-60mmHg -- per discussion with cards, likely age related changes POD #2 s/p single chamber pacemaker by Dr. Cook on 02/18. Abx - ancef complete d. * CXR with slight increase in LLL considered unchanged. Pt with hx LULobectomy, but remains afebrile with WBC elevated to 15.5k. Did not receive steroids operatively. Denies productive cough. --> Given incentive spirometer today. Ordered but pt had not received on 02/19. UA without evidence of infection. Suspect level of deconditioning. PT/OT pending Continue to monitor CBC in AM Transferred to medical floor as patient has afib/paced in the 70s on monitor (2) Pre-syncope: * Secondary to above (3) Bradycardia: * See above (4) Acute on chronic diastolic (congestive) heart failure: * On admission --> CXR without evidence of overt pulm edema. 97% on RA. BNP elevated at 1917 (in setting of afib/age/CKD), but did still receive 80mg IV lasix x 1 in ER * Repeat CXR on 02/19 s/p pacer with some pulmonary congestion and patient reported shortness of breath to cardiology team --> given minimal edema and findings on CXR. Given additional 40mg IV x1 for possible slight exacerbation of acute on chronic diastolic heart failure with preserved EF * Supplemental O2 as needed -- currently 96% on RA * Continued on home lasix 80mg PO daily * Continue to monitor (5) SOB (shortness of breath): * See above (6) Atrial fibrillation: * See #1. Eliquis on hold for pacemaker as above --> resumed 02/20 (7) Hyperlipidemia: * Chronic. * Continue home simvastatin 40mg qhs (8) Hypertension: * Chronically elevated * Initiated on amlodipine 02/18 without significant improvement in BP * Now that patient with pacer, initiated metoprolol 12.5mg BID * BP improved to 140/78 * Continue to monitor (9) BPH (benign prostatic hyperplasia): * Continue home finasteride, flomax. UO acceptable (10) Chronic kidney disease (CKD), stage III (moderate): * Chronic. Baseline Cr 1.6-1.9, currently 1.96 but did get extra lasix yesterday in addition to contrast for procedure day prior * BMP in AM (11) Anemia: * Chronic. H/h stable at 13.1/38.3 * CBC in AM (12) Hypophosphatemia: * Phos 2.4 on admit -- given oral replacement * RESOLVED -- phos 2.9 (13) Diastolic heart failure: * Chronic. With preserved EF --> see above (14) DVT prophylaxis: * SCDs * Rose was on hold secondary to procedure -- resumed today Discussed with gilmer Kelly who is agreeable to rehab if recommended. #[phone] Dispo: PT/OT evals pending --> possible rehab vs home services. Discussed with weekend wrapper caser Admission and Anticipated Discharge Date Admission Date: February 18, 2020 Supervising Physician Co-Signing Physician Notes PA Supervision Note: I did not personally see or examine the patient today, but I verified all velazquez points of RUDY Browne's assessment and plan with the following exceptions/additions: None Subjective Patient states he is feeling well in regards to pain, but admits that he is having increased weakness. He states he has not been up much, but has made a better effort to stay up in the chair today. Patient states at home he has been utilizing a cane and walker at times to help get around, but that he did not require any assistance. He states this morning when he got up to go to the bathroom he noticed that he needed two people to help him get there. He believes he would benefit from rehab. Discussed with gilmer Kelly as well, who is in agreement with this plan and will await PT/OT evaluations. Patient states he had a cough early this morning, non-productive, but was only after drinking a cold beverage. Denies any fevers of chills, chest pain, shortness of breath, abd pain, n/v/d at this time. Eating/drinking without difficulty. All questions/concerns addressed at this time. Review of Systems Review of Systems: All systems reviewed & are unremarkable except as noted in HPI & below Physical Exam Constitutional: WD/WN, vitals as above + obese; no acute distress Eyes: PERRL, conjunctivae normal, anicteric sclerae ENMT: Ears: + hearing impairment Neck: trachea midline, no thyromegaly Respiratory: normal respiratory effort; no respiratory distress, no labored breathing and does not use accessory muscles Auscultation: + diminished lung sounds (L base); no wheezes Cardiovascular: Rate/Rhythm: + irregularly irregular Heart Sounds: + murmur (systolic ejection murmur) Extremities: no edema Chest (Breasts): Additional Comments: PPM L chest wall steri-strips intact minimal ecchymosis Gastrointestinal (Abdomen): normal bowel sounds, soft, nontender, no hepatosplenomegaly Musculoskeletal: no cyanosis or clubbing, extremities motor strength 5/5 Skin: no rashes, warm and dry Neurologic: patellar DTR's 2+ bilat, sensation intact Psychiatric: A+Ox3, euthymic affect Lymphatic: no cervical or axillary lymphadenopathy Results & Data Results & Data ([facility]) Vital Signs (Past 12 Hours) Vital Signs Temp Pulse Pulse Resp BP BP Pulse Ox 02/21/20 09:51 66 02/21/20 07:30 36.8 C 67 19 161/73 H 93 02/21/20 03:49 37.1 C 81 18 156/81 H 95 02/21/20 00:00 84 02/20/20 23:15 37.3 C 79 19 129/75 95 Laboratory Results 02/21/20 02/21/20 02/21/20 Range/Units 11:05 05:01 05:01 WBC 15.54 H (4.8-10.8) K/uL RBC 3.89 L (4.7-6.1) M/uL Hgb 13.1 L (14.0-18.0) g/dL Hct 38.3 L (42-52) % MCV 98.5 (80-100) fL MCH 33.7 (25-34) pg MCHC 34.2 (32-36) g/dL RDW Std Deviation 57.1 H (36.4-46.3) fL RDW Coeff of Arvin 16.0 H (11.5-14.5) % Plt Count 194 (130-400) K/uL MPV 10.9 H (7.4-10.4) fL Immature Gran % (Auto) 0.4 % Neut % (Auto) 67.3 % Lymph % (Auto) 12.4 % [place] % (Auto) 19.0 % Eos % (Auto) 0.8 % Baso % (Auto) 0.1 % Immature Gran # (Auto) 0.06 H (0.00-0.02) K/uL Neut # (Auto) 10.45 H (1.4-6.5) K/uL Lymph # (Auto) 1.92 (1.2-3.4) K/uL [place] # (Auto) 2.96 H (0.11-0.59) K/uL Eos # (Auto) 0.13 (0-0.5) K/uL Baso # (Auto) 0.02 (0-0.2) K/uL Absolute Nucleated RBC 0.02 H (0-0) K/uL Nucleated RBC % (auto) 0.1 % Sodium 137 (136-145) mmol/L Potassium 3.5 (3.5-5.1) mmol/L Chloride 102 (98-107) mmol/L Carbon Dioxide 28 (21-32) mmol/L Anion Gap 7.0 (3-11) BUN 29 H (7-18) mg/dl Creatinine 1.96 H (0.6-1.4) mg/dl Est Cr Clr Drug Dosing Not Reportable Est GFR ( Amer) 34.4 Est GFR (Non-Af Amer) 29.7 BUN/Creatinine Ratio 15.0 (10-20) Glucose 95 (70-99) mg/dl Calcium 8.4 L (8.5-10.1) mg/dl Urine Color Dark Yellow Urine Appearance Clear (Clear) Urine pH 5.0 (4.5-7.5) Ur Specific [place] 1.023 (1.000-1.030) Urine Protein 2+ H (Negative) Urine Glucose (UA) Negative (Negative) Urine Ketones Trace H (Negative) Urine Blood Negative (Negative) Urine Nitrite Negative (Negative) Urine Bilirubin Negative (Negative) Urine Urobilinogen Negative (Negative) Ur Leukocyte Esterase Negative (Negative) Urine WBC (Auto) 1-5 (0-5) /hpf Urine RBC (Auto) 5-10 H (0-4) /hpf U Hyaline Cast (Auto) 5-10 H (0-5) /lpf U Epithel Cells (Auto) 10-20 H (0-5) /lpf Urine Bacteria (Auto) Negative (Negative) Diagnostic Findings MPRESSION: 1. No major change from the prior study. 2. Slight increase in density of the lower left to a lesser extent lower right lung regions considered unchanged. PG Care Time/CCT Total # of Minutes Spent Total Time Spent with Patient: Total time spent is greater than 50% in housekeeping coordinator rdination of care (as documented) at patient's floor/unit and/or counseling patient: Coding Level of Care Code 38555 Subseq Hosp Care Lvl 3 Diagnoses Atrial fibrillation with slow ventricular response I48.91 Pre-syncope R55 Bradycardia R00.1 Acute on chronic diastolic (congestive) heart failure I50.33 SOB (shortness of breath) R06.02 Atrial fibrillation I48.91 Hyperlipidemia E78.5 Hypertension I10 BPH (benign prostatic hyperplasia) N40.0 Chronic kidney disease (CKD), stage III (moderate) N18.3 Anemia D64.9 Hypophosphatemia E83.39 Diastolic heart failure I50.30 DVT prophylaxis Z29.9
[2020-02-21 11:19] LABS: Appearance Urine Clear (Clear); Bacteria Urine Automated Negative (Negative); Blood Urine Negative (Negative); Color Urine Dark Yellow; Glucose Urine UA Negative (Negative); Ketones Urine Trace (Negative); Leukocyte Esterase Urine Negative (Negative); Nitrite Urine Negative (Negative); Protein Urine 2+ (Negative); Specific Gravity Urine 1.023 (1.000-1.030); Urobilinogen Urine Negative (Negative)
[2020-02-21 11:44] LABS: Bilirubin Urine Negative (Negative); Ictotest Urine Negative (Negative)
[2020-02-21] MEDS: APIXABAN 2.5 MG TAB PO SCH ×2 (14:59→22:22)
[2020-02-21] MEDS: METOPROLOL TARTRATE 25 MG TAB PO SCH (20:44)
[2020-02-21] MEDS: SIMVASTATIN 40 MG TAB PO SCH (20:45)
[2020-02-21] MEDS: TAMSULOSIN HCL 0.4 MG CAP PO SCH (20:45)
[2020-02-21] MEDS: LATANOPROST 0.005% OP SOLN 2.5 ML BTL OP SCH (20:45)
[2020-02-22 06:03] LABS: Basophils # (auto) 0.01 K/uL (0-0.2); Basophils % (auto) 0.1 %; Eosinophils # (auto) 0.15 K/uL (0-0.5); Hematocrit (blood only) 37.5 % (42-52); Hemoglobin 12.6 g/dL (14.0-18.0); Immature Granulocytes # (auto) 0.06 K/uL (0.00-0.02); Immature Granulocytes % (auto) 0.4 %; Lymphocytes # (auto) 1.84 K/uL (1.2-3.4); Lymphocytes % (auto) 12.8 %; Mean Corpuscular Hemoglobin 32.9 pg (25-34); Mean Corpuscular Hgb Conc 33.6 g/dL (32-36); Mean Corpuscular Volume 97.9 fL (80-100); Mean Platelet Volume 10.5 fL (7.4-10.4); Monocytes # (auto) 2.26 K/uL (0.11-0.59); Monocytes % (auto) 15.7 %; Neutrophils # (auto) 10.05 K/uL (1.4-6.5); Platelet Count 178 K/uL (130-400); RDW Standard Deviation 56.8 fL (36.4-46.3); Red Blood Count 3.83 M/uL (4.7-6.1); White Blood Count 14.37 K/uL (4.8-10.8)
[2020-02-22 06:28] LABS: BUN Creatinine Ratio 22.4 (10-20); Blood Urea Nitrogen 44 mg/dl (7-18); Calcium 8.1 mg/dl (8.5-10.1); Carbon Dioxide 28 mmol/L (21-32); Chloride 102 mmol/L (98-107); Est GFR (Non-African American) 29.3; Glucose 99 mg/dl (70-99); Potassium 3.4 mmol/L (3.5-5.1); Sodium 136 mmol/L (136-145)
[2020-02-22] MEDS: APIXABAN 2.5 MG TAB PO SCH ×2 (07:27→20:35)
[2020-02-22] MEDS: CYANOCOBALAMIN 500 MCG TABLET (VITAMIN B-12) PO SCH (07:27)
[2020-02-22] MEDS: FINASTERIDE 5 MG TAB PO SCH (07:27)
[2020-02-22] MEDS: FUROSEMIDE 80 MG TAB PO SCH (07:28)
[2020-02-22] MEDS: AMLODIPINE BESYLATE 5 MG TAB PO SCH (07:28)
[2020-02-22] MEDS: allopurinoL 100 MG TAB PO SCH (07:28)
[2020-02-22] MEDS: METOPROLOL TARTRATE 25 MG TAB PO SCH ×2 (07:29→20:35)
[2020-02-22] MEDS ORDERED: POTASSIUM CHLORIDE 20 MEQ TABCR PO STA (07:51)
--- NOTE | 2020-02-22 14:14 | Hospitalist Progress Note ---
Date of Service February 22, 2020 Assessment & Plan (1) Atrial fibrillation with slow ventricular response: * Admitted for pre-syncope secondary to symptomatic slow afib. TSH wnl. Not on any AV nora blocking agents [employer]ICIAN or hx tick exposure. * Patient had several 4-5 second pauses in ER and additional 7 second pause around 23:10 on 02/17 * Trop initially 24898, trended up to 0.037 -- likely demand * Cardiology consulted * Repeat ECHO with normal LV systolic function, although biatrial dilation and moderate MR with RV systolic pressure elevated at 50-60mmHg -- per discussion with cards, likely age related changes POD #3 s/p single chamber pacemaker by Dr. Cook on 02/18. Abx - ancef complete d. * CXR on 02/20 with slight increase in LLL considered unchanged. Pt with hx LULobectomy, but remains afebrile with WBC elevated to 15.5k. Did not receive steroids operatively. Denies cough. * --> Given incentive spirometer 02/20. Ordered but pt had not received on 02/19. UA without evidence of infection. Suspect level of deconditioning prior to admission due to COVID-19 and not leaving the house much, as well as recent surgery and not being out of bed must post-operatively * WBC has decreased, slightly, with use of IS to 14.3k from 15.5k with use of IS, likely atelectasis? No fever, chills reported. Patient remains afebrile. UA negative. No evidence of skin breakdown on exam. * Repeat CXR ordered for increased shortness of breath with activity/movement this morning, but not done yet-- called floor, to be done shortly PT/OT evaluations --> please continue while inpatient--> rec SNF at discharge. * Patient and family agreeable --> CM faxed referrals (2) Pre-syncope: * Secondary to above (3) Bradycardia: * See above (4) Acute on chronic diastolic (congestive) heart failure: * On admission --> CXR without evidence of overt pulm edema. 97% on RA. BNP elevated at 1917 (in setting of afib/age/CKD), but did still receive 80mg IV lasix x 1 in ER * Repeat CXR on 02/19 s/p pacer with some pulmonary congestion and patient reported shortness of breath to cardiology team --> given minimal edema and findings on CXR. Given additional 40mg IV x1 for possible slight exacerbation of acute on chronic diastolic heart failure with preserved EF * Supplemental O2 as needed -- currently 96% on RA * Continued on home lasix 80mg PO daily * Of note, patient's weight reported as increased from 103.8kg to 106kg this am, but patient was transferred to medical floor evening 02/21 and is a bedscale weight. No increased edema on exam today * Repeat CXR pending * Continue to monitor (5) SOB (shortness of breath): * See above (6) Atrial fibrillation: * See #1. Eliquis held for pacemaker as above ---> resumed 02/20 (7) Hyperlipidemia: * Chronic. * Continue home simvastatin 40mg qhs (8) Hypertension: * Chronically elevated * Initiated on amlodipine 02/18 without significant improvement in BP * Now that patient with pacer, initiated metoprolol 12.5mg BID -- titrate as needed, although suspect some level of increased fatigue secondary to BB * BP improved to 145/79 this morning * Continue to monitor (9) BPH (benign prostatic hyperplasia): * Continue home finasteride, flomax * Large episode of incontinence this morning * Monitor UO (10) Chronic kidney disease (CKD), stage III (moderate): * Chronic. Baseline Cr 1.6-1.9, currently 1.98 * BMP in AM (11) Anemia: * Chronic. H/h 12.6/37.5 * CBC in AM (12) Hypophosphatemia: * Phos 2.4 on admit -- given oral replacement * RESOLVED -- phos 2.9 on repeat (13) Diastolic heart failure: * Chronic. With preserved EF --> see above (14) Hypokalemia: * K 3.4- ordered 20meq PO * BMP in AM (15) DVT prophylaxis: * SCDs * Suriquis was on hold secondary to procedure -- resumed today Discussed with daughter Leticia who is agreeable to rehab. #[phone] Dispo: likely discharge to SNF sunday pending bed availability. CM aware, ref sent Admission and Anticipated Discharge Date Admission Date: February 18, 2020 Supervising Physician Co-Signing Physician Notes PA Supervision Note: I did not personally see or examine the patient today, but I verified all velazquez points of RUDY Browne's assessment and plan with the following exceptions/additions: None Subjective Patient evaluated this morning. States he feels ok, but does state he has weakness. Less than last evening, but now requiring help of multiple people to get up to side of the bed. Previously able to ambulate with cane/walker as needed. Denies fever or chills, chest pain. Shortness of breath with exertion while attempting to get up to side of the bed with assistance of myself, aide and GAS APPLIANCE SERVICER HELPER. Denies cough at this time or sputum production. Denies dysuria but does endorse incontinence this morning. Patient states he wants to go to rehab to get stronger and is agreeable to work with PT today so that we are able to make the referral. Questions/concerns addressed at this time. Review of Systems Review of Systems: All systems reviewed & are unremarkable except as noted in HPI & below Physical Exam Constitutional: + obese; no acute distress Eyes: PERRL, conjunctivae normal, anicteric sclerae ENMT: Ears: + hearing impairment Neck: trachea midline, no thyromegaly Respiratory: no respiratory distress, no labored breathing, does not use accessory muscles, no cough, not tachypneic and no audible wheezes Auscultation: + diminished lung sounds (L base) and + crackles (bibasilar crackles, increased crackles R posterior lung garcia); no wheezes Cardiovascular: Rate/Rhythm: + irregularly irregular Heart Sounds: + murmur (systolic ejection murmur) Extremities: no edema Gastrointestinal (Abdomen): normal bowel sounds, soft, nontender, no hepatosplenomegaly Musculoskeletal: no cyanosis or clubbing, extremities motor strength 5/5 3/5 b/l LE strength Myself, aide, and RN to assist patient to get up to edge of bed Skin: no rashes, warm and dry Neurologic: patellar DTR's 2+ bilat, sensation intact Psychiatric: A+Ox3, euthymic affect Lymphatic: no cervical or axillary lymphadenopathy Results & Data Results & Data ([facility]) Vital Signs (Past 12 Hours) Vital Signs Temp Pulse Resp BP Pulse Ox 02/22/20 06:53 36.6 C 69 19 145/79 H 97 02/22/20 04:18 36.9 C 77 20 149/68 H 96 Laboratory Results 02/22/20 02/22/20 Range/Units 05:49 05:49 WBC 14.37 H (4.8-10.8) K/uL RBC 3.83 L (4.7-6.1) M/uL Hgb 12.6 L (14.0-18.0) g/dL Hct 37.5 L (42-52) % MCV 97.9 (80-100) fL MCH 32.9 (25-34) pg MCHC 33.6 (32-36) g/dL RDW Std Deviation 56.8 H (36.4-46.3) fL RDW Coeff of Arvin 16.0 H (11.5-14.5) % Plt Count 178 (130-400) K/uL MPV 10.5 H (7.4-10.4) fL Immature Gran % (Auto) 0.4 % Neut % (Auto) 70.0 % Lymph % (Auto) 12.8 % [place] % (Auto) 15.7 % Eos % (Auto) 1.0 % Baso % (Auto) 0.1 % Immature Gran # (Auto) 0.06 H (0.00-0.02) K/uL Neut # (Auto) 10.05 H (1.4-6.5) K/uL Lymph # (Auto) 1.84 (1.2-3.4) K/uL [place] # (Auto) 2.26 H (0.11-0.59) K/uL Eos # (Auto) 0.15 (0-0.5) K/uL Baso # (Auto) 0.01 (0-0.2) K/uL Sodium 136 (136-145) mmol/L Potassium 3.4 L (3.5-5.1) mmol/L Chloride 102 (98-107) mmol/L Carbon Dioxide 28 (21-32) mmol/L Anion Gap 6.0 (3-11) BUN 44 H D (7-18) mg/dl Creatinine 1.98 H (0.6-1.4) mg/dl Est Cr Clr Drug Dosing Not Reportable Est GFR ( Amer) 34.0 Est GFR (Non-Af Amer) 29.3 BUN/Creatinine Ratio 22.4 H (10-20) Glucose 99 (70-99) mg/dl Calcium 8.1 L (8.5-10.1) mg/dl PG Care Time/CCT Total # of Minutes Spent Total Time Spent with Patient: Total time spent is greater than 50% in coordination of care (as documented) at patient's floor/unit and/or counseling patient: Coding Level of Care Code 58500 Subseq Hosp Care Lvl 3 Diagnoses Atrial fibrillation with slow ventricular response I48.91 Pre-syncope R55 Bradycardia R00.1 Acute on chronic diastolic (congestive) heart failure I50.33 SOB (shortness of breath) R06.02 Atrial fibrillation I48.91 Hyperlipidemia E78.5 Hypertension I10 BPH (benign prostatic hyperplasia) N40.0 Chronic kidney disease (CKD), stage III (moderate) N18.3 Anemia D64.9 Hypophosphatemia E83.39 Diastolic heart failure I50.30 Hypokalemia E87.6 DVT prophylaxis Z29.9
--- NOTE | 2020-02-22 18:12 | XRay Report ---
SINGLE VIEW CHEST CLINICAL HISTORY: Congestive heart failure. FINDINGS: An AP, portable, upright chest radiograph is compared to study dated 02/21/2020. The examina tion is degraded by portable technique and patient rotation. The patient is status post midline mcdowell otomy. A single lead cardiac pacemaker is unchanged in position and partially obscures left apex. The heart is enlarged and there is atherosclerotic calcification of the thoracic aorta. Findings of bere estive failure and mild interstitial edema are similar to yesterday. Atelectasis is noted at the lung bases. No large pleural effusion or pneumothorax is seen. The skeletal structures are osteopenic. Th e bony thorax is grossly intact. IMPRESSION: Cardiomegaly and cardiac pacemaker with evidence of mild congestive failure and interstit ial edema. This is similar to yesterday. ACT 112: Negative or not required by law. Electronically signed by: Didier Henderson M.D. 02/22/2020 6:11 PM
[2020-02-22] MEDS ORDERED: FUROSEMIDE 40 MG in SYRINGE 0 ML IV ONE (19:45)
[2020-02-22] MEDS: TAMSULOSIN HCL 0.4 MG CAP PO SCH (20:35)
[2020-02-22] MEDS: LATANOPROST 0.005% OP SOLN 2.5 ML BTL OP SCH (20:37)
[2020-02-22] MEDS: SIMVASTATIN 40 MG TAB PO SCH (20:37)
[2020-02-22] MEDS: OXYCODONE HCL IR 5 MG TAB (IMMEDIATE RELEASE) PO PRN (20:41)
[2020-02-23 05:26] LABS: Hematocrit (blood only) 36.4 % (42-52); Hemoglobin 12.6 g/dL (14.0-18.0); Mean Corpuscular Hemoglobin 33.8 pg (25-34); Mean Corpuscular Hgb Conc 34.6 g/dL (32-36); Mean Corpuscular Volume 97.6 fL (80-100); Platelet Count 209 K/uL (130-400); RDW Coefficient of Variation 15.9 % (11.5-14.5); RDW Standard Deviation 55.7 fL (36.4-46.3); Red Blood Count 3.73 M/uL (4.7-6.1); White Blood Count 12.99 K/uL (4.8-10.8)
[2020-02-23 05:54] LABS: BUN Creatinine Ratio 23.3 (10-20); Blood Urea Nitrogen 49 mg/dl (7-18); Calcium 8.3 mg/dl (8.5-10.1); Carbon Dioxide 27 mmol/L (21-32); Chloride 103 mmol/L (98-107); Est GFR (African American) 31.6; Est GFR (Non-African American) 27.3; Glucose 123 mg/dl (70-99); Potassium 3.5 mmol/L (3.5-5.1); Sodium 138 mmol/L (136-145)
[2020-02-23] MEDS: FUROSEMIDE 80 MG TAB PO SCH (09:10)
[2020-02-23] MEDS: FINASTERIDE 5 MG TAB PO SCH (09:10)
[2020-02-23] MEDS: AMLODIPINE BESYLATE 5 MG TAB PO SCH (09:10)
[2020-02-23] MEDS: allopurinoL 100 MG TAB PO SCH (09:10)
[2020-02-23] MEDS: CYANOCOBALAMIN 500 MCG TABLET (VITAMIN B-12) PO SCH (09:10)
[2020-02-23] MEDS: METOPROLOL TARTRATE 25 MG TAB PO SCH ×2 (09:11→20:52)
[2020-02-23] MEDS: APIXABAN 2.5 MG TAB PO SCH ×2 (09:11→20:52)
--- NOTE | 2020-02-23 13:27 | Hospitalist Progress Note ---
Date of Service February 23, 2020 Assessment & Plan (1) Atrial fibrillation with slow ventricular response: Admitted for pre-syncope secondary to symptomatic slow afib. TSH wnl. Not on any AV nora blocking agents CHANNEL SPECIALIST or hx tick exposure. Patient had several 4-5 second pauses in ER and additional 7 second pause around 23:10 on 02/17. - S/p single chamber pacemaker by Dr. Cook on 02/18. Abx - ancef completed. - Continued Eliquis - PT/OT evaluations --> please continue while inpatient--> rec SNF at discharge. - Patient and family agreeable --> CM faxed referrals (2) Acute on chronic diastolic (congestive) heart failure: On admission --> CXR without evidence of overt pulm edema. 97% on RA. BNP elevated at 1917 (in setting of afib/age/CKD), but did still receive 80mg IV lasix x 1 in ER. - Repeat CXR on 02/19 s/p pacer with some pulmonary congestion and patient reported shortness of breath to cardiology team; given additional 40mg IV x1 for possible slight exacerbation of acute on chronic diastolic heart failure. - Continued on home lasix 80mg PO daily - Weight and symptoms stable today. Appears euvolemic. Wt is 106.6 kg. (3) Pre-syncope: * Secondary to above (4) Hypertension: BP 120/75 today. - Initiated on amlodipine 02/18 without significant improvement in BP. - Now that patient with pacer, initiated metoprolol 12.5mg BID -- titrate as needed, although suspect some level of increased fatigue secondary to BB (5) Hyperlipidemia: Chronic. * Continue home simvastatin 40mg qhs (6) BPH (benign prostatic hyperplasia): No LUTS today. - Continue home finasteride, flomax (7) Chronic kidney disease (CKD), stage III (moderate): Chronic. Baseline Cr 1.6-1.9. - Cr up to 2.1 today with increasing BUN. - Hold Lasix tomorrow. (8) Anemia: Chronic. H/h stable today. - Monitor (9) DVT prophylaxis: Eliquis Admission and Anticipated Discharge Date Admission Date: February 18, 2020 Subjective No distress today. No pain in the chest area surgical site. No dizziness. Reports no fevers/chills, chest pain, shortness of breath, abdominal pain, nausea, or vomiting. Physical Exam Constitutional: WD/WN, vitals as above Eyes: EOM intact bilaterally; no conjunctival abnormality ENMT: external ear and nose normal, oropharynx normal Neck: trachea midline, no thyromegaly normal visual inspection Respiratory: normal respiratory effort, lungs clear to auscultation no respiratory distress Cardiovascular: RRR, no murmur, no edema (Pacemaker site clean at left chest wall.) Gastrointestinal (Abdomen): Inspection/Auscultation: abdomen normal to inspection; abdomen not distended Musculoskeletal: no cyanosis or clubbing, extremities motor strength 5/5 Skin: no rashes, warm and dry Neurologic: moves all extremities and awake Psychiatric: Orientation: alert, oriented to person and cooperative Results & Data Results & Data ([facility]) Vital Signs (Past 12 Hours) Vital Signs Temp Pulse Resp BP Pulse Ox 02/23/20 07:30 36.6 C 60 16 123/75 95 PG Care Time/CCT Total # of Minutes Spent Total Time Spent with Patient: Total time spent is greater than 50% in coordination of care (as documented) at patient's floor/unit and/or counseling patient: Coding Level of Care Code 44512 Subseq Hosp Care Lvl 2 Diagnoses Atrial fibrillation with slow ventricular response I48.91 Acute on chronic diastolic (congestive) heart failure I50.33 Pre-syncope R55 Hypertension I10 Hyperlipidemia E78.5 BPH (benign prostatic hyperplasia) N40.0 Chronic kidney disease (CKD), stage III (moderate) N18.3 Anemia D64.9 DVT prophylaxis Z29.9
[2020-02-23] MEDS: SIMVASTATIN 40 MG TAB PO SCH (20:52)
[2020-02-23] MEDS: TAMSULOSIN HCL 0.4 MG CAP PO SCH (20:52)
[2020-02-23] MEDS: LATANOPROST 0.005% OP SOLN 2.5 ML BTL OP SCH (20:52)
[2020-02-24 07:06] LABS: BUN Creatinine Ratio 24.6 (10-20); Blood Urea Nitrogen 52 mg/dl (7-18); Calcium 8.9 mg/dl (8.5-10.1); Carbon Dioxide 27 mmol/L (21-32); Chloride 103 mmol/L (98-107); Est GFR (African American) 31.3; Glucose 107 mg/dl (70-99); Magnesium 2.4 mg/dl (1.8-2.4); Potassium 3.4 mmol/L (3.5-5.1); Sodium 137 mmol/L (136-145)
[2020-02-24 07:09] LABS: Phosphorus 3.7 mg/dl (2.5-4.9)
[2020-02-24] MEDS: METOPROLOL TARTRATE 25 MG TAB PO SCH (08:58)
[2020-02-24] MEDS: CYANOCOBALAMIN 500 MCG TABLET (VITAMIN B-12) PO SCH (08:59)
[2020-02-24] MEDS: FINASTERIDE 5 MG TAB PO SCH (08:59)
[2020-02-24] MEDS: APIXABAN 2.5 MG TAB PO SCH (08:59)
[2020-02-24] MEDS: allopurinoL 100 MG TAB PO SCH (08:59)
[2020-02-24] MEDS: AMLODIPINE BESYLATE 5 MG TAB PO SCH (09:00)
--- NOTE | 2020-02-24 16:18 | Discharge Summary ---
Date of Service February 24, 2020 Admission HPI Per Admitting Provider 89 year old male with PMHx significant for ASCVD (s/p CABG x 3), afib (on Eliquis), diastolic CHF, HTN, HLD, CKD, lumbar stenosis, chronic lymphedema presented to the emergency room for shortness of breath with associated slow heart rate. He states he started to notice he wasn't feeling well on Sunday but then yesterday he had two episodes that he states are hard to describe, but states he had a feeling like he was going to pass out. These episodes lasted a couple seconds but denies LOC or falling. Shortness of breath worse with exertion. He states he has intermittent episodes of dizziness as well. He states that yesterday his family was very busy with appointments and he didn't want to bother anyone, which is why he waited until today to come in. He states the ceiling fans were running but he was still short of breath and had to turn on the air conditioner, which did not improve his symptoms. He typically takes lasix 80mg PO daily but did not take any of his medications today. He states he has noticed increased LE swelling, but he does have chronic lymphedema and wears compression stockings. Has not eaten since breakfast. He follows with Dr. Mi as an outpatient for cardiology and Dr. Robles from nephrology for his CKD/glomerulosclerosis. ER Course: EKG with afib with slowed ventricular response, 55bpm. Lasix 80mg PO x 1. K phos x 1. CXR negative for overt pulmonary edema. BNP 1917. Trop 0.017. CBC with WBC 9.2k, h/h 12.8/37.2, Plt 208. INR 1.0. Chemistries with Na 142, K 4.1, BUN 24, Cr 1.65. Principal Diagnosis Bradycardia Discharge Exam Constitutional WD/WN, vitals as above Eyes EOM intact bilaterally; no conjunctival abnormality ENMT external ear and nose normal, oropharynx normal Neck trachea midline, no thyromegaly normal visual inspection Respiratory normal respiratory effort, lungs clear to auscultation no respiratory distress Cardiovascular RRR, no murmur, no edema (Pacemaker site clean at left chest wall.) Gastrointestinal (Abdomen) Inspection/Auscultation: abdomen normal to inspection; abdomen not distended Musculoskeletal no cyanosis or clubbing, extremities motor strength 5/5 Skin no rashes, warm and dry Neurologic moves all extremities and awake Psychiatric Orientation: alert, oriented to person and cooperative Discharge Data Allergies Allergy/AdvReac Type Severity Reaction Status Date / Time No Known Allergies Allergy Verified 02/06/20 11:36 Consultations 02/18/20 14:17 ED Decision to Admit Stat 02/18/20 17:03 Consult Cardiology Routine Procedures Performed Operation Date: 02/19/20 09:00 Actual Procedures p Pacer with Ventricular Lead - Sp Cook MD s Venogram, Unilateral - Sp Cook MD Ordered Studies 02/19/20 08:39 CL Cath Imgs for PACS use only Routine Hospital Course (1) Atrial fibrillation with slow ventricular response: Admitted for pre-syncope secondary to symptomatic slow afib. TSH wnl. Not on any AV nora blocking agents [employer] or hx tick exposure. Patient had several 4-5 second pauses in ER and additional 7 second pause around 23:10 on 02/17. - S/p single chamber pacemaker by Dr. Cook on 02/18. Abx - ancef completed. - Continued Eliquis - On discharge, HR and blood pressure were normal. Patient felt better. Will see Dr. Cook in ~1 week for pacemaker check. (2) Acute on chronic diastolic (congestive) heart failure: On admission --> CXR without evidence of overt pulm edema. 97% on RA. BNP elevated at 1917 (in setting of afib/age/CKD), but did still receive 80mg IV lasix x 1 in ER. - Repeat CXR on 02/19 s/p pacer with some pulmonary congestion and patient re ported shortness of breath to cardiology team; given additional 40mg IV x1 for possible slight exacerbation of acute on chronic diastolic heart failure. - Continued on home lasix 80mg PO daily - Weight and symptoms stable today. Appears euvolemic. Wt was 240 lbs on discharge. He needs to be weighed every day and if his weight starts to increase, will need to adjust his Lasix dose. (3) Pre-syncope: * Secondary to above (4) Hypertension: BP 120/75 today. - Initiated on amlodipine 02/18 without significant improvement in BP. - Now that patient with pacer, initiated metoprolol 12.5mg BID -- titrate as needed, although suspect some level of increased fatigue secondary to beta- linnette. (5) Hyperlipidemia: Chronic. * Continue home simvastatin 40mg qhs (6) BPH (benign prostatic hyperplasia): No LUTS today. - Continue home finasteride, flomax (7) Chronic kidney disease (CKD), stage III (moderate): Chronic. Baseline Cr 1.6-1.9. - Cr up to 2.1 today with increasing BUN. - Held Lasix on the day of discharge, but would restart it tomorrow. Will need BMP in 1 week. (8) Anemia: Chronic. H/h stable today. - Monitor (9) DVT prophylaxis: Eliquis Total Time Total Time Spent Total Time Spent (In Minutes): 35 Discharge Plan Discharge Items Patient Disposition: Transfer Care Home Fac Reason For Visit: SYMPTOMATIC SLOW AFIB,SHORTNESS OF BREATH Discharge Diagnosis: Bradycardia from heart block Activity: Resume your previous activity Non-emergency contact: Primary Care Provider and Photography Manager Call non-emergency contact if: your symptoms worsen and your temperature is above 101 Follow-up/Referrals: Rosenda Polk CRNP [Primary Care Provider] - Sp Cook MD [Physician] - (Please see Dr. Cook in 1 week to check on your pacemaker.) Diet: Heart Healthy and Low Sodium (2gm) Addtl Attending Provider Instructions: Mr. Bennett had symptoms from his heart rate going too slow. He had a pacemaker installed, and he is doing better now with good blood pressure and heart rate. He should see cardiology in 1 week to check the pacemaker. There was some concern for a CHF exacerbation, and he received 1 dose of Lasix in the ER. However, otherwise, he did well, and required nothing other than his usual home dose of Lasix. On discharge, his weight was 240 lbs. He had no lower extremity swelling and was breathing comfortably. He should be weighed every day to be sure his weight remains stable. Pending Studies at Discharge: No Stand-Alone Forms: My [facility] Skilled Items Patient informed of condition?: Yes DNR: No Discharge Level of Care: Skilled Communicable Disease: No Discharge Prognosis: Stable Lines: None Urinary Catheter: No Medications and DC Order Prescriptions: New amlodipine [Norvasc] 5 mg Tablet 5 mg PO QAM Qty: 1 RF: 0 metoprolol tartrate 25 mg Tablet 12.5 mg PO BID Qty: 1 RF: 0 Continued simvastatin 40 mg tablet 40 mg PO QPM Qty: 90 RF: 3 furosemide 80 mg tablet 80 mg PO DAILY Qty: 90 RF: 3 allopurinol 100 mg tablet 100 mg PO DAILY Qty: 90 RF: 1 Eliquis 2.5 mg tablet 2.5 mg PO BID Qty: 180 RF: 3 latanoprost 0.005 % drops 1 drops OP HS RF: 0 finasteride 5 mg tablet 5 mg PO DAILY Qty: 90 RF: 0 tamsulosin 0.4 mg capsule 0.4 mg PO HS Qty: 90 RF: 0 cyanocobalamin (vitamin B-12) 1,000 mcg tablet 1,000 mcg PO DAILY RF: 0 aspirin 81 mg Tablet,Delayed Release (Dr/Ec) 81 mg PO DAILY RF: 0 Discharge Orders: Discharge Order (Routine); Ordered 02/24/20 Ordered By: Alber Jasmine Admission Data Admit Date/Time: 02/18/20 15:46 Attending Provider: Alber Jasmine Admit Provider: Trev Wagner Primary Care Provider: Rosenda Polk Other Providers: Sp Cook ; Alber Jasmine Other Interventions: Discharge Summary Assessment (RN) Last Done: 02/24/20 12:06 DC Date/Time DO NOT enter until pt leaves facility: 02/24/20 14:39 Coding Level of Care Code D/C Day Management >30 mins Diagnoses Atrial fibrillation with slow ventricular response I48.91 Acute on chronic diastolic (congestive) heart failure I50.33 Pre-syncope R55 Hypertension I10 Hyperlipidemia E78.5 BPH (benign prostatic hyperplasia) N40.0 Chronic kidney disease (CKD), stage III (moderate) N18.3 Anemia D64.9 DVT prophylaxis Z29.9
== END 2020-02-24 14:39 | DRG 242 ==
LOC: ED 11:54 → 2S 15:46 → SUATTDRO 15:46 → 2S 17:00 → 2N 02-21 17:37 → 3E 02-22 04:11